=== PATIENT | male | born 1945 | race Caucasian/White ===

== ENCOUNTER 2016-05-30 05:38 | Day surgery (SDC) | payer MEDICARE ==
[2016-05-30] VITALS (10 sets, daily range): BP systolic 127–207; BP diastolic 79–108; PULSE 48–78; RESP 16–18; TEMP 97.9–98.3; O2SAT 93–98
[~2016-05-30] VITALS: Ht 177.8 cm; Wt 95.5 kg
[~2016-05-30 05:38] MED LIST: ASPI1TAB69 PO; ATOR20TA15 PO; CO-E100C; COPA20KI SQ; FLUT1SPR5 EACH NARE; GABA300C5 PO; METO50TA PO; MULT-65 PO; NIAC1TAB5 PO; NITR0.4S SL; SILE6TAB3 PO; TAMS5CAP PO; VESI10TA PO
[2016-05-30] MEDS ORDERED: NS 1000P @30 MLS/HR (KVO) IV SCH (06:30)
[2016-05-30] MEDS ORDERED: ASPIRIN 325 MG TAB PO SCH (06:45)
[2016-05-30] MEDS: NS 1000P @30 MLS/HR (KVO) IV SCH (06:45)
[2016-05-30] MEDS ORDERED: VITA100021 SL (06:57)
[2016-05-30] MEDS ORDERED: CENTTAB8 PO (06:57)
[2016-05-30] MEDS ORDERED: SLO-500T PO (06:57)
[2016-05-30] MEDS ORDERED: FISH1000 PO (06:57)
[2016-05-30] MEDS ORDERED: FLAX10006 PO (06:57)
[2016-05-30 07:34] LABS: AUTOMATED NEUTROPHIL # 3.2 TH/MM3 (1.8-7.7); BASOPHIL % 0.4 % (0.0-2.0); EOSINOPHIL # 0.2 TH/MM3 (0-0.4); EOSINOPHIL % 3.8 % (0.0-4.0); HEMATOCRIT 45.1 % (39.0-51.0); HEMO FLAGS DIFF FINAL; LYMPH % 32.6 % (9.0-44.0); LYMPHOCYTE # 1.9 TH/MM3 (1.0-4.8); MEAN CELL VOLUME 90.2 FL (80.0-100.0); MEAN CORPUSCULAR HEMOGLOBIN 31.2 PG (27.0-34.0); MEAN CORPUSCULAR HGB CONC 34.6 % (32.0-36.0); MONO % 6.5 % (0.0-8.0); NEUT % 56.7 % (16.0-70.0); PLATELET COUNT 106 TH/MM3 (150-450); RED CELL DISTRIBUTION WIDTH 13.7 % (11.6-17.2); WHITE BLOOD COUNT 5.7 TH/MM3 (4.0-11.0)
[2016-05-30 07:44] LABS: APTT (PATIENT) 28.7 SEC (24.3-30.1)
[2016-05-30 07:50] LABS: BICARBONATE 27.2 MEQ/L (21.0-32.0); POTASSIUM 3.8 MEQ/L (3.5-5.1)
[2016-05-30] MEDS ORDERED: diphenhydrAMINE HCL 50 MG/ML VIAL ONE (08:15)
[2016-05-30] MEDS ORDERED: NITROGLYCERIN 2% OINT 1 GM PACKET ONE (09:08)
[2016-05-30] MEDS ORDERED: HEPARIN SODIUM - IV 10,000 UNITS/10 ML VIAL ONE (09:11)
[2016-05-30] MEDS ORDERED: HEPARIN-NS/PF INJ 500 ML ONE (09:24)
[2016-05-30] MEDS ORDERED: CLOPIDOGREL 300 MG TAB ONE (09:26)
[2016-05-30] MEDS ORDERED: BIVALIRUDIN 250 MG VIAL ONE (09:29)
[2016-05-30] MEDS ORDERED: STERILE WATER FOR INJECTION 10 ML VIAL ONE (09:30)
[2016-05-30] MEDS ORDERED: NIFEdipine 10 MG CAP ONE (10:06)
--- NOTE | 2016-05-30 11:16 | MA ---
cc: WAQAS JAVED M.D. RD LAST DATE: 05/30/2016 PROCEDURE 1. Left heart cath. 2. Coronary arteriogram. 3. Percutaneous transluminal coronary artery stenting of the big mid OM branch of the LCX 80% stenosis, reducing it to 0% residual using a 2.75 x 8 mm drug-eluting Resolute stent. 4. Right femoral arteriogram. 5. Right femoral arteriotomy site closure using a StarClose device. KELP GATHERER Waqas Javed MD. EQUIPMENT USED A 6-Chinese short sheath. This was exchanged to a 7-Chinese 23 cm arrow sheath to overcome significant iliofemoral tortuosity which was affecting cannulating the left main with the guide catheter. A 6-Chinese JL-4, JR-4 diagnostic catheters and a 6-Chinese XB 3.5 and a 4.0 guides. The 3.5 finally cannulated the left main after exchanging the right femoral artery sheath as mentioned before. 0.035 J wire. 0.014 ATW long marker wire. A 2.75 x 8 mm drug-eluting Resolute stent. A StarClose device. INDICATION The indication is dyspnea on exertion and a stress nuclear study showing high risk criteria with transient ischemic dilatation and drop in the LVEF by exercise with multiple areas of anterior apical and lateral ischemia. PROCEDURE After obtaining informed consent the right groin was prepped in the usual sterile fashion. 15 ccs of 1% lidocaine was used for local anesthesia. Using the modified Seldinger technique the right femoral artery was cannulated and a 6-Chinese short sheath was inserted in the right femoral artery and this was exchanged with the longer sheath as mentioned above. Using the above-mentioned diagnostic catheters selective coronary angiograms were performed. This was followed by primary stenting with 80% proximal disease of the mid LCX OM of which a separate description will follow. At the end of the procedure the right femoral system was injected revealing no significant disease and a StarClose device was applied achieving adequate hemostasis. The patient tolerated the procedure well without acute complication at the time of dictation. CARDIAC CATHETERIZATION FINDINGS HEMODYNAMICS Aortic pressure initially was 210/100 mmHg and it came down finally to 152/89 mmHg after 10 mg of Procardia and nitro paste and intermittent nitroglycerin injection intracoronary. CORONARIES Left main artery vicente from left sinus of Valsalva, a distal mild somewhat calcified disease of about 10%. Left circumflex artery at the proximal 30%. A high OM branch had a 40% ostial disease. Mid OM branch has a 80% proximal disease which was stented in this procedure. The circumflex extended distally as a PLV branch with mild diffuse irregularities of less than 30%. It gave a mid atrial branch with mild luminal irregularities of less than 10%. Ramus intermediate artery branch from the left main artery had a proximal 30% and diffuse 30-40% mid disease. Left anterior descending artery branch from the left main artery had diffuse proximal to mid disease ranging between 50-70% with in-stent restenosis. The rest of the LAD had mild diffuse irregularities with less than 30%. It gave diagonal septal branches with second septal trunk had a 40-50% ostial proximal disease. Right coronary artery vicente from right sinus of Valsalva, had a proximal 40% followed by diffuse mid 30% disease. The PDA had a proximal 30% stenosis, diffuse disease in the proximal area ranging between 20-30%, then it bifurcated to an upper and lower branch. The lower branch had an ostial 50-60% stenosis. The PLV branch had a mid 50-60% stenosis and mild luminal irregularities of less than 30%. Left ventriculogram was not performed to compromise on the contrast amounts, because of baseline creatinine of 1.3. CONCLUSION OF CARDIAC CATHETERIZATION 1. Mild to moderate diffuse RCA disease with moderate disease of the PDA and the PLV branches. 2. Significant mid OM disease which was stented in this procedure. 3. Significant proximal to mid LAD, will be dealt with at a later date. 4. It was felt to proceed with revascularization of the LCX OM. I did not want to proceed with revascularization of the LAD as well because of baseline impaired renal function and the need to compromise on the contrast. A total of 135 ccs of contrast was used. REVASCULARIZATION OF THE MID LCX OM An XB 3.5 LAD initially was given by mistake and this was exchanged to an XB 4.0 guide but because of tortuosity in the navajo femoral system, it did not cannulate the left main easy and the 6-Chinese sheath in the right femoral artery was exchanged to a long arrow 23 cm sheath at overcome the tortuosity and then a new XB 6-Chinese guide 3.5 was used to cannulate the left main. Then a 0.014 ATW long marker wire was advanced in the distal portion of the LCX OM. Then primary stenting using a 2.75 x 8-mm Resolute stent was done and inflated to 10 atmospheres. Then the balloon was advanced distal to the stent because of a distal aneurysmal dilatation and inflated again to 16 atmospheres to flare the distal edge of the stent. ([employer] IVUS was not available). The [employer] IVUS catheter tip was felt to be bulkier and with possible harm in negotiating it down the tortuosity and angulation of the LCX OM branch. It was decided to accept these results. The wire was withdrawn and multiple angiographic pictures revealed excellent angiographic results with 0% stenosis and AVTAR grade III distal flow. The patient tolerated the procedure well without acute complication at the time of dictation. MD JOY Faria/CARIDAD /10:17 AM /10:37 AM
[2016-05-30] MEDS ORDERED: NITROGLYCERIN 0.4 MG SL 25 TABS/BTL SL PRN (12:30)
[2016-05-30] MEDS ORDERED: IOHEXOL 350 MG/ML 100 ML BTL (for Cath Lab) OTHER ONE (13:44)
--- NOTE | 2016-05-30 14:40 | EKG ---
Date Performed: 05/30/2016 Time Performed: 06:31:14 PTAGE: 70 years EKG: Sinus bradycardia Possible left anterior fascicular block Borderline ECG Compared to prior tracing no significant change PREVIOUS TRACING : 11/23/2015 19.53 DOCTOR: Santiago Cummings Interpretating Date/Time 05/30/2016 14:37:44
[2016-05-30] MEDS: SODIUM CHLOR 0.9% 1000 ML INJ 1,000 ML IV SCH (17:30)
[2016-05-30] MEDS: NIACIN 500 MG EXTENDED RELEASE TAB PO SCH (20:11)
[2016-05-30] MEDS: ASPIRIN EC 81 MG TABEC PO SCH (20:12)
[2016-05-30] MEDS: METOPROLOL TARTRATE 25 MG TAB PO SCH (20:12)
[2016-05-30] MEDS: TAMSULOSIN HCL 0.4 MG CAP PO SCH (20:15)
[2016-05-31] VITALS (15 sets, daily range): BP systolic 95–169; BP diastolic 64–102; PULSE 47–80; RESP 16; TEMP 97.8–98.1; O2SAT 94–99
[2016-05-31] MEDS ORDERED: cloNIDine HCL 0.1 MG TAB PO ONE ×2 (03:50→04:20)
[2016-05-31] MEDS ORDERED: clonazePAM 1 MG TAB PO ONE (03:50)
[2016-05-31] MEDS ORDERED: ENALAPRIL MALEATE 10 MG TAB PO ONE (06:15)
[2016-05-31] MEDS ORDERED: hydrALAZINE HCL 20 MG/ML VIAL IVS ONE (06:15)
[2016-05-31] MEDS: NS 1000P @30 MLS/HR (KVO) IV SCH (06:45)
[2016-05-31 06:47] LABS: AUTOMATED NEUTROPHIL # 4.7 TH/MM3 (1.8-7.7); BASOPHIL % 0.4 % (0.0-2.0); EOSINOPHIL # 0.2 TH/MM3 (0-0.4); EOSINOPHIL % 3.3 % (0.0-4.0); HEMATOCRIT 42.8 % (39.0-51.0); LYMPH % 25.7 % (9.0-44.0); LYMPHOCYTE # 1.9 TH/MM3 (1.0-4.8); MEAN CORPUSCULAR HEMOGLOBIN 30.7 PG (27.0-34.0); MEAN CORPUSCULAR HGB CONC 34.1 % (32.0-36.0); MONO % 6.8 % (0.0-8.0); NEUT % 63.8 % (16.0-70.0); PLATELET COUNT 98 TH/MM3 (150-450); RED BLOOD COUNT 4.75 MIL/MM3 (4.50-5.90); RED CELL DISTRIBUTION WIDTH 13.8 % (11.6-17.2); WHITE BLOOD COUNT 7.4 TH/MM3 (4.0-11.0)
[2016-05-31 06:56] LABS: HEMO FLAGS AUTO DIFF
[2016-05-31 07:12] LABS: BICARBONATE 27.5 MEQ/L (21.0-32.0); POTASSIUM 4.2 MEQ/L (3.5-5.1)
[2016-05-31 08:21] LABS: OVALOCYTES 1+ (NORMAL); PLATELET ESTIMATE SMEAR LOW (NORMAL); PLATELET MORPHOLOGY NORMAL (NORMAL); SCAN/DIFF AUTO DIFF CONFIRMED
[2016-05-31] MEDS: ASPIRIN EC 81 MG TABEC PO SCH (08:31)
[2016-05-31] MEDS: METOPROLOL TARTRATE 25 MG TAB PO SCH (08:31)
[2016-05-31] MEDS: TAMSULOSIN HCL 0.4 MG CAP PO SCH (08:32)
[2016-05-31] MEDS: NIACIN 500 MG EXTENDED RELEASE TAB PO SCH (08:33)
[2016-05-31] MEDS ORDERED: MULTIVITAMINS/MINERALS THERAPEUTIC TAB PO SCH (09:00)
[2016-05-31] MEDS ORDERED: CYANOCOBALAMIN 1,000 MCG TAB PO SCH (09:00)
[2016-05-31] MEDS ORDERED: TOLTERODINE TARTRATE 4 MG CAP LA PO SCH (09:00)
[2016-05-31] MEDS ORDERED: CLOPIDOGREL 75 MG TAB PO SCH (09:00)
[2016-05-31] MEDS ORDERED: AMLO5TAB2 PO (10:45)
[2016-05-31] MEDS ORDERED: PLAV75TA29 PO (10:45)
[2016-05-31] MEDS: SODIUM CHLOR 0.9% 1000 ML INJ 1,000 ML IV SCH (10:55)
[2016-05-31] MEDS ORDERED: ENALAPRIL MALEATE 10 MG TAB PO SCH (21:00)
[2016-07-16] MEDS ORDERED: VESI10TA PO (10:24)
[2016-09-03] MEDS ORDERED: TAMS5CAP PO ×2 (13:03→13:26)
[2016-09-03] MEDS ORDERED: ASPI-110 PO (13:03)
[2016-09-03] MEDS ORDERED: CENTCHW3 (13:03)
[2016-09-03] MEDS ORDERED: FLAX1000 (13:03)
== END 2016-05-31 14:30 | disposition home or self-care (01) ==
LOC: HDOC 05:38 → HDIC 05:39 → HCIS 16:59 → HDOC 05-31 14:30
PROVIDERS: ATTEND Internal Medicine Interventional Cardiology
DX: R94.30 Abnormal result of cardiovascular function study, unspecified (principal); R06.09 Other forms of dyspnea; I25.10 Atherosclerotic heart disease of native coronary artery without angina pectoris
CPT/HCPCS: 80048; 82550; 85025; 85610; 85730; 92928; 93005; 93454; C1760; C1769; C1874; C1887; C1893; G0269; J0583; J1200; J1644; J3010; J7030; Q9967

== ENCOUNTER 2016-06-02 11:16 | Observation (INO) | payer MEDICARE ==
[2016-06-02] VITALS (7 sets, daily range): BP systolic 108–188; BP diastolic 57–91; PULSE 67–82; RESP 16–20; TEMP 97.6–100.2; O2SAT 94–100
[~2016-06-02] VITALS: Ht 180.3 cm; Wt 95.5 kg
[~2016-06-02 11:16] MED LIST changes: +AMLO5TAB2 PO; -ATOR20TA15 PO; +CENTTAB8 PO; -CO-E100C; -COPA20KI SQ; +FISH1000 PO; +FLAX10006 PO; -FLUT1SPR5 EACH NARE; -GABA300C5 PO; -MULT-65 PO; -NIAC1TAB5 PO; +PLAV75TA29 PO; -SILE6TAB3 PO; +SLO-500T PO; +VITA100021 SL
[2016-06-02] MEDS ORDERED: SODIUM CHLOR 0.9% 1000 ML INJ 1,000 ML IV SCH (11:22)
[2016-06-02 11:46] LABS: AUTOMATED NEUTROPHIL # 11.9 TH/MM3 (1.8-7.7); BASOPHIL % 0.2 % (0.0-2.0); EOSINOPHIL % 0.3 % (0.0-4.0); HEMATOCRIT 44.3 % (39.0-51.0); LYMPHOCYTE # 1.9 TH/MM3 (1.0-4.8); MEAN CORPUSCULAR HEMOGLOBIN 30.8 PG (27.0-34.0); MEAN CORPUSCULAR HGB CONC 33.8 % (32.0-36.0); MONO % 6.7 % (0.0-8.0); NEUT % 79.8 % (16.0-70.0); PLATELET COUNT 97 TH/MM3 (150-450); RED BLOOD COUNT 4.87 MIL/MM3 (4.50-5.90); WHITE BLOOD COUNT 14.9 TH/MM3 (4.0-11.0)
[2016-06-02 11:50] LABS: HEMO FLAGS AUTO DIFF
[2016-06-02 11:56] LABS: APTT (PATIENT) 28.5 SEC (24.3-30.1); INTERNATIONAL NORMALIZED RATIO 1.1 RATIO; PROTHROMBIN TIME - PATIENT 11.7 SEC (9.8-11.6)
[2016-06-02 12:04] LABS: ALT (GPT) 22 U/L (12-78); ANION GAP 11 MEQ/L (5-15); AST (GOT) 35 U/L (15-37); BICARBONATE 24.8 MEQ/L (21.0-32.0); BLOOD UREA NITROGEN 28 MG/DL (7-18); CHLORIDE 104 MEQ/L (98-107); GLOMERULAR FILTRATION RATE 34 ML/MIN (>89); MAGNESIUM 2.1 MG/DL (1.5-2.5); POTASSIUM 3.8 MEQ/L (3.5-5.1); SODIUM (NA) 140 MEQ/L (136-145)
--- NOTE | 2016-06-02 12:09 | RADRPT ---
EXAM DATE/TIME: 06/02/2016 11:43 [facility] COMPARISON: CT BRAIN W/O CONTRAST, November 23, 2015, 20:24. INDICATIONS : Bilateral lower extremity weakness with multiple falls. RADIATION DOSE: 56.40 CTDIvol (mGy) MEDICAL HISTORY : Hypertension. Multiple sclerosis. SURGICAL HISTORY : None. ENCOUNTER: Initial ACUITY: 1 day PAIN SCALE: 0/10 LOCATION: Bilateral head TECHNIQUE: Multiple contiguous axial images were obtained of the head. Using automated exposure control and adj ustment of the mA and/or kV according to patient size, radiation dose was kept as low as reasonably a chievable to obtain optimal diagnostic quality images. FINDINGS: CEREBRUM: The ventricles are normal for age. No evidence of midline shift, mass lesion, hemorrhage or acute in farction. No extra-axial fluid collections are seen. POSTERIOR FOSSA: The cerebellum and brainstem are intact. The 4th ventricle is midline. The cerebellopontine angle i s unremarkable. EXTRACRANIAL: The visualized portion of the orbits is intact. SKULL: The calvaria is intact. No evidence of skull fracture. CONCLUSION: No acute disease. Kim Fowler MD on June 02, 2016 at 12:08 Board Certified Radiologist. This report was verified electronically.
[2016-06-02 12:18] LABS: ALKALINE PHOSPHATASE 95 U/L (45-117); CREATINE KINASE 1067 U/L (39-308); TOTAL BILIRUBIN ADULT 1.3 MG/DL (0.2-1.0)
[2016-06-02 12:24] LABS: PLATELET ESTIMATE SMEAR LOW (NORMAL); PLATELET MORPHOLOGY NORMAL (NORMAL); SCAN/DIFF AUTO DIFF CONFIRMED
[2016-06-02 12:30] LABS: CKMB 7.3 NG/ML (0.5-3.6)
--- NOTE | 2016-06-02 12:35 | RADRPT ---
EXAM DATE/TIME: 06/02/2016 12:56 [facility] COMPARISON: CHEST SINGLE AP, November 23, 2015, 20:12. INDICATIONS : Chest pain post fall MEDICAL HISTORY : Multiple sclerosis. SURGICAL HISTORY : None. ENCOUNTER: Initial ACUITY: 1 day PAIN SCORE: 9/10 LOCATION: Bilateral chest FINDINGS: The lungs appear mildly hypoinflated. There is no evidence of pneumothorax or new focal airspace opac ity. There is persistent area of ill-defined increased density identified in the left lung base and w ithin the medial aspect of the right upper lung. The heart size appears normal. The pulmonary vascula ture demonstrates diffuse cephalization. Osseous structures are unremarkable. CONCLUSION: Findings suggestive of volume overload. No focal air space opacity seen to suggest co ntusion. No evidence of pneumothorax. Kim Fowler MD on June 02, 2016 at 12:32 Board Certified Radiologist. This report was verified electronically.
--- NOTE | 2016-06-02 12:44 | RADRPT ---
EXAM DATE/TIME: 06/02/2016 13:01 [facility] COMPARISON: No previous studies available for comparison. INDICATIONS : Pelvic pain post fall MEDICAL HISTORY : Multiple sclerosis. SURGICAL HISTORY : None. ENCOUNTER: Initial ACUITY: 1 day PAIN SCORE: 9/10 LOCATION: Bilateral pelvis FINDINGS: A single frontal view of the pelvis demonstrates no evidence of fracture. The bony pelvic ring is in tact. Bony mineralization is normal. The soft tissues are intact. CONCLUSION: No acute disease. Kim Fowler MD on June 02, 2016 at 12:42 Board Certified Radiologist. This report was verified electronically.
--- NOTE | 2016-06-02 12:45 | RADRPT ---
EXAM DATE/TIME: 06/02/2016 13:04 [facility] COMPARISON: No previous studies available for comparison. INDICATIONS : Left knee pain post fall MEDICAL HISTORY : Multiple sclerosis. SURGICAL HISTORY : None. ENCOUNTER: Initial ACUITY: 1 day PAIN SCORE: 8/10 LOCATION: Left knee FINDINGS: Four view examination of the left knee demonstrates no evidence of fracture or dislocation. Bony min eralization is normal. The articular surfaces are intact. The suprapatellar soft tissues have a nor mal configuration.CONCLUSION: No acute disease. Kim Fowler MD on June 02, 2016 at 12:42 Board Certified Radiologist. This report was verified electronically.
--- NOTE | 2016-06-02 12:45 | RADRPT ---
EXAM DATE/TIME: 06/02/2016 13:07 [facility] COMPARISON: No previous studies available for comparison. INDICATIONS : Right knee pain, post fall MEDICAL HISTORY : Multiple sclerosis. SURGICAL HISTORY : None. ENCOUNTER: Initial ACUITY: 1 day PAIN SCORE: 10/10 LOCATION: Right knee FINDINGS: Two view examination of the right knee demonstrates no evidence of fracture or dislocation. Bony min eralization is normal. The suprapatellar soft tissues have a normal configuration. CONCLUSION: Unremarkable limited examination of the right knee. Kim Fowler MD on June 02, 2016 at 12:43 Board Certified Radiologist. This report was verified electronically.
[2016-06-02] MEDS ORDERED: ACETAMINOPHEN 325 MG TAB PO ONE (13:00)
--- NOTE | 2016-06-02 13:13 | PD ---
HPI Chief Complaint: Fall Time Seen by Provider: 13:05 Travel History International Travel<30 days: No Contact w/Intl Traveler<30days: No Traveled to known affect area: No History of Present Illness HPI 70-year-old male that presents to the ED for evaluation of fall. Patient has chronic history of MS, recent stenting of the heart about 3 days ago as well as CHF. Patient comes here for evaluation of a fall. Per patient today he woke up with weakness to his legs. Per patient he landed on his knees and try to stop his follow with his legs. Patient couldn't get up because he felt very weak and his legs so he called the ambulance. Ambulance came and brought him here. Patient reports no other complaints. Patient denies given any pain. Per patient he just feels weak in his lower legs. He lives alone. He states that he is currently being treated for his MS. He states that he has had no issues since having the stent placed. He denies any chest pain. No shortness of breath. No headache. No blurry vision. No numbness, tilling, weakness. Per patient he is able to move his legs but whenever he puts weight on and he feels very shaky. He did have an episode something similar like this from her medical records less than a year ago and he was found to have a UTI. He was found to have a fever here in the ED. He denies any cold or cough. No sinus like symptoms. No bowel movement or urinary issues. Allergy to Stephie. PFSH Past Medical History Anxiety: Yes Cancer: No Cardiac Catheterization: Yes (2 days ago 05/31/2016) Cardiovascular Problems: Yes (CAD/STENT) High Cholesterol: Yes Diabetes: No Diminished Hearing: No Endocrine: No Genitourinary: Yes (ENLARGED PROSTATE) Hepatitis: No Hiatal Hernia: No Hypertension: Yes Immune Disorder: No Medical other: Yes (MS) Musculoskeletal: No Neurologic: Yes (MULTIPLE SCLEROSIS) Thyroid Disease: No Tetanus Vaccination: Unknown Influenza Vaccination: Yes Past Surgical History Cardiac Surgery: Yes (RIGHT VASCULAR STENT 2002, CARDIAC CATHERIZATION) Coronary Stent: Yes (2002) Genitourinary Surgery: Yes (SURGERY FOR OPENING OF URETHRA) Oral Surgery: Yes (TOOTH EXTRACTIONS 2008) Pacemaker: No Other Surgery: Yes Social History Alcohol Use: No Tobacco Use: Yes (4 CIGARETTES DAILY) Substance Use: No Allergies-Medications (Allergen,Severity, Reaction): Coded Allergies: Stephie (Verified Allergy, Severe, CAUSES PROSTATE ISSUES, 06/02/16) Reported Meds & Prescriptions Reported Meds & Active Scripts Active Reported Amlodipine (Amlodipine Besylate) 5 Mg Tab 5 Mg PO HS Plavix (Clopidogrel Bisulfate) 75 Mg Tab 75 Mg PO DAILY Slo-Niacin (Niacin) 500 Mg Tab 500 Mg PO BID Vitamin B-12 (Cyanocobalamin) 1,000 Mcg Subl 1,000 Mcg SL DAILY Flaxseed Oil (Flaxseed (Linseed)) 1,000 Mg Cap 1,000 Mg PO DAILY Fish Oil ([place]-3 Fatty Acids) 1,000 Mg Cap 1 Cap PO DAILY Centrum Adults (Multiple Vitamins W/ Minerals) 1 Tab 1 Tab PO DAILY Nitrostat SL (Nitroglycerin) 0.4 Mg Subl 0.4 Mg SL DIRECTED PRN ONE TABLET UNDER THE TONGUE NEEDED FOR CHEST PAIN, MAY REPEAT EVERY FIVE MINUTES FOR A TOTAL OF 3 DOSES OR CALL 911 IF NO RELIEF Aspirin 81 Mg Tabdr 81 Mg PO BID Metoprolol Tartrate 50 Mg Tab 25 Mg PO BID Vesicare (Solifenacin) 10 Mg Tab 10 Mg PO DAILY Flomax (Tamsulosin HCl) 0.4 Mg Cap 0.4 Mg PO BID Review of Systems General / Constitutional: Positive: Fever, No: Chills, Weight Gain, Weight Loss, Other Eyes: No: Diploplia, Blurred Vision, Photophobia, Drainage, Redness, Foreign Body Sensation, Pain, Tearing, Blind Spots, Visual changes, Blindness, Other HENT: No: Headaches, Vertigo, Lightheadedness, Sore Throat, Rhinitis, Rhinorrhea, Congestion, Nosebleed, Neck Stiffness, Neck Pain, Masses, Gingival Bleeding, Dental Difficulties, Ear Discharge, Earache, Other Cardiovascular: No: Chest Pain or Discomfort, Palpitations, Irregular Rhythm, Tachycardia, Diaphoresis, Syncope, Dyspnea on exertion, Varicosities, Edema, Cyanosis, Varicosities, Phlebitis, Claudication, Other Respiratory: No: Cough, Shortness of Breath, Wheezing, Sneezing, Orthopnea, Hemoptysis, Stridor, Night Sweats, Pleuritic Pain, Other Gastrointestinal: No: Nausea, Vomiting, Diarrhea, Abdominal Pain, Hematemesis, Hematochezia, Constipation, Changes in Bowel Habits, Indigestion, Dysphagia, Loss of Appetite, Other Genitourinary: No: Urgency, Frequency, Dysuria, Nocturia, Hematuria, Decreased Urinary Output, Oliguria, Hesitancy, Dribbling, Incontinence, Pelvic Pain, Flank Pain, Dyspareunia, Discharge, Dysmenorrhea, Menorrhagia, Metorrhagia, Vaginal Bleeding, Other Musculoskeletal: Positive: Weakness, No: Myalgias, Arthralgias, Limited ROM, Cramping, Edema, Pain, Atrophy, Other Skin: Positive Lesions (abrasions), No Rash, No Itching, No Dryness, No Lumps, No Hives, No Change in Pigmentation, No Change in nails, No Alopecia, No Breast Lumps, No Breast Tenderness, No Breast Swelling, No Other Neurologic: Positive: Weakness, No: Dizziness, Syncope, Focal Abnormalities, Coordination Problem, Tremor, Ataxia, Headache, Change in Mentation, Slurred Speech, Paresthesia, Incontinence, Seizures, Sensory Disturbance, Other Psychiatric: No: Anxiety, Depression, Suicidal Ideations, Disorder of Thought, Mood Disorder, Substance Abuse, Homicidal Ideation, Other Endocrine: No: Heat Intolerance, Cold Intolerance, Polyuria, Polydipsia, Other Hematologic/Lymphatic: No: Easy Bruising, Lymph Node Enlargement, Other Physical Exam Narrative GENERAL: SKIN: Warm and dry. HEAD: Atraumatic. Normocephalic. EYES: Pupils equal and round 4 mm reactive to light and accommodation. No scleral icterus. No injection or drainage. ENT: No nasal bleeding or discharge. Mucous membranes pink and moist. Tongue is midline. No uvula deviation. NECK: Trachea midline. No JVD. CARDIOVASCULAR: Regular rate and rhythm. No murmurs, S3, S4. RESPIRATORY: No accessory muscle use. Clear to auscultation. Breath sounds equal bilaterally. GASTROINTESTINAL: Abdomen soft, non-tender, nondistended. Hepatic and splenic margins not palpable. MUSCULOSKELETAL: Extremities without clubbing, cyanosis, or edema. No obvious deformities. Full range of motion of the upper and lower extremities bilaterally. 2+ pulses bilaterally. No obvious deformity noted on the lower legs. Patient does have abrasions to the legs on the kneecaps but no obvious deformity. Full range of motion of the hips. No pain on the hips. No lumbar, thoracic, cervical spine tenderness to palpation. No signs of injury to the head. Patient does have 1+ pitting edema on the lower legs which per patient is chronic. No other obvious deformity. Patient does appear to have 5 out of 5 strength in the lower legs but cannot put any weight on them with of being very shaky. NEUROLOGICAL: Awake and alert. No obvious cranial nerve deficits. Motor grossly within normal limits. Five out of 5 muscle strength in the arms and legs. Normal speech. PSYCHIATRIC: Appropriate mood and affect; insight and judgment normal. Data Data Last Documented VS Vital Signs Date Time Temp Pulse Resp B/P Pulse Ox O2 Delivery O2 Flow Rate FiO2 06/02/16 11:27 18 94 Nasal Cannula 2 06/02/16 11:18 100.2 82 142/74 Orders Electrocardiogram (06/02/16 11:22) Complete Blood Count With Diff (06/02/16 11:22) Comprehensive Metabolic Panel (06/02/16 11:22) Ckmb (Isoenzyme) Profile (06/02/16 11:22) Troponin I (06/02/16 11:22) Prothrombin Time / Inr (Pt) (06/02/16 11:22) Act Partial Throm Time (Ptt) (06/02/16 11:22) Urinalysis - C+S If Indicated (06/02/16 11:22) Magnesium (Mg) (06/02/16 11:22) Thyroid Stimulating Hormone (06/02/16 11:22) Chest, Single Ap (06/02/16 11:22) Ct Brain W/O Iv Contrast(Rout) (06/02/16 11:22) Iv Access Insert/Monitor (06/02/16 11:22) Ecg Monitoring (06/02/16 11:22) Oximetry (06/02/16 11:22) Knee, Ltd (1 Or 2vws) (06/02/16 ) Knee, Complete (4vws) (06/02/16 ) Pelvis, Ap Only (Routine) (06/02/16 ) Sodium Chlor 0.9% 1000 Ml Inj (Ns 1000 M (06/02/16 11:22) Lactic Acid (06/02/16 11:27) Blood Culture (06/02/16 11:27) CKMB (06/02/16 11:25) CKMB% (06/02/16 11:25) Cath For Specimen (06/02/16 12:27) Acetaminophen (Tylenol) (06/02/16 13:00) Admit Order (Ed Use Only) (06/02/16 13:03) Labs Laboratory Tests Test 06/02/16 11:25 White Blood Count 14.9 TH/MM3 Red Blood Count 4.87 MIL/MM3 Hemoglobin 15.0 GM/DL Hematocrit 44.3 % Mean Corpuscular Volume 91.0 FL Mean Corpuscular Hemoglobin 30.8 PG Mean Corpuscular Hemoglobin 33.8 % Concent Red Cell Distribution Width 14.0 % Platelet Count 97 TH/MM3 Mean Platelet Volume 8.4 FL Neutrophils (%) (Auto) 79.8 % Lymphocytes (%) (Auto) 13.0 % Monocytes (%) (Auto) 6.7 % Eosinophils (%) (Auto) 0.3 % Basophils (%) (Auto) 0.2 % Neutrophils # (Auto) 11.9 TH/MM3 Lymphocytes # (Auto) 1.9 TH/MM3 Monocytes # (Auto) 1.0 TH/MM3 Eosinophils # (Auto) 0.0 TH/MM3 Basophils # (Auto) 0.0 TH/MM3 CBC Comment AUTO DIFF Differential Comment AUTO DIFF CONFIRMED Platelet Estimate LOW Platelet Morphology Comment NORMAL Prothrombin Time 11.7 SEC Prothromb Time International 1.1 RATIO Ratio Activated Partial 28.5 SEC Thromboplast Time Sodium Level 140 MEQ/L Potassium Level 3.8 MEQ/L Chloride Level 104 MEQ/L Carbon Dioxide Level 24.8 MEQ/L Anion Gap 11 MEQ/L Blood Urea Nitrogen 28 MG/DL Creatinine 1.94 MG/DL Estimat Glomerular Filtration 34 ML/MIN Rate Random Glucose 106 MG/DL Lactic Acid Level 1.7 mmol/L Calcium Level 8.9 MG/DL Magnesium Level 2.1 MG/DL Total Bilirubin 1.3 MG/DL Aspartate Amino Transf 35 U/L (AST/SGOT) Alanine Aminotransferase 22 U/L (ALT/SGPT) Alkaline Phosphatase 95 U/L Total Creatine Kinase 1067 U/L Creatine Kinase MB 7.3 NG/ML Creatine Kinase MB % 0.7 % Troponin I 0.05 NG/ML Total Protein 7.1 GM/DL Albumin 3.5 GM/DL Thyroid Stimulating Hormone 0.535 uIU/ML 3rd Gen [facility] Medical Decision Making Medical Screen Exam Complete: Yes Emergency Medical Condition: Yes Medical Record Reviewed: Yes Interpretation(s) CBC & BMP Diagram 06/02/16 11:25 EKG shows sinus rhythm with no sign of acute ischemia or arrhythmia. Read by me and attending. Troponin negative. CK in the 1000. LFTs and lipase within normal limits. Last Impressions Head CT 06/02/16 1122 Signed Impressions: Service Date/Time: Thursday, June 02, 2016 11:43 - CONCLUSION: No acute disease. Kim Fowler MD Chest X-Ray 06/02/16 1122 Signed Impressions: Service Date/Time: Thursday, June 02, 2016 12:56 - CONCLUSION: Findings suggestive of volume overload. No focal air space opacity seen to suggest contusion. No evidence of pneumothorax. iKm Fowler MD Pelvis X-Ray 06/02/16 0000 Signed Impressions: Service Date/Time: Thursday, June 02, 2016 13:01 - CONCLUSION: No acute disease. Kim Fowler MD Knee X-Ray 06/02/16 0000 Signed Impressions: Service Date/Time: Thursday, June 02, 2016 13:04 - CONCLUSION: No acute disease. Kim Fowler MD Knee X-Ray 06/02/16 0000 Signed Impressions: Service Date/Time: Thursday, June 02, 2016 13:07 - CONCLUSION: Unremarkable limited examination of the right knee. Kim Fowler MD Differential Diagnosis Sepsis versus generalized weakness versus MS flare versus UTI versus coronary artery disease versus electrolyte abnormality versus fracture versus head injury Narrative Course 70-year-old male that presents to the ED for evaluation of fall. Patient was properly examined and was found to have signs and symptoms consistent appears to be generalized weakness to the lower legs. Unclear etiology this time. Patient does have significant history of MS and multiple other disorders. Patient does have a heart stent. She denies any chest pain or shortness of breath. Patient has a resting tach. No head injury although he does take blood thinners. At this time a recommendation is for labs and imaging. Patient is agreeable with this plan. Patient was given IV fluids. Patient on examination was found to have a fever of 100.3. Patient was given Tylenol for this. I did review his medical records and he did have a similar episode recently where he was found to have a UTI he had same presentation. Labs and imaging here show an elevated white blood cell count as well as CK as well as abnormal renal function which appears to be chronic for him and some fluid in the lungs. At this time a recommendation is for admission as patient lives by himself and cannot ambulate on his own. Urine still pending at this time. Order has been placed for to be performed to get urine sample which I believe will likely be positive. Case discussed in my attending who agrees with plan. Case was discussed with Dr. Bonner for the resident team and agrees to admission. Procedures EKG Prior to Arrival: No Diagnosis Primary Impression: Lower extremity weakness Qualified Code: R29.898 - Weakness of both lower extremities Additional Impressions: Fluid overload Qualified Code: E87.70 - Hypervolemia, unspecified hypervolemia type Fever Qualified Code: R50.9 - Fever, unspecified fever cause Leukocytosis Qualified Code: D72.829 - Leukocytosis, unspecified type Admitting Information Admitting Physician Requests: Admit Mark Burgos Jun 02, 2016 13:13
--- NOTE | 2016-06-02 13:21 | HHI.HP ---
HPI Service Family Medicine Primary Care Physician Marli Pltaa MD Admission Diagnosis generalized weakness, UTI, CHF Diagnoses: International Travel<30 Days: No Contact w/Intl Traveler<30days: No Known Affected Area: No History of Present Illness Mr. Cullen is a 70 y/o CM with a PMHx of BPH, MS, and CAD s/p stent placement presents with BL LE weakness with a fall. He states that this morning while using his walker to get from his bed to the bathroom his legs felt weaker than his baseline. After urinating, he attempted to grab his walker when he accidently pushed it away from him as the brakes were not locked. This caused him to fall forward on to his knees. He did not lose consciousness during the fall and denies any seizure like activity such as incontinence, tongue biting, or post-ictal state. He immediately tried to get up, but had difficulty lifting himself up. He finally made it up to his walker and called 911. He was brought by EMS to the ED for further evaluation. He feels that this episode of weakness is similar to when he was diagnosed with MS in 2001. During that time he had weakness in the BL LE, but states this episode is worse in severity. He does not endorse any pain in his legs, but just states they "feel like jello." He does have sensation throughout both legs as well, but is unable to bare any weight due to imbalance. He states that he has been doing well after his recent cardiac stent placement on 05/30/16. He has no other complaints and denies any fevers, chills, diaphoresis, SOB, chest pain , NVD, dysuria, or BL calf tenderness. He is a patient of Dr. Plata at the [facility]. Review of Systems Constitutional: DENIES: Fever, Chills, Dizziness Eyes: DENIES: Blurred vision, Photosensitivity Ears, nose, mouth, throat: DENIES: Throat pain, Running Nose Respiratory: DENIES: Cough, Shortness of breath Cardiovascular: DENIES: Chest pain, Palpitations Gastrointestinal: DENIES: Abdominal pain, Diarrhea, Nausea, Vomiting Genitourinary: DENIES: Dysuria Musculoskeletal: DENIES: Joint pain Integumentary: DENIES: Rash Hematologic/lymphatic: DENIES: Lymphadenopathy Neurologic: COMPLAINS OF: Poor Balance, DENIES: Headache, Paresthesias, Seizures Psychiatric: DENIES: Mood changes Past Family Social History Past Medical History CAD, stents (2002, 2016) - Dr. 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 DC at 65yo. Paternal grandmother- CAD Sister - DM Social History Retired from [employer]. Lives by himself in [facility]. Smoking - Extensive prior history, Quit 1 month ago Alcohol - Last drink in 2005 Illicit - None Other Physicians: Urology: Dr Feliciano Cardiology: Dr Hanna Neurology: Dr Scott GI (screening Colonoscopy): Dr Whalen Physical Exam Vital Signs Vital Signs Date Time Temp Pulse Resp B/P Pulse Ox O2 Delivery O2 Flow Rate FiO2 06/02/16 11:27 18 94 Nasal Cannula 2 06/02/16 11:27 96 Nasal Cannula 2 06/02/16 11:18 100.2 82 18 142/74 94 Physical Exam GENERAL: WN, WD CM lying in bed in NAD. SKIN: No rashes, ecchymoses, lesions or signs of trauma. Cool and dry. HEENT: AT, NC with EOMI. PERRLA. Oropharnx with white/yellow film on tongue, BL buccal mucosa, and posterior pharynx that is easily removable without hemorrhage. No tonsillar swelling, erythema, or exudate. MMM with midline uvula. No LAD or rhinorrhea. CARDIOVASCULAR: Regular rate and rhythm without murmurs, gallops, or rubs. RESPIRATORY: CTAB with no CRW. No increased WOB currently on 2L NC. GASTROINTESTINAL: Abdomen soft, non-tender, nondistended with +BS. No masses appreciated. MUSCULOSKELETAL: Extremities without cyanosis or edema. No joint tenderness, effusion, or edema noted. No calf tenderness. BL LE: No signs of trauma, ecchymosis, or hemorrhage on inspection. No edema appreciated BL. Proximal muscle weakness on straight leg raise BL to 2+/5. Knee flexion/extension and ankle flexion/extension 5/5 in strength. Reflexes 2+ with normal Babinski. DP and PT pulses 2+ with sensation intact. Patient unable to walk due to imbalance. NEUROLOGICAL: AAOx3. Cranial nerves II through XII intact. Motor and sensory grossly within normal limits. Normal speech. Laboratory Laboratory Tests Test 06/02/16 11:25 White Blood Count 14.9 Red Blood Count 4.87 Hemoglobin 15.0 Hematocrit 44.3 Mean Corpuscular Volume 91.0 Mean Corpuscular Hemoglobin 30.8 Mean Corpuscular Hemoglobin 33.8 Concent Red Cell Distribution Width 14.0 Platelet Count 97 Mean Platelet Volume 8.4 Neutrophils (%) (Auto) 79.8 Lymphocytes (%) (Auto) 13.0 Monocytes (%) (Auto) 6.7 Eosinophils (%) (Auto) 0.3 Basophils (%) (Auto) 0.2 Neutrophils # (Auto) 11.9 Lymphocytes # (Auto) 1.9 Monocytes # (Auto) 1.0 Eosinophils # (Auto) 0.0 Basophils # (Auto) 0.0 CBC Comment AUTO DIFF Differential Comment AUTO DIFF CONFIRMED Platelet Estimate LOW Platelet Morphology Comment NORMAL Prothrombin Time 11.7 Prothromb Time International 1.1 Ratio Activated Partial 28.5 Thromboplast Time Sodium Level 140 Potassium Level 3.8 Chloride Level 104 Carbon Dioxide Level 24.8 Anion Gap 11 Blood Urea Nitrogen 28 Creatinine 1.94 Estimat Glomerular Filtration 34 Rate Random Glucose 106 Lactic Acid Level 1.7 Calcium Level 8.9 Magnesium Level 2.1 Total Bilirubin 1.3 Aspartate Amino Transf 35 (AST/SGOT) Alanine Aminotransferase 22 (ALT/SGPT) Alkaline Phosphatase 95 Total Creatine Kinase 1067 Creatine Kinase MB 7.3 Creatine Kinase MB % 0.7 Troponin I 0.05 Total Protein 7.1 Albumin 3.5 Thyroid Stimulating Hormone 0.535 3rd Gen Date/Time Procedure Status Source Growth 06/02/16 11:25 Aerobic Blood Culture Received Blood Peripheral Pending 06/02/16 11:25 Anaerobic Blood Culture Received Blood Peripheral Pending Result Diagram: 06/02/16 1125 06/02/16 1125 Imaging Last [address] 06/02/16 1122 Signed Impressions: Service Date/Time: Thursday, June 02, 2016 11:43 - CONCLUSION: No acute disease. Kim Fowler MD Chest X-Ray 06/02/16 1122 Signed Impressions: Service Date/Time: Thursday, June 02, 2016 12:56 - CONCLUSION: Findings suggestive of volume overload. No focal air space opacity seen to suggest contusion. No evidence of pneumothorax. Kim Fowler MD Pelvis X-Ray 06/02/16 0000 Signed Impressions: Service Date/Time: Thursday, June 02, 2016 13:01 - CONCLUSION: No acute disease. Kim Fowler MD Knee X-Ray 06/02/16 0000 Signed Impressions: Service Date/Time: Thursday, June 02, 2016 13:04 - CONCLUSION: No acute disease. Kim Fowler MD Knee X-Ray 06/02/16 0000 Signed Impressions: Service Date/Time: Thursday, June 02, 2016 13:07 - CONCLUSION: Unremarkable limited examination of the right knee. Kim Fowler MD Assessment and Plan Assessment and Plan Mr. Cullen is a 70 y/o CM with a PMHx of MS presents with BL LE weakness with a fall. Code Status DNR Discussed Condition With Dr. Guzman, ER Physician Mr. Burgos, ER PA Dr. Tia Bonner Problem List: (1) Urinary tract infection Status: Acute Plan: Per chart review, patient with previous history of UTIs presenting with low-grade fever to 100.2 and leukocytosis to 14.9. Patient currently denies any dysuria, hematuria, or foul-smelling urine. Patient unable to void on command. Team to order straight catheter for UA/UC. Patient followed by Dr. Feliciano, urology, for BPH s/p TURP. CBC: WBC 14.9 CMP: BUN 28, creatinine 1.94 Lactic acid: 1.7 UA: Moderate occult blood, positive nitrite, large leukocyte esterase, 103 white blood cells, moderate bacteria, occasional budding yeast UC 06/02: Pending BC 2 06/02: Pending Rocephin 1 g daily Without improvement, consider fluconazole for possible candiduria Normal saline at 80 mL per hour; Patient does not appear to be volume over loaded on exam, continue to monitor for possible fluid overload Team to monitor urinary output with bladder scans as needed. Consider urinary catheter placement if patient continues to not be able to void. Medications: Rocephin 1 g daily Tamsulosin 0.4 mg twice a day Vesicare 10 mg daily (2) Leukocytosis Status: Acute Plan: Please see plan as above (3) Fever Status: Acute Plan: Please see plan as above (4) Elevated serum creatinine Status: Acute Plan: Patient presenting with creatinine with baseline renal insufficiency. Patient recently had IV contrast during his cardiac catheterization possibly contributing to his creatinine elevation with decreased fluid intake. CK 1367, however patient denies any muscle pain currently. Lowest recent creatinine was 1.23 on 11/24/15. BUN: 28 Creatinine: 1.94 CK: 1067 Normal saline at 80 mL per hour (5) Oral candidiasis Status: Acute Plan: Patient presenting with oral candidiasis on exam. Nystatin (swish and swallow) 4 times a day HIV antibody screen: Pending (6) S/P cardiac cath Status: Acute Plan: Patient with recent cardiac catheterization with stent placement on . Patient reports he is doing well postop and denies any chest pain, diaphoresis, palpitations, or shortness of breath. EKG: Per medical team's read, normal sinus rhythm with appropriate intervals. 2 pending Troponins: 0.05, 2 pending CK: 1067 CK-MB: 7.3, 2 pending BNP: 69 Medications: Metoprolol 25 mg twice a day Plavix 75 mg daily Aspirin 81 mg twice a day Amlodipine 5 mg daily at bedtime (7) Multiple sclerosis Status: Acute Plan: Patient with history of multiple sclerosis presenting with weakness in the bilateral lower extremities. Neurologic exam benign except for 2+/5 strength at the hips on physical exam. Continue to monitor for improvement with treatment of UTI Consider IV methylprednisolone to treat exacerbation without patient improvement (8) Fall at home Status: Acute Plan: Patient currently living at home unassisted with recent fall. Denies any seizure-like activity or loss of consciousness during fall. Head CT: No acute disease Chest x-ray: Findings suggestive of volume overload. No focal airspace opacity seen to suggest contusion. No evidence of pneumothorax. Pelvis x-ray: No acute disease Right knee x-ray: Unremarkable Limited examination of the right knee Left knee x-ray: Unremarkable Limited examination of the left knee (9) Nutrition, metabolism, and development symptoms Status: Acute Plan: Fluids: Normal saline at 80 mL per hour Diet: Regular as tolerated DVT: Heparin 5000 units twice a day Prophylaxis: Tylenol when necessary for fever, Zofran when necessary for nausea or vomiting, Dulcolax suppository when necessary for constipation Physician Certification 2 Midnight Certification Type: Admission for Inpatient Services Order for Inpatient Services The services are ordered in accordance with Medicare regulations or non- Medicare payer requirements, as applicable. In the case of services not specified as inpatient-only, they are appropriately provided as inpatient services in accordance with the 2-midnight benchmark. Estimated LOS (days): 3 3 days is the estimated time the patient will need to remain in the hospital, assuming treatment plan goals are met and no additional complications. Post-Hospital Plan: Home Problem Qualifiers (1) Urinary tract infection: Qualified Code: N30.00 - Acute cystitis without hematuria (2) Leukocytosis: Qualified Code: D72.829 - Leukocytosis, unspecified type (3) Fever: Qualified Code: R50.9 - Fever, unspecified fever cause Cirilo Silveira MD R1 Jun 02, 2016 13:21
--- NOTE | 2016-06-02 13:39 | PD ---
Physical Exam Date Seen by Provider: Jun 02, 2016 Time Seen by Provider: 13:00 Narrative 70-year-old woman with a history of multiple sclerosis who status post cardiac catheter and stent placement 2 days ago, presents today with complaint of generalized weakness with falls. The patient states since coming home, he is so weak that he is unable to care for self. The patient denies any fevers, chills. Patient denies any chest pain, chest pressure. Data Data Last Documented VS Vital Signs Date Time Temp Pulse Resp B/P Pulse Ox O2 Delivery O2 Flow Rate FiO2 06/02/16 11:27 18 94 Nasal Cannula 2 06/02/16 11:18 100.2 82 142/74 Orders Electrocardiogram (06/02/16 11:22) Complete Blood Count With Diff (06/02/16 11:22) Comprehensive Metabolic Panel (06/02/16 11:22) Ckmb (Isoenzyme) Profile (06/02/16 11:22) Troponin I (06/02/16 11:22) Prothrombin Time / Inr (Pt) (06/02/16 11:22) Act Partial Throm Time (Ptt) (06/02/16 11:22) Urinalysis - C+S If Indicated (06/02/16 11:22) Magnesium (Mg) (06/02/16 11:22) Thyroid Stimulating Hormone (06/02/16 11:22) Chest, Single Ap (06/02/16 11:22) Ct Brain W/O Iv Contrast(Rout) (06/02/16 11:22) Iv Access Insert/Monitor (06/02/16 11:22) Ecg Monitoring (06/02/16 11:22) Oximetry (06/02/16 11:22) Knee, Ltd (1 Or 2vws) (06/02/16 ) Knee, Complete (4vws) (06/02/16 ) Pelvis, Ap Only (Routine) (06/02/16 ) Sodium Chlor 0.9% 1000 Ml Inj (Ns 1000 M (06/02/16 11:22) Lactic Acid (06/02/16 11:27) Blood Culture (06/02/16 11:27) CKMB (06/02/16 11:25) CKMB% (06/02/16 11:25) Cath For Specimen (06/02/16 12:27) Acetaminophen (Tylenol) (06/02/16 13:00) Admit Order (Ed Use Only) (06/02/16 13:03) Labs Laboratory Tests Test 06/02/16 11:25 White Blood Count 14.9 TH/MM3 Red Blood Count 4.87 MIL/MM3 Hemoglobin 15.0 GM/DL Hematocrit 44.3 % Mean Corpuscular Volume 91.0 FL Mean Corpuscular Hemoglobin 30.8 PG Mean Corpuscular Hemoglobin 33.8 % Concent Red Cell Distribution Width 14.0 % Platelet Count 97 TH/MM3 Mean Platelet Volume 8.4 FL Neutrophils (%) (Auto) 79.8 % Lymphocytes (%) (Auto) 13.0 % Monocytes (%) (Auto) 6.7 % Eosinophils (%) (Auto) 0.3 % Basophils (%) (Auto) 0.2 % Neutrophils # (Auto) 11.9 TH/MM3 Lymphocytes # (Auto) 1.9 TH/MM3 Monocytes # (Auto) 1.0 TH/MM3 Eosinophils # (Auto) 0.0 TH/MM3 Basophils # (Auto) 0.0 TH/MM3 CBC Comment AUTO DIFF Differential Comment AUTO DIFF CONFIRMED Platelet Estimate LOW Platelet Morphology Comment NORMAL Prothrombin Time 11.7 SEC Prothromb Time International 1.1 RATIO Ratio Activated Partial 28.5 SEC Thromboplast Time Sodium Level 140 MEQ/L Potassium Level 3.8 MEQ/L Chloride Level 104 MEQ/L Carbon Dioxide Level 24.8 MEQ/L Anion Gap 11 MEQ/L Blood Urea Nitrogen 28 MG/DL Creatinine 1.94 MG/DL Estimat Glomerular Filtration 34 ML/MIN Rate Random Glucose 106 MG/DL Lactic Acid Level 1.7 mmol/L Calcium Level 8.9 MG/DL Magnesium Level 2.1 MG/DL Total Bilirubin 1.3 MG/DL Aspartate Amino Transf 35 U/L (AST/SGOT) Alanine Aminotransferase 22 U/L (ALT/SGPT) Alkaline Phosphatase 95 U/L Total Creatine Kinase 1067 U/L Creatine Kinase MB 7.3 NG/ML Creatine Kinase MB % 0.7 % Troponin I 0.05 NG/ML Total Protein 7.1 GM/DL Albumin 3.5 GM/DL Thyroid Stimulating Hormone 0.535 uIU/ML 3rd Gen [facility] Medical Record Reviewed: Yes Supervised Visit with JOSE L: Yes Narrative Course The patient was seen with the PA, Hernandez Burgos. Patient status post coronary artery stenting with CHF. He presents here with generalized weakness lower extremity weakness, fever, difficulty ambulating and caring for self. Patient is fluid overloaded on a exam. He also is noted to have a white blood cell count. There is no obvious source for his fever. He will be admitted to the resident service. They have come down to see the patient. I, Dr. Guzman, have reviewed the advance practice practitioner's documentation and am in agreement, met with the patient face to face, made the diagnosis, and the medical decision making was done by me. *My assessment and Findings: Lower extremity weakness, fever, fluid retention, leukocytosis. Diagnosis Primary Impression: Lower extremity weakness Qualified Code: R29.898 - Weakness of both lower extremities Additional Impressions: Fever Qualified Code: R50.9 - Fever, unspecified fever cause Leukocytosis Qualified Code: D72.829 - Leukocytosis, unspecified type Fluid overload Qualified Code: E87.70 - Hypervolemia, unspecified hypervolemia type José Miguel Guzman MD Jun 02, 2016 13:39
[2016-06-02] MEDS ORDERED: NALOXONE HCL 0.4 MG/ML AMP IV PRN (14:30)
[2016-06-02] MEDS ORDERED: SODIUM CHLORIDE 0.9% FLUSH 10 ML FLUSH IV FLUSH PRN (14:30)
[2016-06-02] MEDS ORDERED: ONDANSETRON HCL 4 MG/2 ML VIAL IVP PRN (14:30)
[2016-06-02] MEDS ORDERED: BISACODYL 10 MG SUPP PR PRN (14:30)
[2016-06-02] MEDS ORDERED: ACETAMINOPHEN 325 MG TAB PO PRN (14:30)
[2016-06-02] MEDS: SODIUM CHLOR 0.9% 1000 ML INJ 1,000 ML IV SCH (15:24)
[2016-06-02] MEDS: HEPARIN SODIUM - SQ 10,000 UNITS/ML VIAL SQ SCH (15:24)
[2016-06-02 15:49] LABS: BACTERIA, URINE MOD /hpf; BLOOD, URINE MOD (NEG); COMMENT (UR) CATH-CULTURE IND; CULTURE IF INDICATED CATH CULTURE IND; GLUCOSE,URINE NEG (NEG); KETONE, URINE NEG (NEG); MUCUS URINE FEW /lpf (OCC); NITRITE,URINE POS (NEG); PH, URINE 5.5 (5.0-8.5); URINE COLOR YELLOW (YELLW/STRAW)
[2016-06-02] MEDS ORDERED: cefTRIAXone INJ 1,000 MG in SODIUM CHLORIDE 0.9% INJ 100 ML IV SCH (17:00)
[2016-06-02] MEDS: NYSTATIN SUSP 500,000 U/5 ML CUP SWISH-SWAL SCH ×2 (18:36→23:44)
[2016-06-02] MEDS ORDERED: amLODIPine BESYLATE 5 MG TAB PO SCH (21:00)
[2016-06-02] MEDS: SODIUM CHLORIDE 0.9% FLUSH 10 ML FLUSH IV FLUSH SCH (21:00)
[2016-06-02] MEDS: TAMSULOSIN HCL 0.4 MG CAP PO SCH (23:42)
[2016-06-02] MEDS: ASPIRIN EC 81 MG TABEC PO SCH (23:42)
[2016-06-02] MEDS: METOPROLOL TARTRATE 25 MG TAB PO SCH (23:42)
[2016-06-03] MEDS: HEPARIN SODIUM - SQ 10,000 UNITS/ML VIAL SQ SCH (04:19)
[2016-06-03] MEDS: SODIUM CHLOR 0.9% 1000 ML INJ 1,000 ML IV SCH (04:20)
[2016-06-03 05:11] LABS: AUTOMATED NEUTROPHIL # 7.8 TH/MM3 (1.8-7.7); BASOPHIL % 0.4 % (0.0-2.0); EOSINOPHIL # 0.2 TH/MM3 (0-0.4); EOSINOPHIL % 2.1 % (0.0-4.0); HEMATOCRIT 41.1 % (39.0-51.0); LYMPHOCYTE # 1.5 TH/MM3 (1.0-4.8); MEAN CELL VOLUME 91.7 FL (80.0-100.0); MEAN CORPUSCULAR HEMOGLOBIN 31.1 PG (27.0-34.0); MEAN CORPUSCULAR HGB CONC 33.9 % (32.0-36.0); MONO % 5.9 % (0.0-8.0); NEUT % 76.6 % (16.0-70.0); PLATELET COUNT 79 TH/MM3 (150-450); RED BLOOD COUNT 4.48 MIL/MM3 (4.50-5.90); RED CELL DISTRIBUTION WIDTH 13.9 % (11.6-17.2); WHITE BLOOD COUNT 10.1 TH/MM3 (4.0-11.0)
[2016-06-03 05:20] LABS: HEMO FLAGS AUTO DIFF
[2016-06-03 05:56] VITALS: BP 165/80; PULSE 70; RESP 18; TEMP 97.7; O2SAT 96
[2016-06-03 06:06] LABS: ALKALINE PHOSPHATASE 86 U/L (45-117); ALT (GPT) 22 U/L (12-78); ANION GAP 9 MEQ/L (5-15); AST (GOT) 51 U/L (15-37); BICARBONATE 25.1 MEQ/L (21.0-32.0); BLOOD UREA NITROGEN 26 MG/DL (7-18); CHLORIDE 105 MEQ/L (98-107); GLOMERULAR FILTRATION RATE 50 ML/MIN (>89); POTASSIUM 4.3 MEQ/L (3.5-5.1); SODIUM (NA) 139 MEQ/L (136-145); TOTAL BILIRUBIN ADULT 0.8 MG/DL (0.2-1.0)
[2016-06-03 07:14] LABS: PLATELET ESTIMATE SMEAR LOW (NORMAL)
[2016-06-03 07:15] LABS: PLATELET MORPHOLOGY NORMAL (NORMAL); SCAN/DIFF AUTO DIFF CONFIRMED
[2016-06-03 08:25] VITALS: BP 180/82; PULSE 69; RESP 16; TEMP 97.8; O2SAT 98
[2016-06-03] MEDS: SODIUM CHLORIDE 0.9% FLUSH 10 ML FLUSH IV FLUSH SCH (09:00)
[2016-06-03] MEDS ORDERED: CLOPIDOGREL 75 MG TAB PO SCH (09:00)
[2016-06-03] MEDS ORDERED: TOLTERODINE TARTRATE 4 MG CAP LA PO SCH (09:00)
[2016-06-03] MEDS: ASPIRIN EC 81 MG TABEC PO SCH (09:14)
[2016-06-03] MEDS: TAMSULOSIN HCL 0.4 MG CAP PO SCH (09:15)
[2016-06-03] MEDS: NYSTATIN SUSP 500,000 U/5 ML CUP SWISH-SWAL SCH ×2 (09:15→13:00)
[2016-06-03] MEDS: METOPROLOL TARTRATE 25 MG TAB PO SCH (09:15)
[2016-06-03 09:30] VITALS: BP 150/82
[2016-06-03 11:33] VITALS: BP 162/77; PULSE 69; RESP 16; TEMP 100.2; O2SAT 95
[2016-06-03] MEDS ORDERED: CIPR500T2 PO (12:37)
--- NOTE | 2016-06-03 12:38 | HHI.DCPOC ---
Discharge Care Plan Diagnosis: (1) UTI (urinary tract infection) Goals to Promote Your Health * To prevent worsening of your condition and complications * To maintain your health at the optimal level Directions to Meet Your Goals Take your medications as prescribed Follow your dietary instruction Follow activity as directed Keep your appointments as scheduled Take your immunizations and boosters as scheduled If your symptoms worsen call your PCP, if no PCP go to Urgent Care Center or Emergency Room Smoking is Dangerous to Your Health. Avoid second hand smoke Call the 24-hour hour crisis hotline for domestic abuse at Kodak Avila MD R3 Jun 03, 2016 12:38
--- NOTE | 2016-06-03 12:39 | HHI.FF ---
Face to Face Verification Diagnosis: (1) UTI (urinary tract infection) (2) Fall at home (3) Multiple sclerosis Physical Therapy Order: Evaluate and Treat, Improve ambulation, Strength and gait training Home Health Nursing Order: Medical education Signs/symptoms of disease process Nursing assessment with vital signs I have seen patient Amador Cullen on 06/03/16. My clinical findings support the need for the requested home health care services because: Ltd mobility - disease progression Deconditioned w/ increased weakness High risk of falls I certify that my clinical findings support that this patient is homebound because: Unsteady gait/balance Kodak Avila MD R3 Jun 03, 2016 12:39
--- NOTE | 2016-06-03 13:07 | HHI.HP ---
[facility] Service Family Medicine Primary Care Physician Marli Plata MD Admission Diagnosis generalized weakness, UTI, CHF Diagnoses: (1) Urinary tract infection Diagnosis: Principal (2) Leukocytosis Diagnosis: Secondary (3) Fever Diagnosis: Secondary (4) Elevated serum creatinine Diagnosis: Principal (5) Oral candidiasis Diagnosis: Principal (6) S/P cardiac cath Diagnosis: Principal (7) Multiple sclerosis Diagnosis: Principal (8) Fall at home Diagnosis: Principal (9) Nutrition, metabolism, and development symptoms Diagnosis: Principal International Travel<30 Days: No Contact w/Intl Traveler<30days: No Known Affected Area: No History of Present Illness Mr. Cullen is a 70 y/o CM with a PMHx of BPH, MS, and CAD s/p stent placement who presented with BL LE weakness with a fall at home. He states that this morning while using his walker to get from his bed to the bathroom his legs felt weaker than his baseline. After urinating, he attempted to grab his walker when he accidently pushed it away from him as the brakes were not locked. This caused him to fall forward on to his knees. He did not lose consciousness during the fall and denies any seizure like activity such as incontinence, tongue biting, or post-ictal state. He immediately tried to get up , but had difficulty lifting himself up. He finally made it up to his walker and called 911. He was brought by EMS to the ED for further evaluation. He feels that this episode of weakness is similar to when he was diagnosed with MS in 2001. During that time he had weakness in the BL LE, but states this episode is worse in severity. He does not endorse any pain in his legs, but just states they "feel like jello." He does have sensation throughout both legs as well, but is unable to bear any weight due to imbalance. He states that he has been doing well after his recent cardiac stent placement on 05/30/16. He has no other complaints and denies any fevers, chills, diaphoresis, SOB, chest pain , NVD, dysuria, or BL calf tenderness. He is a patient of Dr. Plata at the [facility]. He was diagnosed with a UTI and was treated with abx and is doing very well this am. He feels stronger and back to normal. He did well with PT who feels he is ready to go home with [facility]. Mr Subhash was up walking in his room with a chair being used as a walker. He has 2 sisters that live nearby and he says they will help him at home. He has not had urinary retention but incontinence which is not unusual with MS. Review of Systems Other Constitutional: DENIES: Fever, Chills, Dizziness Eyes: DENIES: Blurred vision, Photosensitivity Ears, nose, mouth, throat: DENIES: Throat pain, Running Nose Respiratory: DENIES: Cough, Shortness of breath Cardiovascular: DENIES: Chest pain, Palpitations Gastrointestinal: DENIES: Abdominal pain, Diarrhea, Nausea, Vomiting Genitourinary: DENIES: Dysuria Musculoskeletal: DENIES: Joint pain Integumentary: DENIES: Rash Hematologic/lymphatic: DENIES: Lymphadenopathy Neurologic: COMPLAINS OF: Poor Balance, DENIES: Headache, Paresthesias, Seizures Psychiatric: DENIES: Mood changes Past Family Social History Past Medical History CAD, stents (2002, 2016) - Dr. Bourgeois Lifetime dual antiplatelet therapy Multiple Sclerosis, follows Dr Scott BPH, follows Dr Feliciano Depression Hyperlipidemia HTN Tobaccoism(quit 03/2013) Glaucoma Past Surgical History Coronary stenting x 2002 Coronary stenting x 2016 Cystoscopy and TURP ( Dr Acevedo) Allergies: Coded Allergies: Stephie (Verified Allergy, Severe, CAUSES PROSTATE ISSUES, 06/02/16) Family History Mother- passed 02/2011, COPD; also glaucoma and cataracts Father- passed in 1992, CAD. [place] at 65yo. Paternal grandmother- CAD Sister - DM Social History Retired from [employer]. Lives by himself in [facility]. has 2 sisters that live nearby and help him if needed Smoking - Extensive prior history, Quit 1 month ago Alcohol - Last drink in 2005 Illicit - None Other Physicians: Urology: Dr Feliciano Cardiology: Dr Hanna Neurology: Dr Scott GI (screening Colonoscopy): Dr Whalen Physical Exam Vital Signs Vital Signs Date Time Temp Pulse Resp B/P Pulse Ox O2 Delivery O2 Flow Rate FiO2 06/03/16 11:33 100.2 69 16 162/77 95 06/03/16 09:30 150/82 06/03/16 08:25 97.8 69 16 180/82 98 06/03/16 05:56 97.7 70 18 165/80 96 06/02/16 23:50 98.3 74 20 188/91 100 06/02/16 21:30 97.6 67 18 136/73 98 06/02/16 18:35 72 20 108/57 97 Nasal Cannula 2 06/02/16 16:29 96 Nasal Cannula 1.00 06/02/16 15:15 74 16 153/86 97 Nasal Cannula 2 Physical Exam GENERAL: WN, WD CM jumping up out of bed in NAD using a chair as a walker in the room SKIN: No rashes, ecchymoses, lesions or signs of trauma. Cool and dry. HEENT: AT, NC with EOMI. PERRLA. Oropharynx with white/yellow film on tongue, BL buccal mucosa, and posterior pharynx that is easily removable without hemorrhage. No tonsillar swelling, erythema, or exudate. MMM with midline uvula. No LAD or rhinorrhea. CARDIOVASCULAR: Regular rate and rhythm without murmurs, gallops, or rubs. RESPIRATORY: CTAB with no CRW. No increased WOB currently on 2L NC. GASTROINTESTINAL: Abdomen soft, non-tender, nondistended with +BS. No masses appreciated. MUSCULOSKELETAL: Extremities without cyanosis or edema. No joint tenderness, effusion, or edema noted. No calf tenderness. BL LE: No signs of trauma, ecchymosis, or hemorrhage on inspection. No edema appreciated BL. Proximal muscle weakness on straight leg raise BL to 2+/5. Knee flexion/extension and ankle flexion/extension 5/5 in strength. Reflexes 2+ with normal Babinski. DP and PT pulses 2+ with sensation intact. Patient unable to walk due to imbalance. NEUROLOGICAL: AAOx3. Cranial nerves II through XII intact. Motor and sensory grossly within normal limits. Normal speech. Laboratory Laboratory Tests Test 06/02/16 06/02/16 06/02/16 06/03/16 15:15 17:45 23:15 04:41 Urine Color YELLOW Urine Turbidity HAZY Urine pH 5.5 Urine Specific [place] 1.018 Urine Protein 30 Urine Glucose (UA) NEG Urine Ketones NEG Urine Occult Blood MOD Urine Nitrite POS Urine Bilirubin NEG Urine Urobilinogen LESS THAN 2.0 Urine Leukocyte Esterase LARGE Urine RBC 5 Urine WBC 103 Urine Bacteria MOD Urine Mucus FEW Urine Yeast (Budding) OCC Microscopic Urinalysis Comment CATH-CULTURE IND Troponin I 0.04 0.03 White Blood Count 10.1 Red Blood Count 4.48 Hemoglobin 13.9 Hematocrit 41.1 Mean Corpuscular Volume 91.7 Mean Corpuscular Hemoglobin 31.1 Mean Corpuscular Hemoglobin 33.9 Concent Red Cell Distribution Width 13.9 Platelet Count 79 Mean Platelet Volume 8.2 Neutrophils (%) (Auto) 76.6 Lymphocytes (%) (Auto) 15.0 Monocytes (%) (Auto) 5.9 Eosinophils (%) (Auto) 2.1 Basophils (%) (Auto) 0.4 Neutrophils # (Auto) 7.8 Lymphocytes # (Auto) 1.5 Monocytes # (Auto) 0.6 Eosinophils # (Auto) 0.2 Basophils # (Auto) 0.0 CBC Comment AUTO DIFF Differential Comment AUTO DIFF CONFIRMED Platelet Estimate LOW Platelet Morphology Comment NORMAL Sodium Level 139 Potassium Level 4.3 Chloride Level 105 Carbon Dioxide Level 25.1 Anion Gap 9 Blood Urea Nitrogen 26 Creatinine 1.41 Estimat Glomerular Filtration 50 Rate Random Glucose 98 Calcium Level 8.5 Total Bilirubin 0.8 Aspartate Amino Transf 51 (AST/SGOT) Alanine Aminotransferase 22 (ALT/SGPT) Alkaline Phosphatase 86 Total Protein 6.6 Albumin 2.9 Date/Time Procedure Status Source Growth 06/02/16 15:15 Urine Culture Received Urine Catheterized Urine Pending 06/02/16 11:25 Aerobic Blood Culture - Preliminary Resulted Blood Peripheral NO GROWTH IN 1 DAY 06/02/16 11:25 Anaerobic Blood Culture - Preliminary Resulted Blood Peripheral NO GROWTH IN 1 DAY Result Diagram: 06/03/16 0441 06/03/16 0441 Imaging Last [address] 06/02/16 1122 Signed Impressions: Service Date/Time: Thursday, June 02, 2016 11:43 - CONCLUSION: No acute disease. Kim Fowler MD Chest X-Ray 06/02/16 1122 Signed Impressions: Service Date/Time: Thursday, June 02, 2016 12:56 - CONCLUSION: Findings suggestive of volume overload. No focal air space opacity seen to suggest contusion. No evidence of pneumothorax. Kim Fowler MD Pelvis X-Ray 06/02/16 0000 Signed Impressions: Service Date/Time: Thursday, June 02, 2016 13:01 - CONCLUSION: No acute disease. Kim Fowler MD Knee X-Ray 06/02/16 0000 Signed Impressions: Service Date/Time: Thursday, June 02, 2016 13:04 - CONCLUSION: No acute disease. Kim Fowler MD Knee X-Ray 06/02/16 0000 Signed Impressions: Service Date/Time: Thursday, June 02, 2016 13:07 - CONCLUSION: Unremarkable limited examination of the right knee. Kim Fowler MD Septic Shock Reassessment Heart: Regular rate and rhythm Lungs: Clear Skin: Warm Capillary Refill: Brisk Assessment and Plan Assessment and Plan Mr. Cullen is a 70 y/o CM with a PMHx of MS presents with BL LE weakness with a fall found to have a UTI and early sepsis. Problem List: (1) Urinary tract infection Status: Acute Plan: Per chart review, patient with previous history of UTIs presenting with low-grade fever to 100.2 and leukocytosis to 14.9. Patient currently denies any dysuria, hematuria, or foul-smelling urine. Patient unable to void on command. Team to order straight catheter for UA/UC. Patient followed by Dr. Feliciano, urology, for BPH s/p TURP. CBC: WBC 14.9 CMP: BUN 28, creatinine 1.94 Lactic acid: 1.7 UA: Moderate occult blood, positive nitrite, large leukocyte esterase, 103 white blood cells, moderate bacteria, occasional budding yeast UC 06/02: Pending BC 2 06/02: Pending Rocephin 1 g daily Without improvement, consider fluconazole for possible candiduria Normal saline at 80 mL per hour; Patient does not appear to be volume over loaded on exam, continue to monitor for possible fluid overload Team to monitor urinary output with bladder scans as needed. Consider urinary catheter placement if patient continues to not be able to void. Medications: Rocephin 1 g daily Tamsulosin 0.4 mg twice a day Vesicare 10 mg daily (2) Leukocytosis Status: Acute Plan: Please see plan as above (3) Fever Status: Acute Plan: Please see plan as above (4) Elevated serum creatinine Status: Acute Plan: Patient presenting with creatinine with baseline renal insufficiency. Patient recently had IV contrast during his cardiac catheterization possibly contributing to his creatinine elevation with decreased fluid intake. CK 1367, however patient denies any muscle pain currently. Lowest recent creatinine was 1.23 on 11/24/15. BUN: 28 Creatinine: 1.94 on admission, now better CK: 1067, improving Normal saline at 80 mL per hour (5) Oral candidiasis Status: Acute Plan: Patient presenting with oral candidiasis on exam. Nystatin (swish and swallow) 4 times a day HIV antibody screen: Pending (6) S/P cardiac cath Status: Acute Plan: Patient with recent cardiac catheterization with stent placement on . Patient reports he is doing well postop and denies any chest pain, diaphoresis, palpitations, or shortness of breath. EKG: Per medical team's read, normal sinus rhythm with appropriate intervals. 2 pending Troponins: 0.05, 2 pending CK: 1067 CK-MB: 7.3, 2 pending BNP: 69 Medications: Metoprolol 25 mg twice a day Plavix 75 mg daily Aspirin 81 mg twice a day Amlodipine 5 mg daily at bedtime (7) Multiple sclerosis Status: Acute Plan: Patient with history of multiple sclerosis presenting with weakness in the bilateral lower extremities. Neurologic exam benign except for 2+/5 strength at the hips on physical exam. improvement with treatment of UTI, HHC with PT Consider IV methylprednisolone to treat exacerbation without patient improvement, however he is better today (8) Fall at home Status: Acute Plan: Patient currently living at home unassisted with recent fall. Denies any seizure-like activity or loss of consciousness during fall. weakness from UTI Head CT: No acute disease Chest x-ray: Findings suggestive of volume overload. No focal airspace opacity seen to suggest contusion. No evidence of pneumothorax. Pelvis x-ray: No acute disease Right knee x-ray: Unremarkable Limited examination of the right knee Left knee x-ray: Unremarkable Limited examination of the left knee (9) Nutrition, metabolism, and development symptoms Status: Acute Plan: Fluids: Normal saline at 80 mL per hour Diet: Regular as tolerated DVT: Heparin 5000 units twice a day Prophylaxis: Tylenol when necessary for fever, Zofran when necessary for nausea or vomiting, Dulcolax suppository when necessary for constipation Problem Qualifiers (1) Urinary tract infection: Qualified Code: N30.00 - Acute cystitis without hematuria (2) Leukocytosis: Qualified Code: D72.829 - Leukocytosis, unspecified type (3) Fever: Qualified Code: R50.9 - Fever, unspecified fever cause Staci Hutchinson MD Jun 03, 2016 13:07
--- NOTE | 2016-06-03 17:40 | EKG ---
Date Performed: 06/02/2016 Time Performed: 12:33:41 PTAGE: 70 years EKG: Sinus rhythm MARKED LEFT AXIS DEVIATION NONSPECIFIC T-WAVE ABNORMALITY Rate has increased since prior tracing. Th ere is ST-T wave changes. Clinical corrolation is suggested. ABNORMAL ECG PREVIOUS TRACING : 05/30/2016 06.31 DOCTOR: Randy Camarillo Interpretating Date/Time 06/03/2016 17:39:21
[2016-07-16] MEDS ORDERED: VESI10TA PO (10:24)
[2016-09-03] MEDS ORDERED: FLAX1000 (13:03)
[2016-09-03] MEDS ORDERED: CENTCHW3 (13:03)
[2016-09-03] MEDS ORDERED: TAMS5CAP PO ×2 (13:03→13:26)
[2016-09-03] MEDS ORDERED: ASPI-110 PO (13:03)
== END 2016-06-03 16:05 | disposition home or self-care (01) ==
LOC: NEPE 11:16 → INTOOBSV 13:06 → NEDA 13:06 → NEPFCDU 20:04 → UNDODISIN 06-03 16:05
PROVIDERS: ADMIT Family Medicine; ATTEND Family Medicine
DX: N39.0 Urinary tract infection, site not specified (principal); D72.829 Elevated white blood cell count, unspecified; B37.0 Candidal stomatitis; R79.89 Other specified abnormal findings of blood chemistry; N40.0 Benign prostatic hyperplasia without lower urinary tract symptoms; G35 Multiple sclerosis; I25.10 Atherosclerotic heart disease of native coronary artery without angina pectoris; F32.9 Major depressive disorder, single episode, unspecified; E78.5 Hyperlipidemia, unspecified; I11.0 Hypertensive heart disease with heart failure; I50.9 Heart failure, unspecified; H40.9 Unspecified glaucoma; Z66 Do not resuscitate; F41.9 Anxiety disorder, unspecified; E78.00 Pure hypercholesterolemia, unspecified; F17.210 Nicotine dependence, cigarettes, uncomplicated; Z88.8 Allergy status to other drugs, medicaments and biological substances; Z95.5 Presence of coronary angioplasty implant and graft; Z79.02 Long term (current) use of antithrombotics/antiplatelets; Z79.82 Long term (current) use of aspirin
CPT/HCPCS: 70450; 71010; 72170; 73560; 73564; 80053; 81001; 82550; 82552; 83605; 83735; 83880; 84443; 84484; 85025; 85610; 85730; 86703; 87040; 87077; 87086; 87186; 93005; 97162; 99285; G0378; J0696; J1644; J7030; P9612

== ENCOUNTER 2016-06-05 07:05 | Inpatient (IN) | payer MEDICARE ==
[2016-06-05] VITALS (12 sets, daily range): BP systolic 139–181; BP diastolic 60–93; PULSE 58–70; RESP 14–20; TEMP 98.3; O2SAT 66–100
[~2016-06-05] VITALS: Ht 177.8 cm; Wt 93.4 kg
[~2016-06-05 07:05] MED LIST changes: +CIPR500T2 PO
--- NOTE | 2016-06-05 07:28 | PD ---
HPI Chief Complaint: weakness Time Seen by Provider: 07:08 Travel History International Travel<30 days: No Contact w/Intl Traveler<30days: No Traveled to known affect area: No History of Present Illness HPI 70-year-old male complains of generalized weakness. Patient has history of MS. Patient was admitted and discharged 2 days ago with diagnosis of UTI, leukocytosis, fever, elevated serum creatinine, oral candidiasis, MS and frequent fall. Patient states that he lives alone by himself. Patient states that he has bilateral lower extremity weakness and unable to ambulate very much at home. Patient states that he has been crawling around on his elbows and knees. Patient denies any headache. Patient denies any visual change. Patient denies any neck pain. Patient denies any chest pain or shortness of breath. Patient denies abdominal pain. Patient denies any focal weakness or numbness of extremity. Patient denies any fever chills. Patient denies any back pain. Patient called EMS this morning because of weakness. Patient states that he fell this morning however did not injure himself. PFSH Past Medical History Asthma: Yes Blood Disorders: No Anxiety: Yes Heart Rhythm Problems: No Cancer: No Cardiac Catheterization: Yes (2 days ago 05/31/2016) Cardiovascular Problems: Yes (CAD/STENT) High Cholesterol: Yes Chest Pain: No Congestive Heart Failure: No COPD: No Diabetes: No Diminished Hearing: No Endocrine: No Genitourinary: Yes (ENLARGED PROSTATE) Hepatitis: No Hiatal Hernia: No Hypertension: Yes Immune Disorder: No Musculoskeletal: No Neurologic: Yes (MULTIPLE SCLEROSIS) Psychiatric: No Sleep Apnea: No Thyroid Disease: No Past Surgical History Cardiac Surgery: Yes (RIGHT VASCULAR STENT 2002, CARDIAC CATHERIZATION) Coronary Stent: Yes (2002) Genitourinary Surgery: Yes (SURGERY FOR OPENING OF URETHRA) Oral Surgery: Yes (TOOTH EXTRACTIONS 2008) Pacemaker: No Other Surgery: Yes Social History Alcohol Use: No Tobacco Use: Yes (4 CIGARETTES DAILY) Substance Use: No Allergies-Medications (Allergen,Severity, Reaction): Coded Allergies: Stephie (Verified Allergy, Severe, CAUSES PROSTATE ISSUES, 06/05/16) Reported Meds & Prescriptions Reported Meds & Active Scripts Active Ciprofloxacin (Ciprofloxacin HCl) 500 Mg Tab 500 Mg PO BID Reported Copaxone Inj (Glatiramer Inj) 20 Mg/Ml Syr 20 Mg SQ DAILY Amlodipine (Amlodipine Besylate) 5 Mg Tab 5 Mg PO HS Plavix (Clopidogrel Bisulfate) 75 Mg Tab 75 Mg PO DAILY Slo-Niacin (Niacin) 500 Mg Tab 500 Mg PO BID Vitamin B-12 (Cyanocobalamin) 1,000 Mcg Subl 1,000 Mcg SL DAILY Flaxseed Oil (Flaxseed (Linseed)) 1,000 Mg Cap 1,000 Mg PO DAILY Fish Oil ([place]-3 Fatty Acids) 1,000 Mg Cap 1 Cap PO DAILY Centrum Adults (Multiple Vitamins W/ Minerals) 1 Tab 1 Tab PO DAILY Nitrostat SL (Nitroglycerin) 0.4 Mg Subl 0.4 Mg SL DIRECTED PRN ONE TABLET UNDER THE TONGUE NEEDED FOR CHEST PAIN, MAY REPEAT EVERY FIVE MINUTES FOR A TOTAL OF 3 DOSES OR CALL 911 IF NO RELIEF Aspirin 81 Mg Tabdr 81 Mg PO BID Metoprolol Tartrate 50 Mg Tab 25 Mg PO BID Vesicare (Solifenacin) 10 Mg Tab 10 Mg PO DAILY Flomax (Tamsulosin HCl) 0.4 Mg Cap 0.4 Mg PO BID Review of Systems General / Constitutional: No: Fever Eyes: No: Visual changes HENT: No: Headaches Cardiovascular: No: Chest Pain or Discomfort Respiratory: No: Shortness of Breath Gastrointestinal: No: Abdominal Pain Genitourinary: No: Dysuria Musculoskeletal: No: Pain Skin: No Rash Neurologic: No: Weakness Psychiatric: No: Depression Endocrine: No: Polydipsia Hematologic/Lymphatic: No: Easy Bruising Physical Exam Narrative GENERAL: Well-nourished, well-developed patient. SKIN: Focused skin assessment warm/dry. HEAD: Normocephalic. EYES: No scleral icterus. No injection or drainage. NECK: Supple, trachea midline. No JVD or lymphadenopathy. CARDIOVASCULAR: Regular rate and rhythm without murmurs, gallops, or rubs. RESPIRATORY: Breath sounds equal bilaterally. No accessory muscle use. GASTROINTESTINAL: Abdomen soft, non-tender, nondistended. MUSCULOSKELETAL: No cyanosis, or edema. BACK: Nontender without obvious deformity. No CVA tenderness. Neurologic exam: Patient is awake and alert oriented 3. Patient moves all extremity well. No obvious focal neurological deficit. Data Data Last Documented VS Vital Signs Date Time Temp Pulse Resp B/P Pulse Ox O2 Delivery O2 Flow Rate FiO2 06/05/16 13:21 58 20 181/89 100 Room Air 06/05/16 07:39 98.3 Orders Electrocardiogram (06/05/16 07:20) Complete Blood Count With Diff (06/05/16 07:20) Comprehensive Metabolic Panel (06/05/16 07:20) Creatine Kinase (Cpk) (06/05/16 07:20) Troponin I (06/05/16 07:20) Prothrombin Time / Inr (Pt) (06/05/16 07:20) Act Partial Throm Time (Ptt) (06/05/16 07:20) Urinalysis - C+S If Indicated (06/05/16 07:20) Chest, Single Ap (06/05/16 07:20) Iv Access Insert/Monitor (06/05/16 07:20) Ecg Monitoring (06/05/16 07:20) Oximetry (06/05/16 07:20) Sodium Chlor 0.9% 1000 Ml Inj (Ns 1000 M (06/05/16 07:30) CKMB (06/05/16 08:50) CKMB% (06/05/16 08:50) Urine Culture (06/05/16 12:57) Hydralazine Inj (Apresoline Inj) (06/05/16 13:45) Cefepime Inj (Maxipime Inj) (06/05/16 13:45) Admit Order (Ed Use Only) (06/05/16 13:51) Labs Laboratory Tests Test 06/05/16 06/05/16 06/05/16 08:50 10:00 12:57 White Blood Count 4.8 TH/MM3 Red Blood Count 4.21 MIL/MM3 Hemoglobin 13.2 GM/DL Hematocrit 38.2 % Mean Corpuscular Volume 90.8 FL Mean Corpuscular Hemoglobin 31.3 PG Mean Corpuscular Hemoglobin 34.5 % Concent Red Cell Distribution Width 13.7 % Platelet Count 95 TH/MM3 Mean Platelet Volume 8.9 FL Neutrophils (%) (Auto) 67.2 % Lymphocytes (%) (Auto) 21.0 % Monocytes (%) (Auto) 10.2 % Eosinophils (%) (Auto) 1.4 % Basophils (%) (Auto) 0.2 % Neutrophils # (Auto) 3.2 TH/MM3 Lymphocytes # (Auto) 1.0 TH/MM3 Monocytes # (Auto) 0.5 TH/MM3 Eosinophils # (Auto) 0.1 TH/MM3 Basophils # (Auto) 0.0 TH/MM3 CBC Comment AUTO DIFF Differential Total Cells 100 Counted Neutrophils % (Manual) 64 % Band Neutrophils % 6 % Lymphocytes % 21 % Monocytes % 7 % Eosinophils % 2 % Neutrophils # (Manual) 3.4 TH/MM3 Differential Comment FINAL DIFF MANUAL Dohle Bodies PRESENT Platelet Estimate LOW Platelet Morphology Comment NORMAL Ovalocytes 1+ Sodium Level 140 MEQ/L Potassium Level 3.9 MEQ/L Chloride Level 110 MEQ/L Carbon Dioxide Level 21.3 MEQ/L Anion Gap 9 MEQ/L Blood Urea Nitrogen 27 MG/DL Creatinine 1.43 MG/DL Estimat Glomerular Filtration 49 ML/MIN Rate Random Glucose 95 MG/DL Calcium Level 8.3 MG/DL Total Bilirubin 0.4 MG/DL Aspartate Amino Transf 43 U/L (AST/SGOT) Alanine Aminotransferase 33 U/L (ALT/SGPT) Alkaline Phosphatase 69 U/L Total Creatine Kinase 721 U/L Creatine Kinase MB 6.2 NG/ML Creatine Kinase MB % 0.9 % Troponin I LESS THAN 0.02 NG/ML Total Protein 6.1 GM/DL Albumin 2.9 GM/DL Prothrombin Time 11.1 SEC Prothromb Time International 1.0 RATIO Ratio Activated Partial 27.4 SEC Thromboplast Time Urine Color YELLOW Urine Turbidity CLEAR Urine pH 5.0 Urine Specific [place] 1.012 Urine Protein NEG mg/dL Urine Glucose (UA) NEG mg/dL Urine Ketones NEG mg/dL Urine Occult Blood TRACE Urine Nitrite NEG Urine Bilirubin NEG Urine Urobilinogen LESS THAN 2.0 MG/DL Urine Leukocyte Esterase MOD Urine RBC 2 /hpf Urine WBC 26 /hpf Urine WBC Clumps RARE Urine Squamous Epithelial <1 /hpf Cells Urine Hyaline Casts 7 /lpf Urine Mucus FEW /lpf Microscopic Urinalysis Comment CULTURE INDICATED MDM Medical Decision Making Medical Screen Exam Complete: Yes Emergency Medical Condition: Yes Interpretation(s) Last Impressions Chest X-Ray 06/05/16 07 Signed Impressions: Service Date/Time: Sunday, June 05, 2016 07:38 - CONCLUSION: 1. No infiltrates or effusions. 2. Minimal linear atelectasis within the left base. Ángel Shafer Jr., MD 12:16 PM. CBC WBC 4.8. Hemoglobin 13.2 hematocrit 30.2. Platelet 95. BUN 27. Creatinine 1.43. GFR 49. Calcium 8.3. Total CK 721. Normal MB fraction. Cardiac enzymes are normal. 1:26 PM. UA positive for WBC and bacteria. Differential Diagnosis Differential diagnosis including acute exacerbation of MS, electrolyte imbalance , dehydration, sepsis. Narrative Course 70-year-old male with generalized weakness. History of MS. Patient was discharged from the hospital 2 days ago with diagnosis UTI. Normal saline solution 100 cc an hour. Cefepime 1 g IV given. Hydralazine 10 mg IV given. Diagnosis Primary Impression: UTI (urinary tract infection) Qualified Code: N30.00 - Acute cystitis without hematuria Additional Impressions: Unable to ambulate Renal insufficiency Admitting Information Admitting Physician Requests: Observation Henrik Vega MD Jun 05, 2016 07:28
[2016-06-05] MEDS ORDERED: SODIUM CHLOR 0.9% 1000 ML INJ 1,000 ML IV SCH (07:30)
[2016-06-05] MEDS ORDERED: COPA20KI SQ (08:12)
--- NOTE | 2016-06-05 08:15 | RADRPT ---
EXAM DATE/TIME: 06/05/2016 07:38 [place] COMPARISON: CHEST SINGLE AP, June 02, 2016, 12:56. INDICATIONS : Patient said his multiple sclerosis has gotten to the point he is unable to walk and is very weak. MEDICAL HISTORY : Hypertension. Multiple sclerosis. SURGICAL HISTORY : None. ENCOUNTER: Initial ACUITY: 1 day PAIN SCORE: 0/10 LOCATION: Bilateral chest FINDINGS: A single view of the chest demonstrates the lungs to be symmetrically aerated without evidence of mas s, infiltrate or effusion. No infiltrate seen on the current study. Minimal linear atelectasis within the left lung base medially. The cardiomediastinal contours are unremarkable. Osseous structures a re intact. CONCLUSION: 1. No infiltrates or effusions. 2. Minimal linear atelectasis within the left base. Ángel Shafer Jr., MD on June 05, 2016 at 8:13 Board Certified Radiologist. This report was verified electronically.
[2016-06-05 10:01] LABS: AUTOMATED NEUTROPHIL # 3.2 TH/MM3 (1.8-7.7); BASOPHIL % 0.2 % (0.0-2.0); EOSINOPHIL # 0.1 TH/MM3 (0-0.4); EOSINOPHIL % 1.4 % (0.0-4.0); HEMATOCRIT 38.2 % (39.0-51.0); MEAN CELL VOLUME 90.8 FL (80.0-100.0); MEAN CORPUSCULAR HEMOGLOBIN 31.3 PG (27.0-34.0); MEAN CORPUSCULAR HGB CONC 34.5 % (32.0-36.0); MONO % 10.2 % (0.0-8.0); NEUT % 67.2 % (16.0-70.0); PLATELET COUNT 95 TH/MM3 (150-450); RED BLOOD COUNT 4.21 MIL/MM3 (4.50-5.90); RED CELL DISTRIBUTION WIDTH 13.7 % (11.6-17.2); WHITE BLOOD COUNT 4.8 TH/MM3 (4.0-11.0)
[2016-06-05 10:03] LABS: HEMO FLAGS AUTO DIFF
[2016-06-05 10:17] LABS: ALT (GPT) 33 U/L (12-78); ANION GAP 9 MEQ/L (5-15); AST (GOT) 43 U/L (15-37); BICARBONATE 21.3 MEQ/L (21.0-32.0); BLOOD UREA NITROGEN 27 MG/DL (7-18); CHLORIDE 110 MEQ/L (98-107); GLOMERULAR FILTRATION RATE 49 ML/MIN (>89); POTASSIUM 3.9 MEQ/L (3.5-5.1); SODIUM (NA) 140 MEQ/L (136-145)
[2016-06-05 10:21] LABS: ALKALINE PHOSPHATASE 69 U/L (45-117); CREATINE KINASE 721 U/L (39-308); TOTAL BILIRUBIN ADULT 0.4 MG/DL (0.2-1.0)
[2016-06-05 10:33] LABS: CKMB 6.2 NG/ML (0.5-3.6)
[2016-06-05 10:43] LABS: BANDS 6 % (0-6); EOSINOPHILS 2 % (0-4); NEUTROPHIL # MANUAL DIFF 3.4 TH/MM3 (1.8-7.7); POLYS (SEG NEUTROPHILS) 64 % (16-70); WBC DIFF SAMPLE 100
[2016-06-05 10:44] LABS: DOHLE BODIES PRESENT (NONE SEEN); PLATELET ESTIMATE SMEAR LOW (NORMAL)
[2016-06-05 10:48] LABS: PLATELET MORPHOLOGY NORMAL (NORMAL); SCAN/DIFF FINAL DIFF MANUAL
[2016-06-05 10:49] LABS: OVALOCYTES 1+ (NORMAL)
[2016-06-05 10:56] LABS: APTT (PATIENT) 27.4 SEC (24.3-30.1); PROTHROMBIN TIME - PATIENT 11.1 SEC (9.8-11.6)
[2016-06-05 13:18] LABS: BLOOD, URINE TRACE (NEG); GLUCOSE,URINE NEG (NEG); HYALINE CAST, URINE 7 /lpf (RARE); KETONE, URINE NEG (NEG); MUCUS URINE FEW /lpf (OCC); NITRITE,URINE NEG (NEG); SQUAMOUS EPITHELIAL CELL URINE <1 /hpf (0-5); URINE COLOR YELLOW (YELLW/STRAW)
[2016-06-05 13:19] LABS: COMMENT (UR) CULTURE INDICATED; CULTURE IF INDICATED CULTURE INDICATED
[2016-06-05] MEDS ORDERED: hydrALAZINE HCL 20 MG/ML VIAL IV PUSH ONE (13:45)
[2016-06-05] MEDS ORDERED: CEFEPIME INJ 1,000 MG in SODIUM CHLORIDE 0.9% INJ 100 ML IV ONE (13:45)
--- NOTE | 2016-06-05 14:41 | HHI.HP ---
[facility] Service Family Medicine Primary Care Physician Marli Plata MD Admission Diagnosis UTI. Unable to ambulate. Renal insufficiency. Diagnoses: International Travel<30 Days: No Contact w/Intl Traveler<30days: No Known Affected Area: No History of Present Illness 70 year-old male with history of MS admitted to the [facility] 06/02-06/03 for UTI and weakness, now presenting with complaint of worsening weakness and mechanical fall. Amador reports he went to go to the bathroom last night and felt weak after getting up. He got up to grab his walker and felt his legs give out. He hit his head and RUE against the door. No other injury. No LOC. Denies any palpitations or CP. [place] very weak afterwards. Stayed on the floor the rest of the night. Called EMS this morning and had to crawl to unlock the bathroom door, causing knee surface abrasions. Patient denies any vision changes or numbness/tingling in the extremities. Neurologist who follows him is Dr. Su On admission to the ED, pulse ox noted to be low at 66. Now sating well on room. Air. Does have mild SOB. Repeat UA on admission suspicious for UTI with mod LE and 26 WBC. Patient started on cefepime. Total CK up to 700s on admission with creatinine 1.43. (Kodak Avila MD R3) Review of Systems Constitutional: DENIES: Fever, Chills Endocrine: DENIES: Polydipsia, Polyuria Eyes: DENIES: Blurred vision, Diplopia Respiratory: COMPLAINS OF: Shortness of breath, DENIES: Apneas, Cough, Sputum production Cardiovascular: DENIES: Chest pain, Palpitations Gastrointestinal: DENIES: Abdominal pain, Black stools, Bloody stools, Diarrhea , Nausea, Vomiting Genitourinary: DENIES: Sexual dysfunction, Urinary frequency, Urgency, Dysuria Musculoskeletal: DENIES: Joint pain, Muscle aches, Back pain Integumentary: DENIES: Rash Hematologic/lymphatic: COMPLAINS OF: Bruising Neurologic: DENIES: Headache, Localized weakness, Paresthesias Psychiatric: DENIES: Confusion, Mood changes (Kodak Avila MD R3) Past Family Social History Past Medical History CAD, stents (2002, 2016) - Dr. 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) Glaucoma Past Surgical History Coronary stenting x 2002 Coronary stenting x 2016 Cystoscopy and TURP ( Dr Acevedo) Reported Medications Reported Meds & Active Scripts Active Ciprofloxacin (Ciprofloxacin HCl) 500 Mg Tab 500 Mg PO BID Reported Copaxone Inj (Glatiramer Inj) 20 Mg/Ml Syr 20 Mg SQ DAILY Amlodipine (Amlodipine Besylate) 5 Mg Tab 5 Mg PO HS Plavix (Clopidogrel Bisulfate) 75 Mg Tab 75 Mg PO DAILY Slo-Niacin (Niacin) 500 Mg Tab 500 Mg PO BID Vitamin B-12 (Cyanocobalamin) 1,000 Mcg Subl 1,000 Mcg SL DAILY Flaxseed Oil (Flaxseed (Linseed)) 1,000 Mg Cap 1,000 Mg PO DAILY Fish Oil ([place]-3 Fatty Acids) 1,000 Mg Cap 1 Cap PO DAILY Centrum Adults (Multiple Vitamins W/ Minerals) 1 Tab 1 Tab PO DAILY Nitrostat SL (Nitroglycerin) 0.4 Mg Subl 0.4 Mg SL DIRECTED PRN ONE TABLET UNDER THE TONGUE NEEDED FOR CHEST PAIN, MAY REPEAT EVERY FIVE MINUTES FOR A TOTAL OF 3 DOSES OR CALL 911 IF NO RELIEF Aspirin 81 Mg Tabdr 81 Mg PO BID Metoprolol Tartrate 50 Mg Tab 25 Mg PO BID Vesicare (Solifenacin) 10 Mg Tab 10 Mg PO DAILY Flomax (Tamsulosin HCl) 0.4 Mg Cap 0.4 Mg PO BID (Kodak Avila MD R3) Allergies: Coded Allergies: Stephie (Verified Allergy, Severe, CAUSES PROSTATE ISSUES, 06/05/16) Family History Mother- passed 02/2011, COPD; also glaucoma and cataracts Father- passed in 1992, CAD. [place] at 65yo. Paternal grandmother- CAD Sister - DM Social History Retired from [employer]. Lives by himself in [facility]. Smoking - Extensive prior history, Quit 1 month ago Alcohol - Last drink in 2005 Illicit - None (Kodak Avila MD R3) Physical Exam Vital Signs Vital Signs Date Time Temp Pulse Resp B/P Pulse Ox O2 Delivery O2 Flow Rate FiO2 06/05/16 13:21 58 20 181/89 100 Room Air 06/05/16 11:22 61 16 140/72 99 Room Air 06/05/16 08:05 60 16 97 Room Air 06/05/16 08:04 97 Room Air 06/05/16 07:39 98.3 65 18 139/70 66 Physical Exam GENERAL: Frail-appearing, elderly male laying down in bed. In NAD. SKIN: Cool and dry. Multiple surface abrasions over anterior knees, right inguinal region, and lateral aspect of right UE. No surrounding erythema, edema , or drainage. HEAD: Atraumatic. Normocephalic. No temporal or scalp tenderness. EYES: Pupils equal round and reactive. Extraocular motions intact. No scleral icterus. No injection or drainage. Fundi grossly normal. ENT: Nose without bleeding, purulent drainage or septal hematoma. Throat without erythema, tonsillar hypertrophy or exudate. Uvula midline. Airway patent. NECK: Trachea midline. No JVD or lymphadenopathy. Supple, nontender, no meningeal signs. CARDIOVASCULAR: Regular rate and rhythm without murmurs, gallops, or rubs. RESPIRATORY: Clear to auscultation. Breath sounds equal bilaterally. No wheezes , rales, or rhonchi. GASTROINTESTINAL: Abdomen soft, non-tender, nondistended. No hepato-splenomegaly , or palpable masses. No guarding. MUSCULOSKELETAL: Extremities without clubbing, cyanosis, or edema. No joint tenderness, effusion, or edema noted. No calf tenderness. Negative Homans sign bilaterally. NEUROLOGICAL: Awake and alert. Cranial nerves II through XII intact. Motor and sensory grossly within normal limits. 4-/5 strength in bilateral upper and lower extremities. Normal speech. Laboratory Laboratory Tests Test 06/05/16 06/05/16 06/05/16 08:50 10:00 12:57 White Blood Count 4.8 Red Blood Count 4.21 Hemoglobin 13.2 Hematocrit 38.2 Mean Corpuscular Volume 90.8 Mean Corpuscular Hemoglobin 31.3 Mean Corpuscular Hemoglobin 34.5 Concent Red Cell Distribution Width 13.7 Platelet Count 95 Mean Platelet Volume 8.9 Neutrophils (%) (Auto) 67.2 Lymphocytes (%) (Auto) 21.0 Monocytes (%) (Auto) 10.2 Eosinophils (%) (Auto) 1.4 Basophils (%) (Auto) 0.2 Neutrophils # (Auto) 3.2 Lymphocytes # (Auto) 1.0 Monocytes # (Auto) 0.5 Eosinophils # (Auto) 0.1 Basophils # (Auto) 0.0 CBC Comment AUTO DIFF Differential Total Cells 100 Counted Neutrophils % (Manual) 64 Band Neutrophils % 6 Lymphocytes % 21 Monocytes % 7 Eosinophils % 2 Neutrophils # (Manual) 3.4 Differential Comment FINAL DIFF MANUAL Dohle Bodies PRESENT Platelet Estimate LOW Platelet Morphology Comment NORMAL Ovalocytes 1+ Sodium Level 140 Potassium Level 3.9 Chloride Level 110 Carbon Dioxide Level 21.3 Anion Gap 9 Blood Urea Nitrogen 27 Creatinine 1.43 Estimat Glomerular Filtration 49 Rate Random Glucose 95 Calcium Level 8.3 Total Bilirubin 0.4 Aspartate Amino Transf 43 (AST/SGOT) Alanine Aminotransferase 33 (ALT/SGPT) Alkaline Phosphatase 69 Total Creatine Kinase 721 Creatine Kinase MB 6.2 Creatine Kinase MB % 0.9 Troponin I LESS THAN 0.02 Total Protein 6.1 Albumin 2.9 Prothrombin Time 11.1 Prothromb Time International 1.0 Ratio Activated Partial 27.4 Thromboplast Time Urine Color YELLOW Urine Turbidity CLEAR Urine pH 5.0 Urine Specific [place] 1.012 Urine Protein NEG Urine Glucose (UA) NEG Urine Ketones NEG Urine Occult Blood TRACE Urine Nitrite NEG Urine Bilirubin NEG Urine Urobilinogen LESS THAN 2.0 Urine Leukocyte Esterase MOD Urine RBC 2 Urine WBC 26 Urine WBC Clumps RARE Urine Squamous Epithelial <1 Cells Urine Hyaline Casts 7 Urine Mucus FEW Microscopic Urinalysis Comment CULTURE INDICATED Date/Time Procedure Status Source Growth 06/05/16 12:57 Urine Culture Received Urine Clean Catch Pending (Kodak Avila MD R3) Result Diagram: 06/05/16 0850 06/05/16 0850 Septic Shock Reassessment Heart: Regular rate and rhythm Lungs: Clear Skin: Warm Capillary Refill: Brisk (Kodak Avila MD R3) Assessment and Plan Assessment and Plan 70 year-old male with complicated medical history, including MS admitted with history of weakness and mechanical fall at home. Code Status DNR Discussed Condition With Dr. Vega. Will discuss with Dr. Plata. (Kodak Avila MD R3) Attending Attestation Patient seen and examined in ER, discussed with Dr Avila. I agree with assessment and management as documented and discussed with me. The patient has been seen and examined. The chart and all resident notes have been reviewed. I agree that inpatient care is appropriate and that a two midnight stay is expected for the reasons documented in the resident history and physical. I have discussed this with the resident and certify the resident s order for inpatient admission. Amador Cullen is a 70yo gentleman with h/o MS and CAD admitted for continued leg weakness and a fall at home. He was recently treated in hospital under observation for UTI. For further details, please see resident H&P. On exam, lower extremity weakness noted 4/5 strength. Questionable left pronator drift. Continue antibiotics for UTI, based on UCx from prior admission. Consult neurology - concern for MS exacerbation. Consider also weakness from UTI vs stroke vs other. MRI brain. (Marli Plata MD) Problem List: (1) Weakness Status: Acute Plan: Acute exacerbation of chronic issue. Likely related to his MS. -inpatient admission. Suspect patient will require rehab. -check orthostatic vitals -fall precautions -CK elevated. Will replete fluids, as below. -add Mg and Phos to labsmg -UA concerning for recurrent v persistent UTI. Will treat with antibiotics, as below. -check MRI brain -PT/OT -consult neurology. ?need for solumedrol. Patient states unsure if sxs consistent with MS flares. (2) Fall at home Status: Acute Plan: Likely mechanical. No LOC. See above for management of weakness. (3) UTI (urinary tract infection) Status: Acute Plan: Failed outpatient treatment with cipro. UA on admission suspicious for UTI. Urine culture from last ED admission growing E coli. -cont treatment with cefepime -check renal u/s -f/u urine culture (4) Multiple sclerosis Status: Chronic Plan: ? acute flare with increased weakness. -cont home glatiramer -neuro consulted, as above (5) Hypoxia Status: Acute Plan: ? relation to weakness. CXR on admission shows linear atelectasis at the left lung base. -monitor vitals with pulse ox -supplemental O2, as needed -check VBG -acapella + incentive spirometry (6) Elevated CK Status: Acute Plan: Likely related to fall. -treat with IVF, as below (7) Abrasion Status: Acute Plan: From fall at home. -mupirocin ointment to prevent infection -wound care, per nursing (8) CKD (chronic kidney disease) stage 3, GFR 30-59 ml/min Status: Chronic Plan: Baseline eGFR in the 50s. Creatinine ~ baseline at 1.4 today. -IVF hydration -check daily chemistry for now (9) CAD (coronary artery disease) Status: Chronic Plan: Chronic issue. Multiple stents placed in the past. Asymptomatic at this time. On lifelong, dual antiplatelet therapy. -monitor on tele for now -troponin and EKG on admission negative -cont aspirin and plavix -PRN nitroglycerine (10) BPH (benign prostatic hyperplasia) Status: Chronic Plan: Continue home flomax and monitor UOP. (11) Hypertension Status: Chronic Plan: Continue home norvasc and metoprolol. Add PRN clonidine. (12) Dietary counseling and surveillance Status: Acute Plan: Fluid: 1L bolus followed by MIVF with NS. Diet: speech eval. Start on Heart Healthy diet. DVT ppx: heparin GI ppx: start if steroid therapy ordered (Kodak Avila MD R3) Physician Certification 2 Midnight Certification Type: Admission for Inpatient Services Order for Inpatient Services The services are ordered in accordance with Medicare regulations or non- Medicare payer requirements, as applicable. In the case of services not specified as inpatient-only, they are appropriately provided as inpatient services in accordance with the 2-midnight benchmark. Estimated LOS (days): 3 days is the estimated time the patient will need to remain in the hospital, assuming treatment plan goals are met and no additional complications. Post-Hospital Plan: SNF (Kodak Avila MD R3) Problem Qualifiers (1) Fall at home: Qualified Code: W19.XXXA - Fall at home, initial encounter (2) UTI (urinary tract infection): Qualified Code: N30.00 - Acute cystitis without hematuria (3) CAD (coronary artery disease): Qualified Code: I25.10 - Coronary artery disease involving [place] coronary artery of [place] heart without angina pectoris (4) BPH (benign prostatic hyperplasia): (5) Hypertension: Qualified Code: I10 - Essential hypertension Kodak Avila MD R3 Jun 05, 2016 14:41 Marli Plata MD Jun 06, 2016 08:18
[2016-06-05] MEDS ORDERED: MORPHINE SULFATE 4 MG/ML INJ IV PRN (14:45)
[2016-06-05] MEDS ORDERED: MAGNESIUM HYDROXIDE SUSP 30 ML CUP PO PRN (15:00)
[2016-06-05] MEDS ORDERED: NITROGLYCERIN 0.3 MG SL 100 TABS/BTL SL PRN (15:00)
[2016-06-05] MEDS ORDERED: ACETAMINOPHEN/HYDROcodone 325 MG/5 MG TAB PO PRN (15:00)
[2016-06-05] MEDS ORDERED: ONDANSETRON HCL 4 MG/2 ML VIAL IVP PRN (15:00)
[2016-06-05] MEDS ORDERED: ACETAMINOPHEN 325 MG TAB PO PRN (15:00)
[2016-06-05] MEDS: SODIUM CHLOR 0.9% 1000 ML INJ 1,000 ML IV SCH (15:11)
[2016-06-05] MEDS ORDERED: SODIUM CHLOR 0.9% 1000 ML INJ 1,000 ML IV ONE (15:15)
[2016-06-05] MEDS ORDERED: RESP: ALBUTEROL 2.5 MG/IPRATROPIUM 0.5 MG NEB (PRN) NEB (15:15)
[2016-06-05] MEDS ORDERED: cloNIDine HCL 0.1 MG TAB PO PRN (15:15)
[2016-06-05 15:37] LABS: MAGNESIUM 2.1 MG/DL (1.5-2.5)
[2016-06-05 15:37] LABS: BLOOD GAS BASE EXCESS -2.8 mmol/L (-2-2); BLOOD GAS CARBOXYHEMOGLOBIN 1.1 % (0-4); BLOOD GAS HCO3 20 mmol/L (22-26); BLOOD GAS METHEMOGLOBIN 0.6 % (0-2); BLOOD GAS O2 HGB SATURATION 95 % (90-100); BLOOD GAS OXYGEN CONTENT 18.3 Vol % (12.0-20.0); BLOOD GAS PCO2 28 mmHg (38-42); BLOOD GAS PO2 75 mmHG (61-120); BLOOD GAS TOTAL HGB 13.8 G/DL (12.0-16.0); TEMP CORR TO 98.6
[2016-06-05 15:38] LABS: CRITICAL VALUE NO; DRAW SITE LT RADIAL; FIO2 21 %; NUMBER OF ARTERIAL PUNCTURES 2; STAT YES; ULNAR PULSE PRESENT
--- NOTE | 2016-06-05 16:19 | RADRPT ---
EXAM DATE/TIME: 06/05/2016 15:39 [facility] COMPARISON: No previous studies available for comparison. INDICATIONS : Increased BUN/Creatinine. MEDICAL HISTORY : Hypercholesterolemia. Hypertension. Multiple sclerosis. Coronary artery disease. SURGICAL HISTORY : Coronary stent. Cardiac catherization. ENCOUNTER: Initial ACUITY: 1 day PAIN SCORE: 0/10 LOCATION: Bilateral flank MEASUREMENTS: RIGHT KIDNEY: 11.7 x 5.1 x 5.9 cm LEFT KIDNEY: 10.8 x 5.8 x 4.8 cm FINDINGS: RIGHT KIDNEY: Renal cortex is normal in thickness and echotexture. No hydronephrosis, stone, or mass. 4.3 cm righ t renal cyst is noted. LEFT KIDNEY: Renal cortex is normal in thickness and echotexture. No hydronephrosis, stone, or mass. BLADDER: 2.8 cm bladder diverticulum is noted. CONCLUSION: Negative for hydronephrosis. Normal size kidneys.. Bharath Browning MD FACR on June 05, 2016 at 16:16 Board Certified Radiologist. This report was verified electronically.
[2016-06-05] MEDS: HEPARIN SODIUM - SQ 10,000 UNITS/ML VIAL SQ SCH (17:48)
--- NOTE | 2016-06-05 17:56 | PD.CONS ---
History of Present Illness Service Neurology Consult Requested By medical Reason for Consult weakness Primary Care Physician Marli Plata MD History of Present Illness 70 year-old male with history of MS admitted for worsening weakness over the past few days. feels like his rt leg is weaker. dx'd with ms 20 years ago, initial symptom of optic neuritis. takes copaxone daily. see's local neuro for it. has had iv solumedrol in the past and tolerated it well. lives alone. uses a walker. no children. [place]. pt poor hx; hx obtained from medical chart. 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) Glaucoma Past Surgical History Coronary stenting x 2002 Coronary stenting x 2016 Cystoscopy and TURP ( Dr Acevedo) Reported Medications Reported Meds & Active Scripts Active Ciprofloxacin (Ciprofloxacin HCl) 500 Mg Tab 500 Mg PO BID Reported Copaxone Inj (Glatiramer Inj) 20 Mg/Ml Syr 20 Mg SQ DAILY Amlodipine (Amlodipine Besylate) 5 Mg Tab 5 Mg PO HS Plavix (Clopidogrel Bisulfate) 75 Mg Tab 75 Mg PO DAILY Slo-Niacin (Niacin) 500 Mg Tab 500 Mg PO BID Vitamin B-12 (Cyanocobalamin) 1,000 Mcg Subl 1,000 Mcg SL DAILY Flaxseed Oil (Flaxseed (Linseed)) 1,000 Mg Cap 1,000 Mg PO DAILY Fish Oil ([place]-3 Fatty Acids) 1,000 Mg Cap 1 Cap PO DAILY Centrum Adults (Multiple Vitamins W/ Minerals) 1 Tab 1 Tab PO DAILY Nitrostat SL (Nitroglycerin) 0.4 Mg Subl 0.4 Mg SL DIRECTED PRN ONE TABLET UNDER THE TONGUE NEEDED FOR CHEST PAIN, MAY REPEAT EVERY FIVE MINUTES FOR A TOTAL OF 3 DOSES OR CALL 911 IF NO RELIEF Aspirin 81 Mg Tabdr 81 Mg PO BID Metoprolol Tartrate 50 Mg Tab 25 Mg PO BID Vesicare (Solifenacin) 10 Mg Tab 10 Mg PO DAILY Flomax (Tamsulosin HCl) 0.4 Mg Cap 0.4 Mg PO BID Allergies: Coded Allergies: Stephie (Verified Allergy, Severe, CAUSES PROSTATE ISSUES, 06/05/16) Family History Mother- passed 02/2011, COPD; also glaucoma and cataracts Father- passed in 1992, CAD. MS at 65yo. Paternal grandmother- CAD Sister - DM Social History Retired from [email or web address]. Lives by himself in [facility]. Smoking - Extensive prior history, Quit 1 month ago Alcohol - Last drink in 2005 Illicit - None Review of Systems All other ROS: ROS reviewed as documented in chart Past Family Social History Allergies: Coded Allergies: Stephie (Verified Allergy, Severe, CAUSES PROSTATE ISSUES, 06/05/16) Active Ordered Medications Current Medications Medications (Trade) Dose Ordered Sig/Dmitriy Route Start Time Stop Time Status Last Admin (NS 1000 ml Inj) 1,000 ml @ 125 mls/hr Q8H IV 06/05/16 14:45 06/05/16 15:11 (Zofran Inj) 4 mg Q6H PRN IVP 06/05/16 15:00 (Milk Of Magnesia Liq) 30 ml Q12H PRN PO 06/05/16 15:00 (Heparin Inj) 5,000 units Q12H SQ 06/05/16 15:00 (Tylenol) 650 mg Q6H PRN PO 06/05/16 15:00 ([place] 5-325 Mg) 1 tab Q4H PRN PO 06/05/16 15:00 (Morphine Inj) 4 mg Q3H PRN IV 06/05/16 14:45 (Norvasc) 5 mg HS PO 06/05/16 21:00 (Ecotrin Ec) 81 mg BID PO 06/05/16 21:00 (Plavix) 75 mg DAILY PO 06/06/16 09:00 (Vitamin B12) 1,000 mcg DAILY PO 06/06/16 09:00 (Lopressor) 25 mg BID PO 06/05/16 21:00 (Theragran M Tab) 1 tab DAILY PO 06/06/16 09:00 (Slo-Niacin) 500 mg BID PO 06/05/16 21:00 (Flomax) 0.4 mg BID PO 06/05/16 21:00 Non-Formulary Medication 20 mg DAILY SQ 06/06/16 09:00 UNV (Detrol La) 4 mg DAILY PO 06/06/16 09:00 (Nitrostat Sl) 0.3 mg Q5M PRN SL 06/05/16 15:00 (Bactroban 2% Oint) 1 applic Q12HR TOPICAL 06/05/16 21:00 Clonidine 0.1 mg 0.1 mg Q6H PRN PO 06/05/16 15:15 (Maxipime Inj/NS Inj) 100 ml @ 200 mls/hr Q12H IV 06/06/16 02:00 Exam I&O / VS Vital Signs Date Time Temp Pulse Resp B/P Pulse Ox O2 Delivery O2 Flow Rate FiO2 06/05/16 15:11 65 18 178/88 99 Room Air 06/05/16 13:21 58 20 181/89 100 Room Air 06/05/16 11:22 61 16 140/72 99 Room Air 06/05/16 08:05 60 16 97 Room Air 06/05/16 08:04 97 Room Air 06/05/16 07:39 98.3 65 18 139/70 66 General: Alert and Oriented, No acute distress Eye: EOMI Neurologic: Alert Psychiatric: Cooperative Exam Comments ox 3. inattentive at times, eomi, vff, reduced left nlf, eomi,mild rt side hemiparesis arm 4/5, leg 3-/5, no clonus, planterflexor response, gait not assessed 2/2 fall risk Review/Management Diagnosis/Plan: (1) MS (multiple sclerosis) Plan: possible secondary progressive with relapse 2/2 uti chronic gait d/o 2/2 ms recs mri brain/cspine iv solumedrol 1gm x 3 days; s/b d/w pt p.t. may require inpt rehab may need to look at halfway/alternate arrangement in the near future (2) Depression (3) Hyperlipidemia (4) Essential hypertension Problem Qualifiers (1) Depression: Qualified Code: F32.9 - Depression, unspecified depression type (2) Hyperlipidemia: Qualified Code: E78.5 - Hyperlipidemia, unspecified hyperlipidemia type Napoleon Rios MD Jun 05, 2016 17:56
[2016-06-05] MEDS ORDERED: methylPREDNISolone SOD SUCC 125 MG/2 ML VIAL IV SCH (18:00)
--- NOTE | 2016-06-05 19:59 | EKG ---
Date Performed: 06/05/2016 Time Performed: 07:59:42 PTAGE: 70 years EKG: Sinus rhythm MARKED LEFT AXIS DEVIATION MODERATE INTRAVENTRICULAR CONDUCTION DELAY ABNORMAL ECG PREVIOUS TRACING : 06/02/2016 12.33 Compared to prior tracing no significant change DOCTOR: Luis Carlos Simmons Interpretating Date/Time 06/05/2016 19:58:32
[2016-06-05] MEDS: methylPREDNISolone SO SUCC INJ 1,000 MG in DEXTROSE 5% IN WATER INJ 250 ML IV SCH ×2 (20:38)
[2016-06-05] MEDS ORDERED: NIACIN 500 MG EXTENDED RELEASE TAB PO SCH (21:00)
[2016-06-05] MEDS ORDERED: amLODIPine BESYLATE 5 MG TAB PO SCH (21:00)
[2016-06-05] MEDS: METOPROLOL TARTRATE 25 MG TAB PO SCH (22:19)
[2016-06-05] MEDS: ASPIRIN EC 81 MG TABEC PO SCH (22:19)
[2016-06-05] MEDS: TAMSULOSIN HCL 0.4 MG CAP PO SCH (22:19)
[2016-06-05] MEDS: MUPIROCIN 2% OINT 22 GM TUBE TOPICAL SCH (22:20)
[2016-06-05] MEDS: NIACIN 250 MG CONTROLLED RELEASE TAB PO SCH (22:20)
[2016-06-06] VITALS (10 sets, daily range): BP systolic 146–185; BP diastolic 74–99; PULSE 54–69; RESP 18–20; TEMP 96–97.9; O2SAT 92–98
--- NOTE | 2016-06-06 00:13 | RADRPT ---
EXAM DATE/TIME: 06/05/2016 23:43 [facility] COMPARISON: CT BRAIN W/O CONTRAST, June 02, 2016, 11:43. INDICATIONS : Syncope. RADIATION DOSE: 69.15 CTDIvol (mGy) MEDICAL HISTORY : Multple sclerosis. Hypertension. SURGICAL HISTORY : cardiac catheterization ENCOUNTER: Initial ACUITY: 1 day PAIN SCALE: 0/10 LOCATION: Bilateral head TECHNIQUE: Multiple contiguous axial images were obtained of the head. Using automated exposure control and adj ustment of the mA and/or kV according to patient size, radiation dose was kept as low as reasonably a chievable to obtain optimal diagnostic quality images. FINDINGS: CEREBRUM: The ventricles are normal for age. No evidence of midline shift, mass lesion, hemorrhage or acute in farction. No extra-axial fluid collections are seen. POSTERIOR FOSSA: The cerebellum and brainstem are intact. The 4th ventricle is midline. The cerebellopontine angle i s unremarkable. EXTRACRANIAL: The visualized portion of the orbits is intact. SKULL: The calvaria is intact. No evidence of skull fracture. CONCLUSION: 1. No acute findings. No significant change from June 02. Rohit Kc MD on June 06, 2016 at 0:10 Board Certified Radiologist. This report was verified electronically.
[2016-06-06] MEDS: HEPARIN SODIUM - SQ 10,000 UNITS/ML VIAL SQ SCH ×2 (03:19→13:58)
[2016-06-06] MEDS: CEFEPIME INJ 1,000 MG in SODIUM CHLORIDE 0.9% INJ 100 ML IV SCH ×2 (03:19→13:57)
[2016-06-06] MEDS: SODIUM CHLOR 0.9% 1000 ML INJ 1,000 ML IV SCH ×4 (03:42→22:45)
[2016-06-06 07:11] LABS: AUTOMATED NEUTROPHIL # 2.5 TH/MM3 (1.8-7.7); BASOPHIL % 0.1 % (0.0-2.0); EOSINOPHIL % 0.1 % (0.0-4.0); HEMATOCRIT 43.2 % (39.0-51.0); HEMO FLAGS DIFF FINAL; LYMPH % 16.9 % (9.0-44.0); LYMPHOCYTE # 0.5 TH/MM3 (1.0-4.8); MEAN CORPUSCULAR HEMOGLOBIN 30.4 PG (27.0-34.0); MEAN CORPUSCULAR HGB CONC 33.7 % (32.0-36.0); MONO % 1.5 % (0.0-8.0); NEUT % 81.4 % (16.0-70.0); PLATELET COUNT 104 TH/MM3 (150-450); RED CELL DISTRIBUTION WIDTH 13.5 % (11.6-17.2)
[2016-06-06 07:27] LABS: ALKALINE PHOSPHATASE 82 U/L (45-117); ALT (GPT) 39 U/L (12-78); ANION GAP 10 MEQ/L (5-15); AST (GOT) 47 U/L (15-37); BICARBONATE 22.3 MEQ/L (21.0-32.0); BLOOD UREA NITROGEN 23 MG/DL (7-18); CHLORIDE 107 MEQ/L (98-107); GLOMERULAR FILTRATION RATE 69 ML/MIN (>89); POTASSIUM 3.7 MEQ/L (3.5-5.1); SODIUM (NA) 139 MEQ/L (136-145); TOTAL BILIRUBIN ADULT 0.5 MG/DL (0.2-1.0)
[2016-06-06] MEDS: TAMSULOSIN HCL 0.4 MG CAP PO SCH ×2 (07:50→20:29)
[2016-06-06] MEDS: METOPROLOL TARTRATE 25 MG TAB PO SCH ×2 (07:50→20:30)
[2016-06-06] MEDS: MULTIVITAMINS/MINERALS THERAPEUTIC TAB PO SCH (07:50)
[2016-06-06] MEDS: ASPIRIN EC 81 MG TABEC PO SCH ×2 (07:50→20:29)
[2016-06-06] MEDS: CLOPIDOGREL 75 MG TAB PO SCH (07:50)
[2016-06-06] MEDS: CYANOCOBALAMIN 1,000 MCG TAB PO SCH (07:58)
[2016-06-06] MEDS: MUPIROCIN 2% OINT 22 GM TUBE TOPICAL SCH ×2 (08:12→21:00)
[2016-06-06] MEDS ORDERED: NON-FORMULARY DRUG (Flaxseed (Linseed) (Flaxseed Oil) 1,000 MG) PO SCH (09:00)
[2016-06-06] MEDS ORDERED: GLATIRAMER 20 MG SQ SCH (09:00)
[2016-06-06] MEDS ORDERED: NON-FORMULARY DRUG (Omega-3 Fatty Acids (Fish Oil) 1 CAP) PO SCH (09:00)
[2016-06-06] MEDS: TOLTERODINE TARTRATE 4 MG CAP LA PO SCH (09:24)
[2016-06-06] MEDS: NIACIN 250 MG CONTROLLED RELEASE TAB PO SCH ×2 (09:24→20:30)
--- NOTE | 2016-06-06 11:18 | HHI.FPPN ---
Subjective Remarks Patient seen this morning. No acute events overnight. Vitals this morning are essentially WNL. He does have bradycardia down to the 40s overnight, otherwise no events on tele. Amador says he hard time sleeping last night. Requesting home sleep aid. States weakness essentially unchanged from yesterday. No vision changes. No issues with swallowing. No dizziness, palpitations, or CP. No F/C. (Kodak Avila MD R3) Objective Vitals Vital Signs Date Time Temp Pulse Resp B/P Pulse Ox O2 Delivery O2 Flow Rate FiO2 06/06/16 10:45 97 21 06/06/16 08:00 96.6 54 18 146/74 94 06/06/16 04:00 97.9 56 18 167/87 94 06/06/16 00:05 61 06/06/16 00:00 96.7 68 20 185/99 97 06/05/16 23:42 66 16 150/78 96 Room Air 06/05/16 22:35 70 18 158/84 98 Room Air 06/05/16 21:44 68 18 166/76 68 16 162/62 70 14 158/60 06/05/16 21:43 68 18 166/76 98 Room Air 06/05/16 20:54 100 06/05/16 19:25 61 20 169/78 99 Room Air 06/05/16 17:46 67 18 179/93 96 Room Air 06/05/16 15:11 65 18 178/88 99 Room Air 06/05/16 13:21 58 20 181/89 100 Room Air 06/05/16 11:22 61 16 140/72 99 Room Air I/O 06/05/16 06/05/16 06/05/16 06/06/16 06/06/16 06/06/16 07:00 15:00 23:00 07:00 15:00 23:00 Intake Total 875 ml Output Total 425 ml 200 ml Balance 450 ml -200 ml Intake IV Total 875 ml Output Urine Total 425 ml 200 ml (Kodak Avila MD R3) Result Diagram: 06/06/1662206/06/1623 Objective Remarks GENERAL: Frail-appearing, elderly male sitting up in bed. In NAD. SKIN: Cool and dry. Multiple surface abrasions over anterior knees, right inguinal region, and lateral aspect of right UE. No surrounding erythema, edema , or drainage. CARDIOVASCULAR: Regular rate and rhythm without murmurs, gallops, or rubs. RESPIRATORY: Clear to auscultation. Breath sounds equal bilaterally. No wheezes , rales, or rhonchi. GASTROINTESTINAL: Abdomen soft, non-tender, nondistended. No hepato-splenomegaly , or palpable masses. No guarding. MUSCULOSKELETAL: Extremities without clubbing, cyanosis, or edema. No joint tenderness, effusion, or edema noted. No calf tenderness. Negative Homans sign bilaterally. NEUROLOGICAL: Awake and alert. Cranial nerves II through XII intact. ALYSIA intact. ? dysmetria bilaterally (R>L). Subjective, decreased sensation to touch in distal upper and lower extremities on the right. 4/5 strength on the left throughout; 4-/5 strength on the left throughout. ? mild pronator drift on the left. Normal speech. (Kodak Avila MD R3) A/P Assessment and Plan 70 year-old male with complicated medical history, including MS admitted with history of weakness and mechanical fall at home. Discharge Planning Plan for likely DC to rehab facility. Will discuss with CM today. Will discuss with Dr. Plata. (Kodak Avila MD R3) Attending Attestation Patient seen and examined, discussed with Dr Avila. I agree with assessment and management as documented and discussed with me. Pt reports feeling the same as yesterday. He has been seen by neurology, who has initiated solumedrol for three days, for exacerbation of Multiple Sclerosis. He is unable to get MRI brain / C spine due to suspected metal in eye (He is unaware of any incident). He reports that he recently had MRIs done with Dr Scott without incident - records have been requested. Continue high dose solumedrol. Continue antibiotics for UTI. (Marli Plata MD) Problem List: (1) Weakness Status: Acute Plan: Acute exacerbation of chronic issue. Likely related to his MS. -inpatient admission. Suspect patient will require rehab. -orthostatic vitals WNL yesterday -fall precautions -CK elevated. Will replete fluids, as below. -Mg and Phos essentially WNL -UA concerning for recurrent v persistent UTI. Will treat with antibiotics, as below. -CT brain 06/05 negative for acute process -check MRI brain/C-spine -PT/OT -consult neurology. Appreciate their care. They have started solumedrol and are checking MRI brain/C-spine, as above. (2) Fall at home Status: Acute Plan: Likely mechanical. No LOC. See above for management of weakness. (3) UTI (urinary tract infection) Status: Acute Plan: Failed outpatient treatment with cipro. UA on admission suspicious for UTI. Urine culture from last ED admission growing E coli. -cont treatment with cefepime -renal u/s negative -f/u urine culture (4) Multiple sclerosis Status: Chronic Plan: ? acute flare with increased weakness. -cont home glatiramer -neuro consulted, as above (5) Hypoxia Status: Acute Plan: Essentially resolved. Sats 94-100% on room air now. ? relation to weakness. CXR on admission shows linear atelectasis at the left lung base. -monitor vitals with pulse ox -supplemental O2, as needed -ABG shows mild respiratory alkalosis (pCO2 28) with pH 7.48 -acapella + incentive spirometry (6) Elevated CK Status: Acute Plan: Likely related to fall. Checking repeat level this AM. -treat with IVF, as below (7) Abrasion Status: Acute Plan: From fall at home. -mupirocin ointment to prevent infection -wound care, per nursing (8) CKD (chronic kidney disease) stage 3, GFR 30-59 ml/min Status: Chronic Plan: Improving with IVF hydration. Creatinine WNL and eGFR now in the 60s. -cont IVF hydration (9) CAD (coronary artery disease) Status: Chronic Plan: Chronic issue. Multiple stents placed in the past. Asymptomatic at this time. On lifelong, dual antiplatelet therapy. -monitor on tele for now -troponin and EKG on admission negative -cont aspirin and plavix -PRN nitroglycerine (10) BPH (benign prostatic hyperplasia) Status: Chronic Plan: Chronic issue. ?neurogenic bladder contributing to sxs. Only 425 cc UOP recorded over the past 24 hours (0.2cc/kg/hr). Goal of at least 0.5 cc/kg/hr output. Continue home flomax and monitor UOP. (11) Hypertension Status: Chronic Plan: SBP up to the 180s overnight. Goal would be to keep SBP <150s. -will increase home norvasc to 10mg HS -cont home metoprolol -clonidine PRN (12) Bradycardia Status: Chronic Plan: Heart rate in the 40s overnight. No pauses. Appears to be a chronic issue. ?autonomic dysfunction. Appears asymptomatic. -cont tele (13) Insomnia Status: Chronic Plan: Restart home doxepin. (14) Dietary counseling and surveillance Status: Acute Plan: Fluid: MIVF with NS. Diet: Heart Healthy diet. Awaiting speech eval. Albumin low. Add boost. DVT ppx: heparin GI ppx: will start protonix for GI ppx while on IV steroids (Kodak Avila MD R3) Problem Qualifiers (1) Fall at home: Qualified Code: W19.XXXA - Fall at home, initial encounter (2) UTI (urinary tract infection): Qualified Code: N30.00 - Acute cystitis without hematuria (3) CAD (coronary artery disease): Qualified Code: I25.10 - Coronary artery disease involving [place] coronary artery of [place] heart without angina pectoris (4) BPH (benign prostatic hyperplasia): (5) Hypertension: Qualified Code: I10 - Essential hypertension Kodak Avila MD R3 Jun 06, 2016 11:18 Marli Plata MD Jun 06, 2016 15:48
[2016-06-06] MEDS ORDERED: PANTOPRAZOLE SOD 40 MG DELAYED RELEASE TAB PO ONE (11:30)
[2016-06-06 11:49] LABS: CKMB 7.8 NG/ML (0.5-3.6)
[2016-06-06] MEDS ORDERED: SODIUM CHLORID 0.9% 500 ML INJ 500 ML IV ONE (12:30)
[2016-06-06] MEDS: methylPREDNISolone SO SUCC INJ 1,000 MG in DEXTROSE 5% IN WATER INJ 250 ML IV SCH ×2 (20:29)
[2016-06-06] MEDS: DOXEPIN HCL 10 MG CAP PO SCH (20:30)
[2016-06-06] MEDS ORDERED: ZOLPIDEM TARTRATE 5 MG TAB PO PRN (21:00)
[2016-06-07] VITALS (8 sets, daily range): BP systolic 134–172; BP diastolic 62–88; PULSE 63–77; RESP 18; TEMP 96.7–98.2; O2SAT 96–100
[2016-06-07] MEDS: HEPARIN SODIUM - SQ 10,000 UNITS/ML VIAL SQ SCH (01:17)
[2016-06-07] MEDS: CEFEPIME INJ 1,000 MG in SODIUM CHLORIDE 0.9% INJ 100 ML IV SCH (01:18)
[2016-06-07] MEDS: SODIUM CHLOR 0.9% 1000 ML INJ 1,000 ML IV SCH (06:45)
[2016-06-07 07:29] LABS: AUTOMATED NEUTROPHIL # 12.5 TH/MM3 (1.8-7.7); BASOPHIL % 0.3 % (0.0-2.0); HEMATOCRIT 40.7 % (39.0-51.0); HEMO FLAGS AUTO DIFF; LYMPH % 8.3 % (9.0-44.0); LYMPHOCYTE # 1.2 TH/MM3 (1.0-4.8); MEAN CELL VOLUME 89.6 FL (80.0-100.0); MEAN CORPUSCULAR HEMOGLOBIN 31.1 PG (27.0-34.0); MEAN CORPUSCULAR HGB CONC 34.7 % (32.0-36.0); MONO % 1.4 % (0.0-8.0); PLATELET COUNT 122 TH/MM3 (150-450); RED BLOOD COUNT 4.54 MIL/MM3 (4.50-5.90); RED CELL DISTRIBUTION WIDTH 13.8 % (11.6-17.2); WHITE BLOOD COUNT 13.9 TH/MM3 (4.0-11.0)
[2016-06-07 07:32] LABS: ALT (GPT) 43 U/L (12-78); ANION GAP 9 MEQ/L (5-15); AST (GOT) 43 U/L (15-37); BICARBONATE 23.4 MEQ/L (21.0-32.0); CHLORIDE 110 MEQ/L (98-107); GLOMERULAR FILTRATION RATE 66 ML/MIN (>89); POTASSIUM 4.1 MEQ/L (3.5-5.1); SODIUM (NA) 142 MEQ/L (136-145)
[2016-06-07 07:34] LABS: ALKALINE PHOSPHATASE 76 U/L (45-117); CREATINE KINASE 442 U/L (39-308); TOTAL BILIRUBIN ADULT 0.5 MG/DL (0.2-1.0)
[2016-06-07 07:41] LABS: BLOOD UREA NITROGEN 24 MG/DL (7-18)
[2016-06-07 07:52] LABS: PLATELET ESTIMATE SMEAR LOW (NORMAL); PLATELET MORPHOLOGY NORMAL (NORMAL); SCAN/DIFF AUTO DIFF CONFIRMED
[2016-06-07] MEDS: MULTIVITAMINS/MINERALS THERAPEUTIC TAB PO SCH (08:03)
[2016-06-07] MEDS: METOPROLOL TARTRATE 25 MG TAB PO SCH ×2 (08:03→20:16)
[2016-06-07] MEDS: CLOPIDOGREL 75 MG TAB PO SCH (08:04)
[2016-06-07] MEDS: TAMSULOSIN HCL 0.4 MG CAP PO SCH ×2 (08:04→20:17)
[2016-06-07] MEDS: PANTOPRAZOLE SOD 40 MG DELAYED RELEASE TAB PO SCH (08:04)
[2016-06-07] MEDS: ASPIRIN EC 81 MG TABEC PO SCH ×2 (08:04→20:17)
[2016-06-07] MEDS: NIACIN 250 MG CONTROLLED RELEASE TAB PO SCH ×2 (08:04→20:17)
[2016-06-07] MEDS: TOLTERODINE TARTRATE 4 MG CAP LA PO SCH (08:05)
[2016-06-07] MEDS: MUPIROCIN 2% OINT 22 GM TUBE TOPICAL SCH ×2 (08:05→20:20)
[2016-06-07] MEDS: CYANOCOBALAMIN 1,000 MCG TAB PO SCH (08:10)
[2016-06-07 08:25] LABS: CKMB 11.3 NG/ML (0.5-3.6)
--- NOTE | 2016-06-07 11:21 | HHI.FPPN ---
Subjective Remarks Patient seen this morning. No acute events overnight. Vitals WNL. Amador has no complaints this morning. Has been walking around without assistance. Feels strength is significantly improved. No vision problems or dizziness. He does feel he would benefit from a few days of rehab. Asking when he will be discharged. He denies any F/C, CP, or SOB. (Kodak Avila MD R3) Objective Vitals Vital Signs Date Time Temp Pulse Resp B/P Pulse Ox O2 Delivery O2 Flow Rate FiO2 06/07/16 08:51 97 21 06/07/16 08:00 98.2 77 18 134/62 100 06/07/16 04:00 97.3 70 18 172/80 96 06/07/16 00:00 96.7 67 18 167/87 97 06/06/16 21:56 92 06/06/16 20:14 67 06/06/16 20:00 97.3 69 18 170/96 97 06/06/16 15:50 96.3 65 20 164/94 96 06/06/16 12:11 96.0 58 18 157/87 98 I/O 06/06/16 06/06/16 06/06/16 06/07/16 06/07/16 06/07/16 07:00 15:00 23:00 07:00 15:00 23:00 Intake Total 875 ml 1200 ml 1682 ml 240 ml Output Total 425 ml 200 ml 1210 ml 1000 ml Balance 450 ml 1000 ml 472 ml -760 ml Intake Oral 1200 ml 240 ml 240 ml IV Total 875 ml 1442 ml Output Urine Total 425 ml 200 ml 1210 ml 1000 ml # Voids 3 1 # Bowel Movements 0 0 0 (Kodak Avila MD R3) Result Diagram: 06/07/16 0633 06/07/16 0633 Objective Remarks GENERAL: noticeably more alert and active this morning. Walking around the [place]. SKIN: Cool and dry. Multiple surface abrasions over anterior knees, right inguinal region, and lateral aspect of right UE that are significantly improved. No surrounding erythema, edema, or drainage. CARDIOVASCULAR: Regular rate and rhythm without murmurs, gallops, or rubs. RESPIRATORY: Clear to auscultation. Breath sounds equal bilaterally. No wheezes , rales, or rhonchi. GASTROINTESTINAL: Abdomen soft, non-tender, nondistended. No hepato-splenomegaly , or palpable masses. No guarding. MUSCULOSKELETAL: Extremities without clubbing, cyanosis, or edema. No joint tenderness, effusion, or edema noted. NEUROLOGICAL: Awake and alert. Cranial nerves grossly intact. ALYSIA intact. Moves extremities well. Strength and sensation not fully assessed this AM. Gait slowed , takes small steps. Not wide-based or unstable. (Kodak Avila MD R3) A/P Assessment and Plan 70 year-old male with complicated medical history, including MS admitted with history of weakness and mechanical fall at home. Now with improving strength on high-dose solumedrol. Discharge Planning Plan for likely DC to rehab facility as soon as today. Will discuss with CM today. Will discuss with Dr. Plata. (Kodak Avila MD R3) Attending Attestation Patient seen, examined, and discussed with Dr Avila. I agree with assessment and management as documented and discussed with me. Pt feels much stronger after having received 2 of 3 doses of solumedrol so far. Continue work with PT. Anticipate discharge tomorrow to rehab to continue strengthening, after pt completes course of high dose steroids. (Marli Plata MD) Problem List: (1) Weakness Status: Acute Plan: Acute exacerbation of chronic issue. Likely related to his MS. -orthostatic vitals WNL on admission -fall precautions -CK trending down. Renal function improved. Saline lock. -Mg and Phos essentially WNL -UA concerning for recurrent v persistent UTI. Will treat with antibiotics, as below. -CT brain 06/05 negative for acute process -order in for MRI brain/C-spine/T-spine. Per my read, does have metal fragment around left orbit. Discussed with radiology, recommended this be tested for magnetism as an outpatient. -PT/OT -consult neurology. Appreciate their care. They have started 3 day course of solumedrol (06/05-). (2) Fall at home Status: Acute Plan: Likely mechanical. No LOC. See above for management of weakness. (3) UTI (urinary tract infection) Status: Acute Plan: Failed outpatient treatment with cipro. UA on admission suspicious for UTI. Urine culture from last ED admission growing E coli. -DC cefepime at this time (06/05-06/07), given negative culture -renal u/s negative -urine culture negative (4) Multiple sclerosis Status: Chronic Plan: ? acute flare with increased weakness. -cont home glatiramer -neuro consulted, as above (5) Elevated CK Status: Acute Plan: CK trending down. Likely related to fall. (6) Abrasion Status: Acute Plan: From fall at home. -mupirocin ointment to prevent infection -wound care, per nursing (7) CKD (chronic kidney disease) stage 3, GFR 30-59 ml/min Status: Chronic Plan: Improving with IVF hydration. Creatinine WNL and eGFR now in the 60s. -SLIV (8) CAD (coronary artery disease) Status: Chronic Plan: Chronic issue. Multiple stents placed in the past. Asymptomatic at this time. On lifelong, dual antiplatelet therapy. -monitor on tele for now -troponin and EKG on admission negative -cont aspirin and plavix -PRN nitroglycerine (9) BPH (benign prostatic hyperplasia) Status: Chronic Plan: Chronic issue. ?neurogenic bladder contributing to sxs. Only 425 cc UOP recorded over the past 24 hours (0.2cc/kg/hr). Goal of at least 0.5 cc/kg/hr output. Continue home flomax and monitor UOP. (10) Hypertension Status: Chronic Plan: SBP up to the 180s overnight. Goal would be to keep SBP <150s. -will increase home norvasc to 10mg HS -cont home metoprolol -clonidine PRN (11) Bradycardia Status: Chronic Plan: Heart rate in the 40s on 06/06. No events on tele overnight. Appears to be a chronic issue. ?autonomic dysfunction. Appears asymptomatic. -cont tele (12) Insomnia Status: Chronic Plan: Doxepin from home. Ambien added overnight. (13) Dietary counseling and surveillance Status: Acute Plan: Fluid: SLIV Diet: Heart Healthy diet. Mechanical soft with thin liquids, per speech. Albumin low. Add boost. DVT ppx: DC heparin, given fall risk, as patient now ambulatory. GI ppx: protonix for GI ppx while on IV steroids (Kodak Avila MD R3) Problem Qualifiers (1) Fall at home: Qualified Code: W19.XXXA - Fall at home, initial encounter (2) UTI (urinary tract infection): Qualified Code: N30.00 - Acute cystitis without hematuria (3) CAD (coronary artery disease): Qualified Code: I25.10 - Coronary artery disease involving [place] coronary artery of [place] heart without angina pectoris (4) BPH (benign prostatic hyperplasia): (5) Hypertension: Qualified Code: I10 - Essential hypertension Kodak Avila MD R3 Jun 07, 2016 11:21 Marli Plata MD Jun 07, 2016 12:59
--- NOTE | 2016-06-07 12:18 | HHI.PR ---
Review/Management Diagnosis/Plan: (1) MS (multiple sclerosis) Plan: possible secondary progressive with relapse 2/2 uti chronic gait d/o 2/2 ms recs mri brain/cspine-unable to perform 2/2 metal fragment in orbit iv solumedrol 1gm x 3/3 today. no need for po taper p.t. d/c planning in today/am per medical outpatient f/u with his neurologist (2) Depression (3) Hyperlipidemia (4) Essential hypertension Subjective Subjective Comments No acute events reported; rt side stronger No headache No chest pain No dyspnea Active Medications Current Medications Medications (Trade) Dose Ordered Sig/Dmitriy Route Start Time Stop Time Status Last Admin (NS 1000 ml Inj) 1,000 ml @ 125 mls/hr Q8H IV 06/05/16 14:45 06/07/16 06:45 (Zofran Inj) 4 mg Q6H PRN IVP 06/05/16 15:00 (Milk Of Magnesia Liq) 30 ml Q12H PRN PO 06/05/16 15:00 (Tylenol) 650 mg Q6H PRN PO 06/05/16 15:00 ([place] 5-325 Mg) 1 tab Q4H PRN PO 06/05/16 15:00 (Morphine Inj) 4 mg Q3H PRN IV 06/05/16 14:45 (Ecotrin Ec) 81 mg BID PO 06/05/16 21:00 06/07/16 08:04 (Plavix) 75 mg DAILY PO 06/06/16 09:00 06/07/16 08:04 (Vitamin B12) 1,000 mcg DAILY PO 06/06/16 09:00 06/07/16 08:10 (Lopressor) 25 mg BID PO 06/05/16 21:00 06/07/16 08:03 (Theragran M Tab) 1 tab DAILY PO 06/06/16 09:00 06/07/16 08:03 (Flomax) 0.4 mg BID PO 06/05/16 21:00 06/07/16 08:04 Patient Own Medication PT OWN MED: Glatira... DAILY SQ 06/06/16 09:00 Hold (Detrol La) 4 mg DAILY PO 06/06/16 09:00 06/07/16 08:05 (Nitrostat Sl) 0.3 mg Q5M PRN SL 06/05/16 15:00 (Bactroban 2% Oint) 1 applic Q12HR TOPICAL 06/05/16 21:00 06/06/16 08:12 Clonidine 0.1 mg 0.1 mg Q6H PRN PO 06/05/16 15:15 06/06/16 00:31 (SoluMEDROL INJ/ D5W Inj) 266 ml @ 66.5 mls/hr Q24H IV 06/05/16 20:00 06/07/16 23:59 06/06/16 20:29 (Slo-Niacin) 500 mg BID PO 06/05/16 22:00 06/07/16 08:04 (Norvasc) 10 mg HS PO 06/06/16 21:00 06/06/16 20:30 (Protonix) 40 mg DAILY PO 06/07/16 09:00 06/07/16 08:04 (SINEquan) 10 mg HS PO 06/06/16 21:00 06/06/16 20:30 (Ambien) 5 mg HS PRN PO 06/06/16 21:00 Allergies Allergies Coded Allergies Stephie (Verified Allergy, Severe, CAUSES PROSTATE ISSUES, 06/05/16) MRI PRECAUTION (Verified Adverse Reaction, Unknown, Metal near left orbit. Dr. Sexton 06/06/16. LRS, 06/06/16) Review of Systems All other ROS: ROS reviewed as documented in chart Exam I&O / VS 06/06/16 06/06/16 06/07/16 15:00 23:00 07:00 Intake Total 1200 ml 1682 ml 240 ml Output Total 200 ml 1210 ml 1000 ml Balance 1000 ml 472 ml -760 ml Intake Oral 1200 ml 240 ml 240 ml IV Total 1442 ml Output Urine Total 200 ml 1210 ml 1000 ml # Voids 3 1 # Bowel Movements 0 0 0 Vital Signs Date Time Temp Pulse Resp B/P Pulse Ox O2 Delivery O2 Flow Rate FiO2 06/07/16 08:51 97 21 06/07/16 08:00 98.2 77 18 134/62 100 06/07/16 04:00 97.3 70 18 172/80 96 06/07/16 00:00 96.7 67 18 167/87 97 06/06/16 21:56 92 06/06/16 20:14 67 06/06/16 20:00 97.3 69 18 170/96 97 06/06/16 15:50 96.3 65 20 164/94 96 General: Alert and Oriented, No acute distress Eye: EOMI Neurologic: Alert Psychiatric: Cooperative Exam Comments ox 3. , eomi, vff, reduced left nlf, eomi,mild rt side hemiparesis arm 4+/5, leg 4+/5, no clonus, planterflexor response, gait not assessed 2/2 fall risk Objective Micro and Labs Laboratory Tests Test 06/07/16 06:33 White Blood Count 13.9 Red Blood Count 4.54 Hemoglobin 14.1 Hematocrit 40.7 Mean Corpuscular Volume 89.6 Mean Corpuscular Hemoglobin 31.1 Mean Corpuscular Hemoglobin 34.7 Concent Red Cell Distribution Width 13.8 Platelet Count 122 Mean Platelet Volume 9.7 Neutrophils (%) (Auto) 90.0 Lymphocytes (%) (Auto) 8.3 Monocytes (%) (Auto) 1.4 Eosinophils (%) (Auto) 0.0 Basophils (%) (Auto) 0.3 Neutrophils # (Auto) 12.5 Lymphocytes # (Auto) 1.2 Monocytes # (Auto) 0.2 Eosinophils # (Auto) 0.0 Basophils # (Auto) 0.0 CBC Comment AUTO DIFF Differential Comment AUTO DIFF CONFIRMED Platelet Estimate LOW Platelet Morphology Comment NORMAL Red Cell Morphology Comment NORMAL Hematology Comments Sodium Level 142 Potassium Level 4.1 Chloride Level 110 Carbon Dioxide Level 23.4 Anion Gap 9 Blood Urea Nitrogen 24 Creatinine 1.10 Estimat Glomerular Filtration 66 Rate Random Glucose 138 Calcium Level 8.6 Total Bilirubin 0.5 Aspartate Amino Transf 43 (AST/SGOT) Alanine Aminotransferase 43 (ALT/SGPT) Alkaline Phosphatase 76 Total Creatine Kinase 442 Creatine Kinase MB 11.3 Creatine Kinase MB % 2.6 Total Protein 6.4 Albumin 3.2 Date/Time Procedure Status Source Growth 06/05/16 12:57 Urine Culture - Final Complete Urine Clean Catch NO GROWTH IN 48 HOURS. Problem Qualifiers (1) Depression: Qualified Code: F32.9 - Depression, unspecified depression type (2) Hyperlipidemia: Qualified Code: E78.5 - Hyperlipidemia, unspecified hyperlipidemia type Napoleon Rios MD Jun 07, 2016 12:18 Qualified Code: E78.5 - Hyperlipidemia, unspecified hyperlipidemia type Napoleon Rios MD Jun 07, 2016 12:18
[2016-06-07] MEDS ORDERED: CEFEPIME INJ 1,000 MG in SODIUM CHLORIDE 0.9% INJ 100 ML IV ONE (14:00)
[2016-06-07] MEDS: methylPREDNISolone SO SUCC INJ 1,000 MG in DEXTROSE 5% IN WATER INJ 250 ML IV SCH ×2 (20:16)
[2016-06-07] MEDS: DOXEPIN HCL 10 MG CAP PO SCH (20:17)
[2016-06-08] VITALS: BP 123/73; PULSE 65; RESP 17; TEMP 96.7; O2SAT 96
[2016-06-08 05:54] VITALS: BP 152/71; PULSE 76; RESP 17; TEMP 97.8; O2SAT 96
[2016-06-08] MEDS ORDERED: CEFEPIME INJ 1,000 MG in SODIUM CHLORIDE 0.9% INJ 100 ML IV SCH (06:00)
[2016-06-08 07:39] LABS: HEMATOCRIT 44.3 % (39.0-51.0); MEAN CELL VOLUME 91.3 FL (80.0-100.0); MEAN CORPUSCULAR HEMOGLOBIN 30.5 PG (27.0-34.0); MEAN CORPUSCULAR HGB CONC 33.4 % (32.0-36.0); PLATELET COUNT 148 TH/MM3 (150-450); RED BLOOD COUNT 4.85 MIL/MM3 (4.50-5.90); REVIEW FLAG FINAL; WHITE BLOOD COUNT 10.7 TH/MM3 (4.0-11.0)
[2016-06-08 08:00] VITALS: BP 142/91; PULSE 65; RESP 16; TEMP 96.5; O2SAT 100
[2016-06-08 08:19] LABS: BICARBONATE 22.5 MEQ/L (21.0-32.0); POTASSIUM 3.6 MEQ/L (3.5-5.1)
[2016-06-08] MEDS: ASPIRIN EC 81 MG TABEC PO SCH (10:25)
[2016-06-08] MEDS: METOPROLOL TARTRATE 25 MG TAB PO SCH (10:25)
[2016-06-08] MEDS: CYANOCOBALAMIN 1,000 MCG TAB PO SCH (10:25)
[2016-06-08] MEDS: MULTIVITAMINS/MINERALS THERAPEUTIC TAB PO SCH (10:26)
[2016-06-08] MEDS: PANTOPRAZOLE SOD 40 MG DELAYED RELEASE TAB PO SCH (10:26)
[2016-06-08] MEDS: NIACIN 250 MG CONTROLLED RELEASE TAB PO SCH (10:26)
[2016-06-08] MEDS: TOLTERODINE TARTRATE 4 MG CAP LA PO SCH (10:27)
[2016-06-08] MEDS: CLOPIDOGREL 75 MG TAB PO SCH (10:28)
[2016-06-08] MEDS: MUPIROCIN 2% OINT 22 GM TUBE TOPICAL SCH (10:29)
[2016-06-08] MEDS: TAMSULOSIN HCL 0.4 MG CAP PO SCH (10:32)
[2016-06-08] MEDS ORDERED: CIPR500T2 PO (11:58)
[2016-06-08] MEDS ORDERED: DOXE10CA PO (11:58)
[2016-06-08] MEDS ORDERED: AMBI5TAB PO (11:58)
[2016-06-08] MEDS ORDERED: AMLO10 PO (11:58)
--- NOTE | 2016-06-08 11:59 | HHI.DCPOC ---
Discharge Care Plan Diagnosis: (1) MS (multiple sclerosis) (2) UTI (urinary tract infection) Goals to Promote Your Health * To prevent worsening of your condition and complications * To maintain your health at the optimal level Directions to Meet Your Goals Take your medications as prescribed Follow your dietary instruction Follow activity as directed Keep your appointments as scheduled Take your immunizations and boosters as scheduled If your symptoms worsen call your PCP, if no PCP go to Urgent Care Center or Emergency Room Smoking is Dangerous to Your Health. Avoid second hand smoke Call the 24-hour hour crisis hotline for domestic abuse at Kodak Avila MD R3 Jun 08, 2016 11:59
[2016-06-08 12:00] VITALS: BP 139/91; PULSE 74; RESP 18; TEMP 96.9; O2SAT 94
--- NOTE | 2016-06-08 12:24 | HHI.FPPN ---
Subjective Remarks Patient seen this morning. There were no acute events overnight. Vitals essentially WNL this AM. Amador feels ready for DC today. He feels strength continuing to improve. No vision changes or dizziness at this time. Walking around halls without assistance. Tolerating PO diet. No N/V. Denies any F/C. On further interview, patient states he was only able to take 2 doses of PO ciprofloxacin when he went home. Did not have any side-effects with medication. He states he simply forgot to take medicine after this point. Objective Vitals Vital Signs Date Time Temp Pulse Resp B/P Pulse Ox O2 Delivery O2 Flow Rate FiO2 06/08/16 08:00 96.5 65 16 142/91 100 06/08/16 05:54 97.8 76 17 152/71 96 06/08/16 00:00 96.7 65 17 123/73 96 06/07/16 20:33 96.9 74 18 143/88 96 06/07/16 20:10 73 06/07/16 16:00 97.3 63 18 158/87 99 I/O 06/07/16 06/07/16 06/07/16 06/08/16 06/08/16 06/08/16 07:00 15:00 23:00 07:00 15:00 23:00 Intake Total 240 ml 600 ml Output Total 1000 ml 720 ml 20 ml Balance -760 ml -120 ml -20 ml Intake Oral 240 ml 600 ml Output Urine Total 1000 ml 720 ml 20 ml # Voids 1 2 # Bowel Movements 0 Result Diagram: 06/08/16 0715 06/08/16 0715 Objective Remarks GENERAL: continues to appear more awake and alert. SKIN: Cool and dry. LE abrasions not examined this morning. CARDIOVASCULAR: Regular rate and rhythm without murmurs, gallops, or rubs. RESPIRATORY: Clear to auscultation. Breath sounds equal bilaterally. No wheezes , rales, or rhonchi. GASTROINTESTINAL: Abdomen soft, non-tender, nondistended. No hepato-splenomegaly , or palpable masses. No guarding. MUSCULOSKELETAL: Extremities without clubbing, cyanosis, or edema. No joint tenderness, effusion, or edema noted. NEUROLOGICAL: Awake and alert. Cranial nerves grossly intact. ALYSIA intact. Moves extremities well. Strength and sensation not fully assessed this AM. Gait slowed , takes small steps. Not wide-based or unstable. A/P Assessment and Plan 70 year-old male with complicated medical history, including MS admitted with history of weakness and mechanical fall at home. Now with improving strength, approaching baseline after 3 day course of IV solumedrol. Discharge Planning DC to rehab facility today. Will discuss with Dr. Plata. Problem List: (1) Weakness Status: Acute Plan: Acute exacerbation of chronic issue. Likely related to his MS. -orthostatic vitals WNL on admission -fall precautions -CK trending down. -Mg and Phos essentially WNL -UA concerning for recurrent v persistent UTI. Will treat with antibiotics, as below. -CT brain 06/05 negative for acute process -order in for MRI brain/C-spine/T-spine. Per my read, does have metal fragment around left orbit. Discussed with radiology, recommended this be tested for magnetism as an outpatient. -PT/OT -consult neurology. Appreciate their care. Patient had completed 3 day course of IV solumedrol (06/05-06/07) (2) Fall at home Status: Acute Plan: Likely mechanical. No LOC. See above for management of weakness. (3) UTI (urinary tract infection) Status: Acute Plan: Failed outpatient treatment with cipro. UA on admission suspicious for UTI. Urine culture from last ED admission growing E coli sensitive to cipro. -per patient, apparently stopped taking cipro after 2 doses at home. Previous hospitalization he received 1 dose of rocephin and this hospitalization has received 5 doses cefepime. In total, he has been treated with equivalent of 4 days antibiotic therapy. Will discharge to rehab with 3 day course of cipro to complete 7 days total treatment for complicated UTI. -renal u/s negative -urine culture negative (4) Multiple sclerosis Status: Chronic Plan: ? acute flare with increased weakness. -cont home glatiramer -neuro consulted, as above (5) Elevated CK Status: Acute Plan: CK trending down. Likely related to fall. (6) Abrasion Status: Acute Plan: From fall at home. -okay to DC mupirocin at this time, use vaseline -wound care, per nursing (7) CKD (chronic kidney disease) stage 3, GFR 30-59 ml/min Status: Chronic Plan: Improving with IVF hydration. Creatinine WNL and eGFR now in the 60s. -SLIV (8) CAD (coronary artery disease) Status: Chronic Plan: Chronic issue. Multiple stents placed in the past. Asymptomatic at this time. On lifelong, dual antiplatelet therapy. -monitor on tele for now -troponin and EKG on admission negative -cont aspirin and plavix -PRN nitroglycerine (9) BPH (benign prostatic hyperplasia) Status: Chronic Plan: Chronic issue. ?neurogenic bladder contributing to sxs. Only 425 cc UOP recorded over the past 24 hours (0.2cc/kg/hr). Goal of at least 0.5 cc/kg/hr output. Continue home flomax and monitor UOP. (10) Hypertension Status: Chronic Plan: Improving. SBP in the 140s this morning. Goal would be to keep SBP < 150s. -continue norvasc 10mg HS -cont home metoprolol -clonidine PRN (11) Bradycardia Status: Chronic Plan: Heart rate in the 40s on 06/06. No events on tele overnight. Appears to be a chronic issue. ?autonomic dysfunction. Appears asymptomatic. -okay to DC tele at this point (12) Insomnia Status: Chronic Plan: Doxepin from home. Ambien added. (13) Dietary counseling and surveillance Status: Acute Plan: Fluid: SLIV Diet: Heart Healthy diet. Mechanical soft with thin liquids, per speech. Albumin low. Add boost. DVT ppx: SCDs. Relative contraindication to heparin with fall risk. GI ppx: okay to stop protonix as he is off high-dose steroids. Problem Qualifiers (1) Fall at home: Qualified Code: W19.XXXA - Fall at home, initial encounter (2) UTI (urinary tract infection): Qualified Code: N30.00 - Acute cystitis without hematuria (3) CAD (coronary artery disease): Qualified Code: I25.10 - Coronary artery disease involving [place] coronary artery of [place] heart without angina pectoris (4) BPH (benign prostatic hyperplasia): (5) Hypertension: Qualified Code: I10 - Essential hypertension Kodak Avila MD R3 Jun 08, 2016 12:24
--- NOTE | 2016-06-08 12:32 | HHI.DS ---
Discharge Summary Admission Date Jun 05, 2016 at 13:53 Discharge Date: Jun 08, 2016 Admitting Diagnosis UTI. Unable to ambulate. Renal insufficiency. (1) Weakness Diagnosis: Principal Plan: Acute exacerbation of chronic issue. Likely related to his MS. -orthostatic vitals WNL on admission -fall precautions -CK trending down. -Mg and Phos essentially WNL -UA concerning for recurrent v persistent UTI. Will treat with antibiotics, as below. -CT brain 06/05 negative for acute process -order in for MRI brain/C-spine/T-spine. Per my read, does have metal fragment around left orbit. Discussed with radiology, recommended this be tested for magnetism as an outpatient. -PT/OT -consult neurology. Appreciate their care. Patient had completed 3 day course of IV solumedrol (06/05-06/07) (2) Fall at home Diagnosis: Secondary Plan: Likely mechanical. No LOC. See above for management of weakness. (3) UTI (urinary tract infection) Diagnosis: Secondary Plan: Failed outpatient treatment with cipro. UA on admission suspicious for UTI. Urine culture from last ED admission growing E coli sensitive to cipro. -per patient, apparently stopped taking cipro after 2 doses at home. Previous hospitalization he received 1 dose of rocephin and this hospitalization has received 5 doses cefepime. In total, he has been treated with equivalent of 4 days antibiotic therapy. Will discharge to rehab with 3 day course of cipro to complete 7 days total treatment for complicated UTI. -renal u/s negative -urine culture negative (4) Multiple sclerosis Diagnosis: Secondary Plan: ? acute flare with increased weakness. -cont home glatiramer -neuro consulted, as above (5) Elevated CK Diagnosis: Secondary Plan: CK trending down. Likely related to fall. (6) Abrasion Diagnosis: Secondary Plan: From fall at home. -okay to DC mupirocin at this time, use vaseline -wound care, per nursing (7) CKD (chronic kidney disease) stage 3, GFR 30-59 ml/min Diagnosis: Secondary Plan: Improving with IVF hydration. Creatinine WNL and eGFR now in the 60s. -SLIV (8) CAD (coronary artery disease) Diagnosis: Secondary Plan: Chronic issue. Multiple stents placed in the past. Asymptomatic at this time. On lifelong, dual antiplatelet therapy. -monitor on tele for now -troponin and EKG on admission negative -cont aspirin and plavix -PRN nitroglycerine (9) BPH (benign prostatic hyperplasia) Diagnosis: Secondary Plan: Chronic issue. ?neurogenic bladder contributing to sxs. Only 425 cc UOP recorded over the past 24 hours (0.2cc/kg/hr). Goal of at least 0.5 cc/kg/hr output. Continue home flomax and monitor UOP. (10) Hypertension Diagnosis: Secondary Plan: Improving. SBP in the 140s this morning. Goal would be to keep SBP < 150s. -continue norvasc 10mg HS -cont home metoprolol -clonidine PRN (11) Bradycardia Diagnosis: Secondary Plan: Heart rate in the 40s on 06/06. No events on tele overnight. Appears to be a chronic issue. ?autonomic dysfunction. Appears asymptomatic. -okay to DC tele at this point (12) Insomnia Diagnosis: Secondary Plan: Doxepin from home. Ambien added. (13) Dietary counseling and surveillance Diagnosis: Secondary Plan: Fluid: SLIV Diet: Heart Healthy diet. Mechanical soft with thin liquids, per speech. Albumin low. Add boost. DVT ppx: SCDs. Relative contraindication to heparin with fall risk. GI ppx: okay to stop protonix as he is off high-dose steroids. Consultants Neuro (Dr. Rios) Brief History 70 year-old male with history of MS admitted to the [facility] 06/02-06/03 for UTI and weakness, now presenting with complaint of worsening weakness and mechanical fall. Amador reports he went to go to the bathroom last night and felt weak after getting up. He got up to grab his walker and felt his legs give out. He hit his head and RUE against the door. No other injury. No LOC. Denies any palpitations or CP. [place] very weak afterwards. Stayed on the floor the rest of the night. Called EMS this morning and had to crawl to unlock the bathroom door, causing knee surface abrasions. Patient denies any vision changes or numbness/tingling in the extremities. Neurologist who follows him is Dr. Su On admission to the ED, pulse ox noted to be low at 66. Now sating well on room. Air. Does have mild SOB. Repeat UA on admission suspicious for UTI with mod LE and 26 WBC. Patient started on cefepime. Total CK up to 700s on admission with creatinine 1.43. CBC/BMP: 06/08/16 0715 06/08/16 0715 Significant Findings Laboratory Tests Test 06/05/16 06/05/16 06/06/16 06/07/16 12:57 15:32 06:23 06:33 Urine Occult Blood TRACE (NEG) Urine Leukocyte Esterase MOD (NEG) Urine WBC 26 /hpf (0-5) Urine WBC Clumps RARE (NONE) Urine Mucus FEW /lpf (OCC) Blood Gas HCO3 20 mmol/L (22-26) Blood Gas Base Excess -2.8 mmol/L (-2-2) Arterial Blood pH 7.48 (7.380-7.420) Arterial Blood Partial 28 mmHg (38-42) Pressure CO2 White Blood Count 3.0 TH/MM3 13.9 TH/MM3 (4.0-11.0) (4.0-11.0) Platelet Count 104 TH/MM3 122 TH/MM3 (150-450) (150-450) Neutrophils (%) (Auto) 81.4 % 90.0 % (16.0-70.0) (16.0-70.0) Lymphocytes # (Auto) 0.5 TH/MM3 (1.0-4.8) Blood Urea Nitrogen 23 MG/DL (7-18) 24 MG/DL (7-18) Estimat Glomerular Filtration 69 ML/MIN (>89) 66 ML/MIN (>89) Rate Random Glucose 169 MG/DL 138 MG/DL (74-106) (74-106) Aspartate Amino Transf 47 U/L (15-37) 43 U/L (15-37) (AST/SGOT) Total Creatine Kinase 702 U/L 442 U/L (39-308) (39-308) Creatine Kinase MB 7.8 NG/ML 11.3 NG/ML (0.5-3.6) (0.5-3.6) Albumin 3.0 GM/DL 3.2 GM/DL (3.4-5.0) (3.4-5.0) Lymphocytes (%) (Auto) 8.3 % (9.0-44.0) Neutrophils # (Auto) 12.5 TH/MM3 (1.8-7.7) Platelet Estimate LOW (NORMAL) Chloride Level 110 MEQ/L (98-107) Test 06/08/16 07:15 Platelet Count 148 TH/MM3 (150-450) Blood Urea Nitrogen 37 MG/DL (7-18) Creatinine 1.39 MG/DL (0.60-1.30) Estimat Glomerular Filtration 50 ML/MIN (>89) Rate Random Glucose 149 MG/DL (74-106) PE at Discharge GENERAL: continues to appear more awake and alert. SKIN: Cool and dry. LE abrasions not examined this morning. CARDIOVASCULAR: Regular rate and rhythm without murmurs, gallops, or rubs. RESPIRATORY: Clear to auscultation. Breath sounds equal bilaterally. No wheezes , rales, or rhonchi. GASTROINTESTINAL: Abdomen soft, non-tender, nondistended. No hepato-splenomegaly , or palpable masses. No guarding. MUSCULOSKELETAL: Extremities without clubbing, cyanosis, or edema. No joint tenderness, effusion, or edema noted. NEUROLOGICAL: Awake and alert. Cranial nerves grossly intact. ALYSIA intact. Moves extremities well. Strength and sensation not fully assessed this AM. Gait slowed , takes small steps. Not wide-based or unstable. Hospital Course 70 year old male with history of MS admitted on 06/05/2016 with complaint of fall at home. Previous to this, was admitted overnight 06/02 with weakness and UTI. He was discharged home 06/03 with ciprofloxacin. He reported falling at home early in the morning after going to the bathroom. He hit his head and RUE against the door. UA on admission suspicious for UTI. Patient was started on cefepime. Creatinine was also slightly elevated above baseline at 1.4. He was given a 1L bolus and started on MIVF. Head CT was negative for bleed or other acute process. Neurology was consulted and patient was started on 3 day course of high-dose solumedrol for suspected MS flare. Strength continued to improve with IV steroids and patient was able to walk without assistance by 06/07. Urine culture was negative. Renal function improved with IVF. He will be discharged to inpatient rehab facility. He will be discharged with 3 day course of cipro to complete 7 days total antibiotic therapy for complicated UTI. Pt Condition on Discharge: Good Discharge Disposition: Rehab Inpatient Discharge Instructions DIET: Follow Instructions for: Heart Healthy Diet Activities you can perform: Weight Bearing as Kodak Maldonado MD R3 Jun 08, 2016 12:32
[2016-06-08 16:00] VITALS: BP 123/83; PULSE 67; RESP 18; TEMP 96.9; O2SAT 99
[2016-07-16] MEDS ORDERED: VESI10TA PO (10:24)
[2016-09-03] MEDS ORDERED: FLAX1000 (13:03)
[2016-09-03] MEDS ORDERED: TAMS5CAP PO ×2 (13:03→13:26)
[2016-09-03] MEDS ORDERED: ASPI-110 PO (13:03)
[2016-09-03] MEDS ORDERED: CENTCHW3 (13:03)
== END 2016-06-08 17:42 | DRG 59 ==
LOC: NEPE 07:05 → NEDA 13:53 → HOCB 06-06 00:05
PROVIDERS: ADMIT Family Medicine; ATTEND Family Medicine
DX: G35 Multiple sclerosis (principal); N39.0 Urinary tract infection, site not specified; B37.0 Candidal stomatitis; R00.1 Bradycardia, unspecified; B96.20 Unspecified Escherichia coli [E. coli] as the cause of diseases classified elsewhere; I12.9 Hypertensive chronic kidney disease with stage 1 through stage 4 chronic kidney disease, or unspecified chronic kidney disease; N18.3 Chronic kidney disease, stage 3 (moderate); R53.1 Weakness; I25.10 Atherosclerotic heart disease of native coronary artery without angina pectoris; Z79.02 Long term (current) use of antithrombotics/antiplatelets; Z95.5 Presence of coronary angioplasty implant and graft; N40.0 Benign prostatic hyperplasia without lower urinary tract symptoms; F32.9 Major depressive disorder, single episode, unspecified; E78.5 Hyperlipidemia, unspecified; H40.9 Unspecified glaucoma; Z87.891 Personal history of nicotine dependence; S80.212A Abrasion, left knee, initial encounter; S80.211A Abrasion, right knee, initial encounter; S40.811A Abrasion of right upper arm, initial encounter; S30.811A Abrasion of abdominal wall, initial encounter; W19.XXXA Unspecified fall, initial encounter; R74.8 Abnormal levels of other serum enzymes; R09.02 Hypoxemia; Z66 Do not resuscitate; G47.00 Insomnia, unspecified; Z71.3 Dietary counseling and surveillance; F41.9 Anxiety disorder, unspecified; E78.00 Pure hypercholesterolemia, unspecified; Z88.8 Allergy status to other drugs, medicaments and biological substances; Z79.82 Long term (current) use of aspirin
CPT/HCPCS: 36600; 70450; 71010; 72170; 73560; 73564; 76775; 80048; 80053; 81001; 82550; 82552; 82805; 83605; 83735; 83880; 84100; 84443; 84484; 85007; 85025; 85027; 85610; 85730; 86703; 87040; 87077; 87086; 87186; 93005; 94150; 94667; 94668; 96374; 96375; G0378; J0360; J0692; J0696; J1644; J2930; J7030; J7040; J7060; P9612

== ENCOUNTER 2016-11-10 10:48 | Inpatient (IN) | payer MEDICARE ==
[~2016-11-10] VITALS: Ht 177.8 cm; Wt 100.0 kg
[~2016-11-10 10:48] MED LIST changes: +AMLO10 PO; -AMLO5TAB2 PO; +ASPI-110 PO; -ASPI1TAB69 PO; +CENTCHW3; -CENTTAB8 PO; -CIPR500T2 PO; +COPA20KI SQ; +FLAX1000; -FLAX10006 PO; +SILE6TAB3 PO
[2016-11-10] MEDS ORDERED: IOHEXOL 350 MG/ML 10 ML VIAL (for RAD DIAG) IVCONTRAST ONE (10:49)
[2016-11-10 10:53] VITALS: BP 172/83; PULSE 57; RESP 18; TEMP 98; O2SAT 99
[2016-11-10] MEDS ORDERED: ONDANSETRON HCL 4 MG/2 ML VIAL IV PUSH ONE (11:00)
[2016-11-10] MEDS ORDERED: MORPHINE SULFATE 4 MG/ML INJ IV PUSH ONE (11:00)
[2016-11-10] MEDS ORDERED: SODIUM CHLOR 0.9% 1000 ML INJ 1,000 ML IV ONE (11:15)
--- NOTE | 2016-11-10 11:19 | PD ---
HPI . Left foot pain Chief Complaint: Pain: Acute or Chronic Time Seen by Provider: 11:00 Travel History International Travel<30 days: No Contact w/Intl Traveler<30days: No Traveled to known affect area: No History of Present Illness HPI This patient presents by EVAC with the chief complaint of pain, swelling and discoloration of his left lower leg and foot. He states that he noticed the onset of some discomfort in his left lower leg and foot 3 days ago. Pain was exacerbated by ambulation and relieved by resting. The pain has progressively improved. Current pain is rated 7/10. The patient states that he presents to us today because he noticed that his foot was purple. He states that he has not noticed the color of his foot the last couple of days but noticed it today when he was "cleaning up." He denies chest pain or shortness of breath. PFSH Past Medical History Hx Anticoagulant Therapy: Yes Asthma: Yes Blood Disorders: No Anxiety: Yes Heart Rhythm Problems: No Cancer: No Cardiac Catheterization: Yes (2 days ago 05/31/2016) Cardiovascular Problems: Yes High Cholesterol: Yes Chest Pain: No Congestive Heart Failure: No COPD: No Diabetes: No Diminished Hearing: No Endocrine: No Genitourinary: Yes (ENLARGED PROSTATE) Hepatitis: No Hiatal Hernia: No Hypertension: Yes Immune Disorder: No Medical other: Yes (MS) Musculoskeletal: No Neurologic: Yes (MULTIPLE SCLEROSIS) Psychiatric: No Reproductive: No Respiratory: Yes (ADMITTED 07/15/2010 WITH PNEUMONIA) Sleep Apnea: No Thyroid Disease: No Past Surgical History Cardiac Surgery: Yes (RIGHT VASCULAR STENT 2002, CARDIAC CATHERIZATION) Coronary Stent: Yes (2002) Genitourinary Surgery: Yes (SURGERY FOR OPENING OF URETHRA) Oral Surgery: Yes (TOOTH EXTRACTIONS 2008) Pacemaker: No Other Surgery: Yes Social History Alcohol Use: No Tobacco Use: Yes Substance Use: No Allergies-Medications (Allergen,Severity, Reaction): Coded Allergies: fexofenadine (Unverified Allergy, Severe, CAUSES PROSTATE ISSUES, 10/22/16) MRI PRECAUTION (Verified Adverse Reaction, Unknown, Metal near left orbit. Dr. Sexton 06/06/16. LRS, 09/18/16) Reported Meds & Prescriptions Reported Meds & Active Scripts Active Silenor (Doxepin (Sleep)) 6 Mg Tab 6 Mg PO HS Metoprolol Tartrate 50 Mg Tab 50 Mg PO DAILY Flomax (Tamsulosin HCl) 0.4 Mg Cap 0.4 Mg PO BID Vesicare (Solifenacin) 10 Mg Tab 10 Mg PO DAILY Norvasc (Amlodipine Besylate) 10 Mg Tab 10 Mg PO HS Reported Centrum Silver (Multiple Vitamins W/ Minerals) 1 Chw Chw Aspirin 81 (Aspirin) 81 Mg Tabdr 81 Mg PO DAILY Copaxone Inj (Glatiramer Inj) 20 Mg/Ml Syr 20 Mg SQ DAILY Plavix (Clopidogrel Bisulfate) 75 Mg Tab 75 Mg PO DAILY Slo-Niacin (Niacin) 500 Mg Tab 500 Mg PO BID Vitamin B-12 (Cyanocobalamin) 1,000 Mcg Subl 1,000 Mcg SL DAILY Fish Oil ([place]-3 Fatty Acids) 1,000 Mg Cap 1 Cap PO DAILY Nitrostat SL (Nitroglycerin) 0.4 Mg Subl 0.4 Mg SL DIRECTED PRN ONE TABLET UNDER THE TONGUE NEEDED FOR CHEST PAIN, MAY REPEAT EVERY FIVE MINUTES FOR A TOTAL OF 3 DOSES OR CALL 911 IF NO RELIEF Review of Systems Except as stated in HPI: all other systems reviewed are Neg General / Constitutional: No: Fever, Chills Cardiovascular: No: Chest Pain or Discomfort Respiratory: No: Shortness of Breath Musculoskeletal: Positive: Edema, Pain Skin: Positive Change in Pigmentation Physical Exam Narrative GENERAL: Awake and alert and in no acute distress. SKIN: warm/dry. Amador collar the left lower extremity. HEAD: Normocephalic. EYES: Pupils equal and round. No scleral icterus. No injection or drainage. ENT: No nasal bleeding or discharge. Mucous membranes pink and moist. NECK: Trachea midline. Full range of motion without pain.. CARDIOVASCULAR: Regular rate and rhythm. Unable to palpate pedal pulses. Unable to obtain pedal pulses by Doppler. RESPIRATORY: No accessory muscle use. Clear to auscultation. Breath sounds equal bilaterally. MUSCULOSKELETAL: Swelling of the left lower extremity. NEUROLOGICAL: Awake and alert. No obvious cranial nerve deficits. Motor grossly within normal limits. Normal speech. PSYCHIATRIC: Appropriate mood and affect; insight and judgment normal. Data Data Last Documented VS Vital Signs Date Time Temp Pulse Resp B/P (MAP) Pulse Ox O2 Delivery O2 Flow Rate FiO2 11/10/16 10:53 98.0 57 18 172/83 (112) 99 Orders Orders Us Leg Venous Doppler (11/10/16 11:00) Cta Runoff W Iv Contrast W 3d (11/10/16 ) Complete Blood Count With Diff (11/10/16 11:00) Basic Metabolic Panel (Bmp) (11/10/16 11:00) Prothrombin Time / Inr (Pt) (11/10/16 11:00) Act Partial Throm Time (Ptt) (11/10/16 11:00) Morphine Inj (Morphine Inj) (11/10/16 11:00) Ondansetron Inj (Zofran Inj) (11/10/16 11:00) Sodium Chlor 0.9% 1000 Ml Inj (Ns 1000 M (11/10/16 11:15) Iohexol 350 Inj (Omnipaque 350 Inj) (11/10/16 10:49) Heparin Infusion LUIZ.Q1H (11/10/16 13:23) Heparin Inj (Heparin Inj) (11/10/16 13:30) Heparin Inj (Heparin Inj) (11/10/16 19:30) Heparin Inj (Heparin Inj) (11/10/16 19:30) Heparin-D5w 25,000 U/250 Ml (Heparin-D5w (11/10/16 13:30) Act Partial Throm Time (Ptt) (11/10/16 13:23) Cbc No Diff, Includes Plts (11/10/16 13:23) Cbc No Diff, Includes Plts (11/13/16 06:00) Act Partial Throm Time (Ptt) (11/10/16 20:23) Occult Blood (Hemoccult) Stool (11/10/16 13:23) Admit Order (Ed Use Only) (11/10/16 14:11) Labs Laboratory Tests Test 11/10/16 11:10 11/10/16 13:30 White Blood Count 5.4 TH/MM3 5.5 TH/MM3 Red Blood Count 5.22 MIL/MM3 5.05 MIL/MM3 Hemoglobin 16.0 GM/DL 15.4 GM/DL Hematocrit 48.0 % 46.6 % Mean Corpuscular Volume 91.9 FL 92.2 FL Mean Corpuscular Hemoglobin 30.7 PG 30.6 PG Mean Corpuscular Hemoglobin Concent 33.4 % 33.1 % Red Cell Distribution Width 14.5 % 14.6 % Platelet Count 126 TH/MM3 111 TH/MM3 Mean Platelet Volume 7.8 FL 7.6 FL Neutrophils (%) (Auto) 56.1 % Lymphocytes (%) (Auto) 32.1 % Monocytes (%) (Auto) 7.1 % Eosinophils (%) (Auto) 4.3 % Basophils (%) (Auto) 0.4 % Neutrophils # (Auto) 3.0 TH/MM3 Lymphocytes # (Auto) 1.7 TH/MM3 Monocytes # (Auto) 0.4 TH/MM3 Eosinophils # (Auto) 0.2 TH/MM3 Basophils # (Auto) 0.0 TH/MM3 CBC Comment DIFF FINAL Differential Comment Prothrombin Time 10.4 SEC Prothromb Time International Ratio 0.9 RATIO Activated Partial Thromboplast Time 28.4 SEC 28.7 SEC Blood Urea Nitrogen 18 MG/DL Creatinine 1.31 MG/DL Random Glucose 90 MG/DL Calcium Level 8.6 MG/DL Sodium Level 142 MEQ/L Potassium Level 4.0 MEQ/L Chloride Level 107 MEQ/L Carbon Dioxide Level 27.7 MEQ/L Anion Gap 7 MEQ/L Estimat Glomerular Filtration Rate 54 ML/MIN MDM Medical Decision Making Medical Screen Exam Complete: Yes Emergency Medical Condition: Yes Medical Record Reviewed: Yes (medical history significant for multiple sclerosis, hypertension, hyperlipidemia, coronary artery disease and BPH) Differential Diagnosis Differential diagnosis of leg pain includes but is not limited to lumbar radiculopathy, arthritis, myalgias, DVT. Narrative Course This patient presents with a discolored, painful left lower extremity. Pulses are not obtainable. He does have good capillary refill. His leg really has the appearance of a DVT but arterial occlusion must be excluded. I have ordered both a CT arteriogram with runoff and an ultrasound of his leg. CBC & BMP Diagram 11/10/16 11:10 Calcium Level 8.6 Verbal report is that he has no blood flow on the left from above the knee down. Vascular surgery has been consult and is here seeing the patient. He will be admitted to the resident service. Physician Communication Physician Communication Dr. Gonzalez, vascular surgery, will see the patient in the ED Diagnosis Primary Impression: Ischemia of left lower extremity Admitting Information Admitting Physician Requests: Admit Condition: Stable Nicolasa Jackson MD Nov 10, 2016 11:19
[2016-11-10 11:29] LABS: BASOPHIL % 0.4 % (0.0-2.0); EOSINOPHIL # 0.2 TH/MM3 (0-0.4); EOSINOPHIL % 4.3 % (0.0-4.0); HEMO FLAGS DIFF FINAL; LYMPH % 32.1 % (9.0-44.0); LYMPHOCYTE # 1.7 TH/MM3 (1.0-4.8); MEAN CELL VOLUME 91.9 FL (80.0-100.0); MEAN CORPUSCULAR HEMOGLOBIN 30.7 PG (27.0-34.0); MEAN CORPUSCULAR HGB CONC 33.4 % (32.0-36.0); MONO % 7.1 % (0.0-8.0); NEUT % 56.1 % (16.0-70.0); PLATELET COUNT 126 TH/MM3 (150-450); RED BLOOD COUNT 5.22 MIL/MM3 (4.50-5.90); RED CELL DISTRIBUTION WIDTH 14.5 % (11.6-17.2); WHITE BLOOD COUNT 5.4 TH/MM3 (4.0-11.0)
[2016-11-10 11:40] LABS: APTT (PATIENT) 28.4 SEC (24.3-30.1); INTERNATIONAL NORMALIZED RATIO 0.9 RATIO; PROTHROMBIN TIME - PATIENT 10.4 SEC (9.8-11.6)
[2016-11-10 11:45] LABS: BICARBONATE 27.7 MEQ/L (21.0-32.0)
--- NOTE | 2016-11-10 12:28 | RADRPT ---
EXAM DATE/TIME: 11/10/2016 11:56 [facility] COMPARISON: No previous studies available for comparison. INDICATIONS : Left leg swelling. MEDICAL HISTORY : Hypercholesterolemia. Hypertension. Glaucoma. Glasses. Dentures. Multiple sclerosis. Neuropathy. COPD. Anticoagulant therapy. Enlarged prostate. Bladder outlet obstruction. Anxiety. SURGICAL HISTORY : Coronary artery stent. Tooth extraction. Cardiac catheterization. ENCOUNTER: Initial ACUITY: 2 day PAIN SCORE: 2/10 LOCATION: Left leg. TECHNIQUE: Venous ultrasound of the leg was performed from the inguinal ligament to the proximal calf. Real-ammon e, color Doppler and spectral tracing, compression and augmentation techniques were used. FINDINGS: There is normal compressibility of the deep venous system from the inguinal region to the proximal ca lf. No echogenic clot is seen in the lumen of the common femoral, femoral, popliteal, and posterior tibial veins. There is a normal response of the venous system to proximal and distal augmentation an d respiration. Note is made of prominent plaque/thrombus in the popliteal artery suggesting a high g rade stenosis. CONCLUSION: No evidence for DVT. Popliteal artery thrombus/prominent plaque and likely high grade stenosis suspec orlin. A CTA is pending. Kevin Rainey MD on November 10, 2016 at 12:24 Board Certified Radiologist. This report was verified electronically.
[2016-11-10] MEDS ORDERED: HEPARIN-D5W 25,000 U/250 ML 250 ML IV PRN (13:30)
[2016-11-10] MEDS ORDERED: HEPARIN SODIUM - IV 10,000 UNITS/10 ML VIAL IV ONE (13:30)
[2016-11-10 13:55] LABS: HEMATOCRIT 46.6 % (39.0-51.0); MEAN CELL VOLUME 92.2 FL (80.0-100.0); MEAN CORPUSCULAR HEMOGLOBIN 30.6 PG (27.0-34.0); MEAN CORPUSCULAR HGB CONC 33.1 % (32.0-36.0); PLATELET COUNT 111 TH/MM3 (150-450); RED BLOOD COUNT 5.05 MIL/MM3 (4.50-5.90); RED CELL DISTRIBUTION WIDTH 14.6 % (11.6-17.2); REVIEW FLAG FINAL; WHITE BLOOD COUNT 5.5 TH/MM3 (4.0-11.0)
[2016-11-10 14:03] LABS: APTT (PATIENT) 28.7 SEC (24.3-30.1)
--- NOTE | 2016-11-10 14:36 | HHI.HP ---
[facility] Service Family Medicine Primary Care Physician Marli Plata MD Admission Diagnosis ischemic LLE Diagnoses: International Travel<30 Days: No Contact w/Intl Traveler<30days: No Known Affected Area: No Past Family Social History Allergies: Coded Allergies: fexofenadine (Unverified Allergy, Severe, CAUSES PROSTATE ISSUES, 10/22/16) MRI PRECAUTION (Verified Adverse Reaction, Unknown, Metal near left orbit. Dr. Sexton 06/06/16. LRS, 09/18/16) Physical Exam Vital Signs Vital Signs Date Time Temp Pulse Resp B/P (MAP) Pulse Ox O2 Delivery O2 Flow Rate FiO2 11/10/16 10:53 98.0 57 18 172/83 (112) 99 Physical Exam GENERAL: This is a well-nourished, well-developed patient, in no apparent distress. SKIN: No rashes, ecchymoses or lesions. Cool and dry. HEAD: Atraumatic. Normocephalic. No temporal or scalp tenderness. EYES: Pupils equal round and reactive. Extraocular motions intact. No scleral icterus. No injection or drainage. ENT: Nose without bleeding, purulent drainage or septal hematoma. Throat without erythema, tonsillar hypertrophy or exudate. Uvula midline. Airway patent. NECK: Trachea midline. No JVD or lymphadenopathy. Supple, nontender, no meningeal signs. CARDIOVASCULAR: Regular rate and rhythm without murmurs, gallops, or rubs. RESPIRATORY: Clear to auscultation. Breath sounds equal bilaterally. No wheezes , rales, or rhonchi. GASTROINTESTINAL: Abdomen soft, non-tender, nondistended. No hepato-splenomegaly , or palpable masses. No guarding. MUSCULOSKELETAL: Extremities without clubbing, cyanosis, or edema. No joint tenderness, effusion, or edema noted. No calf tenderness. Negative Homans sign bilaterally. NEUROLOGICAL: Awake and alert. Cranial nerves II through XII intact. Motor and sensory grossly within normal limits. Five out of 5 muscle strength in all muscle groups. Normal speech. Laboratory Laboratory Tests Test 11/10/16 11:10 11/10/16 13:30 White Blood Count 5.4 5.5 Red Blood Count 5.22 5.05 Hemoglobin 16.0 15.4 Hematocrit 48.0 46.6 Mean Corpuscular Volume 91.9 92.2 Mean Corpuscular Hemoglobin 30.7 30.6 Mean Corpuscular Hemoglobin Concent 33.4 33.1 Red Cell Distribution Width 14.5 14.6 Platelet Count 126 111 Mean Platelet Volume 7.8 7.6 Neutrophils (%) (Auto) 56.1 Lymphocytes (%) (Auto) 32.1 Monocytes (%) (Auto) 7.1 Eosinophils (%) (Auto) 4.3 Basophils (%) (Auto) 0.4 Neutrophils # (Auto) 3.0 Lymphocytes # (Auto) 1.7 Monocytes # (Auto) 0.4 Eosinophils # (Auto) 0.2 Basophils # (Auto) 0.0 CBC Comment DIFF FINAL Differential Comment Prothrombin Time 10.4 Prothromb Time International Ratio 0.9 Activated Partial Thromboplast Time 28.4 28.7 Blood Urea Nitrogen 18 Creatinine 1.31 Random Glucose 90 Calcium Level 8.6 Sodium Level 142 Potassium Level 4.0 Chloride Level 107 Carbon Dioxide Level 27.7 Anion Gap 7 Estimat Glomerular Filtration Rate 54 Result Diagram: 11/10/16 1330 11/10/16 1110 Caprini VTE Risk Assessment Caprini Risk Assessment Model Point Value = 1 Point Value = 2 Point Value = 3 Point Value = 5 Age 41-60 Minor surgery BMI > 25 kg/m2 Swollen legs Varicose veins or History of unexplained or recurrent spontaneous Oral contraceptives or hormone replacement Sepsis (< 1 month) Serious lung disease, including pneumonia (< 1 month) Abnormal pulmonary function Acute myocardial infarction Congestive heart failure (< 1 month) History of inflammatory bowel disease Medical patient at bed rest Age 61-74 Arthroscopic surgery Major open surgery (> 45 min) Laparoscopic surgery (> 45 min) Malignancy Confined to bed (> 72 hours) Immobilizing plaster cast Central venous access Age >= 75 History of VTE Family history of VTE Factor V Leiden Prothrombin [id number] Lupus anticoagulant Anticardiolipin antibodies Elevated serum homocysteine Heparin-induced thrombocytopenia Other congenital or acquired thrombophilia Stroke (< 1 month) Elective arthroplasty Hip, pelvis, or leg fracture Acute spinal cord injury (< 1 month) Prophylaxis Regimen Total Risk Factor Score Risk Level Prophylaxis Regimen 0-1 Low Early ambulation 2 Moderate Order ONE of the following: *Sequential Compression Device (SCD) *Heparin 5000 units SQ BID 3-4 Higher Order ONE of the following medications: *Heparin 5000 units SQ TID *Enoxaparin/Lovenox 40 mg SQ daily (WT < 150 kg, CrCl > 30 mL/min) *Enoxaparin/Lovenox 30 mg SQ daily (WT < 150 kg, CrCl > 10-29 mL/min) *Enoxaparin/Lovenox 30 mg SQ BID (WT < 150 kg, CrCl > 30 mL/min) AND/OR *Sequential Compression Device (SCD) 5 or more Highest Order ONE of the following medications: *Heparin 5000 units SQ TID (Preferred with Epidurals) *Enoxaparin/Lovenox 40 mg SQ daily (WT < 150 kg, CrCl > 30 mL/min) *Enoxaparin/Lovenox 30 mg SQ daily (WT < 150 kg, CrCl > 10-29 mL/min) *Enoxaparin/Lovenox 30 mg SQ BID (WT < 150 kg, CrCl > 30 mL/min) AND *Sequential Compression Device (SCD) Olive Wallace MD R2 Nov 10, 2016 14:36
--- NOTE | 2016-11-10 14:46 | PD.VS.CON ---
History of Present Illness Chief Complaint: L LE pain Consult Requested by: ED History of Present Illness 71 yo male with L LE pain. He had 9/10 pain on Fri morning with an inability to stand but that got better and presently only has numbness that has persisted. No motor deficit. Came to ED today because foot appeared cyanotic. Never happened before. Other than age, no real atherosclerotic risk factors other than CAD. Past/Family/Social History Past Medical History CAD with 2 stents according to patient [place] Past Surgical History coronary stents Social History nonsmoker Family History his mother had what sounds like ascending aortic aneurysm Home Medications Active Scripts Doxepin (Sleep) (Silenor) 6 Mg Tab, 6 MG PO HS for Insomnia, #30 TAB 3 Refills Prov:Marli Plata MD 10/21/16 Metoprolol Tartrate (Metoprolol Tartrate) 50 Mg Tab, 50 MG PO DAILY, #90 TAB 3 Refills Prov:Maril Plata MD 09/09/16 Tamsulosin (Flomax) 0.4 Mg Cap, 0.4 MG PO BID for Manage Prostate Problems, # 180 CAP 3 Refills Prov:Marli Plata MD 09/03/16 Solifenacin (Vesicare) 10 Mg Tab, 10 MG PO DAILY for Urinary Symptom Managemen, #90 TAB 2 Refills Prov:Junito Feliciano MD 07/16/16 Amlodipine (Norvasc) 10 Mg Tab, 10 MG PO HS, #30 TAB Prov:Kodak Avila MD R3 06/08/16 Reported Medications Flaxseed (Linseed) (Flaxseed Oil) 1,000 Mg Cap 09/03/16 Multiple Vitamins W/ Minerals (Centrum Silver) 1 Chw Chw 09/03/[address] (Aspirin 81) 81 Mg Tabdr, 81 MG PO DAILY, TAB 0 Refills 09/03/16 Glatiramer Inj (Copaxone Inj) 20 Mg/Ml Syr, 20 MG SQ DAILY for Multiple Sclerosis, SYRINGE 0 Refills 06/05/16 Clopidogrel (Plavix) 75 Mg Tab, 75 MG PO DAILY for Blood Clot Prevention, #30 TAB 0 Refills 05/31/16 Niacin ER (Slo-Niacin) 500 Mg Tab, 500 MG PO BID for Cholesterol Management, TAB 0 Refills 05/30/16 Cyanocobalamin (Vitamin B-12) 1,000 Mcg Subl, 1000 MCG SL DAILY for Nutritional Supplement, TAB.SL 0 Refills 05/30/16 [place]-3 Fatty Acids (Fish Oil) 1,000 Mg Cap, 1 CAP PO DAILY 05/30/16 Nitroglycerin SL (Nitrostat SL) 0.4 Mg Subl, 0.4 MG SL DIRECTED Y for CHEST PAIN, TAB.SL 0 Refills ONE TABLET UNDER THE TONGUE NEEDED FOR CHEST PAIN, MAY REPEAT EVERY FIVE MINUTES FOR A TOTAL OF 3 DOSES OR CALL 911 IF NO RELIEF 01/10/16 Coded Allergies: fexofenadine (Unverified Allergy, Severe, CAUSES PROSTATE ISSUES, 10/22/16) MRI PRECAUTION (Verified Adverse Reaction, Unknown, Metal near left orbit. Dr. Sexton 06/06/16. LRS, 09/18/16) Review of Systems Constitutional: DENIES: Fever, Chills Respiratory: DENIES: Shortness of breath Cardiovascular: DENIES: Chest pain Physical Exam Vitals/I&O Date Time Temp Pulse Resp B/P (MAP) Pulse Ox O2 Delivery O2 Flow Rate FiO2 11/10/16 10:53 98.0 57 18 172/83 (112) 99 11/10/16 11/10/16 11/10/16 06:59 14:59 22:59 Intake Total 1000 ml Output Total 600 ml Balance 400 ml Neuro: alert, oriented, no distress HEENT: NC/AT; wears glasses; EOMI Neck: no JVD Heart: reg rate, no M Lungs: clear B Abdomen: nontender Vascular: palpable R PT palpable L femoral pulse but nothing distal Extremities: L foot and lower leg cool but motor intact Laboratory Tests Test 11/10/16 11:10 11/10/16 13:30 White Blood Count 5.4 5.5 Red Blood Count 5.22 5.05 Hemoglobin 16.0 15.4 Hematocrit 48.0 46.6 Mean Corpuscular Volume 91.9 92.2 Mean Corpuscular Hemoglobin 30.7 30.6 Mean Corpuscular Hemoglobin Concent 33.4 33.1 Red Cell Distribution Width 14.5 14.6 Platelet Count 126 111 Mean Platelet Volume 7.8 7.6 Neutrophils (%) (Auto) 56.1 Lymphocytes (%) (Auto) 32.1 Monocytes (%) (Auto) 7.1 Eosinophils (%) (Auto) 4.3 Basophils (%) (Auto) 0.4 Neutrophils # (Auto) 3.0 Lymphocytes # (Auto) 1.7 Monocytes # (Auto) 0.4 Eosinophils # (Auto) 0.2 Basophils # (Auto) 0.0 CBC Comment DIFF FINAL Differential Comment Prothrombin Time 10.4 Prothromb Time International Ratio 0.9 Activated Partial Thromboplast Time 28.4 28.7 Blood Urea Nitrogen 18 Creatinine 1.31 Random Glucose 90 Calcium Level 8.6 Sodium Level 142 Potassium Level 4.0 Chloride Level 107 Carbon Dioxide Level 27.7 Anion Gap 7 Estimat Glomerular Filtration Rate 54 I reviewed his CTA - L popliteal aneurysm that has thrombosed. No visible outflow vessels opacify. No RIGHT popliteal aneurysm or AAA Last 48 hours Impressions Lower Extremity Ultrasound 11/10/16 1100 Signed Impressions: Service Date/Time: Friday, November 10, 2016 11:56 - CONCLUSION: No evidence for DVT. Popliteal artery thrombus/prominent plaque and likely high grade stenosis suspected. A CTA is pending. Kevin Rainey MD Assessment and Plan Plan Acute L popliteal aneurysm thrombosis. No contralateral aneurysm nor AAA. 1. Hep gtt 2. OR tomorrow at 0800 for embolectomy and possible bypass, possible angiogram 3. NPO after MN 4. Discussed risks and benefits with patient and his sisters who agree with pl 5. frequent neurovascular checks until then. Darin Cobb MD FACS RPVI opening machine cleaner [facility] - Heart and Vascular Surgery at [facility] [phone] Darin Gonzalez MD Nov 10, 2016 14:46
--- NOTE | 2016-11-10 14:51 | HHI.HP ---
[facility] Service Family Medicine Primary Care Physician Marli Plata MD Admission Diagnosis ischemic LLE Diagnoses: International Travel<30 Days: No Contact w/Intl Traveler<30days: No Known Affected Area: No History of Present Illness Patient is a 71 year old male with a past medical history of CAD status post stent in 2002 on lifetime dual antiplatelet therapy and multiple sclerosis that presents to the [place] ED with a chief complaints of painful left foot of 3 days' duration. The pain began on Friday11/08/16 and initially he could not stand on his left foot without pain and could only walk short distances. Today, he noticed that the foot was turning blue which prompted him to present to the ED. Review of Systems Constitutional: DENIES: Fatigue, Fever, Chills Eyes: DENIES: Blurred vision, Vision loss Ears, nose, mouth, throat: DENIES: Nasal discharge, Sinus Pain Respiratory: DENIES: Cough, Wheezing Cardiovascular: COMPLAINS OF: Lower Extremity Edema, Claudication, DENIES: Chest pain, Palpitations, Syncope Gastrointestinal: DENIES: Abdominal pain, Diarrhea, Nausea, Vomiting Genitourinary: COMPLAINS OF: Urinary frequency, DENIES: Dysuria Musculoskeletal: COMPLAINS OF: Muscle aches, DENIES: Joint pain, Back pain Integumentary: DENIES: Pruritus, Rash Neurologic: DENIES: Headache Psychiatric: DENIES: Anxiety, Depression Past Family Social History Past Medical History CAD, stent 2002, lifetime dual antiplatelet therapy. Public Stenographer is Dr. Bourgeois Lifetime dual antiplatelet therapy Multiple Sclerosis, managed by Dr Scott BPH, follows Dr Feliciano Hyperlipidemia HTN Past Surgical History Coronary stenting x 2002 Cystoscopy and TURP ( Dr Acevedo) Reported Medications Reported Meds & Active Scripts Active Silenor (Doxepin (Sleep)) 6 Mg Tab 6 Mg PO HS Metoprolol Tartrate 25 Mg Tab 50 Mg PO BID Flomax (Tamsulosin HCl) 0.4 Mg Cap 0.4 Mg PO BID Vesicare (Solifenacin) 10 Mg Tab 10 Mg PO DAILY Norvasc (Amlodipine Besylate) 10 Mg Tab 10 Mg PO HS Reported Flaxseed Oil (Flaxseed (Linseed)) 1,000 Mg Cap Centrum Silver (Multiple Vitamins W/ Minerals) 1 Chw Chw Aspirin 81 (Aspirin) 81 Mg Tabdr 81 Mg PO DAILY Copaxone Inj (Glatiramer Inj) 20 Mg/Ml Syr 20 Mg SQ DAILY Plavix (Clopidogrel Bisulfate) 75 Mg Tab 75 Mg PO DAILY Slo-Niacin (Niacin) 500 Mg Tab 500 Mg PO BID Vitamin B-12 (Cyanocobalamin) 1,000 Mcg Subl 1,000 Mcg SL DAILY Fish Oil ([place]-3 Fatty Acids) 1,000 Mg Cap 1 Cap PO DAILY Nitrostat SL (Nitroglycerin) 0.4 Mg Subl 0.4 Mg SL DIRECTED PRN ONE TABLET UNDER THE TONGUE NEEDED FOR CHEST PAIN, MAY REPEAT EVERY FIVE MINUTES FOR A TOTAL OF 3 DOSES OR CALL 911 IF NO RELIEF Allergies: Coded Allergies: fexofenadine (Unverified Allergy, Severe, CAUSES PROSTATE ISSUES, 10/22/16) MRI PRECAUTION (Verified Adverse Reaction, Unknown, Metal near left orbit. Dr. Sexton 06/06/16. LRS, 09/18/16) Family History Mother- passed 02/2011, COPD; also glaucoma and cataracts Father- passed in 1992, CAD. OR at 65yo. Paternal grandmother- CAD No DM, CVA, cancers Social History Quit smoking in 2013 Physical Exam Vital Signs Vital Signs Date Time Temp Pulse Resp B/P (MAP) Pulse Ox O2 Delivery O2 Flow Rate FiO2 11/10/16 10:53 98.0 57 18 172/83 (112) 99 Physical Exam GENERAL: This is a well-nourished, well-developed patient, in no apparent distress. SKIN: No rashes, ecchymoses or lesions. Cool and dry. HEAD: Atraumatic. Normocephalic. No temporal or scalp tenderness. EYES: Pupils equal round and reactive. Extraocular motions intact. No scleral icterus. No injection or drainage. ENT: Nose without bleeding, purulent drainage or septal hematoma. Throat without erythema, tonsillar hypertrophy or exudate. Uvula midline. Airway patent. NECK: Trachea midline. No JVD or lymphadenopathy. Supple, nontender, no meningeal signs. CARDIOVASCULAR: Bradycardic rate and rhythm without murmurs, gallops, or rubs. RESPIRATORY: Clear to auscultation. Breath sounds equal bilaterally. No wheezes , rales, or rhonchi. GASTROINTESTINAL: Abdomen soft, non-tender, nondistended. No hepato-splenomegaly , or palpable masses. No guarding. MUSCULOSKELETAL: Edema of left lower extremity with cyanotic changes of the left foot, cold to touch. Nonpalpable left pedal pulses, motor intact NEUROLOGICAL: Awake and alert. Cranial nerves II through XII intact. Motor and sensory grossly within normal limits. Five out of 5 muscle strength in all muscle groups. Normal speech. Laboratory Laboratory Tests Test 11/10/16 11:10 11/10/16 13:30 White Blood Count 5.4 5.5 Red Blood Count 5.22 5.05 Hemoglobin 16.0 15.4 Hematocrit 48.0 46.6 Mean Corpuscular Volume 91.9 92.2 Mean Corpuscular Hemoglobin 30.7 30.6 Mean Corpuscular Hemoglobin Concent 33.4 33.1 Red Cell Distribution Width 14.5 14.6 Platelet Count 126 111 Mean Platelet Volume 7.8 7.6 Neutrophils (%) (Auto) 56.1 Lymphocytes (%) (Auto) 32.1 Monocytes (%) (Auto) 7.1 Eosinophils (%) (Auto) 4.3 Basophils (%) (Auto) 0.4 Neutrophils # (Auto) 3.0 Lymphocytes # (Auto) 1.7 Monocytes # (Auto) 0.4 Eosinophils # (Auto) 0.2 Basophils # (Auto) 0.0 CBC Comment DIFF FINAL Differential Comment Prothrombin Time 10.4 Prothromb Time International Ratio 0.9 Activated Partial Thromboplast Time 28.4 28.7 Blood Urea Nitrogen 18 Creatinine 1.31 Random Glucose 90 Calcium Level 8.6 Sodium Level 142 Potassium Level 4.0 Chloride Level 107 Carbon Dioxide Level 27.7 Anion Gap 7 Estimat Glomerular Filtration Rate 54 Result Diagram: 11/10/16 1330 11/10/16 1110 Imaging Last Impressions Lower Extremity Ultrasound 11/10/16 1100 Signed Impressions: Service Date/Time: Thursday, November 10, 2016 11:56 - CONCLUSION: No evidence for DVT. Popliteal artery thrombus/prominent plaque and likely high grade stenosis suspected. A CTA is pending. Kevin Rainey MD Aorta w/Runoff CTA 11/10/16 0000 Signed Impressions: Service Date/Time: Thursday, November 10, 2016 12:58 - CONCLUSION: Occluded runoff beginning at the adductor hiatus extending through the long segment proximal aneurysm on the left with poor flow into the foot. Popliteal aneurysm on the right beginning in the adductor hiatus extending to the trifurcation with one vessel runoff to the foot. Bharath Browning MD FACR Course Patient received 1 L NS bolus in the ED. Morphine IV was administered for pain control Caprini VTE Risk Assessment Caprini VTE Risk Assessment: Mod/High Risk (score >= 2) Caprini Risk Assessment Model Point Value = 1 Point Value = 2 Point Value = 3 Point Value = 5 Age 41-60 Minor surgery BMI > 25 kg/m2 Swollen legs Varicose veins or History of unexplained or recurrent spontaneous Oral contraceptives or hormone replacement Sepsis (< 1 month) Serious lung disease, including pneumonia (< 1 month) Abnormal pulmonary function Acute myocardial infarction Congestive heart failure (< 1 month) History of inflammatory bowel disease Medical patient at bed rest Age 61-74 Arthroscopic surgery Major open surgery (> 45 min) Laparoscopic surgery (> 45 min) Malignancy Confined to bed (> 72 hours) Immobilizing plaster cast Central venous access Age >= 75 History of VTE Family history of VTE Factor V Leiden Prothrombin [id number] Lupus anticoagulant Anticardiolipin antibodies Elevated serum homocysteine Heparin-induced thrombocytopenia Other congenital or acquired thrombophilia Stroke (< 1 month) Elective arthroplasty Hip, pelvis, or leg fracture Acute spinal cord injury (< 1 month) Prophylaxis Regimen Total Risk Factor Score Risk Level Prophylaxis Regimen 0-1 Low Early ambulation 2 Moderate Order ONE of the following: *Sequential Compression Device (SCD) *Heparin 5000 units SQ BID 3-4 Higher Order ONE of the following medications: *Heparin 5000 units SQ TID *Enoxaparin/Lovenox 40 mg SQ daily (WT < 150 kg, CrCl > 30 mL/min) *Enoxaparin/Lovenox 30 mg SQ daily (WT < 150 kg, CrCl > 10-29 mL/min) *Enoxaparin/Lovenox 30 mg SQ BID (WT < 150 kg, CrCl > 30 mL/min) AND/OR *Sequential Compression Device (SCD) 5 or more Highest Order ONE of the following medications: *Heparin 5000 units SQ TID (Preferred with Epidurals) *Enoxaparin/Lovenox 40 mg SQ daily (WT < 150 kg, CrCl > 30 mL/min) *Enoxaparin/Lovenox 30 mg SQ daily (WT < 150 kg, CrCl > 10-29 mL/min) *Enoxaparin/Lovenox 30 mg SQ BID (WT < 150 kg, CrCl > 30 mL/min) AND *Sequential Compression Device (SCD) Assessment and Plan Assessment and Plan 71 year old male with past medical history of CAD status post stents presents with occlusion of the left popliteal artery with aneurysm. Vascular surgery was consulted and plans for embolectomy and possible bypass and possible angiogram in the a.m. Code Status Full code Discussed Condition With Seen and examined with Dr. Ambriz, PGY 1. Discussed with Dr. Hutchinson Problem List: (1) Popliteal artery thrombosis, left ICD Codes: I74.3 - Embolism and thrombosis of arteries of the lower extremities Status: Acute Plan: -CTA shows occlusion of the left popliteal artery with poor flow into the left foot and bilateral popliteal aneurysms, worse on the left, no AAA -Vascular surgeon Dr. Gonzalez on board -Continue therapeutic heparin -OR in the morning at 0800 for embolectomy and possible bypass, possible angiogram -NPO after MN -Neurovascular checks every 4 -2-D echo pending -[place] 5-325 when necessary pain > 5 -Morphine 2 mg IV push every 3 hours when necessary breakthrough pain (2) Bilateral popliteal artery aneurysm ICD Codes: I72.4 - Aneurysm of artery of lower extremity Plan: See plan above (3) Chronic Medical Problems Plan: CAD: Holding Aspirin 81mg and Plavix Hypertension: Continue metoprolol 25 mg by mouth twice a day, continue amlodipine 10 mg by mouth at bedtime, Hydralazine 10 mg PO every 6 hours when necessary Hyperlipidemia: Holding Niacin BPH: Continue Tamsulosin 0.4 mg by mouth twice a day Multiple sclerosis: Continue Copaxone inj, converted to tolterodine 4 mg by mouth daily (4) FEN/DVT PPX/GI PPX/Nursing Orders Plan: Fluids: Oral fluids Electrolytes: Will monitor and replace as needed Nutrition: NPO at midnight for surgery in the a.m. 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 In the case of services not specified as inpatient-only, they are appropriately provided as inpatient services in accordance with the 2-midnight benchmark. Estimated LOS (days): 3 days is the estimated time the patient will need to remain in the hospital, assuming treatment plan goals are met and no additional complications. Post-Hospital Plan: Home Olive Wallace MD R2 Nov 10, 2016 14:51
[2016-11-10 15:28] VITALS: BP 184/95; PULSE 58; RESP 18; O2SAT 98
[2016-11-10] MEDS ORDERED: MORPHINE SULFATE 4 MG/ML INJ IV PUSH PRN (15:30)
[2016-11-10] MEDS ORDERED: ACETAMINOPHEN/HYDROcodone 325 MG/5 MG TAB PO PRN (15:30)
[2016-11-10] MEDS ORDERED: SODIUM CHLORIDE 0.9% FLUSH 10 ML FLUSH IV FLUSH PRN (15:30)
[2016-11-10] MEDS ORDERED: ONDANSETRON HCL 4 MG/2 ML VIAL IV PUSH PRN (15:45)
--- NOTE | 2016-11-10 15:55 | RADRPT ---
EXAM DATE/TIME: 11/10/2016 12:58 [place] COMPARISON: No previous studies available for comparison. INDICATIONS : Left leg pain since last night, discoloration, no pulses. IV CONTRAST: 100 cc Omnipaque 350 (iohexol) IV RADIATION DOSE: 16.27 CTDIvol (mGy) MEDICAL HISTORY : Cardiovascular disease. Hypertension. SURGICAL HISTORY : None. ENCOUNTER: Initial ACUITY: 1 day PAIN SCALE: 5/10 LOCATION: Left leg TECHNIQUE: Volumetric scanning was performed using a multi-row detector CT scanner. The data was post processed with a variety of visualization algorithms including full volume maximum intensity projection, multi -planar sliding thin slab reformation, curved planar reformation, and surface rendering techniques. Using automated exposure control and adjustment of the mA and/or kV according to patient size, radiat ion dose was kept as low as reasonably achievable to obtain optimal diagnostic quality images. DICO M format image data is available electronically for review and comparison. FINDINGS: ABDOMINAL AORTA: Minimal calcifications are seen in the nondilated abdominal aorta. SMA and celiac are widely patent Right and left renal arteries are widely patent. . RIGHT LEG: Minimal dilatation of the right common iliac is present. The external iliac and common femoral paten t. Scattered calcific plaque is present in the superficial femoral artery with minimal dolichoectasi a. There is T2 0.3 cm long segment popliteal aneurysm present with flow. 3 vessel trifurcation is identified with the posterior tibial providing straight-line runoff to the foot. LEFT LEG: Common iliac and external iliac are patent. Common femoral is patent. The SFA is patent to the addu ctor hiatus. This becomes dolichoectatic and mildly aneurysmal with no flow. 2.6 cm popliteal aneur ysm is noted. There are segments of the trifurcation reconstituted below the TP trunk. The posterio r tibial artery appears to provide straight-line runoff to just above the ankle. The peroneal artery and anterior tibial artery are small segmental colaterally filled vessels. ANCILLARY FINDINGS: The lung base is are clear. `1 There is cardiomegaly without pericardial effusion. Bilateral renal cysts are noted. Diverticula are present in the sigmoid colon without diverticulitis Prostate is prominent. CONCLUSION: Occluded runoff beginning at the adductor hiatus extending through the long segment p roximal aneurysm on the left with poor flow into the foot. Popliteal aneurysm on the right beginning in the adductor hiatus extending to the trifurcation with o ne vessel runoff to the foot. Bharath Browning MD FACR on November 10, 2016 at 15:42 Board Certified Radiologist. This report was verified electronically.
[2016-11-10 17:46] VITALS: BP 176/84
[2016-11-10 18:06] VITALS: BP 190/80; PULSE 52; RESP 17; TEMP 96.5; O2SAT 97
[2016-11-10] MEDS ORDERED: hydrALAZINE HCL 10 MG TAB PO PRN (19:15)
[2016-11-10] MEDS ORDERED: HEPARIN SODIUM - IV 10,000 UNITS/10 ML VIAL IV PRN ×2 (19:30)
[2016-11-10] MEDS: SODIUM CHLORIDE 0.9% FLUSH 10 ML FLUSH IV FLUSH SCH (19:41)
[2016-11-10] MEDS: TAMSULOSIN HCL 0.4 MG CAP PO SCH (19:44)
[2016-11-10 20:00] VITALS: BP 165/81; PULSE 50; RESP 18; TEMP 97.9; O2SAT 97
[2016-11-10 20:14] VITALS: PULSE 49
[2016-11-10 21:45] LABS: APTT (PATIENT) 54.2 SEC (24.3-30.1)
[2016-11-11] VITALS (8 sets, daily range): BP systolic 115–185; BP diastolic 66–90; PULSE 53–84; RESP 17–19; TEMP 96–97.5; O2SAT 93–98
[2016-11-11] MEDS ORDERED: DOCUSATE SODIUM 50 MG/SENNA 8.6 MG TAB PO PRN (03:00)
[2016-11-11] MEDS ORDERED: LACTATED RINGER'S 1000 ML IV PRN (03:30)
[2016-11-11] MEDS ORDERED: CHLORHEXIDINE GLUCONATE 2 % 1 PACK (2 CLOTHS) TOPICAL PRN (03:30)
[2016-11-11 05:04] LABS: HEMATOCRIT 45.5 % (39.0-51.0); MEAN CELL VOLUME 92.1 FL (80.0-100.0); MEAN CORPUSCULAR HGB CONC 33.6 % (32.0-36.0); PLATELET COUNT 103 TH/MM3 (150-450); RED BLOOD COUNT 4.94 MIL/MM3 (4.50-5.90); RED CELL DISTRIBUTION WIDTH 14.2 % (11.6-17.2); REVIEW FLAG FINAL; WHITE BLOOD COUNT 6.4 TH/MM3 (4.0-11.0)
[2016-11-11 05:15] LABS: APTT (PATIENT) 50.6 SEC (24.3-30.1)
[2016-11-11 05:29] LABS: BICARBONATE 24.3 MEQ/L (21.0-32.0); POTASSIUM 3.6 MEQ/L (3.5-5.1)
[2016-11-11] MEDS: METOPROLOL TARTRATE 25 MG TAB PO SCH ×3 (05:43→20:53)
[2016-11-11] MEDS: SODIUM CHLORIDE 0.9% FLUSH 10 ML FLUSH IV FLUSH SCH ×2 (07:54→20:53)
[2016-11-11] MEDS ORDERED: VANCOMYCIN HCL 1000 MG VIAL ONE (07:55)
[2016-11-11] MEDS ORDERED: THROMBIN (TOPICAL) 20,000 UNIT SPRAY KIT ONE (07:55)
[2016-11-11] MEDS: TOLTERODINE TARTRATE 4 MG CAP LA PO SCH (07:55)
[2016-11-11] MEDS ORDERED: HEPARIN SODIUM - IV 10,000 UNITS/10 ML VIAL ONE (07:55)
[2016-11-11] MEDS: TAMSULOSIN HCL 0.4 MG CAP PO SCH ×2 (07:55→20:54)
[2016-11-11] MEDS ORDERED: ceFAZolin INJ 1,000 MG VIAL IV ONE ×2 (08:01→08:25)
[2016-11-11] MEDS ORDERED: PROPOFOL 200 MG/20 ML AMP IV ONE (08:01)
[2016-11-11] MEDS ORDERED: NORMOSOL R INJ 1,000 ML IV ONE (08:02)
[2016-11-11] MEDS ORDERED: ePHEDrine/NS 25 MG/5 ML SYR IV ONE (08:02)
[2016-11-11] MEDS ORDERED: ONDANSETRON HCL 4 MG/2 ML VIAL IV PUSH ONE (08:02)
[2016-11-11] MEDS ORDERED: NEOSTIGMINE 3 MG/3 ML SYR IV ONE (08:02)
[2016-11-11] MEDS ORDERED: IOHEXOL 300 MG/ML 50 ML BTL (for RAD DIAG) OTHER ONE (08:07)
[2016-11-11] MEDS ORDERED: PROTAMINE SULFATE 50 MG/5 ML VIAL IV ONE (08:14)
[2016-11-11] MEDS ORDERED: ASPIRIN EC 81 MG TABEC PO SCH (09:00)
[2016-11-11] MEDS ORDERED: COPAXONE 20 MG SQ SCH (09:00)
--- NOTE | 2016-11-11 10:31 | HHI.HP ---
[facility] Service Family Medicine Primary Care Physician Marli Plata MD Admission Diagnosis ischemic LLE Diagnoses: (1) Popliteal artery thrombosis, left Diagnosis: Principal (2) Bilateral popliteal artery aneurysm Diagnosis: Principal (3) Chronic Medical Problems Diagnosis: Principal (4) FEN/DVT PPX/GI PPX/Nursing Orders Diagnosis: Principal International Travel<30 Days: No Contact w/Intl Traveler<30days: No Known Affected Area: No History of Present Illness Amador Cullen is a 71 year old male with a past medical history of CAD status post stent in 2002 on lifetime dual antiplatelet therapy and multiple sclerosis who presented to the [place] ED with a chief complaints of painful left foot of 3 days' duration. The pain began on Friday11/08/16 and initially he could not stand on his left foot without pain and could only walk short distances. He noticed that the foot was turning blue which prompted him to present to the ED. He was seen today right after his procedure. he was a little confused after his anesthesia but was not having any foot pain. His sisters were present in the room and are very involved in his care. Review of Systems Other Constitutional: DENIES: Fatigue, Fever, Chills Eyes: DENIES: Blurred vision, Vision loss Ears, nose, mouth, throat: DENIES: Nasal discharge, Sinus Pain Respiratory: DENIES: Cough, Wheezing Cardiovascular: COMPLAINS OF: Lower Extremity Edema, Claudication, DENIES: Chest pain, Palpitations, Syncope Gastrointestinal: DENIES: Abdominal pain, Diarrhea, Nausea, Vomiting Genitourinary: COMPLAINS OF: Urinary frequency, DENIES: Dysuria Musculoskeletal: COMPLAINS OF: Muscle aches, DENIES: Joint pain, Back pain Integumentary: DENIES: Pruritus, Rash Neurologic: DENIES: Headache Psychiatric: DENIES: Anxiety, Depression Past Family Social History Past Medical History CAD, stent 2002, lifetime dual antiplatelet therapy. Computer Technology Instructor is Dr. Bourgeois Lifetime dual antiplatelet therapy Multiple Sclerosis, managed by Dr Scott BPH, follows Dr Feliciano Hyperlipidemia HTN Past Surgical History Coronary stenting x 2002 Cystoscopy and TURP ( Dr Acevedo) Allergies: Coded Allergies: fexofenadine (Unverified Allergy, Severe, CAUSES PROSTATE ISSUES, 10/22/16) MRI PRECAUTION (Verified Adverse Reaction, Unknown, Metal near left orbit. Dr. Sexton 06/06/16. LRS, 09/18/16) Family History Mother- passed 02/2011, COPD; also glaucoma and cataracts Father- passed in 1992, CAD. MO at 65yo. Paternal grandmother- CAD No DM, CVA, cancers Social History Quit smoking in 2013 Physical Exam Vital Signs Vital Signs Date Time Temp Pulse Resp B/P (MAP) Pulse Ox O2 Delivery O2 Flow Rate FiO2 11/11/16 08:00 97.3 53 17 163/82 (109) 97 11/11/16 07:35 98.5 52 14 170/85 (113) 97 11/11/16 04:00 97.5 59 18 166/87 (113) 97 11/11/16 00:00 96.8 60 18 185/90 (121) 97 11/10/16 20:14 49 11/10/16 20:00 97.9 50 18 165/81 (109) 97 11/10/16 18:06 96.5 52 17 190/80 (116) 97 11/10/16 17:46 72 18 176/84 (114) 98 11/10/16 15:28 58 18 184/95 (124) 98 Room Air 11/10/16 10:53 98.0 57 18 172/83 (112) 99 Physical Exam GENERAL: This is a well-nourished, well-developed patient, in no apparent distress slightly "off kilter" with his recent anaesthesia. SKIN: No rashes, ecchymoses or lesions. Cool and dry. HEAD: Atraumatic. Normocephalic. EYES: Pupils equal round and reactive. Extraocular motions intact. No scleral icterus. No injection or drainage. ENT: Nose without bleeding, purulent drainage or septal hematoma. Airway patent. NECK: Trachea midline. No JVD or lymphadenopathy. Supple, nontender, no meningeal signs. CARDIOVASCULAR: Bradycardic rate and rhythm without murmurs, gallops, or rubs. RESPIRATORY: Clear to auscultation. Breath sounds equal bilaterally. No wheezes , rales, or rhonchi. GASTROINTESTINAL: Abdomen soft, non-tender, nondistended. No hepato-splenomegaly , or palpable masses. No guarding. MUSCULOSKELETAL: Edema of left lower extremity with cyanotic changes of the left foot, cold to touch prior to procedure. Nonpalpable left pedal pulses prior to procedure, motor intact. post procedure his foot is warm and feels the same as his right foot. his suture line on his medial leg is clean and dry and bandaged with a clear dressing NEUROLOGICAL: Awake and alert. Cranial nerves II through XII intact. Motor and sensory grossly within normal limits. Five out of 5 muscle strength in all muscle groups. Normal speech. Laboratory Laboratory Tests Test 11/10/16 11:10 11/10/16 13:30 11/10/16 21:12 11/11/16 04:40 White Blood Count 5.4 5.5 6.4 Red Blood Count 5.22 5.05 4.94 Hemoglobin 16.0 15.4 15.3 Hematocrit 48.0 46.6 45.5 Mean Corpuscular Volume 91.9 92.2 92.1 Mean Corpuscular Hemoglobin 30.7 30.6 31.0 Mean Corpuscular Hemoglobin Concent 33.4 33.1 33.6 Red Cell Distribution Width 14.5 14.6 14.2 Platelet Count 126 111 103 Mean Platelet Volume 7.8 7.6 7.8 Neutrophils (%) (Auto) 56.1 Lymphocytes (%) (Auto) 32.1 Monocytes (%) (Auto) 7.1 Eosinophils (%) (Auto) 4.3 Basophils (%) (Auto) 0.4 Neutrophils # (Auto) 3.0 Lymphocytes # (Auto) 1.7 Monocytes # (Auto) 0.4 Eosinophils # (Auto) 0.2 Basophils # (Auto) 0.0 CBC Comment DIFF FINAL Differential Comment Prothrombin Time 10.4 Prothromb Time International Ratio 0.9 Activated Partial Thromboplast Time 28.4 28.7 54.2 50.6 Blood Urea Nitrogen 18 15 Creatinine 1.31 1.05 Random Glucose 90 86 Calcium Level 8.6 8.8 Sodium Level 142 140 Potassium Level 4.0 3.6 Chloride Level 107 108 Carbon Dioxide Level 27.7 24.3 Anion Gap 7 8 Estimat Glomerular Filtration Rate 54 69 Result Diagram: 11/11/160 11/11/16 0440 Imaging Last Impressions Lower Extremity Ultrasound 11/10/16 1100 Signed Impressions: Service Date/Time: Thursday, November 10, 2016 11:56 - CONCLUSION: No evidence for DVT. Popliteal artery thrombus/prominent plaque and likely high grade stenosis suspected. A CTA is pending. Kevin Rainey MD Aorta w/Runoff CTA 11/10/16 0000 Signed Impressions: Service Date/Time: Thursday, November 10, 2016 12:58 - CONCLUSION: Occluded runoff beginning at the adductor hiatus extending through the long segment proximal aneurysm on the left with poor flow into the foot. Popliteal aneurysm on the right beginning in the adductor hiatus extending to the trifurcation with one vessel runoff to the foot. Bharath Browning MD FACR Caprini VTE Risk Assessment Caprini VTE Risk Assessment: Mod/High Risk (score >= 2) Caprini Risk Assessment Model Point Value = 1 Point Value = 2 Point Value = 3 Point Value = 5 Age 41-60 Minor surgery BMI > 25 kg/m2 Swollen legs Varicose veins or History of unexplained or recurrent spontaneous Oral contraceptives or hormone replacement Sepsis (< 1 month) Serious lung disease, including pneumonia (< 1 month) Abnormal pulmonary function Acute myocardial infarction Congestive heart failure (< 1 month) History of inflammatory bowel disease Medical patient at bed rest Age 61-74 Arthroscopic surgery Major open surgery (> 45 min) Laparoscopic surgery (> 45 min) Malignancy Confined to bed (> 72 hours) Immobilizing plaster cast Central venous access Age >= 75 History of VTE Family history of VTE Factor V Leiden Prothrombin [id number] Lupus anticoagulant Anticardiolipin antibodies Elevated serum homocysteine Heparin-induced thrombocytopenia Other congenital or acquired thrombophilia Stroke (< 1 month) Elective arthroplasty Hip, pelvis, or leg fracture Acute spinal cord injury (< 1 month) Prophylaxis Regimen Total Risk Factor Score Risk Level Prophylaxis Regimen 0-1 Low Early ambulation 2 Moderate Order ONE of the following: *Sequential Compression Device (SCD) *Heparin 5000 units SQ BID 3-4 Higher Order ONE of the following medications: *Heparin 5000 units SQ TID *Enoxaparin/Lovenox 40 mg SQ daily (WT < 150 kg, CrCl > 30 mL/min) *Enoxaparin/Lovenox 30 mg SQ daily (WT < 150 kg, CrCl > 10-29 mL/min) *Enoxaparin/Lovenox 30 mg SQ BID (WT < 150 kg, CrCl > 30 mL/min) AND/OR *Sequential Compression Device (SCD) 5 or more Highest Order ONE of the following medications: *Heparin 5000 units SQ TID (Preferred with Epidurals) *Enoxaparin/Lovenox 40 mg SQ daily (WT < 150 kg, CrCl > 30 mL/min) *Enoxaparin/Lovenox 30 mg SQ daily (WT < 150 kg, CrCl > 10-29 mL/min) *Enoxaparin/Lovenox 30 mg SQ BID (WT < 150 kg, CrCl > 30 mL/min) AND *Sequential Compression Device (SCD) Assessment and Plan Assessment and Plan 71 year old male with past medical history of CAD status post stents presented with occlusion of the left popliteal artery with aneurysm. Vascular surgery was consulted and performed his curative procedure today Problem List: (1) Popliteal artery thrombosis, left ICD Codes: I74.3 - Embolism and thrombosis of arteries of the lower extremities Status: Acute Plan: -CTA shows occlusion of the left popliteal artery with poor flow into the left foot and bilateral popliteal aneurysms, worse on the left, no AAA -Vascular surgeon Dr. Gonzalez on board -Continue therapeutic heparin -OR this morning at 0800 -Neurovascular checks as needed, doing well per exam today -2-D echo pending -Oakley 5-325 when necessary pain > 5 -Morphine 2 mg IV push every 3 hours when necessary breakthrough pain (2) Bilateral popliteal artery aneurysm ICD Codes: I72.4 - Aneurysm of artery of lower extremity Plan: See plan above (3) Chronic Medical Problems Plan: CAD: Holding Aspirin 81mg and Plavix Hypertension: Continue metoprolol 25 mg by mouth twice a day, continue amlodipine 10 mg by mouth at bedtime, Hydralazine 10 mg PO every 6 hours when necessary Hyperlipidemia: Holding Niacin BPH: Continue Tamsulosin 0.4 mg by mouth twice a day Multiple sclerosis: Continue Copaxone inj, converted to tolterodine 4 mg by mouth daily (4) FEN/DVT PPX/GI PPX/Nursing Orders Plan: Fluids: Oral fluids Electrolytes: Will monitor and replace as needed Nutrition: as tolerated DVT Prophylaxis: Heparin drip per surgery GI Prophylaxis: None currently Constipation prophylaxis: Pericolace 1 tab PO BID PRN PRN Medications Tylenol 650 mg by mouth every 4 hours when necessary pain 1-10 or temperature greater than 100.4F Zofran 4 mg IV push every 6 hours when necessary nausea vomiting -Vitals Q4h -Monitor I's and O's -Neurovascular checks every 4 hours -court recording monitor with telemetry with continuous vital signs -Activity OOB ad vero -PT to assist with ambulation after surgery -Case management consulted to assist with discharge needs. unsure if he will need rehab Disposition: Pending vascular surgery recommendations Physician Certification 2 Midnight Certification Type: Admission for Inpatient Services Order for Inpatient Services The services are ordered in accordance with Medicare regulations or non- Medicare payer requirements, as applicable. In the case of services not specified as inpatient-only, they are appropriately provided as inpatient services in accordance with the 2-midnight benchmark. Estimated LOS (days): 4 4 days is the estimated time the patient will need to remain in the hospital, assuming treatment plan goals are met and no additional complications. Post-Hospital Plan: Not yet determined Staci Hutchinson MD Nov 11, 2016 10:31
[2016-11-11] MEDS ORDERED: D5-1/2 NS + KCL 20 MEQ INJ 1,000 ML IV SCH (10:34)
--- NOTE | 2016-11-11 10:34 | HHI.PR ---
Immediate Post Op Note Procedure Date: Nov 11, 2016 Pre Op Diagnosis: Thrombosed L popliteal aneurysm, critical limb ischemia Post Op Diagnosis: Thrombosed L popliteal aneurysm, critical limb ischemia Surgeon: Darin Gonzalez Yarn Texture Machine Operator(s): Dillan Delacruz Procedure: 1. L popliteal aneurysm repair (interposition w 8mm PTFE) 2. Embolectomy of tibial arteries Findings: thrombosed aneurysm with thrombosis of tibial vessels Additional Information: Strong PT signal at end of case Complications: none apparent Specimen(s) removed: none for pathology Estimated blood loss: 200mL Anesthesia: General Drains: None Fluids: 1300mL x'oid; 350 mL UOP Patient to: PACU Patient Condition: Good Implant/Devices: SEE IMPLANT LOG (if applicable) Date/Time of Procedure: SEE SURGICAL CARE RECORD Darin Gonzalez MD Nov 11, 2016 10:34
[2016-11-11] MEDS ORDERED: MORPHINE SULFATE 4 MG/ML INJ IV PRN (10:45)
[2016-11-11] MEDS ORDERED: DO NOT ADM ANY ANTICOAGULANT DRUGS PRN (10:48)
[2016-11-11] MEDS ORDERED: HYDROmorphone HCL PF 2 MG/ML VIAL ONE (10:58)
[2016-11-11] MEDS ORDERED: MIDAZOLAM HCL 2 MG/2 ML VIAL ONE (11:01)
[2016-11-11 11:40] LABS: HEMATOCRIT 42.3 % (39.0-51.0); MEAN CORPUSCULAR HEMOGLOBIN 31.1 PG (27.0-34.0); MEAN CORPUSCULAR HGB CONC 33.8 % (32.0-36.0); PLATELET COUNT 103 TH/MM3 (150-450); RED CELL DISTRIBUTION WIDTH 14.2 % (11.6-17.2); REVIEW FLAG FINAL; WHITE BLOOD COUNT 8.3 TH/MM3 (4.0-11.0)
[2016-11-11 11:59] LABS: APTT (PATIENT) 27.3 SEC (24.3-30.1); PROTHROMBIN TIME - PATIENT 10.9 SEC (9.8-11.6)
[2016-11-11] MEDS: HEPARIN-D5W 25,000 U/250 ML 250 ML IV PRN (14:53)
[2016-11-11 19:41] LABS: APTT (PATIENT) 52.8 SEC (24.3-30.1)
[2016-11-11] MEDS ORDERED: DOCUSATE SODIUM 100 MG CAP PO SCH (21:00)
[2016-11-11 21:40] LABS: APTT (PATIENT) 93.5 SEC (24.3-30.1)
[2016-11-12] VITALS (10 sets, daily range): BP systolic 102–146; BP diastolic 63–77; PULSE 70–84; RESP 16–20; TEMP 96–99.5; O2SAT 92–97
[2016-11-12 00:14] LABS: APTT (PATIENT) 56.9 SEC (24.3-30.1)
[2016-11-12] MEDS: HYDROmorphone HCL 2 MG TAB PO PRN ×3 (01:00→21:51)
[2016-11-12] MEDS: HEPARIN-D5W 25,000 U/250 ML 250 ML IV PRN (04:11)
[2016-11-12 07:34] LABS: HEMATOCRIT 40.9 % (39.0-51.0); MEAN CELL VOLUME 91.9 FL (80.0-100.0); MEAN CORPUSCULAR HEMOGLOBIN 31.2 PG (27.0-34.0); MEAN CORPUSCULAR HGB CONC 33.9 % (32.0-36.0); PLATELET COUNT 113 TH/MM3 (150-450); RED BLOOD COUNT 4.45 MIL/MM3 (4.50-5.90); RED CELL DISTRIBUTION WIDTH 14.4 % (11.6-17.2); REVIEW FLAG FINAL; WHITE BLOOD COUNT 11.6 TH/MM3 (4.0-11.0)
--- NOTE | 2016-11-12 07:46 | PD.VS.PN ---
Subjective POD #: 1 Procedure(s): L popliteal aneurysm repair (bypass with 8mm PTFE) Subjective/Hospital Course doing well overnight; foot ok; c/o pain in leg. Motor intact HD stable Objective Vitals/I&O Date Time Temp Pulse Resp B/P (MAP) Pulse Ox O2 Delivery O2 Flow Rate FiO2 11/12/16 03:35 98.7 84 19 136/70 (92) 92 11/12/16 00:00 98.0 84 20 119/65 (83) 97 11/11/16 20:02 73 11/11/16 20:00 96.0 84 19 139/71 (93) 96 11/11/16 16:00 96.1 68 17 145/67 (93) 96 11/11/16 12:48 96.0 65 17 115/66 (82) 93 11/11/16 12:00 97.5 70 21 128/76 (93) 94 Nasal Cannula 3 11/11/16 11:45 68 21 113/60 (77) 95 Nasal Cannula 3 95/52 (66) 11/11/16 11:30 96.8 69 18 102/65 (77) 95 Nasal Cannula 3 95/52 (66) 11/11/16 11:15 66 19 98/59 (72) 95 Nasal Cannula 3 100/51 (67) 11/11/16 11:00 71 19 118/75 (89) 95 Nasal Cannula 4 112/59 (76) 11/11/16 10:52 98 11/11/16 10:51 96.1 74 24 107/66 (80) 95 Nasal Cannula 4 11/11/16 08:00 97.3 53 17 163/82 (109) 97 11/12/16 11/12/16 11/12/16 07:00 15:00 23:00 Intake Total 240 ml Output Total 300 ml Balance -60 ml Exam: L leg slightly full, not tense palpable PT Incisions: c/d/i Laboratory Laboratory Tests Test 11/11/16 11:22 11/11/16 17:54 11/11/16 20:49 11/11/16 23:45 White Blood Count 8.3 Red Blood Count 4.60 Hemoglobin 14.3 Hematocrit 42.3 Mean Corpuscular Volume 92.0 Mean Corpuscular Hemoglobin 31.1 Mean Corpuscular Hemoglobin Concent 33.8 Red Cell Distribution Width 14.2 Platelet Count 103 Mean Platelet Volume 8.0 Prothrombin Time 10.9 Prothromb Time International Ratio 1.0 Activated Partial Thromboplast Time 27.3 52.8 93.5 56.9 Test 11/12/16 06:57 11/12/16 07:01 White Blood Count 11.6 Red Blood Count 4.45 Hemoglobin 13.9 Hematocrit 40.9 Mean Corpuscular Volume 91.9 Mean Corpuscular Hemoglobin 31.2 Mean Corpuscular Hemoglobin Concent 33.9 Red Cell Distribution Width 14.4 Platelet Count 113 Mean Platelet Volume 8.3 Assessment and Plan Plan POD#1 s/p L popliteal aneurysm repair; bypass patent by exam, slight hematoma in thigh 1. hold hep gtt for now 2. PT/OOB 3. Reg diet, normalize 4. D/C Darin Garcia MD Nov 12, 2016 07:46
[2016-11-12 07:50] LABS: BICARBONATE 23.9 MEQ/L (21.0-32.0)
[2016-11-12 07:50] LABS: APTT (PATIENT) 96.8 SEC (24.3-30.1)
[2016-11-12 07:54] LABS: POTASSIUM 4.2 MEQ/L (3.5-5.1)
[2016-11-12] MEDS ORDERED: MORPHINE SULFATE 4 MG/ML INJ IV PRN (08:11)
--- NOTE | 2016-11-12 08:17 | HHI.FPPN ---
Subjective Remarks Pt doing better this morning. Pain is well controlled but he had throbbing pain overnight and called for pain medications multiple times. He wants the urinary catheter out but is concerned about incontinence. Last BM was on 5 days ago. Denies fever or chills. (Olive Wallace MD R2) Objective Vitals Vital Signs Date Time Temp Pulse Resp B/P (MAP) Pulse Ox O2 Delivery O2 Flow Rate FiO2 11/12/16 08:00 99.5 84 18 139/77 (97) 94 11/12/16 03:35 98.7 84 19 136/70 (92) 92 11/12/16 00:00 98.0 84 20 119/65 (83) 97 11/11/16 20:02 73 11/11/16 20:00 96.0 84 19 139/71 (93) 96 11/11/16 16:00 96.1 68 17 145/67 (93) 96 11/11/16 12:48 96.0 65 17 115/66 (82) 93 11/11/16 12:00 97.5 70 21 128/76 (93) 94 Nasal Cannula 3 11/11/16 11:45 68 21 113/60 (77) 95 Nasal Cannula 3 95/52 (66) 11/11/16 11:30 96.8 69 18 102/65 (77) 95 Nasal Cannula 3 95/52 (66) 11/11/16 11:15 66 19 98/59 (72) 95 Nasal Cannula 3 100/51 (67) 11/11/16 11:00 71 19 118/75 (89) 95 Nasal Cannula 4 112/59 (76) 11/11/16 10:52 98 11/11/16 10:51 96.1 74 24 107/66 (80) 95 Nasal Cannula 4 I/O 11/11/16 11/11/16 11/11/16 11/12/16 11/12/16 11/12/16 07:00 15:00 23:00 07:00 15:00 23:00 Intake Total 1330 ml 360 ml 240 ml Output Total 875 ml 425 ml 300 ml Balance 455 ml -65 ml -60 ml Intake Oral 0 ml 360 ml 240 ml IV Total 30 ml Other 1300 ml Output Urine Total 675 ml 425 ml 300 ml Estimated Blood Loss 200 ml # Bowel Movements 0 0 (Olive Wallace MD R2) Result Diagram: 11/12/16 0701 11/12/16 0701 A/P Assessment and Plan 71 year old male with past medical history of CAD status post stents presented with occlusion of the left popliteal artery with aneurysm. POD#1 s/p L popliteal aneurysm repair; bypass patent by exam, slight hematoma in thigh per vascular surgery. (EkoOlive MD R2) Attending Attestation Patient seen and examined. Case reviewed and discussed with the resident team. Agree with plan of care as discussed with me and documented in the resident note. spoke to him about discharge plans and he was not walking well with PT. He is considering different rehab places. (Staci Hutchinson MD) Problem List: (1) Popliteal artery thrombosis, left ICD Codes: I74.3 - Embolism and thrombosis of arteries of the lower extremities Status: Acute Plan: -POD#1 s/p L popliteal aneurysm repair; bypass patent by exam, slight hematoma in thigh -Holding therapeutic heparin for 24 hrs -2-D echo shows trace-mild MV regurgitation and mild TV regurgitation, EF 55%, no hemodynamic compromise -[place]io 5-325 when necessary pain > 5 -Morphine 2 mg IV push every 3 hours when necessary breakthrough pain (2) Bilateral popliteal artery aneurysm ICD Codes: I72.4 - Aneurysm of artery of lower extremity Plan: See plan above (3) Chronic Medical Problems Plan: CAD: Holding Aspirin 81mg and Plavix Hypertension: Continue metoprolol 25 mg by mouth twice a day, continue amlodipine 10 mg by mouth at bedtime, Hydralazine 10 mg PO every 6 hours when necessary Hyperlipidemia: Holding Niacin BPH: Continue Tamsulosin 0.4 mg by mouth twice a day Multiple sclerosis: Continue Copaxone inj (4) FEN/DVT PPX/GI PPX/Nursing Orders Plan: Fluids: Oral fluids Electrolytes: Will monitor and replace as needed Nutrition: as tolerated DVT Prophylaxis: Holding heparin gtt GI Prophylaxis: None currently Constipation prophylaxis: Pericolace 2 tab PO BID scheduled PRN Medications Tylenol 650 mg by mouth every 4 hours when necessary pain 1-10 or temperature greater than 100.4F Zofran 4 mg IV push every 6 hours when necessary nausea vomiting -Vitals Q4h -Monitor I's and O's -Neurovascular checks every 4 hours -reconstructive dentist with telemetry with continuous vital signs -Activity OOB ad vero -PT to assist with ambulation after surgery -Respiratory incentive spirometry -DC frederick, start condom cath, bladder training as needed -Case management consulted to assist with discharge needs. Unsure if he will need rehab Disposition: Pending vascular surgery recommendations (Olive Wallace MD R2) Olive Wallace MD R2 Nov 12, 2016 08:17 Staci Hutchinson MD Nov 13, 2016 16:11
[2016-11-12] MEDS: ASPIRIN 81 MG CHEW TAB PO SCH (09:00)
[2016-11-12] MEDS: DOCUSATE SODIUM 50 MG/SENNA 8.6 MG TAB PO SCH ×2 (09:00→21:47)
[2016-11-12] MEDS: TAMSULOSIN HCL 0.4 MG CAP PO SCH ×2 (09:20→21:47)
[2016-11-12] MEDS: TOLTERODINE TARTRATE 4 MG CAP LA PO SCH (09:21)
[2016-11-12] MEDS: METOPROLOL TARTRATE 25 MG TAB PO SCH ×2 (09:21→21:47)
[2016-11-12] MEDS: SODIUM CHLORIDE 0.9% FLUSH 10 ML FLUSH IV FLUSH SCH ×2 (09:23→21:48)
--- NOTE | 2016-11-12 09:33 | MP ---
cc: MOISÉS GONZALEZ MD DATE OF SURGERY: 11/11/2016 PREOPERATIVE DIAGNOSIS 1. Acutely thrombosed left popliteal artery aneurysm. 2. Critical limb ischemia. POSTOPERATIVE DIAGNOSIS 1. Acutely thrombosed left popliteal artery aneurysm. 2. Critical limb ischemia. PROCEDURE 1. Left popliteal aneurysm repair (interposition with 8 mm PTFE). 2. Tibial embolectomy. ATTENDING SURGEON Moisés Gonzalez. ANESTHESIA General. INDICATION Mr. Cullen is a 71-year-old gentleman with an undiagnosed popliteal artery aneurysm. He presented to the emergency department with acute limb ischemia of several days duration. He was motor intact and was placed on a heparin drip. He had persistent neuropathy that was acute and new, and a CT scan suggested a popliteal artery occlusion. He is taken to the operating room for definitive treatment. DESCRIPTION OF PROCEDURE Informed consent was obtained from the patient. He was taken to the operating room and placed supine on the operating table. An appropriate timeout was taken to ensure the patient's identity, operative site and planned procedure. The administration of 2 grams of Ancef was initiated prior to skin incision and will be discontinued after a single preoperative dose. Everyone in the room agreed with the timeout and we proceeded. He was prepped from his nipples to his toes. An incision was made along the distal medial thigh, carried down through subcutaneous tissue with electrocautery. Muscles were retracted posteriorly and the popliteal artery was identified. He was noted to be aneurysmal. We dissected up cephalad to the distal SFA at which point the artery was normal in character. It was encircled with a vessel loop. An incision was made in the medial upper calf, carried down through subcutaneous tissue with electrocautery. The below knee popliteal artery was identified and encircled with a vessel loop. A tunnel was then created between these two and an 8 mm ringed PTFE was placed through this. The patient was systemically heparinized and throughout the remainder of the case the ACT was confirmed to be greater than 250. Proximal and distal control of the distal SFA was obtained with profunda clamps and the artery was divided. The proximal aspect of the distal piece was oversewn with 4-0 Prolene. The 8 mm PTFE was spatulated and sewn end-to-end to the SFA using running 5-0 Prolene suture. At the completion it was flushed and noted to be hemostatic. A Francisco Softjaw was then placed on the graft and the graft was passed through the tunnel taking caution not to twist it. The below knee popped artery was clamped with profunda clamps and transected. The proximal aspect was oversewn with 4-0 Prolene suture. The distal aspect was unclamped and noted to have acute thrombus. A #3 Francisco embolectomy catheter was placed down to the tibial arteries and the fresh thrombus was removed and brisk back bleeding was encountered. A profunda clamp was then placed and the graft was cut to an appropriate length, spatulated and sewn end-to-end to the popliteal artery with running 5-0 Prolene suture. At the completion it was flushed and noted to be hemostatic. All the clamps were released and there was a nice Doppler signal in the foot. The heparin was reversed with protamine. The wounds were made hemostatic and closed with 2-0 Polysorb, 3-0 Polysorb and 4-0 Monocryl. The sponge and needle counts were correct at the end of the case. I was present and scrubbed and performed the entire procedure. MD RADHA Ray/SUBHA /11:21 AM /9:14 AM
--- NOTE | 2016-11-12 16:51 | ECHRPT ---
Indication: cad CONCLUSIONS The left ventricular systolic function is low normal with an estimated ejection fraction in the rang e of 50- 55%. [id number] mitral valve regurgitation. There is mild tricuspid valve regurgitation. Probable fat pad noted, can not rule out pericardial effusion. No hemodynamic compromise noted. BP: / HR: Rhythm: MEASUREMENTS (Male / Female) Normal Values Technical Quality: 2D ECHO LV Diastolic Diameter PLAX 4.7 cm 4.2 - 5.9 / 3.9 - 5.3 cm LV Systolic Diameter PLAX 3.7 cm IVS Diastolic Thickness 1.6 cm 0.6 - 1.0 / 0.6 - 0.9 cm LVPW Diastolic Thickness 1.1 cm 0.6 - 1.0 / 0.6 - 0.9 cm LV Relative Wall Thickness 0.6 RV Internal Dim ED PLAX 3.0 cm M-MODE Aortic Root Diameter MM 3.2 cm LA Systolic Diameter MM 4.0 cm LA Ao Ratio MM 1.3 AV Cusp Separation MM 2.0 cm DOPPLER LV E' Lateral Velocity 10.0 cm/s LV E' Septal Velocity 7.5 cm/s FINDINGS LEFT VENTRICLE The left ventricular systolic function is low normal with an estimated ejection fraction in the rang e of 50- 55%. Normal left ventricular size. Nonobstructive prominent basal hypertrophy is present consistent with sigmoid septum. RIGHT VENTRICLE Normal right ventricular size and systolic function. LEFT ATRIUM The left atrial size is normal. RIGHT ATRIUM The right atrial size is normal. ATRIAL SEPTUM The interatrial septum not well visualized. AORTA The aortic root and proximal ascending aorta are normal in size on limited imaging. MITRAL VALVE Structurally normal mitral valve. Brmer-kn-agas mitral valve regurgitation. No mitral valve stenosis. AORTIC VALVE No aortic valve stenosis or regurgitation. TRICUSPID VALVE Structurally normal tricuspid valve. There is mild tricuspid valve regurgitation. No tricuspid valve stenosis. PULMONARY VALVE The pulmonary valve is not well visualized. VESSELS The inferior vena cava is normal in size. PERICARDIUM Probable fat pad noted, can not rule out pericardial effusion. No hemodynamic compromise noted. Yadiel Lindsey DO (Electronically Signed) Final Date:12 November 2016 16:51
[2016-11-12] MEDS: COPAXONE 20 MG SQ SCH (21:00)
[2016-11-13] VITALS (8 sets, daily range): BP systolic 101–136; BP diastolic 57–76; PULSE 70–80; RESP 16–20; TEMP 96–99.2; O2SAT 92–97
[2016-11-13] MEDS: HYDROmorphone HCL 2 MG TAB PO PRN (05:19)
[2016-11-13 05:32] LABS: HEMATOCRIT 36.6 % (39.0-51.0); MEAN CELL VOLUME 92.7 FL (80.0-100.0); MEAN CORPUSCULAR HEMOGLOBIN 30.3 PG (27.0-34.0); MEAN CORPUSCULAR HGB CONC 32.7 % (32.0-36.0); PLATELET COUNT 110 TH/MM3 (150-450); RED BLOOD COUNT 3.95 MIL/MM3 (4.50-5.90); RED CELL DISTRIBUTION WIDTH 14.5 % (11.6-17.2); REVIEW FLAG FINAL; WHITE BLOOD COUNT 11.9 TH/MM3 (4.0-11.0)
[2016-11-13 06:00] LABS: BICARBONATE 23.7 MEQ/L (21.0-32.0); POTASSIUM 3.9 MEQ/L (3.5-5.1)
--- NOTE | 2016-11-13 08:23 | HHI.FPPN ---
Subjective Remarks Nursing staff reported fall last night - patient reportedly slipped out of chair and found on the floor. No reported LOC, neurologic changes, new pain. Patient was reluctant to talk about it this morning, indicating that he did not fall. He verbalizes distrust in the nursing staff, stating that "they lie to him , treat him like a piece of meat." Nursing staff reports that patient is more confrontational today. Otherwise he denies dizziness, light headedness, WELCH, SOB , CP, N/V. Has not had BM in 5 days. Reports L leg pain is worse at lower leg incision compared to thigh incision, but overall improving pain rasmussen. (Mike Ambriz MD R1) Objective Vitals Vital Signs Date Time Temp Pulse Resp B/P (MAP) Pulse Ox O2 Delivery O2 Flow Rate FiO2 11/13/16 04:00 97.7 80 16 103/57 (72) 96 11/13/16 00:30 96 21 11/13/16 00:00 97.3 75 16 136/76 (96) 92 11/12/16 23:00 79 11/12/16 20:00 96.0 70 16 114/67 (83) 94 11/12/16 17:42 94 11/12/16 16:00 99.0 82 18 146/67 (93) 94 11/12/16 15:00 77 11/12/16 12:00 97.9 77 18 102/63 (76) 95 11/12/16 10:00 77 I/O 11/12/16 11/12/16 11/12/16 11/13/16 11/13/16 11/13/16 07:00 15:00 23:00 07:00 15:00 23:00 Intake Total 240 ml 240 ml Output Total 300 ml 250 ml 100 ml Balance -60 ml -10 ml -100 ml Intake Oral 240 ml 240 ml Output Urine Total 300 ml 250 ml 100 ml # Bowel Movements 0 (Mike Ambriz MD R1) Result Diagram: 11/13/1644711/13/16447 Objective Remarks GENERAL: Well nourished, well developed male seen ambulating from bed to chair. In NAD but cautiously/slowly transition to chair, favoring L leg. Refusing help from nursing staff in attempt. SKIN: Warm and dry. HEAD: Normocephalic. Atraumatic EYES: No scleral icterus. No injection or drainage. NECK: Supple, trachea midline. No JVD or lymphadenopathy. CARDIOVASCULAR: Regular rate and rhythm without murmurs, gallops, or rubs. RESPIRATORY: Breath sounds equal bilaterally. No accessory muscle use. GASTROINTESTINAL: Abdomen soft, non-tender, nondistended. MUSCULOSKELETAL: No cyanosis, or edema. 4-5 inch incision sites on medial aspect of left thigh, lower leg. Incisions are clean and dry, minimal local erythema. No appreciable tenderness in near the incision sites or in the popliteal region. Attempted to palpate for a hematoma but could not appreciate one on exam. Left foot is warm to the touch with intact distal pulses. BACK: Nontender without obvious deformity. (Mike Ambriz MD R1) A/P Assessment and Plan 71 year old male with past medical history of CAD status post stents presented with occlusion of the left popliteal artery with aneurysm. POD#2 s/p L popliteal aneurysm repair; bypass patent by exam, slight hematoma in thigh per vascular surgery. Discharge Planning Waiting on PT to clear, will likely need SNF. Vascular surgery f/u in 2-3 weeks (Mike Ambriz MD R1) Attending Attestation Patient seen and examined. Case reviewed and discussed with the resident team. Agree with plan of care as discussed with me and documented in the resident note. saw pt with Dr Gonzalez. Per pt was ready to leave hospital once he was off all iv meds, which he is. He needs to be eating and was started back on his Plavix and aspirin per Dr Gonzalez. Mr Cullen was picking out a SNF to go to on D /C. (Staci Hutchinson MD) Problem List: (1) Popliteal artery thrombosis, left ICD Codes: I74.3 - Embolism and thrombosis of arteries of the lower extremities Status: Acute Plan: -POD#2 s/p L popliteal aneurysm repair; bypass patent by exam, slight hematoma in thigh -Held therapeutic heparin for 24 hr, will continue to hold per vascular surgery -Vascular surgery says we can now restart home Plavix, Aspirin. -2-D echo shows trace-mild MV regurgitation and mild TV regurgitation, EF 55%, no hemodynamic compromise -PT assisting in ambulation -[place] 5-325, 7.5-325 when necessary pain -Dilaudid 2mg IV for breakthrough pain (2) Bilateral popliteal artery aneurysm ICD Codes: I72.4 - Aneurysm of artery of lower extremity Plan: See plan above (3) Chronic Medical Problems Plan: CAD: Holding Aspirin 81mg and Plavix Hypertension: Continue metoprolol 25 mg by mouth twice a day, continue amlodipine 10 mg by mouth at bedtime, Hydralazine 10 mg PO every 6 hours when necessary Hyperlipidemia: Holding Niacin BPH: Continue Tamsulosin 0.4 mg by mouth twice a day Multiple sclerosis: Continue Copaxone inj (4) FEN/DVT PPX/GI PPX/Nursing Orders Plan: Fluids: Oral fluids Electrolytes: Will monitor and replace as needed Nutrition: as tolerated DVT Prophylaxis: Holding heparin gtt GI Prophylaxis: None currently Constipation prophylaxis: Pericolace 2 tab PO BID scheduled PRN Medications Zofran 4 mg IV push every 6 hours when necessary for nausea vomiting Dulcolax, Milk of Magnesia -Vitals Q4h -Monitor I's and O's -Neurovascular checks every 4 hours -surveillance system monitor with telemetry with continuous vital signs -Activity OOB ad vero -PT to assist with ambulation after surgery -Respiratory incentive spirometry -Condom cath, bladder training as needed -Case management consulted to assist with discharge needs. Will likely need SNF Disposition: Pending vascular surgery recommendations (Mike Ambriz MD R1) Mike Ambriz MD R1 Nov 13, 2016 08:23 Staci Hutchinsno MD Nov 14, 2016 13:57
[2016-11-13] MEDS ORDERED: MAGNESIUM HYDROXIDE SUSP 30 ML CUP PO PRN (08:30)
[2016-11-13] MEDS ORDERED: LACTULOSE SYRUP 20 GM/30 ML CUP PO PRN (08:30)
[2016-11-13] MEDS ORDERED: BISACODYL 10 MG SUPP RECTAL PRN (08:30)
[2016-11-13] MEDS ORDERED: SENNOSIDES 8.6 MG TAB PO PRN (08:30)
[2016-11-13] MEDS: TOLTERODINE TARTRATE 4 MG CAP LA PO SCH (09:39)
[2016-11-13] MEDS: DOCUSATE SODIUM 50 MG/SENNA 8.6 MG TAB PO SCH ×2 (09:39→20:39)
[2016-11-13] MEDS: TAMSULOSIN HCL 0.4 MG CAP PO SCH ×2 (09:39→20:39)
[2016-11-13] MEDS: ASPIRIN 81 MG CHEW TAB PO SCH (09:39)
[2016-11-13] MEDS: SODIUM CHLORIDE 0.9% FLUSH 10 ML FLUSH IV FLUSH SCH ×2 (09:40→20:48)
[2016-11-13] MEDS: METOPROLOL TARTRATE 25 MG TAB PO SCH ×2 (09:40→20:38)
--- NOTE | 2016-11-13 12:12 | PD.VS.PN ---
Subjective POD #: 2 Procedure(s): L popliteal aneurysm repair (bypass with 8mm PTFE) Subjective/Hospital Course Pt sitting in a chair in NAD Pt c/o L LE incisional discomfort with ambulation LE warm w/ motor intact Slight swelling present to L LE (Yumiko Moser) Objective Vitals/I&O Date Time Temp Pulse Resp B/P (MAP) Pulse Ox O2 Delivery O2 Flow Rate FiO2 11/13/16 10:49 97 Nasal Cannula 11/13/16 08:00 99.2 77 17 123/73 (90) 93 11/13/16 04:00 97.7 80 16 103/57 (72) 96 11/13/16 00:30 96 21 11/13/16 00:00 97.3 75 16 136/76 (96) 92 11/12/16 23:00 79 11/12/16 20:00 96.0 70 16 114/67 (83) 94 11/12/16 17:42 94 11/12/16 16:00 99.0 82 18 146/67 (93) 94 11/12/16 15:00 77 11/12/16 12:00 97.9 77 18 102/63 (76) 95 11/13/16 11/13/16 11/13/16 06:59 14:59 22:59 Output Total 100 ml Balance -100 ml Exam: GENERAL: A&OX3,NAD,GCS15 SKIN: Warm and dry/ Incisions to upper thigh and L calf region intact with surgical glue w/o D/O/R LE warm w/ motor intact L DP/PT with strong biphasic signals heard via Doppler + Swelling present to L LE (S/NT) Laboratory Laboratory Tests Test 11/13/16 04:48 White Blood Count 11.9 Red Blood Count 3.95 Hemoglobin 12.0 Hematocrit 36.6 Mean Corpuscular Volume 92.7 Mean Corpuscular Hemoglobin 30.3 Mean Corpuscular Hemoglobin Concent 32.7 Red Cell Distribution Width 14.5 Platelet Count 110 Mean Platelet Volume 8.1 Blood Urea Nitrogen 38 Creatinine 1.90 Random Glucose 97 Calcium Level 8.6 Sodium Level 135 Potassium Level 3.9 Chloride Level 101 Carbon Dioxide Level 23.7 Anion Gap 10 Estimat Glomerular Filtration Rate 35 (Yumiko Moser) Assessment and Plan Plan POD#2 s/p L popliteal aneurysm repair Pt doing well post operatively Mild swelling present to L GRABIEL Discussed post operative incisional pain with mild swelling /potential hyper- reperfusion/will continue to monitor Plan Continue to hold hep gtt Continue w/ PT/OOB Yumiko MARLEY [facility] [phone] (Yumiko Moser) Plan Palpable PT; leg edematous but soft. I think it's ok to just use ASA/plavix. Ok to d/c once cleared from PT. Will arrange f/u in vascular clinic in 2-3 weeks with ABIs. Will need surveillance of RIGHT popliteal aneurysm. (Darin Gonzalez MD) Yumiko Moser Nov 13, 2016 12:12 Darin Gonzalez MD Nov 13, 2016 16:28
[2016-11-13] MEDS ORDERED: ACETAMINOPHEN/HYDROcodone 325 MG/5 MG TAB PO PRN ×2 (14:30→14:45)
[2016-11-13] MEDS: CLOPIDOGREL 75 MG TAB PO SCH (15:53)
[2016-11-13] MEDS: ACETAMINOPHEN/HYDROcodone 325 MG/7.5 MG TAB PO PRN (17:57)
[2016-11-13] MEDS: COPAXONE 20 MG SQ SCH (20:45)
[2016-11-14] VITALS: BP 109/56; PULSE 77; RESP 20; TEMP 98.1; O2SAT 95
[2016-11-14 04:00] VITALS: BP 122/73; PULSE 71; RESP 18; TEMP 98; O2SAT 95
[2016-11-14 05:33] LABS: HEMATOCRIT 33.9 % (39.0-51.0); MEAN CELL VOLUME 93.4 FL (80.0-100.0); MEAN CORPUSCULAR HEMOGLOBIN 31.9 PG (27.0-34.0); MEAN CORPUSCULAR HGB CONC 34.1 % (32.0-36.0); PLATELET COUNT 107 TH/MM3 (150-450); RED BLOOD COUNT 3.63 MIL/MM3 (4.50-5.90); RED CELL DISTRIBUTION WIDTH 14.4 % (11.6-17.2); REVIEW FLAG FINAL; WHITE BLOOD COUNT 8.8 TH/MM3 (4.0-11.0)
[2016-11-14 05:41] LABS: APTT (PATIENT) 24.3 SEC (24.3-30.1)
[2016-11-14 05:49] LABS: BICARBONATE 22.3 MEQ/L (21.0-32.0); POTASSIUM 3.8 MEQ/L (3.5-5.1)
[2016-11-14 08:00] VITALS: BP 131/70; PULSE 77; RESP 18; TEMP 99.3; O2SAT 95
--- NOTE | 2016-11-14 09:23 | HHI.FPPN ---
Subjective Remarks Pt is doing well this morning. Sitting up in a chair eating breakfast. No acute concerns this morning except for some mild pain in the incision on his leg. He still has not had a bowel movement. (Olive Wallace MD R2) Objective Vitals Vital Signs Date Time Temp Pulse Resp B/P (MAP) Pulse Ox O2 Delivery O2 Flow Rate FiO2 11/14/16 08:00 99.3 77 18 131/70 (90) 95 11/14/16 04:00 98.0 71 18 122/73 (89) 95 11/14/16 00:00 98.1 77 20 109/56 (73) 95 11/13/16 20:00 96.0 80 20 127/66 (86) 95 11/13/16 16:00 97.8 76 17 118/58 (78) 92 11/13/16 12:00 96.7 70 18 101/59 (73) 94 11/13/16 10:49 97 Nasal Cannula I/O 11/13/16 11/13/16 11/13/16 11/14/16 11/14/16 11/14/16 07:00 15:00 23:00 07:00 15:00 23:00 Intake Total 420 ml Output Total 100 ml 700 ml Balance -100 ml 420 ml -700 ml Intake Oral 420 ml Output Urine Total 100 ml 700 ml # Voids 6 # Bowel Movements 0 (Olive Wallace MD R2) Result Diagram: 11/14/1645811/14/16458 Objective Remarks GENERAL: Well nourished, well developed male in no acute distress SKIN: Warm and dry. HEAD: Normocephalic. Atraumatic EYES: No scleral icterus. No injection or drainage. NECK: Supple, trachea midline. No JVD or lymphadenopathy. CARDIOVASCULAR: Regular rate and rhythm without murmurs, gallops, or rubs. RESPIRATORY: Breath sounds equal bilaterally. No accessory muscle use. GASTROINTESTINAL: Abdomen soft, non-tender, nondistended. MUSCULOSKELETAL: No cyanosis, or edema. Two 4-5 inch incision sites, one on the medial aspect of left thigh, the other on the lower leg. Incisions are clean and dry, minimal local erythema. No appreciable tenderness near the incision sites or in the popliteal region. Could not palpate a hematoma. Left foot with intact distal pulses and good capillary refill. BACK: Nontender without obvious deformity. (EkoOlive MD R2) A/P Assessment and Plan 71 year old male with past medical history of CAD status post stents presented with occlusion of the left popliteal artery with aneurysm. POD#3 s/p L popliteal aneurysm repair; bypass patent by exam, slight hematoma in thigh per vascular surgery. Discharge Planning Plan to discharge to SNF. Vascular surgery f/u in 2-3 weeks (Olive Wallace MD R2) Attending Attestation Patient seen, examined, and discussed with resident team. I agree with assessment and management as documented and discussed with me. Pt without major complaints. He reports pain with weight bearing of left leg. He expresses understanding regarding his hospitalization and hospital course. He has been accepted to [facility] and will be discharged today. (Marli Plata MD) Problem List: (1) Popliteal artery thrombosis, left ICD Codes: I74.3 - Embolism and thrombosis of arteries of the lower extremities Status: Acute Plan: -POD#3 s/p L popliteal aneurysm repair; bypass patent by exam, slight hematoma in thigh -Continue holding therapeutic heparin per vascular surgery, APTT 24.3 today -Continue home Plavix, Aspirin. -PT assisting in ambulation -[place] 5-325, 7.5-325 when necessary pain -Dilaudid 2mg Q4h PO for breakthrough pain (2) Bilateral popliteal artery aneurysm ICD Codes: I72.4 - Aneurysm of artery of lower extremity Plan: See plan above (3) Chronic Medical Problems Plan: CAD: Continue Aspirin 81mg and Plavix Hypertension: Continue metoprolol 25 mg by mouth twice a day, continue amlodipine 10 mg by mouth at bedtime, Hydralazine 10 mg PO every 6 hours when necessary Hyperlipidemia: Holding Niacin BPH: Continue Tamsulosin 0.4 mg by mouth twice a day Multiple sclerosis: Continue Copaxone inj (4) FEN/DVT PPX/GI PPX/Nursing Orders Plan: Fluids: Oral fluids Electrolytes: Will monitor and replace as needed Nutrition: as tolerated DVT Prophylaxis: Holding heparin gtt GI Prophylaxis: None currently Constipation prophylaxis: Pericolace 2 tab PO BID scheduled, scheduled MOM and lactulose PRN Medications Zofran 4 mg IV push every 6 hours when necessary for nausea vomiting -Vitals Q4h -Monitor I's and O's -Neurovascular checks every 4 hours -bus matron with telemetry with continuous vital signs -Activity OOB ad vero -PT assisting with ambulation -Respiratory incentive spirometry -Condom cath, bladder training as needed -Case management [facility] Disposition: Plan to discharge to SNF today. Cleared by vascular surgery (Olive Wallace MD R2) Problem List: (1) Popliteal artery thrombosis, left ICD Codes: I74.3 - Embolism and thrombosis of arteries of the lower extremities Status: Acute Plan: -POD#3 s/p L popliteal aneurysm repair; bypass patent by exam, slight hematoma in thigh -Continue holding therapeutic heparin per vascular surgery, APTT 24.3 today -Continue home Plavix, Aspirin. -PT assisting in ambulation -[place] 5-325, 7.5-325 when necessary pain -Dilaudid 2mg Q4h PO for breakthrough pain (2) Bilateral popliteal artery aneurysm ICD Codes: I72.4 - Aneurysm of artery of lower extremity Plan: See plan above (3) Chronic Medical Problems Plan: CAD: Continue Aspirin 81mg and Plavix Hypertension: Continue metoprolol 25 mg by mouth twice a day, continue amlodipine 10 mg by mouth at bedtime, Hydralazine 10 mg PO every 6 hours when necessary Hyperlipidemia: Holding Niacin BPH: Continue Tamsulosin 0.4 mg by mouth twice a day Multiple sclerosis: Continue Copaxone inj (4) FEN/DVT PPX/GI PPX/Nursing Orders Plan: Fluids: Oral fluids Electrolytes: Will monitor and replace as needed Nutrition: as tolerated DVT Prophylaxis: Holding heparin gtt GI Prophylaxis: None currently Constipation prophylaxis: Pericolace 2 tab PO BID scheduled, scheduled MOM and lactulose PRN Medications Zofran 4 mg IV push every 6 hours when necessary for nausea vomiting -Vitals Q4h -Monitor I's and O's -Neurovascular checks every 4 hours -bus matron with telemetry with continuous vital signs -Activity OOB ad vero -PT assisting with ambulation -Respiratory incentive spirometry -Condom cath, bladder training as needed -Case management working on discharge to [facility] or other SNF Disposition: Plan to discharge to SNF today. Cleared by vascular surgery (Marli Plata MD) Olive Wallace MD R2 Nov 14, 2016 09:23 Marli Plata MD Nov 14, 2016 20:48
[2016-11-14] MEDS ORDERED: LACTULOSE SYRUP 20 GM/30 ML CUP PO SCH (10:00)
[2016-11-14] MEDS ORDERED: MAGNESIUM HYDROXIDE SUSP 30 ML CUP PO SCH (10:00)
[2016-11-14] MEDS: SODIUM CHLORIDE 0.9% FLUSH 10 ML FLUSH IV FLUSH SCH (10:19)
[2016-11-14] MEDS: TAMSULOSIN HCL 0.4 MG CAP PO SCH (10:20)
[2016-11-14] MEDS: CLOPIDOGREL 75 MG TAB PO SCH (10:20)
[2016-11-14] MEDS: TOLTERODINE TARTRATE 4 MG CAP LA PO SCH (10:20)
[2016-11-14] MEDS: METOPROLOL TARTRATE 25 MG TAB PO SCH (10:20)
[2016-11-14] MEDS: ASPIRIN 81 MG CHEW TAB PO SCH (10:21)
[2016-11-14] MEDS: DOCUSATE SODIUM 50 MG/SENNA 8.6 MG TAB PO SCH (10:21)
--- NOTE | 2016-11-14 11:21 | PD.VS.PN ---
Subjective POD #: 3 Procedure(s): L popliteal aneurysm repair (bypass with 8mm PTFE) Subjective/Hospital Course Pt sitting in a chair in NAD LE warm w/ motor intact Improved L LE swelling Objective Vitals/I&O Date Time Temp Pulse Resp B/P (MAP) Pulse Ox O2 Delivery O2 Flow Rate FiO2 11/14/16 08:00 99.3 77 18 131/70 (90) 95 11/14/16 04:00 98.0 71 18 122/73 (89) 95 11/14/16 00:00 98.1 77 20 109/56 (73) 95 11/13/16 20:00 96.0 80 20 127/66 (86) 95 11/13/16 16:00 97.8 76 17 118/58 (78) 92 11/13/16 12:00 96.7 70 18 101/59 (73) 94 11/14/16 11/14/16 11/14/16 07:00 15:00 23:00 Output Total 700 ml Balance -700 ml Exam: GENERAL: A&OX3,NAD,GCS15 SKIN: Warm and dry/ Incisions to upper thigh and L calf region intact with surgical glue w/o D/O/R LE warm w/ motor intact L DP/PT with strong biphasic signals heard via Doppler L PT palpable Pt with improved Swelling to L LE (S/NT) Laboratory Laboratory Tests Test 11/14/16 04:59 White Blood Count 8.8 Red Blood Count 3.63 Hemoglobin 11.6 Hematocrit 33.9 Mean Corpuscular Volume 93.4 Mean Corpuscular Hemoglobin 31.9 Mean Corpuscular Hemoglobin Concent 34.1 Red Cell Distribution Width 14.4 Platelet Count 107 Mean Platelet Volume 8.4 Activated Partial Thromboplast Time 24.3 Blood Urea Nitrogen 42 Creatinine 1.42 Random Glucose 97 Calcium Level 8.6 Sodium Level 137 Potassium Level 3.8 Chloride Level 106 Carbon Dioxide Level 22.3 Anion Gap 9 Estimat Glomerular Filtration Rate 49 Assessment and Plan Plan Palpable PT; leg edematous but soft. I think it's ok to just use ASA/plavix. Ok to d/c once cleared from PT. Will arrange f/u in vascular clinic in 2-3 weeks with ABIs. W ill need surveillance of RIGHT popliteal aneurysm. Plan Arranged out patient F/U in 2W Pt cleared for D/C (Rehab) from a vascular standpoint Continue ASA/Plavix medical management Yumiko MARLEY [facility]/[place] [phone] Discharge Planning Clear for D/C to rehab Arranged for post op 2w f/u Yumiko Moser Nov 14, 2016 11:21
[2016-11-14] MEDS: ACETAMINOPHEN/HYDROcodone 325 MG/7.5 MG TAB PO PRN (11:51)
[2016-11-14 12:00] VITALS: BP 119/64; PULSE 74; RESP 18; TEMP 98.5; O2SAT 94
--- NOTE | 2016-11-14 12:30 | HHI.DCPOC ---
Discharge Care Plan Diagnosis: (1) Bilateral popliteal artery aneurysm (2) Popliteal artery thrombosis, left (3) CAD (coronary artery disease) Goals to Promote Your Health * To prevent worsening of your condition and complications * To maintain your health at the optimal level Directions to Meet Your Goals Take your medications as prescribed Follow your dietary instruction Follow activity as directed Keep your appointments as scheduled Take your immunizations and boosters as scheduled If your symptoms worsen call your PCP, if no PCP go to Urgent Care Center or Emergency Room Smoking is Dangerous to Your Health. Avoid second hand smoke Call the 24-hour hour crisis hotline for domestic abuse at Olive Wallace MD R2 Nov 14, 2016 12:30
[2016-11-14] MEDS ORDERED: METO25TA3 PO (12:34)
--- NOTE | 2016-11-14 12:35 | HHI.DS ---
Discharge Summary Admission Date Nov 10, 2016 at 14:13 Discharge Date: Nov 14, 2016 Admitting Diagnosis ischemic LLE (1) Popliteal artery thrombosis, left Diagnosis: Principal Plan: ICD Codes: I74.3 - Embolism and thrombosis of arteries of the lower extremities Status: Acute (2) Bilateral popliteal artery aneurysm Diagnosis: Principal ICD Codes: I72.4 - Aneurysm of artery of lower extremity [facility] Vascular surgery - Dr. Gonzalez Brief History Amador Cullen is a 71 year old male with a past medical history of CAD status post stent in 2002 on lifetime dual antiplatelet therapy and multiple sclerosis who presented to the [facility] ED with a chief complaints of painful left foot of 3 days' duration. The pain began on Friday11/08/16 and initially he could not stand on his left foot without pain and could only walk short distances. He noticed that the foot was turning blue which prompted him to present to the ED. He was seen today right after his procedure. he was a little confused after his anesthesia but was not having any foot pain. His sisters were present in the room and are very involved in his care. CBC/BMP: 11/14/16 0459 11/14/16 0459 Significant Findings Laboratory Tests Test 11/11/16 17:54 11/11/16 20:49 11/11/16 23:45 11/12/16 06:57 Activated Partial Thromboplast Time 52.8 SEC (24.3-30.1) 93.5 SEC (24.3-30.1) 56.9 SEC (24.3-30.1) 96.8 SEC (24.3-30.1) Test 11/12/16 07:01 11/13/16 04:48 11/14/16 04:59 White Blood Count 11.6 TH/MM3 (4.0-11.0) 11.9 TH/MM3 (4.0-11.0) Red Blood Count 4.45 MIL/MM3 (4.50-5.90) 3.95 MIL/MM3 (4.50-5.90) 3.63 MIL/MM3 (4.50-5.90) Platelet Count 113 TH/MM3 (150-450) 110 TH/MM3 (150-450) 107 TH/MM3 (150-450) Blood Urea Nitrogen 24 MG/DL (7-18) 38 MG/DL (7-18) 42 MG/DL (7-18) Creatinine 1.63 MG/DL (0.60-1.30) 1.90 MG/DL (0.60-1.30) 1.42 MG/DL (0.60-1.30) Random Glucose 119 MG/DL (74-106) Estimat Glomerular Filtration Rate 42 ML/MIN (>89) 35 ML/MIN (>89) 49 ML/MIN (>89) Hemoglobin 12.0 GM/DL (13.0-17.0) 11.6 GM/DL (13.0-17.0) Hematocrit 36.6 % (39.0-51.0) 33.9 % (39.0-51.0) Sodium Level 135 MEQ/L (136-145) PE at Discharge GENERAL: Well nourished, well developed male seen ambulating from bed to chair. In NAD but cautiously/slowly transition to chair, favoring L leg. Refusing help from nursing staff in attempt. SKIN: Warm and dry. HEAD: Normocephalic. Atraumatic EYES: No scleral icterus. No injection or drainage. NECK: Supple, trachea midline. No JVD or lymphadenopathy. CARDIOVASCULAR: Regular rate and rhythm without murmurs, gallops, or rubs. RESPIRATORY: Breath sounds equal bilaterally. No accessory muscle use. GASTROINTESTINAL: Abdomen soft, non-tender, nondistended. MUSCULOSKELETAL: No cyanosis, or edema. 4-5 inch incision sites on medial aspect of left thigh, lower leg. Incisions are clean and dry, minimal local erythema. No appreciable tenderness in near the incision sites or in the popliteal region. Attempted to palpate for a hematoma but could not appreciate one on exam. Left foot is warm to the touch with intact distal pulses. BACK: Nontender without obvious deformity. Hospital Course 71 year old male with past medical history of CAD status post stents presented with occlusion of the left popliteal artery with aneurysm. L popliteal aneurysm repair (bypass with 8mm PTFE) was performed on 11/11/16, revascularization was successful with return of good circulation and good pulses. However, the pt developed a small hematoma in his posterior left thigh. Consequently, the therapeutic heparin was discontinued. Patient continued to do well and after 48 hours, his APTT stabilized. Aspirin and Plavix were restarted and patient was discharged to [facility] in good condition. Pt Condition on Discharge: Good Discharge Disposition: Rehab Inpatient Discharge Instructions DIET: Follow Instructions for: Heart Healthy Diet Follow up Referrals: PCP Follow-up - 2 Weeks with Marli Plata MD Vascular Surgery @ Vascular Surgery with Darin Gonzalez MD New Orders: BASIC METABOLIC PROF - 1 Week New Medications: Hydrocodone-Acetaminophen (Hydrocodone-Acetaminophen) 7.5-325 mg Tab 1 TAB PO Q4H PRN for PAIN>6, #30 TAB Metoprolol Tartrate (Metoprolol Tartrate) 25 Mg Tab 25 MG PO Q12HR for 30 Days, TAB Continued Medications: Amlodipine (Norvasc) 10 Mg Tab 10 MG PO HS, #[address] (Aspirin 81) 81 Mg Tabdr 81 MG PO DAILY, TAB 0 Refills Clopidogrel (Plavix) 75 Mg Tab 75 MG PO DAILY for Blood Clot Prevention, #30 TAB 0 Refills Cyanocobalamin (Vitamin B-12) 1,000 Mcg Subl 1000 MCG SL DAILY for Nutritional Supplement, TAB.SL 0 Refills Doxepin (Sleep) (Silenor) 6 Mg Tab 6 MG PO HS for Insomnia, #30 TAB 3 Refills Flaxseed (Linseed) (Flaxseed Oil) 1,000 Mg Cap Glatiramer Inj (Copaxone Inj) 20 Mg/Ml Syr 20 MG SQ DAILY for Multiple Sclerosis, SYRINGE 0 Refills Multiple Vitamins W/ Minerals (Centrum Silver) 1 Chw Chw Niacin ER (Slo-Niacin) 500 Mg Tab 500 MG PO BID for Cholesterol Management, TAB 0 Refills Nitroglycerin SL (Nitrostat SL) 0.4 Mg Subl 0.4 MG SL DIRECTED PRN for CHEST PAIN, TAB.SL 0 Refills ONE TABLET UNDER THE TONGUE NEEDED FOR CHEST PAIN, MAY REPEAT EVERY FIVE MINUTES FOR A TOTAL OF 3 DOSES OR CALL 911 IF NO RELIEF [place]-3 Fatty Acids (Fish Oil) 1,000 Mg Cap 1 CAP PO DAILY Solifenacin (Vesicare) 10 Mg Tab 10 MG PO DAILY for Urinary Symptom Managemen, #90 TAB 2 Refills Tamsulosin (Flomax) 0.4 Mg Cap 0.4 MG PO BID for Manage Prostate Problems, #180 CAP 3 Refills Discontinued Medications: Metoprolol Tartrate (Metoprolol Tartrate) 50 Mg Tab 50 MG PO DAILY, #90 TAB 3 Refills Eko,Olive U MD R2 Nov 14, 2016 12:35
[2016-11-14] MEDS ORDERED: HYDR-3580 PO (12:57)
[2016-11-26] MEDS ORDERED: WHEEMIS3 (09:45)
[2016-11-28] MEDS ORDERED: VESI10TA PO (14:37)
[2016-11-28] MEDS ORDERED: SLO-500T PO (14:37)
[2016-11-28] MEDS ORDERED: PLAV75TA29 PO (14:37)
[2016-11-28] MEDS ORDERED: COUM6TAB PO (14:37)
[2016-11-28] MEDS ORDERED: ASPI-110 PO (14:37)
[2016-11-28] MEDS ORDERED: GNP5TAB6 PO (14:37)
[2016-11-28] MEDS ORDERED: VITA10002 PO (14:37)
[2016-11-28] MEDS ORDERED: METO25TA3 PO (14:37)
[2016-11-28] MEDS ORDERED: CIPR-9 PO (14:37)
[2016-11-28] MEDS ORDERED: TAMS5CAP PO (14:37)
[2016-12-04] MEDS ORDERED: WARF-23 PO (15:54)
[2016-12-18] MEDS ORDERED: COUM1TAB PO (09:30)
[2016-12-27] MEDS ORDERED: PANT40TA3 PO (10:43)
[2016-12-30] MEDS ORDERED: WARF-23 PO (13:09)
== END 2016-11-14 16:21 | DRG 253 ==
LOC: NEPC 10:48 → NEDA 14:13 → N07A 17:51
PROVIDERS: ADMIT Family Medicine; ATTEND Family Medicine
PROC: 04CY0ZZ Extirpation of Matter from Lower Artery, Open Approach (ICD-10-PCS; principal; 2016-11-11 08:05)
PROC: 041N0JQ Bypass Left Popliteal Artery to Lower Extremity Artery with Synthetic Substitute, Open Approach (ICD-10-PCS; 2016-11-11 08:05)
DX: I72.4 Aneurysm of artery of lower extremity (principal); I74.3 Embolism and thrombosis of arteries of the lower extremities; G35 Multiple sclerosis; G62.9 Polyneuropathy, unspecified; I10 Essential (primary) hypertension; I25.10 Atherosclerotic heart disease of native coronary artery without angina pectoris; N40.0 Benign prostatic hyperplasia without lower urinary tract symptoms; I99.8 Other disorder of circulatory system; J45.909 Unspecified asthma, uncomplicated; F41.9 Anxiety disorder, unspecified; E78.00 Pure hypercholesterolemia, unspecified; Z95.5 Presence of coronary angioplasty implant and graft; Z79.02 Long term (current) use of antithrombotics/antiplatelets; Z87.891 Personal history of nicotine dependence; Z82.49 Family history of ischemic heart disease and other diseases of the circulatory system; I08.1 Rheumatic disorders of both mitral and tricuspid valves; W07.XXXA Fall from chair, initial encounter; Y92.230 Patient room in hospital as the place of occurrence of the external cause
CPT/HCPCS: 75635; 75710; 80048; 85025; 85027; 85610; 85730; 86850; 86900; 86901; 93306; 93971; 94150; 96361; 96374; 96375; C1757; C1768; J0690; J1170; J1644; J2250; J2270; J2405; J2710; J2720; J3010; J3370; J3480; J7030; Q9967

== ENCOUNTER 2017-04-15 17:56 | Emergency (ER) | payer MEDICARE ==
[~2017-04-15] VITALS: Ht 177.8 cm; Wt 93.2 kg
[~2017-04-15 17:56] MED LIST changes: -AMLO10 PO; -ASPI-110 PO; +ASPI-516 CHEW; +CLIN300C5 PO; +CULT10CA4 PO; +DOXE10CA PO; -FISH1000 PO; +LACTTAB8 PO; +METO25TA3 PO; -METO50TA PO; -SILE6TAB3 PO; -VESI10TA PO; +VESI10TA2 PO; +VITA10002 PO; -VITA100021 SL
[2017-04-15 17:57] VITALS: BP 164/94; PULSE 73; RESP 16; TEMP 97.7; O2SAT 98
--- NOTE | 2017-04-15 18:56 | RADRPT ---
EXAM DATE/TIME: 04/15/2017 18:39 [facility] COMPARISON: No previous studies available for comparison. INDICATIONS : Pain in right posterior hip. MEDICAL HISTORY : None. SURGICAL HISTORY : None. ENCOUNTER: Initial ACUITY: 1 day PAIN SCORE: 7/10 LOCATION: Right hip FINDINGS: Examination of the right hip was performed with AP Pelvis. The primary and secondary trabecular colleen luisa of the femoral neck is intact. The hip joint is of normal width without significant sclerosis or bony hypertrophy. There are some mild degenerative changes at the right hip joint. Similar findings are noted at the left hip joint. The acetabulum is grossly intact. There are mild degenerative valentino es of the lower lumbar spine. There is good alignment of the SI joints and pubic symphysis. CONCLUSION: Mild primary degenerative changes at the right hip joint. No acute fracture or joint dislocation. Ethan Hurtado MD on April 15, 2017 at 18:53 Board Certified Radiologist. This report was verified electronically.
[2017-04-15] MEDS ORDERED: PRED20 PO (20:41)
[2017-04-15] MEDS ORDERED: DICL75TA PO (20:41)
--- NOTE | 2017-04-15 20:46 | PD ---
HPI Chief Complaint: Hip Injury Time Seen by Provider: 20:30 Travel History International Travel<30 days: No Contact w/Intl Traveler<30days: No Traveled to known affect area: No History of Present Illness HPI 71-year-old male that presents to the ED for evaluation of right hip pain. Per patient the pain only comes when he stands from a sitting position. Patient denies any injury or fall. Per patient his been out of for about a month but is worsened today. Patient states that he has a history of MS and his been having some wobbling when walking. Per patient he is not sure is related to the hip or related to his MS. Per patient he follows up with Dr Scott for his MS. He denies any previous injuries or surgeries to the head. Denies any numbness, tingling, weakness. Pain is 6 out of 10 on only with walking. Per patient he takes them some time to walk because of the discomfort. He used a cane to get about. He states compliance with his MS medications. He denies any other symptoms at this time. Has no orthopedic doctor. Has not seen his doctor for this. PFSH Past Medical History Hx Anticoagulant Therapy: Yes Arthritis: No Asthma: Yes Autoimmune Disease: No Blood Disorders: No Anxiety: No Depression: No Heart Rhythm Problems: No Cancer: No Cardiac Catheterization: Yes (2 days ago 05/31/2016) Cardiovascular Problems: Yes High Cholesterol: Yes Chemotherapy: No Chest Pain: No Congestive Heart Failure: No COPD: Yes Cerebrovascular Accident: No Diabetes: No Diminished Hearing: No Endocrine: No GERD: No Genitourinary: Yes (ENLARGED PROSTATE) Hepatitis: No Hiatal Hernia: No Hypertension: Yes Immune Disorder: No Kidney Stones: No Musculoskeletal: No Neurologic: No Psychiatric: No Reproductive: No Respiratory: Yes (ADMITTED 07/15/2010 WITH PNEUMONIA) Migraines: No Radiation Therapy: No Renal Failure: No Seizures: No Sickle Cell Disease: No Sleep Apnea: No Thyroid Disease: No Ulcer: No Past Surgical History Abdominal Surgery: No AICD: No Arteriovenous Shunt: No Cardiac Surgery: Yes (stents in heart 2015) Coronary Stent: Yes (2002) Ear Surgery: No Endocrine Surgery: No Eye Surgery: No Genitourinary Surgery: Yes (SURGERY FOR OPENING OF URETHRA) Gynecologic Surgery: No Insulin Pump: No Joint Replacement: No Oral Surgery: Yes (TOOTH EXTRACTIONS 2008) Pacemaker: No Thoracic Surgery: No Other Surgery: Yes Social History Alcohol Use: No Tobacco Use: Yes Substance Use: No Allergies-Medications (Allergen,Severity, Reaction): Coded Allergies: fexofenadine (Unverified Allergy, Severe, CAUSES PROSTATE ISSUES, 02/19/17 ) MRI PRECAUTION (Verified Adverse Reaction, Unknown, Metal near left orbit. Dr. Sexton 06/06/16. LRS, 02/19/17) Reported Meds & Prescriptions Reported Meds & Active Scripts Active Prednisone 20 Mg Tab 20 Mg PO BID [address] (Diclofenac Sodium) 75 Mg Tabdr 75 Mg PO BID PRN Lactobacillus Acidophilus 1 Billion Cell Tab 1 Tab PO TIDAC Culturelle (Lactobacillus Rhamnosus (GG)) 10 Billion Cell Cap 1 Cap PO BID Clindamycin (Clindamycin HCl) 300 Mg Cap 300 Mg PO Q6H Doxepin (Doxepin HCl) 10 Mg Cap 10 Mg PO HS Vitamin B-12 (Cyanocobalamin) 1,000 Mcg Tab 1,000 Mcg PO DAILY Metoprolol Tartrate 25 Mg Tab 12.5 Mg PO Q12HR Flomax (Tamsulosin HCl) 0.4 Mg Cap 0.4 Mg PO BID Vesicare (Solifenacin) 10 Mg Tab 10 Mg PO DAILY Plavix (Clopidogrel Bisulfate) 75 Mg Tab 75 Mg PO DAILY Slo-Niacin (Niacin) 500 Mg Tab 500 Mg PO BID Reported Aspirin 81 Mg Chew 81 Mg CHEW DAILY Flaxseed Oil (Flaxseed (Linseed)) 1,000 Mg Cap Centrum Silver (Multiple Vitamins W/ Minerals) 1 Chw Chw Copaxone Inj (Glatiramer Inj) 20 Mg/Ml Syr 20 Mg SQ DAILY Nitrostat SL (Nitroglycerin) 0.4 Mg Subl 0.4 Mg SL DIRECTED PRN ONE TABLET UNDER THE TONGUE NEEDED FOR CHEST PAIN, MAY REPEAT EVERY FIVE MINUTES FOR A TOTAL OF 3 DOSES OR CALL 911 IF NO RELIEF Review of Systems Except as stated in HPI: all other systems reviewed are Neg Physical Exam Narrative GENERAL: SKIN: Warm and dry. HEAD: Atraumatic. Normocephalic. EYES: Pupils equal and round. No scleral icterus. No injection or drainage. ENT: No nasal bleeding or discharge. Mucous membranes pink and moist. Tongue is midline. No uvula deviation. NECK: Trachea midline. No JVD. CARDIOVASCULAR: Regular rate and rhythm. No murmurs, S3, S4. RESPIRATORY: No accessory muscle use. Clear to auscultation. Breath sounds equal bilaterally. GASTROINTESTINAL: Abdomen soft, non-tender, nondistended. Hepatic and splenic margins not palpable. MUSCULOSKELETAL: Extremities without clubbing, cyanosis, or edema. No obvious deformities. Full range of motion of the upper and lower extremities bilaterally. Patient does have full range of motion of the right hip with no sign of pain or deformity. Pain is only producible when patient stands and starts walking. 2+s pulses bilaterally. Neurovascular intact. Sensation intact bilaterally. No obvious deformity. NEUROLOGICAL: Awake and alert. No obvious cranial nerve deficits. Motor grossly within normal limits. Five out of 5 muscle strength in the arms and legs. Normal speech. PSYCHIATRIC: Appropriate mood and affect; insight and judgment normal. Data Data Last Documented VS Vital Signs Date Time Temp Pulse Resp B/P (MAP) Pulse Ox O2 Delivery O2 Flow Rate FiO2 04/15/17 17:57 97.7 73 16 164/94 (117) 98 Room Air Orders Orders Hip, Uni(Ap&Lat) W Ap Pelvis (04/15/17 ) Ed Discharge Order (04/15/17 20:40) MDM Medical Decision Making Medical Screen Exam Complete: Yes Emergency Medical Condition: Yes Medical Record Reviewed: Yes Interpretation(s) Last Impressions Hip and Pelvis X-Ray 04/15/17 0000 Signed Impressions: Service Date/Time: Saturday, April 15, 2017 18:39 - CONCLUSION: Mild primary degenerative changes at the right hip joint. No acute fracture or joint dislocation. Ethan Hurtado MD Differential Diagnosis Fracture versus arthritis versus acute on chronic pain versus muscle strain Narrative Course 71-year-old male that presents to the ED for evaluation of pain to his right hip. Patient was properly examined and was found to have signs and symptoms which appear to be consistent with muscle scale pain. X-ray was done and was negative in triage. I assessed the patient and do not see any sign of acute medical distress. This appears to be likely arthritis. I did discuss the need for follow-up with orthopedic doctor for further evaluation of this. Patient does have MS and could be related to it but I find this more likely. I do recommend trial of anti-inflammatories and steroids. Patient agrees with this. Patient was given prescription for diclofenac sodium and prednisone. Told to use them as needed. Follow up closely with orthopedic doctor. See ED for worsening symptoms. Diagnosis Primary Impression: Hip pain, right Referrals: Hector Burgos MD Patient Instructions: General Instructions Additional Instructions: Take medications as prescribed. Follow with PCP. See ED worsening symptoms. Med/Other Pt SpecificInfo: Prescription(s) given Scripts Prednisone (Prednisone) 20 Mg Tab 20 MG PO BID for 5 Days, #10 TAB 0 Refills Prov: Majo Caro DO 04/15/[address] (Diclofenac Sodium DR) 75 Mg Tabdr 75 MG PO BID Y for PAIN SCALE 1 TO 10, #20 TAB 0 Refills Prov: Majo Caro DO 04/15/17 Disposition: 01 DISCHARGE HOME Condition: Stable Mark Burgos Apr 15, 2017 20:45
== END 2017-04-15 21:23 | disposition home or self-care (01) ==
LOC: NEPK 17:56
DX: M25.551 Pain in right hip (principal); I10 Essential (primary) hypertension; N40.0 Benign prostatic hyperplasia without lower urinary tract symptoms; Z72.0 Tobacco use
CPT/HCPCS: 73502; 99283

== ENCOUNTER 2017-11-19 22:00 | Observation (INO) ==
--- NOTE | 2017-11-19 22:57 | XR ---
EXAM DATE: 11/19/2017 10:52 PM EDT AGE/SEX: 72 years / Male INDICATIONS: Chest pain. CLINICAL DATA: This is the patient's initial encounter. Patient reports that signs and symptoms have been present for 1 day and indicates a pain score of 5/10. MEDICAL/SURGICAL HISTORY: . Deep venous thrombosis . [place] [facility] [place]. . FINDINGS: A single AP view of the chest demonstrates the lungs to be symmetrically aerated without evidence of mass, infiltrate or effusion. The cardiomediastinal contours are unremarkable. Osseous structures a re intact. CONCLUSION: No acute cardiopulmonary disease. Electronically signed by: Amador Warren MD 11/19/2017 10:56 PM EDT
--- NOTE | 2017-11-19 23:04 | ED ---
HPI General Chief complaint: Chest Pain Stated complaint: Evac/chest pain Time Seen by Provider: 11/19/17 22:03 Source: patient, EMS, RN notes reviewed and old records reviewed Mode of arrival: EMS History of Present Illness HPI narrative: 72yM presenting with chest pain. The patient reports that about 2 hours prior to arrival he began to have substernal/ left-sided chest "discomfort" which he describes as "dull", constant, non-radiating, not made better or worse by anything, associated with lightheadedness and dyspnea. Denies diaphoresis, palpitations, cough, or nausea. He has a history of CAD s/p stents (most recently 1 year ago and was told that he would likely need another stent in the future). Took 324 mg aspirin prior to arrival, also takes Plavix. The patient also complains of several months of right-sided facial pain which is exacerbated by brushing his teeth or shaving. Related Data Home Medications Medication Instructions Recorded Confirmed clopidogrel [Plavix] 1 tab PO HS 10/03/17 11/19/17 acetaminophen [Tylenol Extra 1,000 mg PO Q2-3H PRN 10/22/17 11/19/17 Strength] aspirin 81 mg PO DAILY 10/22/17 11/19/17 coenzyme Q10 [Co Q-10] 100 mg PO DAILY 10/22/17 11/19/17 cyanocobalamin (vitamin B-12) 1,000 mcg PO DAILY 10/22/17 11/19/17 doxepin 10 mg PO HS 10/22/17 11/19/17 flaxseed oil 1,000 mg PO DAILY 10/22/17 11/19/17 fluticasone 2 spray INTRANASAL HS 10/22/17 11/19/17 glatiramer [Copaxone] 20 mg SUB-Q HS 10/22/17 11/19/17 metoprolol tartrate 12.5 mg PO BID 10/22/17 11/19/17 [id number] acid-lutein [Centrum 1 tab PO DAILY 10/22/17 11/19/17 Silver] niacin 500 mg PO BID 10/22/17 11/19/17 nitroglycerin [Nitrostat] 0.4 mg SUBLINGUAL Q5-15M PRN 10/22/17 11/19/17 phenylephrine-acetaminophen [Sinus 2 tab PO HS PRN 10/22/17 11/19/17 Congestion and Pain] tamsulosin 0.4 mg PO BID 10/22/17 11/19/17 Allergies Allergy/AdvReac Type Severity Reaction Status Date / Time fexofenadine Allergy Severe CAUSES Verified 11/19/17 22:28 PROSTATE ISSUES Review of Systems ROS: all other systems reviewed are negative Constitutional Denies fever(s) Eyes Denies blurry vision ENT Denies nasal congestion Cardiovascular Reports chest pain Respiratory Denies cough and Reports dyspnea Gastrointestinal Denies nausea Genitourinary Denies dysuria Musculoskeletal Denies back pain Neurologic Denies confusion Psychiatric Denies confusion PMFSH History History Provided By: Patient Medical History Medical History 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 (Acute) Benign prostate hyperplasia (Acute) Blood clot in vein (Acute) Coronary artery disease (Acute) Current use of anticoagulant therapy (Acute) Glaucoma (Acute) History of dental problems (Acute) Hx of thrombosis (Acute) Multiple sclerosis (Acute) Neuropathy (Acute) Pain in right hip (Acute) Popliteal artery aneurysm (Acute) Sleep apnea with use of continuous positive airway pressure (CPAP) (Acute) Wears eyeglasses (Acute) Surgical History Surgical History Hx of cardiac catheterization (Acute) Social History Social History Substance History: No History of Abuse Second Hand Smoke Exposure: No Smoking Status: Former smoker Tobacco Type: Cigarettes How Often Do You Have a Drink Containing Alcohol: Never Recent Travel in [facility] within the Last 8 Weeks: No Recent Out of Country Travel within the Last 8 Weeks: No Immunization History Tetanus Immunization: <5 Years Hx Influenza Vaccine This Season: Yes Exam Const General: healthy appearing and no acute distress HENLA Head: normocephalic and atraumatic Other: No facial droop or abnormality (+) sensitivity to palpation of right middle and lower face along distribution of facial nerve, no sensitivity along forehead Tongue and uvula midline Eyes General: appearance normal, both eyes and all related structures Pupils: PERRL Chest Chest: normal inspection of the chest Resp Effort & Inspection: normal respiratory effort Auscultation: no rhonchi and no wheezes Cardio Rate: regular rate Rhythm: regular rhythm GI Inspection: non-distended Palpation: soft and nontender Skin General: no rashes or lesions noted Other: Non-diaphoretic Neuro General: alert, awake, oriented x3 and no focal motor deficits Psych Affect: normal affect Course Initial Documented Vital Signs Pulse Rate 57 L 11/19/17 22:06 Respiratory Rate 20 11/19/17 22:06 Blood Pressure 131/71 11/19/17 22:06 Pulse Oximetry 99 11/19/17 22:06 Last Documented Vital Signs Pulse Rate 52 L 11/19/17 23:45 Respiratory Rate 15 11/19/17 23:45 Blood Pressure 155/81 H 11/19/17 23:45 Pulse Oximetry 99 11/19/17 23:45 Clinical Decision Support HEART Score Questions History: Moderately suspicious EKG: Normal Age: 65 years+ Risk Factors: 3 or more Risk Factors or Hx of Atherosclerotic Disease Initial Troponin: Normal Limit Heart Score HEART Score: 5 Medical Decision Making MDM Narrative Medical decision making narrative: Assessment: 72yM presenting with chest pain Plan: EKG and monitor CXR Labs Addendum: Initial troponin negative, EKG unchanged from previous. This patient has a HEART score of 5, known history of CAD and risk factors, and will need serial trop measurements, cardiac monitoring, and further workup; he will be [facility] for [facility]. His right facial pain is consistent with trigeminal neuralgia; would like to avoid tegretol if possible as it can cause QT prolongation and heart block. Will give oxycodone for pain control now and recommend that patient be started on gabapentin on discharge with primary care follow up. Patient understands and agrees with plan. Medical Screen Exam Complete: Yes Emergency Medical Condition: Yes Differential Diagnosis Differential Diagnosis: Differential diagnosis includes, but is not limited to: ACS, pneumonia, pleuritis, pleural effusion, GERD Lab Data Result diagrams: 11/19/17 22:30 11/19/17 22:30 Lab Results 11/19/17 11/19/17 11/19/17 Range/Units 22:30 22:30 22:30 WBC 6.6 (4.0-11.0) th/mm3 RBC 5.07 (4.50-5.90) mil/mm3 Hgb 15.8 (13.0-17.0) gm/dL Hct 47.2 (39.0-51.0) % MCV 93.0 (80.0-100.0) fL MCH 31.1 (27.0-34.0) pg MCHC 33.5 (32.0-36.0) % RDW 14.4 (11.6-17.2) % Plt Count 110 L (150-450) th/mm3 MPV 8.3 (7.0-11.0) fL Neut % (Auto) 73.0 H (16.0-70.0) % Lymph % (Auto) 22.2 (9.0-44.0) % [place] % (Auto) 3.2 (0.0-8.0) % Eos % (Auto) 1.2 (0.0-4.0) % Baso % (Auto) 0.4 (0.0-2.0) % Neut # (Auto) 4.8 (1.8-7.7) th/mm3 Lymph # (Auto) 1.5 (1.0-4.8) th/mm3 [place] # (Auto) 0.2 (0.0-0.9) th/mm3 Eos # (Auto) 0.1 (0.0-0.4) th/mm3 Baso # (Auto) 0.0 (0.0-0.2) th/mm3 WBC Differential . Differential Comment Auto diff final PT (9.8-11.6) sec INR Ratio Sodium 142 (136-145) meq/L Potassium 3.8 (3.5-5.1) meq/L Chloride 107 (98-107) meq/L Carbon Dioxide 22.3 (21.0-32.0) meq/L Anion Gap 13 (5-15) meq/L BUN 27 H (7-18) mg/dL Creatinine 1.34 H (0.60-1.30) mg/dL Estimated GFR 52 L (>89) mL/min Random Glucose 115 H (74-106) mg/dL Calcium 8.4 L (8.5-10.1) mg/dL Magnesium 2.5 (1.5-2.5) mg/dL Total Bilirubin 0.6 (0.2-1.0) mg/dL AST 21 (15-37) U/L ALT 20 (12-78) U/L Alkaline Phosphatase 94 (45-117) U/L Troponin I Less than 0.02 L (0.02-0.05) ng/mL B-Natriuretic Peptide 47 (0-100) pg/mL Total Protein 7.0 (6.4-8.2) g/dL Albumin 3.6 (3.4-5.0) g/dL 11/19/17 Range/Units 22:30 WBC (4.0-11.0) th/mm3 RBC (4.50-5.90) mil/mm3 Hgb (13.0-17.0) gm/dL Hct (39.0-51.0) % MCV (80.0-100.0) fL MCH (27.0-34.0) pg MCHC (32.0-36.0) % RDW (11.6-17.2) % Plt Count (150-450) th/mm3 MPV (7.0-11.0) fL Neut % (Auto) (16.0-70.0) % Lymph % (Auto) (9.0-44.0) % [place] % (Auto) (0.0-8.0) % Eos % (Auto) (0.0-4.0) % Baso % (Auto) (0.0-2.0) % Neut # (Auto) (1.8-7.7) th/mm3 Lymph # (Auto) (1.0-4.8) th/mm3 [place] # (Auto) (0.0-0.9) th/mm3 Eos # (Auto) (0.0-0.4) th/mm3 Baso # (Auto) (0.0-0.2) th/mm3 WBC Differential Differential Comment PT 11.0 (9.8-11.6) sec INR 1.1 Ratio Sodium (136-145) meq/L Potassium (3.5-5.1) meq/L Chloride (98-107) meq/L Carbon Dioxide (21.0-32.0) meq/L Anion Gap (5-15) meq/L BUN (7-18) mg/dL Creatinine (0.60-1.30) mg/dL Estimated GFR (>89) mL/min Random Glucose (74-106) mg/dL Calcium (8.5-10.1) mg/dL Magnesium (1.5-2.5) mg/dL Total Bilirubin (0.2-1.0) mg/dL AST (15-37) U/L ALT (12-78) U/L Alkaline Phosphatase (45-117) U/L Troponin I (0.02-0.05) ng/mL B-Natriuretic Peptide (0-100) pg/mL Total Protein (6.4-8.2) g/dL Albumin (3.4-5.0) g/dL Imaging Data Radiologist's impression: Chest X-Ray 11/19/17 22:27 CONCLUSION: No acute cardiopulmonary disease. ECG Data Attestation: I personally reviewed and interpreted this ECG as follows: Interpretation: Rate: 56 BPM Rhythm: Sinus [place]: Normal Intervals: Normal intervals, no blocks, QTc 445 ms Q waves: aVL T waves: Upright, no inversions ST segments: No elevations or depressions Impression: Non-specific EKG, no changes as compared to EKG from 10/23/2017. Discharge Plan Discharge Disposition Patient Disposition: 30 Still Patient Discharge Condition Condition: Stable Discharge Details Diagnosis: Chest pain, Right trigeminal neuralgia Physicians Team ED Provider: Melissa Chirinos Primary Care Provider: Marli Plata Attending Provider: Ilan Doyle Rxs /Orders / Referrals /Forms Prescriptions: No Action clopidogrel [Plavix] 75 mg Tablet 1 tab PO HS RF: 0 phenylephrine-acetaminophen [Sinus Congestion and Pain] 5-325 mg Tablet 2 tab PO HS PRN (Reason: Congestion) RF: 0 cyanocobalamin (vitamin B-12) 1,000 mcg Tablet 1,000 mcg PO DAILY RF: 0 doxepin 10 mg Capsule 10 mg PO HS RF: 0 aspirin 81 mg Tablet,Delayed Release (Dr/Ec) 81 mg PO DAILY RF: 0 acetaminophen [Tylenol Extra Strength] 500 mg Tablet 1,000 mg PO Q2-3H PRN (Reason: Pain) RF: 0 flaxseed oil 1,000 mg Capsule 1,000 mg PO DAILY RF: 0 tamsulosin 0.4 mg Capsule,Extended Release 24hr 0.4 mg PO BID RF: 0 niacin 500 mg Tablet 500 mg PO BID RF: 0 nitroglycerin [Nitrostat] 0.4 mg Tablet, Sublingual 0.4 mg SUBLINGUAL Q5-15M PRN (Reason: Chest Pain) RF: 0 fluticasone 50 mcg/actuation [place],Suspension 2 spray INTRANASAL HS RF: 0 coenzyme Q10 [Co Q-10] 100 mg Capsule 100 mg PO DAILY RF: 0 metoprolol tartrate 25 mg Tablet 12.5 mg PO BID RF: 0 [id number] acid-lutein [Centrum Silver] 400-250 mcg Tablet,Chewable 1 tab PO DAILY RF: 0 glatiramer [Copaxone] 20 mg/mL Syringe 20 mg SUB-Q HS RF: 0 Discharge Instructions Patient Printed Instructions: Chest Pain (ED) Discharge Interventions Interventions: Vital Signs Last Done: 11/19/17 23:45 Status ED Status: Admitted Observation Patient
[2017-11-19 23:35] LABS: Baso % (Auto) 0.4 % (0.0-2.0); Eos # (Auto) 0.1 th/mm3 (0.0-0.4); Eos % (Auto) 1.2 % (0.0-4.0); Hematocrit 47.2 % (39.0-51.0); Hemoglobin 15.8 gm/dL (13.0-17.0); Lymph # (Auto) 1.5 th/mm3 (1.0-4.8); Lymph % (Auto) 22.2 % (9.0-44.0); Mean Corpuscular HGB Conc 33.5 % (32.0-36.0); Mean Corpuscular Hemoglobin 31.1 pg (27.0-34.0); Mean Platelet Volume 8.3 fL (7.0-11.0); Mono # (Auto) 0.2 th/mm3 (0.0-0.9); Mono % (Auto) 3.2 % (0.0-8.0); Neut # (Auto) 4.8 th/mm3 (1.8-7.7); Platelet Count 110 th/mm3 (150-450); Red Blood Count 5.07 mil/mm3 (4.50-5.90); Red Cell Distribution Width 14.4 % (11.6-17.2); White Blood Count 6.6 th/mm3 (4.0-11.0)
[2017-11-19 23:44] LABS: INR 1.1 Ratio
[2017-11-19 23:50] LABS: Alanine Aminotransferase 20 U/L (12-78); Albumin 3.6 g/dL (3.4-5.0); Anion Gap 13 meq/L (5-15); Aspartate Aminotransferase 21 U/L (15-37); Blood Urea Nitrogen 27 mg/dL (7-18); Calcium 8.4 mg/dL (8.5-10.1); Carbon Dioxide 22.3 meq/L (21.0-32.0); Chloride 107 meq/L (98-107); Glomerular Filtration Rate 52 mL/min (>89); Glucose,Random 115 mg/dL (74-106); Magnesium 2.5 mg/dL (1.5-2.5); Potassium 3.8 meq/L (3.5-5.1); Sodium 142 meq/L (136-145)
[2017-11-19 23:54] LABS: Alkaline Phosphatase 94 U/L (45-117)
[2017-11-20] MEDS ORDERED: Gabapentin 100 MG Capsule PO ONE (00:41)
[2017-11-20 01:00] LABS: Amphetamine Screen,Urine Neg (Neg); Barbiturate Screen,Urine Neg (Neg); Cannabinoid Screen,Urine Neg (Neg); Cocaine Screen,Urine Neg (Neg)
[2017-11-20 01:06] LABS: Opiate Screen,Urine Neg (Neg)
[2017-11-20 07:14] VITALS: O2SAT 96
[2017-11-20 08:17] VITALS: PULSE 66; RESP 20; TEMP 98.2
[2017-11-20 08:40] VITALS: BP 160/80
[2017-11-20] MEDS ORDERED: Metoprolol Tartrate 25 MG Tablet PO SCH (09:00)
--- NOTE | 2017-11-20 09:14 | P.HPCA ---
History of Present Illness Primary Care Physician: Marli Plata MD Chief Complaint: Chest pain History of Present Illness: This is a 72-year-old male with history of CAD with stents, peripheral vascular disease with left popliteal bypass as well as angioplasty, hypertension, hyperlipidemia the presents to ED with complaint of chest discomfort. Patient states that last evening he was sitting at home and developed a left-sided stabbing discomfort that for 2 hours waxed and waned. Found nothing to worsen or improve his symptoms. He called 911 who advised him to take a nitroglycerin. He took one which helped a little bit but did not resolve it. EVAC subsequently gave 2 more sprays of sublingual nitroglycerin which helped but again did not resolve it. The discomfort finally resolved within about 6 hours. He denied associated shortness of breath, nausea, diaphoresis. States it does not feel at all like the symptoms he had when needing stenting in the past. States he follows Dr. Noland. Currently denies chest discomfort. Quit smoking 1 month ago but prior to that he smoked about 1 pack of cigarettes per week for about 45 years. Denies alcohol or illicit drug use. There is family history of CAD. - Diagnosis (1) CAD (coronary artery disease) (2) History of heart artery stent (3) Peripheral vascular disease (4) Hypertension (5) Hyperlipidemia (6) Chest pain Review of Systems General: Patient denies fevers, chills, and recent travel. HEENT: Patient denies headache, sore throat, difficulty swallowing. Cardiovascular: Has the chest discomfort as mentioned above. Denies sensation of heart beating rapidly or irregularly. No syncope. Denies diaphoresis. Respiratory: Denies shortness of breath or inspirational chest discomfort. Denies coughing wheezing or hemoptysis. GI: Patient denies nausea, vomiting, diarrhea, abdominal pain, bloody stools. Musculoskeletal: Patient denies joint pain or edema. Denies calf pain or edema. Neurovascular: Patient denies numbness, tingling, weakness in extremities. Denies headache. Endocrine: Denies polyuria and polydipsia. Hematologic: Denies easy bruising. Skin: Denies rash or itching. 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 Benign prostate hyperplasia Blood clot in vein Coronary artery disease Current use of anticoagulant therapy Glaucoma History of dental problems Hx of thrombosis Multiple sclerosis Neuropathy Pain in right hip Popliteal artery aneurysm Sleep apnea with use of continuous positive airway pressure (CPAP) Wears eyeglasses - Surgical History Surgical History: Surgical History (Last Reviewed 11/19/17 @ 23:05 by Melissa Chirinos DO) Hx of cardiac catheterization - Tobacco History Second Hand Smoke Exposure: No Tobacco Use In Past 30 Days: No Smoking Status: Never smoker Tobacco Type: Cigarettes - Alcohol History How Often Do You Have a Drink Containing Alcohol: Never - Substance Use History Substance History: No History of Abuse - Travel History Recent Travel in the [place] Within the Last 8 Weeks: No Recent Travel Out of the Country Within the Last 8 Weeks: No - Immunization History Tetanus Immunization: <5 Years Hx Influenza Vaccine This Season: Yes Medications and Allergies Active Medications: Active Medications Aspirin (Ecotrin) 81 mg PO DAILY [facility] Last Admin: 11/20/17 08:41 Dose: 81 mg Clopidogrel Bisulfate (Plavix) 75 mg PO HS [facility] Doxepin HCl (Sinequan) 10 mg PO HS [facility] Metoprolol Tartrate (Lopressor) 12.5 mg PO BID [facility] Last Admin: 11/20/17 08:41 Dose: 12.5 mg Ptownmed(Glatiramer ([Copaxone] 20 Mg)) 0 each SQ HS [facility] Sodium Chloride (Ns Flush) 2 ml IV.FLUSH UNSCH PRN PRN Reason: FLUSH AFTER USING IV ACCESS Tamsulosin HCl (Flomax) 0.4 mg PO BID [facility] Last Admin: 11/20/17 08:41 Dose: 0.4 mg Allergies Allergy/AdvReac Type Severity Reaction Status Date / Time fexofenadine Allergy Severe CAUSES Verified 11/19/17 22:28 PROSTATE ISSUES Home Medications Medication Instructions Recorded Confirmed Type clopidogrel [Plavix] 1 tab PO HS 10/03/17 11/19/17 History acetaminophen [Tylenol Extra 1,000 mg PO Q2-3H PRN 10/22/17 11/19/17 History Strength] aspirin 81 mg PO DAILY 10/22/17 11/19/17 History coenzyme Q10 [Co Q-10] 100 mg PO DAILY 10/22/17 11/19/17 History cyanocobalamin (vitamin B-12) 1,000 mcg PO DAILY 10/22/17 11/19/17 History doxepin 10 mg PO HS 10/22/17 11/19/17 History flaxseed oil 1,000 mg PO DAILY 10/22/17 11/19/17 History fluticasone 2 spray INTRANASAL HS 10/22/17 11/19/17 History glatiramer [Copaxone] 20 mg SUB-Q HS 10/22/17 11/19/17 History metoprolol tartrate 12.5 mg PO BID 10/22/17 11/19/17 History [id number]-[id number] acid-lutein [Centrum 1 tab PO DAILY 10/22/17 11/19/17 History Silver] niacin 500 mg PO BID 10/22/17 11/19/17 History nitroglycerin [Nitrostat] 0.4 mg SUBLINGUAL Q5-15M PRN 10/22/17 11/19/17 History phenylephrine-acetaminophen [Sinus 2 tab PO HS PRN 10/22/17 11/19/17 History Congestion and Pain] tamsulosin 0.4 mg PO BID 10/22/17 11/19/17 History atorvastatin 11/20/17 11/20/17 History Exam Vital signs: Vital Signs 11/19/17 22:06 11/19/17 22:30 11/19/17 23:00 Temperature Pulse Rate 57 L 56 L 60 Respiratory Rate 20 14 14 Blood Pressure 131/71 144/72 H 142/84 H Pulse Oximetry 99 100 99 11/19/17 23:45 11/20/17 00:00 11/20/17 02:00 Temperature Pulse Rate 52 L 54 L 52 L Respiratory Rate 15 14 15 Blood Pressure 155/81 H 159/86 H 166/81 H Pulse Oximetry 99 98 98 11/20/17 04:02 11/20/17 07:14 11/20/17 08:12 Temperature 98.0 F 98.2 F Pulse Rate 56 L 66 Respiratory Rate 16 20 Blood Pressure 195/99 H 207/112 H Pulse Oximetry 99 96 96 11/20/17 08:40 Temperature Pulse Rate Respiratory Rate Blood Pressure 160/80 H Pulse Oximetry Intake & Output 11/19/17 11/20/17 11/20/17 18:59 06:59 18:59 Weight 88.451 kg Other: Weight On Admission 88.45 kg Narrative: GENERAL: This is a well-nourished, well-developed patient, in no apparent distress. Patient speaks in clear complete sentences. Patient is pleasant. HEENT: Head is atraumatic and normocephalic. Neck is supple without lymphadenopathy and trachea is midline. No JVD or carotid bruits. CARDIOVASCULAR: Regular rate and rhythm without murmurs, gallops, or rubs. RESPIRATORY: Clear to auscultation. Breath sounds equal bilaterally. No wheezes , rales, or rhonchi. Chest wall is nontender. No use of accessory muscles. GASTROINTESTINAL: Abdomen is nontender, nondistended. Abdomen soft. No obvious pulsatile mass or bruit. No CVA tenderness. Strong femoral pulses bilaterally. Normal bowel sounds in all quadrants. MUSCULOSKELETAL: Patient is moving upper and lower extremities freely. No calf tenderness or edema, no Homans sign. Strong pulses in upper and lower extremities. NEUROLOGICAL: Patient is alert and oriented. Cranial nerves 2-12 are grossly intact. No focal deficits and speech is clear. SKIN: No rash and turgor is normal. Results 11/19/17 22:30 11/19/17 22:30 Cardiac Enzymes 11/19/17 11/19/17 11/20/17 Range/Units 22:30 22:30 01:35 AST 21 (15-37) U/L Troponin I Less than 0.02 L Less than 0.02 L (0.02-0.05) ng/mL B-Natriuretic Peptide 47 (0-100) pg/mL 11/20/17 Range/Units 04:35 AST (15-37) U/L Troponin I Less than 0.02 L (0.02-0.05) ng/mL B-Natriuretic Peptide (0-100) pg/mL Coagulation 11/19/17 11/19/17 Range/Units 22:30 22:30 PT 11.0 (9.8-11.6) sec B-Natriuretic Peptide 47 (0-100) pg/mL CBC 11/19/17 Range/Units 22:30 WBC 6.6 (4.0-11.0) th/mm3 RBC 5.07 (4.50-5.90) mil/mm3 Hgb 15.8 (13.0-17.0) gm/dL Hct 47.2 (39.0-51.0) % Plt Count 110 L (150-450) th/mm3 Neut # (Auto) 4.8 (1.8-7.7) th/mm3 Lymph # (Auto) 1.5 (1.0-4.8) th/mm3 Reynolds # (Auto) 0.2 (0.0-0.9) th/mm3 Eos # (Auto) 0.1 (0.0-0.4) th/mm3 Baso # (Auto) 0.0 (0.0-0.2) th/mm3 Comprehensive Metabolic Panel 11/19/17 Range/Units 22:30 Sodium 142 (136-145) meq/L Potassium 3.8 (3.5-5.1) meq/L Chloride 107 (98-107) meq/L Carbon Dioxide 22.3 (21.0-32.0) meq/L BUN 27 H (7-18) mg/dL Creatinine 1.34 H (0.60-1.30) mg/dL Calcium 8.4 L (8.5-10.1) mg/dL AST 21 (15-37) U/L ALT 20 (12-78) U/L Alkaline Phosphatase 94 (45-117) U/L Total Protein 7.0 (6.4-8.2) g/dL Albumin 3.6 (3.4-5.0) g/dL Intake and Output 11/19/17 11/20/17 11/20/17 22:59 06:59 14:59 Other: Weight 88.451 kg 88.451 kg Weight On Admission 88.45 kg EKG interpretations - EKG EKG shows: sinus rhythm (EKGs are sinus rhythm without significant ST segment depressions or elevations.) Caprini VTE Risk Assessment Caprini VTE Risk Assessment: Moderate/High Risk (score >= 2) Caprini Risk Assessment Model: Point Value = 1 Point Value = 2 Point Value = 3 Point Value = 5 Age 41-60 Minor surgery BMI > 25 kg/m2 Swollen legs Varicose veins or History of unexplained or recurrent spontaneous Oral contraceptives or hormone replacement Sepsis (< 1 month) Serious lung disease, including pneumonia (< 1 month) Abnormal pulmonary function Acute myocardial infarction Congestive heart failure (< 1 month) History of inflammatory bowel disease Medical patient at bed rest Age 61-74 Arthroscopic surgery Major open surgery (> 45 min) Laparoscopic surgery (> 45 min) Malignancy Confined to bed (> 72 hours) Immobilizing plaster cast Central venous access Age >= 75 History of VTE Family history of VTE Factor V Leiden Prothrombin [id number] Lupus anticoagulant Anticardiolipin antibodies Elevated serum homocysteine Heparin-induced thrombocytopenia Other congenital or acquired thrombophilia Stroke (< 1 month) Elective arthroplasty Hip, pelvis, or leg fracture Acute spinal cord injury (< 1 month) Prophylaxis Regimen: Total Risk Factor Score Risk Level Prophylaxis Regimen 0-1 Low Early ambulation 2 Moderate Order ONE of the following: *Sequential Compression Device (SCD) *Heparin 5000 units SQ BID 3-4 Higher Order ONE of the following medications: *Heparin 5000 units SQ TID *Enoxaparin/Lovenox 40 mg SQ daily (WT < 150 kg, CrCl > 30 mL/min) *Enoxaparin/Lovenox 30 mg SQ daily (WT < 150 kg, CrCl > 10-29 mL/min) *Enoxaparin/Lovenox 30 mg SQ BID (WT < 150 kg, CrCl > 30 mL/min) AND/OR *Sequential Compression Device (SCD) 5 or more Highest Order ONE of the following medications: *Heparin 5000 units SQ TID (Preferred with Epidurals) *Enoxaparin/Lovenox 40 mg SQ daily (WT < 150 kg, CrCl > 30 mL/min) *Enoxaparin/Lovenox 30 mg SQ daily (WT < 150 kg, CrCl > 10-29 mL/min) *Enoxaparin/Lovenox 30 mg SQ BID (WT < 150 kg, CrCl > 30 mL/min) AND *Sequential Compression Device (SCD) Assessment and Plan - Assessment (1) CAD (coronary artery disease) Code(s): I25.10 - Atherosclerotic heart disease of [place] coronary artery without angina pectoris Status: Acute (2) History of heart artery stent Code(s): Z95.5 - Presence of coronary angioplasty implant and graft Status: Acute (3) Peripheral vascular disease Code(s): I73.9 - Peripheral vascular disease, unspecified Status: Acute (4) Hypertension Code(s): I10 - Essential (primary) hypertension Status: Acute (5) Hyperlipidemia Code(s): E78.5 - Hyperlipidemia, unspecified Status: Acute (6) Chest pain Code(s): R07.9 - Chest pain, unspecified Status: Acute - Plan * Chest pain: Patient has had serial cardiac enzymes and EKGs for ruling out purposes. He has been seen by Dr. Camarillo of cardiology in the chest pain center. I discussed the patient with his edge kitter Dr. Noland, patient be discharged home at this time with instructions to follow-up with Dr. Noland next week. Return to ED for interval issues. * CAD: Patient has history of CAD with stents. Continues medications. Thankfully he has quit smoking. * Peripheral vascular disease: Continue medications. * Hypertension: Continue medication. * Hyperlipidemia: Continue medication. Patient is stable at this time. He is agreeable to this plan. H&P: Quality - VTE Deep Vein Thrombosis/Pulmonary Embolism Present on Admission: No
--- NOTE | 2017-11-20 10:26 | P.PNCA ---
Subjective Interval history: 72-year-old gentleman followed by Dr. Chaney with a known history of coronary artery disease and prior stenting. He presents now with chest discomfort as described in previous documentation and pain in his right face. The facial pain is actually a primary concern to him having persisted severely for the last 2-3 weeks. He is scheduled to see his primary care physician this coming week. He is already been evaluated by chest pain protocol and has ruled out for ACS. Discussion with Dr. Mala Recinos resulted in decision making coordinated with myself in the nurse practitioner to discharge him from the hospital now that he is ruled out for follow-up with Dr. Mala Recinos in his office as directed. I am in agreement with the documentation and have reviewed his radiographic electrocardiographic and laboratory data. Physical Exam Vital signs: Vital Signs 11/19/17 22:06 11/19/17 22:30 11/19/17 23:00 Temperature Pulse Rate 57 L 56 L 60 Respiratory Rate 20 14 14 Blood Pressure 131/71 144/72 H 142/84 H Pulse Oximetry 99 100 99 11/19/17 23:45 11/20/17 00:00 11/20/17 02:00 Temperature Pulse Rate 52 L 54 L 52 L Respiratory Rate 15 14 15 Blood Pressure 155/81 H 159/86 H 166/81 H Pulse Oximetry 99 98 98 11/20/17 04:02 11/20/17 07:14 11/20/17 08:12 Temperature 98.0 F 98.2 F Pulse Rate 56 L 66 Respiratory Rate 16 20 Blood Pressure 195/99 H 207/112 H Pulse Oximetry 99 96 96 11/20/17 08:40 Temperature Pulse Rate Respiratory Rate Blood Pressure 160/80 H Pulse Oximetry Intake & Output 11/19/17 11/20/17 11/20/17 18:59 06:59 18:59 Weight 88.451 kg Other: Weight On Admission 88.45 kg Narrative: I am in agreement with information as documented Head normocephalic atraumatic there is no rash or indication of shingles over his right facial area there is however tenderness beginning from the auricular cartilage on the right to the midline from just below the orbits to the mid lip area Neck supple no JVD masses nodes or bruits Chest diminished breath sounds fairly significantly (prior history of cigarette abuse) but no rales wheezes or rhonchi Cardiovascular reveals a regular rhythm with no gallops rubs or murmurs Extremities the only pertinent is scarring in his left lower extremity from prior vascular surgery by Dr. Gonzalez Assessment and Plan - Assessment (1) CAD (coronary artery disease) Code(s): I25.10 - Atherosclerotic heart disease of [place] coronary artery without angina pectoris Status: Acute Plan: Patient has ruled out using ACS protocol and after discussion with Dr. Mala Recinos who is his telecommunications linesworker at his request the patient will be discharged for outpatient follow-up in his office (2) History of heart artery stent Code(s): Z95.5 - Presence of coronary angioplasty implant and graft Status: Acute (3) Peripheral vascular disease Code(s): I73.9 - Peripheral vascular disease, unspecified Status: Acute (4) Hypertension Code(s): I10 - Essential (primary) hypertension Status: Acute (5) Hyperlipidemia Code(s): E78.5 - Hyperlipidemia, unspecified Status: Acute (6) Chest pain Code(s): R07.9 - Chest pain, unspecified Status: Acute - Plan * Chest pain: Patient has had serial cardiac enzymes and EKGs for ruling out purposes. He has been seen by Dr. Camarillo of cardiology in the chest pain center. I discussed the patient with his telecommunications linesworker Dr. Noland, patient be discharged home at this time with instructions to follow-up with Dr. Noland next week. Return to ED for interval issues. * CAD: Patient has history of CAD with stents. Continues medications. Thankfully he has quit smoking. * Peripheral vascular disease: Continue medications. * Hypertension: Continue medication. * Hyperlipidemia: Continue medication. Patient is stable at this time. He is agreeable to this plan. - Attending Attestation I attest to the fact that the patient was seen and evaluated as documented in a means appropriate for the presentation.
--- NOTE | 2017-11-20 11:23 | ECG ---
Date Performed: 11/20/2017 Time Performed: 03:31:50 PTAGE: 72 years EKG: SINUS BRADYCARDIA MARKED LEFT AXIS DEVIATION ABNORMAL ECG No significant change PREVIOUS TRACING : 11/19/2017 22.17 DOCTOR: Randy Camarillo Interpretating Date/Time 11/20/2017 11:22:16
--- NOTE | 2017-11-20 11:24 | ECG ---
Date Performed: 11/19/2017 Time Performed: 22:17:00 PTAGE: 72 years EKG: SINUS BRADYCARDIA MARKED LEFT AXIS DEVIATION PATTERN CONSISTENT WITH PULMONARY DISEASE ABNO RMAL ECG No significant change PREVIOUS TRACING : 10/23/2017 07.01 DOCTOR: Randy Camarillo Interpretating Date/Time 11/20/2017 11:22:42
[2017-11-20] MEDS ORDERED: [UNRECOGNIZED DRUG - OTHER] SQ SCH (21:00)
[2017-11-20] MEDS ORDERED: GLATIRAMER 20 MG SQ SCH (21:00)
== END 2017-11-20 12:18 | disposition home or self-care (01) ==
LOC: NEPE 22:00 → NEDA 22:00 → NEPFCDU 11-20 03:48
PROVIDERS: ADMIT Internal Medicine Cardiovascular Disease; ATTEND Internal Medicine Cardiovascular Disease
DX: R06.00 Dyspnea, unspecified; Z86.718 Personal history of other venous thrombosis and embolism; Z79.82 Long term (current) use of aspirin; I10 Essential (primary) hypertension; R42 Dizziness and giddiness; Z95.5 Presence of coronary angioplasty implant and graft; I25.10 Atherosclerotic heart disease of native coronary artery without angina pectoris; R07.9 Chest pain, unspecified; E78.5 Hyperlipidemia, unspecified; I73.9 Peripheral vascular disease, unspecified; G47.30 Sleep apnea, unspecified; N40.0 Benign prostatic hyperplasia without lower urinary tract symptoms; Z87.891 Personal history of nicotine dependence; G35 Multiple sclerosis; Z79.899 Other long term (current) drug therapy

== ENCOUNTER 2017-12-16 03:10 | Inpatient (IN) ==
[2017-12-16 03:52] LABS: Baso % (Auto) 0.4 % (0.0-2.0); Eos # (Auto) 0.1 th/mm3 (0.0-0.4); Eos % (Auto) 1.6 % (0.0-4.0); Hematocrit 45.2 % (39.0-51.0); Hemoglobin 15.3 gm/dL (13.0-17.0); Lymph # (Auto) 1.1 th/mm3 (1.0-4.8); Lymph % (Auto) 17.6 % (9.0-44.0); Mean Corpuscular HGB Conc 33.9 % (32.0-36.0); Mean Corpuscular Hemoglobin 31.8 pg (27.0-34.0); Mean Corpuscular Volume 93.9 fL (80.0-100.0); Mean Platelet Volume 7.9 fL (7.0-11.0); Mono # (Auto) 0.5 th/mm3 (0.0-0.9); Mono % (Auto) 7.3 % (0.0-8.0); Neut # (Auto) 4.6 th/mm3 (1.8-7.7); Neut % (Auto) 73.1 % (16.0-70.0); Platelet Count 146 th/mm3 (150-450); Red Blood Count 4.82 mil/mm3 (4.50-5.90); Red Cell Distribution Width 16.1 % (11.6-17.2); White Blood Count 6.2 th/mm3 (4.0-11.0)
[2017-12-16 04:25] LABS: Albumin 3.5 g/dL (3.4-5.0); Anion Gap 10 meq/L (5-15); Aspartate Aminotransferase 19 U/L (15-37); Blood Urea Nitrogen 22 mg/dL (7-18); Calcium 8.8 mg/dL (8.5-10.1); Carbon Dioxide 24.2 meq/L (21.0-32.0); Chloride 111 meq/L (98-107); Glomerular Filtration Rate 42 mL/min (>89); Glucose,Random 104 mg/dL (74-106); Potassium 3.8 meq/L (3.5-5.1); Sodium 145 meq/L (136-145)
[2017-12-16 04:30] LABS: Alanine Aminotransferase 20 U/L (12-78); Alkaline Phosphatase 124 U/L (45-117); Creatine Kinase 118 U/L (39-308); Total Protein 7.3 g/dL (6.4-8.2)
[2017-12-16 04:42] LABS: Creatine Kinase MB 2.2 ng/mL (0.5-3.6)
[2017-12-16 06:00] LABS: Bacteria,Urine Rare /hpf; Bilirubin,Urine Negative (Negative); Clarity,Urine Hazy (Clear); Color,Urine Yellow (Yellw/Straw); Glucose,Urine (UA) Negative (Negative); Leukocyte Esterase,Urine Moderate (Negative); Mucus,Urine Few /lpf (Occasional); Nitrite,Urine Negative (Negative); Specific Gravity,Urine 1.017 (1.002-1.035); Squamous Epithelial Cell,Urine <1 /hpf (0-5)
--- NOTE | 2017-12-16 06:44 | ED ---
HPI General Chief complaint: Weakness Stated complaint: fall/ weakness Time Seen by Provider: 12/16/17 03:23 Source: patient Mode of arrival: EMS Limitations: no limitations History of Present Illness HPI narrative: Patient is a 72-year-old male who comes in complaining of generalized weakness. He says he was in his bathroom today when he became very weak and fell onto his left side. He denies hitting his head or any loss of consciousness. He was here a few days ago for weakness as well, but was discharged because he was able to walk on his own. He denies fever chills. Denies chest pain or shortness of breath. He denies any headache or blurred vision. Severity is mild to moderate. Related Data Home Medications Medication Instructions Recorded Confirmed clopidogrel [Plavix] 1 tab PO HS 10/03/17 12/13/17 acetaminophen [Tylenol Extra 1,000 mg PO Q2-3H PRN 10/22/17 12/13/17 Strength] aspirin 81 mg PO DAILY 10/22/17 12/13/17 coenzyme Q10 [Co Q-10] 100 mg PO DAILY 10/22/17 12/13/17 cyanocobalamin (vitamin B-12) 1,000 mcg PO DAILY 10/22/17 12/13/17 doxepin 10 mg PO HS 10/22/17 12/13/17 flaxseed oil 1,000 mg PO DAILY 10/22/17 12/13/17 fluticasone 2 spray INTRANASAL HS 10/22/17 12/13/17 glatiramer [Copaxone] 20 mg SUB-Q HS 10/22/17 12/13/17 metoprolol tartrate 12.5 mg PO BID 10/22/17 12/13/17 [id number] acid-lutein [Centrum 1 tab PO DAILY 10/22/17 12/13/17 Silver] niacin 500 mg PO BID 10/22/17 12/13/17 nitroglycerin [Nitrostat] 0.4 mg SUBLINGUAL Q5-15M PRN 10/22/17 12/13/17 phenylephrine-acetaminophen [Sinus 2 tab PO HS PRN 10/22/17 12/13/17 Congestion and Pain] tamsulosin 0.4 mg PO BID 10/22/17 12/13/17 atorvastatin 20 mg PO DAILY 12/13/17 12/13/17 Previous Rx's Medication Instructions Recorded oxycodone-acetaminophen [Percocet] 1 tab PO Q4-6H PRN #12 tab 12/08/17 sulfamethoxazole-trimethoprim 1 tab PO BID 7 Days #14 tab 12/13/17 [Bactrim DS] Allergies Allergy/AdvReac Type Severity Reaction Status Date / Time fexofenadine Allergy Severe CAUSES Verified 12/13/17 14:49 PROSTATE ISSUES Review of Systems ROS: all other systems reviewed are negative Constitutional Denies chills and Denies fever(s) ENT Denies dizziness Cardiovascular Denies chest pain and Denies dyspnea Respiratory Denies cough and Denies dyspnea Gastrointestinal Denies abdominal pain, Denies nausea and Denies vomiting Musculoskeletal Denies myalgias and Denies arthralgias Integumentary/Breasts Denies sores and Denies wounds Neurologic Denies focal weakness, Denies numbness and Reports weakness PMFSH Medical History Medical History 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 (Acute) Benign prostate hyperplasia (Acute) Blood clot in vein (Acute) Coronary artery disease (Acute) Current use of anticoagulant therapy (Acute) Glaucoma (Acute) HTN (hypertension) (Acute) High cholesterol (Acute) History of dental problems (Acute) Hx of thrombosis (Acute) Multiple sclerosis (Acute) Neuropathy (Acute) Pain in right hip (Acute) Popliteal artery aneurysm (Acute) Sleep apnea with use of continuous positive airway pressure (CPAP) (Acute) Wears eyeglasses (Acute) Surgical History Surgical History Hx of cardiac cath (Acute) Hx of cardiac catheterization (Acute) Social History Social History Substance History: No History of Abuse Second Hand Smoke Exposure: No Smoking Status: Former smoker Tobacco Type: Cigarettes How Often Do You Have a Drink Containing Alcohol: Monthly or less Recent Travel in [facility] within the Last 8 Weeks: No Recent Out of Country Travel within the Last 8 Weeks: No Immunization History Tetanus Immunization: Unsure Exam Narrative Exam Narrative: GENERAL: Awake and alert, in no acute distress. SKIN: Focused skin assessment warm/dry. No wounds or signs of infection. HEAD: Atraumatic. Normocephalic. EYES: Pupils equal and round and reactive. No scleral icterus. EOMI. ENT: Mucous membranes pink and moist. NECK: Trachea midline. No JVD. CARDIOVASCULAR: Regular rate and rhythm. No murmur appreciated. RESPIRATORY: No accessory muscle use. Clear to auscultation. Breath sounds equal bilaterally. GASTROINTESTINAL: Abdomen soft, non-tender, nondistended. MUSCULOSKELETAL: No obvious deformities. No clubbing. No cyanosis. No edema. NEUROLOGICAL: Awake and alert. No obvious cranial nerve deficits. Motor grossly within normal limits. Normal speech. PSYCHIATRIC: Appropriate mood and affect; insight and judgment normal. Course Initial Documented Vital Signs Temperature 98.6 F 12/16/17 03:26 Pulse Rate 76 12/16/17 03:26 Respiratory Rate 16 12/16/17 03:26 Blood Pressure 177/102 H 12/16/17 03:26 Pulse Oximetry 98 12/16/17 03:26 Last Documented Vital Signs Temperature 98.6 F 12/16/17 03:26 Pulse Rate 76 12/16/17 03:55 Respiratory Rate 16 12/16/17 03:55 Blood Pressure 174/99 H 12/16/17 03:55 Pulse Oximetry 97 12/16/17 03:55 Medical Decision Making [facility] Narrative Medical decision making narrative: Patient is a 72-year-old male who comes in complaining of generalized weakness. Exam shows no focal neurologic abnormalities. IV established, labs sent. Labs show no acute abnormalities. Urinalysis is positive for UTI. Patient given IV fluids, Rocephin. Patient was here a few days ago with concerns for MS flare. Do not believe patient is safe for discharge at this time. He will be admitted for further management. Medical Screen Exam Complete: Yes Emergency Medical Condition: Yes Differential Diagnosis Differential Diagnosis: MS flare versus UTI versus electrolyte abnormality Medical Records Medical records reviewed: Yes I reviewed the patient's medical records. Lab Data Lab results reviewed: Yes I reviewed the patient's lab results. Result diagrams: 12/16/17 03:35 12/16/17 03:35 Lab Results 12/16/17 12/16/17 12/16/17 Range/Units 03:35 03:35 05:45 WBC 6.2 (4.0-11.0) th/mm3 RBC 4.82 (4.50-5.90) mil/mm3 Hgb 15.3 (13.0-17.0) gm/dL Hct 45.2 (39.0-51.0) % MCV 93.9 (80.0-100.0) fL MCH 31.8 (27.0-34.0) pg MCHC 33.9 (32.0-36.0) % RDW 16.1 (11.6-17.2) % Plt Count 146 L (150-450) th/mm3 MPV 7.9 (7.0-11.0) fL Neut % (Auto) 73.1 H (16.0-70.0) % Lymph % (Auto) 17.6 (9.0-44.0) % Hughes % (Auto) 7.3 (0.0-8.0) % Eos % (Auto) 1.6 (0.0-4.0) % Baso % (Auto) 0.4 (0.0-2.0) % Neut # (Auto) 4.6 (1.8-7.7) th/mm3 Lymph # (Auto) 1.1 (1.0-4.8) th/mm3 Hughes # (Auto) 0.5 (0.0-0.9) th/mm3 Eos # (Auto) 0.1 (0.0-0.4) th/mm3 Baso # (Auto) 0.0 (0.0-0.2) th/mm3 WBC Differential . Differential Comment Auto diff final Sodium 145 (136-145) meq/L Potassium 3.8 (3.5-5.1) meq/L Chloride 111 H (98-107) meq/L Carbon Dioxide 24.2 (21.0-32.0) meq/L Anion Gap 10 (5-15) meq/L BUN 22 H (7-18) mg/dL Creatinine 1.61 H (0.60-1.30) mg/dL Estimated GFR 42 L (>89) mL/min Random Glucose 104 (74-106) mg/dL Calcium 8.8 (8.5-10.1) mg/dL Total Bilirubin 0.4 (0.2-1.0) mg/dL AST 19 (15-37) U/L ALT 20 (12-78) U/L Alkaline Phosphatase 124 H (45-117) U/L Total Creatine Kinase 118 (39-308) U/L CK-MB (CK-2) 2.2 (0.5-3.6) ng/mL Troponin I Less than 0.02 L (0.02-0.05) ng/mL Total Protein 7.3 (6.4-8.2) g/dL Albumin 3.5 (3.4-5.0) g/dL Urine Color Yellow (Yellw/Straw) Urine Clarity Hazy H (Clear) Urine pH 5.0 (5.0-8.5) Ur Specific [place] 1.017 (1.002-1.035) Urine Protein Negative (Neg-Trace) mg/dL Urine Glucose (UA) Negative (Negative) mg/dL Urine Ketones Negative (Negative) mg/dL Urine Occult Blood Moderate H (Negative) Urine Nitrate Negative (Negative) Urine Bilirubin Negative (Negative) Urine Urobilinogen Less than 2 (Less than 2) mg/dL Ur Leukocyte Esterase Moderate H (Negative) Urine RBC 9 H (0-3) /hpf Urine WBC 155 H (0-5) /hpf Ur Squamous Epith Cells <1 (0-5) /hpf Urine Bacteria Rare H (None) /hpf Urine Mucus Few H (Occasional) /lpf Micro UA Comment Culture indicated Ur Microscopic Review Not Reportable Urine Culture Comments Culture indicated ECG Data EKG Prior to Arrival: No Attestation: I personally reviewed and interpreted this ECG as follows: Interpretation: ECG shows normal sinus rhythm at a rate of 77, no ST elevation or depression, normal intervals Discharge Plan Discharge Disposition Patient Disposition: 30 Still Patient Discharge Condition Condition: Stable Discharge Details Diagnosis: Weakness, Acute UTI Physicians Team ED Provider: Oneyda Patel Primary Care Provider: Marli Plata Attending Provider: Amador Alarcon Discharge Interventions Interventions: Vital Signs Last Done: 12/16/17 03:55 Status ED Status: Admitted Patient
--- NOTE | 2017-12-16 07:14 | P.HPFP ---
History of Present Illness Primary Care Physician: Marli Plata MD <JennifermeilAmador K - 12/16/17 11:12> Marli Plata MD <Lindsey Connell G - 12/16/17 08:59> Chief Complaint: fall <Lindsey Connell - 12/16/17 08:59> History of Present Illness: Mr. Goins is a 72-year-old white male with a past medical history of multiple sclerosis presenting to the ED after fall. He states that last night he was in the bathroom with his walker. He was trying to leave the walker and walk to the toilet when he fell on his left side. He states that he lost control in his legs. He did not trip over anything or lose his balance. He says that he feels like both legs gave out at the same time. He states that it took for about an hour for him to turn over and crawl to the bedroom to call 911. He felt like he did not have any feeling in his legs and could not stand up. He did not hit his head or lose consciousness. No shaking , no seizure-like activity, no loss of bowels or bladder, no biting of tongue. He also fell last week. He is unable to remember exactly what happened during that fall, but knows that he was at home. He thinks he fell backwards and banged his head on the floor at that time. He recently saw Dr. Plata in the office for trigeminal neuralgia and was given a prescription for carbamazepine. He states that the symptoms resolved after 2 days. No dysuria, no urinary frequency, no malodorous urine. PMH: MS CAD HTN hyperlipidemia PSH: Coronary artery stenting-2002 TURP-2012 Left popliteal artery aneurysm repair- 2017 Allergies: fexofenadine- prostate issues FHx: Mother- COPD Father- of [place] Soc Hx: Lives with himself Retired from [employer] Alcohol: doesn't drink, quit years ago Tobacco: quit, smoked for at least 40 yrs Illicit drug use: none <Gab Connellping Jones - 12/16/17 09:34> - Diagnosis (1) Weakness (2) Acute UTI (3) CHUN (acute kidney injury) (4) Multiple sclerosis (5) CAD (coronary artery disease) (6) Hypertension (7) Hyperlipidemia (8) Nutrition, metabolism, and development symptoms (9) DVT prophylaxis <Amador Alarcon 12/16/17 11:12> (1) Weakness (2) Acute UTI (3) CHUN (acute kidney injury) (4) Multiple sclerosis (5) CAD (coronary artery disease) (6) Hypertension (7) Hyperlipidemia (8) Nutrition, metabolism, and development symptoms (9) DVT prophylaxis <Lindsey Connell 12/16/17 09:00> Inpatient Certification: I certify that the inpatient services were ordered in accordance with Medicare regulations governing the order. This includes certification that hospital inpatient services are reasonable and necessary and in the case of services not specified as inpatient-only under 42 CFR 419.22(n), that they are appropriately provided as inpatient services in accordance to with the 2-midnight benchmark under 43 CFR 412.3(e) <Amador Alarcon 12/16/17 11:12> I certify that the inpatient services were ordered in accordance with Medicare regulations governing the order. This includes certification that hospital inpatient services are reasonable and necessary and in the case of services not specified as inpatient-only under 42 CFR 419.22(n), that they are appropriately provided as inpatient services in accordance to with the 2-midnight benchmark under 43 CFR 412.3(e) <KoGabLindsey Robert 12/16/17 07:14> Plans for Post Hospital Care: Not yet determined <Mckinley HeightsGabLindsey Robert 12/16/17 09: 34> Review of Systems Constitutional: Reports fatigue, Denies chills, Denies fever(s), Denies night sweats <Lindsey Connell Robert 12/16/17 07:14> Eyes: Denies blurry vision <KoLindsey Robert 12/16/17 07:14> Ears, Nose, Mouth, and Throat: Denies nasal discharge <Lindsey Connell Robert 07:14> Cardiovascular: Denies chest pain, Denies irregular heart rhythm <Lindsey Connell Robert 12/16/17 07:14> Respiratory: Denies cough, Denies shortness of breath <iLndsey Connell Robert 07:14> Gastrointestinal: Denies abdominal pain, Denies constipation <Lindsey Connell Robert 12/16/17 07:14> Genitourinary: Denies decreased urination, Denies difficulty urinating <Mckinley HeightsLindsey garrett - 12/16/17 07:14> Musculoskeletal: Reports muscle weakness (bilateral legs), Denies back pain < Lindsey Connell Robert - 12/16/17 07:14> Skin/Breast: Denies rash <Lindsey Connell Robert - 12/16/17 07:14> Neurologic: Reports localized weakness (bilateral legs), Denies dizziness, Denies seizure-like activity, Denies tingling/numbness/burning sensations, Denies weakness <Lindsey Connell - 12/16/17 07:14> PMFSH - History History Provided By: Patient <Mckinley HeightsLindsey Robert - 12/16/17 07:14> - Medical History Medical History: Medical History (Last Reviewed 12/16/17 @ 06:52 by Oneyda Patel MD) 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 Benign prostate hyperplasia Blood clot in vein Coronary artery disease Current use of anticoagulant therapy Glaucoma HTN (hypertension) High cholesterol History of dental problems Hx of thrombosis Multiple sclerosis Neuropathy Pain in right hip Popliteal artery aneurysm Sleep apnea with use of continuous positive airway pressure (CPAP) Wears eyeglasses <Amador Alarcon - 12/16/17 11:12> Medical History (Last Reviewed 12/16/17 @ 06:52 by Oneyda Patel MD) 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 Benign prostate hyperplasia Blood clot in vein Coronary artery disease Current use of anticoagulant therapy Glaucoma HTN (hypertension) High cholesterol History of dental problems Hx of thrombosis Multiple sclerosis Neuropathy Pain in right hip Popliteal artery aneurysm Sleep apnea with use of continuous positive airway pressure (CPAP) Wears eyeglasses <Lindsey Connell - 12/16/17 07:14> - Surgical History Surgical History: Surgical History (Last Reviewed 12/16/17 @ 06:52 by Oneyda Patel MD) Hx of cardiac cath Hx of cardiac catheterization <Amador Alarcon - 12/16/17 11:12> Surgical History (Last Reviewed 12/16/17 @ 06:52 by Oneyda Patel MD) Hx of cardiac cath Hx of cardiac catheterization <Lindsey Connell - 12/16/17 07:14> - Tobacco History Second Hand Smoke Exposure: No <Lindsey Connell - 12/16/17 07:14> Tobacco Use In Past 30 Days: No <Lindsey Connell - 12/16/17 07:14> Smoking Status: Former smoker <Lindsey Connell - 12/16/17 07:14> Tobacco Type: Cigarettes <Lindsey Connell - 12/16/17 07:14> - Alcohol History How Often Do You Have a Drink Containing Alcohol: Monthly or less <Lindsey Connell - 12/16/17 07:14> - Substance Use History Substance History: No History of Abuse <Lindsey Connell - 12/16/17 07:14> - Travel History Recent Travel in the [facility] Within the Last 8 Weeks: No <Lindsey Connell 12/16/17 07:14> Recent Travel Out of the Country Within the Last 8 Weeks: No <Lindsey Connell 12/16/17 07:14> - Immunization History Tetanus Immunization: Unsure <Lindsey Connell - 12/16/17 07:14> Medications and Allergies Allergies Allergy/AdvReac Type Severity Reaction Status Date / Time fexofenadine Allergy Severe CAUSES Verified 12/13/17 14:49 PROSTATE ISSUES <Amador Alarcon - 12/16/17 11:12> Home Medications Medication Instructions Recorded Confirmed Type clopidogrel [Plavix] 1 tab PO 10/03/17 12/16/17 History acetaminophen [Tylenol Extra 1,000 mg PO Q2-3H PRN 10/22/17 12/16/17 History Strength] aspirin 162 mg PO 10/22/17 12/16/17 History coenzyme Q10 [Co Q-10] 100 mg PO DAILY 10/22/17 12/16/17 History cyanocobalamin (vitamin B-12) 1,000 mcg PO DAILY 10/22/17 12/16/17 History doxepin 10 mg PO HS 10/22/17 12/16/17 History flaxseed oil 1,000 mg PO DAILY 10/22/17 12/16/17 History fluticasone 2 spray INTRANASAL 10/22/17 12/16/17 History glatiramer [Copaxone] 20 mg SUB-Q 10/22/17 12/16/17 History metoprolol tartrate 25 mg PO BID 10/22/17 12/16/17 History th-sex-vbbsk acid-lutein [Centrum 1 tab PO DAILY 10/22/17 12/16/17 History Silver] niacin 500 mg PO DAILY 10/22/17 12/16/17 History nitroglycerin [Nitrostat] 0.4 mg SUBLINGUAL Q5-15M PRN 10/22/17 12/16/17 History phenylephrine-acetaminophen [Sinus 2 tab PO HS PRN 10/22/17 12/16/17 History Congestion and Pain] tamsulosin 0.4 mg PO BID 10/22/17 12/16/17 History atorvastatin 20 mg PO HS 12/13/17 12/16/17 History <Amador Alarcon - 12/16/17 11:12> Active Medications: Active Medications Acetaminophen (Tylenol) 650 mg PO Q4H PRN PRN Reason: Temp > 100.4 Hydrocodone Bitart/Acetaminophen ([place] 5/325) 1 tab PO Q4H PRN PRN Reason: PAIN SCALE 3 TO 5 Al Hydroxide/Mg Hydroxide (Milk Of Magnesia Liq) 30 ml PO Q12H PRN PRN Reason: Mild Constipation Atorvastatin Calcium (Lipitor) 20 mg PO DAILY [facility] Last Admin: 12/16/17 08:28 Dose: 20 mg Bisacodyl (Dulcolax Supp) 10 mg RECTAL DAILY PRN PRN Reason: SEVERE CONSITIPATION Clopidogrel Bisulfate (Plavix) 75 mg PO HS [facility] Doxepin HCl (Sinequan) 10 mg PO HS [facility] Enoxaparin Sodium (Lovenox Inj) 30 mg SQ Q24H [facility] Last Admin: 12/16/17 08:28 Dose: 30 mg Ceftriaxone Sodium 1,000 mg/ (Sodium Chloride) 100 mls @ 200 mls/hr IV.SIG Q24H [facility] Sodium Chloride (Ns Inj) 1,000 mls @ 100 mls/hr IV.CONT .Q10H [facility] Lactulose (Lactulose Liq) 30 ml PO DAILY PRN PRN Reason: SEVERE CONSITIPATION Metoprolol Tartrate (Lopressor) 25 mg PO BID [facility] Last Admin: 12/16/17 09:45 Dose: 25 mg Miscellaneous (Pill Splitter) 1 each OTHER UNSCH [facility] Naloxone HCl (Narcan Inj) 0.4 mg IV.PUSH UNSCH PRN PRN Reason: SEE LABEL COMMENTS Niacin (Slo-Niacin) 1,000 mg PO HS [facility] Ondansetron HCl (Zofran Inj) 4 mg IV.PUSH Q6H PRN PRN Reason: NAUSEA OR VOMITING Ptownmed (Glatiramer ([Copaxone] 20 Mg)) 0 each SQ HS [facility] Senna/Docusate Sodium (Merle-Colace) 1 tab PO BID [facility] Last Admin: 12/16/17 08:28 Dose: 1 tab Sennosides (Senokot) 17.2 mg PO Q12H PRN PRN Reason: Moderate Constipation Tamsulosin HCl (Flomax) 0.4 mg PO BID [facility] Last Admin: 12/16/17 08:28 Dose: 0.4 mg <Amador Alarcon - 12/16/17 11:12> Exam Vital signs: Vital Signs 12/16/17 03:26 12/16/17 03:30 12/16/17 03:55 Temperature 98.6 F Pulse Rate 76 77 76 Respiratory Rate 16 16 16 Blood Pressure 177/102 H 174/99 H Pulse Oximetry 98 97 97 Intake & Output 12/15/17 12/16/17 12/16/17 18:59 06:59 18:59 Intake Total 100 / 100 Balance 100 / 100 Weight 95 kg Intake: IV 100 / 100 Rocephin Inj 1,000 MG In NS Inj 100 / 100 100 ML @ 200 mls/hr IV.SIG ONCE ONE Rx#:[id number] <Amador Alarcon - 12/16/17 11:12> Vital Signs 12/16/17 03:26 12/16/17 03:30 12/16/17 03:55 Temperature 98.6 F Pulse Rate 76 77 76 Respiratory Rate 16 16 16 Blood Pressure 177/102 H 174/99 H Pulse Oximetry 98 97 97 Intake & Output 12/15/17 12/15/17 12/16/17 06:59 18:59 06:59 Weight 95 kg <Lindsey Connell - 12/16/17 07:14> Narrative: GENERAL: elderly male laying in bed, in no acute distress SKIN: Warm and dry. HEAD: Atraumatic. Normocephalic. EYES: Pupils equal and round. Left pupil nonreactive. No scleral icterus. No injection or drainage. ENT: No nasal bleeding or discharge. Mucous membranes pink and moist. NECK: Trachea midline. No JVD. CARDIOVASCULAR: Regular rate and rhythm. RESPIRATORY: No accessory muscle use. Clear to auscultation. Breath sounds equal bilaterally. GASTROINTESTINAL: Abdomen soft, non-tender, nondistended. Hepatic and splenic margins not palpable. MUSCULOSKELETAL: Extremities without clubbing, cyanosis, or edema. No obvious deformities. NEUROLOGICAL: Awake and alert. Drooping of left eyelid. No other obvious cranial nerve deficits. Decreased sensation of right LE, 3/5 strength of right LE. 4/5 strength in left UE. Normal speech. PSYCHIATRIC: Appropriate mood and affect; insight and judgment normal. <Lindsey Connell - 12/16/17 08:59> Results - Labs Result diagrams: 12/16/17 03:35 12/16/17 03:35 <Amador Alarcon - 12/16/17 11:12> Abnormal lab results 12/16/17 12/16/17 12/16/17 Range/Units 03:35 03:35 05:45 Plt Count 146 L (150-450) th/mm3 Neut % (Auto) 73.1 H (16.0-70.0) % Chloride 111 H (98-107) meq/L BUN 22 H (7-18) mg/dL Creatinine 1.61 H (0.60-1.30) mg/dL Estimated GFR 42 L (>89) mL/min Alkaline Phosphatase 124 H (45-117) U/L Troponin I Less than 0.02 L (0.02-0.05) ng/mL Urine Clarity Hazy H (Clear) Urine Occult Blood Moderate H (Negative) Ur Leukocyte Esterase Moderate H (Negative) Urine RBC 9 H (0-3) /hpf Urine WBC 155 H (0-5) /hpf Urine Bacteria Rare H (None) /hpf Urine Mucus Few H (Occasional) /lpf Short CBC 12/16/17 Range/Units 03:35 WBC 6.2 (4.0-11.0) th/mm3 Hgb 15.3 (13.0-17.0) gm/dL Hct 45.2 (39.0-51.0) % Plt Count 146 L (150-450) th/mm3 [facility] [place]/16/17 03:35 Sodium 145 Potassium 3.8 Chloride 111 H Carbon Dioxide 24.2 BUN 22 H Creatinine 1.61 H Calcium 8.8 Cardiac Enzymes 12/16/17 Range/Units 03:35 Total Creatine Kinase 118 (39-308) U/L CK-MB (CK-2) 2.2 (0.5-3.6) ng/mL Troponin I Less than 0.02 L (0.02-0.05) ng/mL Liver Function 12/16/17 Range/Units 03:35 Total Bilirubin 0.4 (0.2-1.0) mg/dL AST 19 (15-37) U/L ALT 20 (12-78) U/L Alkaline Phosphatase 124 H (45-117) U/L Albumin 3.5 (3.4-5.0) g/dL Urine 12/16/17 Range/Units 05:45 Urine Color Yellow (Yellw/Straw) Urine Clarity Hazy H (Clear) Urine pH 5.0 (5.0-8.5) Ur Specific [place] 1.017 (1.002-1.035) Urine Protein Negative (Neg-Trace) mg/dL Urine Glucose (UA) Negative (Negative) mg/dL <Amador Alarcon K - 12/16/17 11:12> Abnormal lab results 12/16/17 12/16/17 12/16/17 Range/Units 03:35 03:35 05:45 Plt Count 146 L (150-450) th/mm3 Neut % (Auto) 73.1 H (16.0-70.0) % Chloride 111 H (98-107) meq/L BUN 22 H (7-18) mg/dL Creatinine 1.61 H (0.60-1.30) mg/dL Estimated GFR 42 L (>89) mL/min Alkaline Phosphatase 124 H (45-117) U/L Troponin I Less than 0.02 L (0.02-0.05) ng/mL Urine Clarity Hazy H (Clear) Urine Occult Blood Moderate H (Negative) Ur Leukocyte Esterase Moderate H (Negative) Urine RBC 9 H (0-3) /hpf Urine WBC 155 H (0-5) /hpf Urine Bacteria Rare H (None) /hpf Urine Mucus Few H (Occasional) /lpf Short CBC 12/16/17 Range/Units 03:35 WBC 6.2 (4.0-11.0) th/mm3 Hgb 15.3 (13.0-17.0) gm/dL Hct 45.2 (39.0-51.0) % Plt Count 146 L (150-450) th/mm3 BMP 12/16/17 03:35 Sodium 145 Potassium 3.8 Chloride 111 H Carbon Dioxide 24.2 BUN 22 H Creatinine 1.61 H Calcium 8.8 Cardiac Enzymes 12/16/17 Range/Units 03:35 Total Creatine Kinase 118 (39-308) U/L CK-MB (CK-2) 2.2 (0.5-3.6) ng/mL Troponin I Less than 0.02 L (0.02-0.05) ng/mL Liver Function 12/16/17 Range/Units 03:35 Total Bilirubin 0.4 (0.2-1.0) mg/dL AST 19 (15-37) U/L ALT 20 (12-78) U/L Alkaline Phosphatase 124 H (45-117) U/L Albumin 3.5 (3.4-5.0) g/dL Urine 12/16/17 Range/Units 05:45 Urine Color Yellow (Yellw/Straw) Urine Clarity Hazy H (Clear) Urine pH 5.0 (5.0-8.5) Ur Specific [place] 1.017 (1.002-1.035) Urine Protein Negative (Neg-Trace) mg/dL Urine Glucose (UA) Negative (Negative) mg/dL <Lindsey Connell G - 12/16/17 07:14> - Imaging Impressions Chest X-Ray 12/16/17 03:28 CONCLUSION: No acute cardiopulmonary disease. Head CT 12/16/17 03:28 CONCLUSION: 1. Stable noncontrast head CT. No acute intracranial abnormality is identified. 2. Stable generalized cerebral atrophy and moderate to severe periventricular white matter low-attenuation most likely representing chronic microvascular ischemia. 3. Stable 4 mm metallic foreign body in the subcutaneous fat of the left infraorbital region. . <Amador Alarcon - 12/16/17 11:12> Impressions Chest X-Ray 12/16/17 03:28 CONCLUSION: No acute cardiopulmonary disease. Head CT 12/16/17 03:28 CONCLUSION: 1. Stable noncontrast head CT. No acute intracranial abnormality is identified. 2. Stable generalized cerebral atrophy and moderate to severe periventricular white matter low-attenuation most likely representing chronic microvascular ischemia. 3. Stable 4 mm metallic foreign body in the subcutaneous fat of the left infraorbital region. <Lindsey Connell - 12/16/17 08:59> Caprini VTE Risk Assessment Caprini VTE Risk Assessment: Moderate/High Risk (score >= 2) <Lindsey Connell - 12/16/17 08:59> Caprini Risk Assessment Model: Point Value = 1 Point Value = 2 Point Value = 3 Point Value = 5 Age 41-60 Minor surgery BMI > 25 kg/m2 Swollen legs Varicose veins or History of unexplained or recurrent spontaneous Oral contraceptives or hormone replacement Sepsis (< 1 month) Serious lung disease, including pneumonia (< 1 month) Abnormal pulmonary function Acute myocardial infarction Congestive heart failure (< 1 month) History of inflammatory bowel disease Medical patient at bed rest Age 61-74 Arthroscopic surgery Major open surgery (> 45 min) Laparoscopic surgery (> 45 min) Malignancy Confined to bed (> 72 hours) Immobilizing plaster cast Central venous access Age >= 75 History of VTE Family history of VTE Factor V Leiden Prothrombin 56451A Lupus anticoagulant Anticardiolipin antibodies Elevated serum homocysteine Heparin-induced thrombocytopenia Other congenital or acquired thrombophilia Stroke (< 1 month) Elective arthroplasty Hip, pelvis, or leg fracture Acute spinal cord injury (< 1 month) <Amador Alarcon - 12/16/17 11:12> Point Value = 1 Point Value = 2 Point Value = 3 Point Value = 5 Age 41-60 Minor surgery BMI > 25 kg/m2 Swollen legs Varicose veins or History of unexplained or recurrent spontaneous Oral contraceptives or hormone replacement Sepsis (< 1 month) Serious lung disease, including pneumonia (< 1 month) Abnormal pulmonary function Acute myocardial infarction Congestive heart failure (< 1 month) History of inflammatory bowel disease Medical patient at bed rest Age 61-74 Arthroscopic surgery Major open surgery (> 45 min) Laparoscopic surgery (> 45 min) Malignancy Confined to bed (> 72 hours) Immobilizing plaster cast Central venous access Age >= 75 History of VTE Family history of VTE Factor V Leiden Prothrombin 45000H Lupus anticoagulant Anticardiolipin antibodies Elevated serum homocysteine Heparin-induced thrombocytopenia Other congenital or acquired thrombophilia Stroke (< 1 month) Elective arthroplasty Hip, pelvis, or leg fracture Acute spinal cord injury (< 1 month) <Lindsey Connell 12/16/17 07:14> Prophylaxis Regimen: Total Risk Factor Score Risk Level Prophylaxis Regimen 0-1 Low Early ambulation 2 Moderate Order ONE of the following: *Sequential Compression Device (SCD) *Heparin 5000 units SQ BID 3-4 Higher Order ONE of the following medications: *Heparin 5000 units SQ TID *Enoxaparin/Lovenox 40 mg SQ daily (WT < 150 kg, CrCl > 30 mL/min) *Enoxaparin/Lovenox 30 mg SQ daily (WT < 150 kg, CrCl > 10-29 mL/min) *Enoxaparin/Lovenox 30 mg SQ BID (WT < 150 kg, CrCl > 30 mL/min) AND/OR *Sequential Compression Device (SCD) 5 or more Highest Order ONE of the following medications: *Heparin 5000 units SQ TID (Preferred with Epidurals) *Enoxaparin/Lovenox 40 mg SQ daily (WT < 150 kg, CrCl > 30 mL/min) *Enoxaparin/Lovenox 30 mg SQ daily (WT < 150 kg, CrCl > 10-29 mL/min) *Enoxaparin/Lovenox 30 mg SQ BID (WT < 150 kg, CrCl > 30 mL/min) AND *Sequential Compression Device (SCD) <Amador Alarcon - 12/16/17 11:12> Total Risk Factor Score Risk Level Prophylaxis Regimen 0-1 Low Early ambulation 2 Moderate Order ONE of the following: *Sequential Compression Device (SCD) *Heparin 5000 units SQ BID 3-4 Higher Order ONE of the following medications: *Heparin 5000 units SQ TID *Enoxaparin/Lovenox 40 mg SQ daily (WT < 150 kg, CrCl > 30 mL/min) *Enoxaparin/Lovenox 30 mg SQ daily (WT < 150 kg, CrCl > 10-29 mL/min) *Enoxaparin/Lovenox 30 mg SQ BID (WT < 150 kg, CrCl > 30 mL/min) AND/OR *Sequential Compression Device (SCD) 5 or more Highest Order ONE of the following medications: *Heparin 5000 units SQ TID (Preferred with Epidurals) *Enoxaparin/Lovenox 40 mg SQ daily (WT < 150 kg, CrCl > 30 mL/min) *Enoxaparin/Lovenox 30 mg SQ daily (WT < 150 kg, CrCl > 10-29 mL/min) *Enoxaparin/Lovenox 30 mg SQ BID (WT < 150 kg, CrCl > 30 mL/min) AND *Sequential Compression Device (SCD) <Lindsey Connell - 12/16/17 07:14> Assessment and Plan - Assessment (1) Weakness Code(s): R53.1 - Weakness Status: Acute (2) Acute UTI Code(s): N39.0 - Urinary tract infection, site not specified Status: Acute (3) CHUN (acute kidney injury) Code(s): N17.9 - Acute kidney failure, unspecified Status: Acute (4) Multiple sclerosis Code(s): G35 - Multiple sclerosis Status: Chronic (5) CAD (coronary artery disease) Code(s): I25.10 - Atherosclerotic heart disease of [place] coronary artery without angina pectoris Status: Chronic (6) Hypertension Code(s): I10 - Essential (primary) hypertension Status: Chronic (7) Hyperlipidemia Code(s): E78.5 - Hyperlipidemia, unspecified Status: Chronic (8) Nutrition, metabolism, and development symptoms Code(s): R63.8 - Other symptoms and signs concerning food and fluid intake Status: Acute (9) DVT prophylaxis Status: Acute <Amador Alarcon - 12/16/17 11:12> (1) Weakness Code(s): R53.1 - Weakness Status: Acute Plan: Pt presenting with fall due to weakness in his legs. This is the 2nd fall within the past few days. Physical exam shows decreased strength in right lower extremity (3/5) and left upper extremity (4/5). Maybe due to acute MS flare versus CVA versus spinal cord injury versus deconditioning versus infectious etiology. Head CT without contrast on admission showed no acute intracranial abnormality, stable generalized cerebral atrophy and moderate to severe periventricular white matter low-attenuation. Head MRI on 12/13 showed extensive white matter changes CXR on admission showed no acute cardiopulmonary disease -Will discuss with primary team treating patient for acute MS flare vs other etiologies -PT/OT consulted -Case management consulted for possible SNF placement due to patient being admitted for unsafe discharge (2) Acute UTI Code(s): N39.0 - Urinary tract infection, site not specified Status: Acute Plan: Patient with no symptoms of UTI, UA on admission shows moderate leukocyte esterase, many WBCs, rare bacteria. Patient was diagnosed previously on 12/13 with a UTI and was given Bactrim prescription. Urine culture from 12/13 shows viridans Streptococcus, susceptibilities pending Urine culture from 12/16 pending Given 1 dose of ceftriaxone 1000 mg IV in ED -Continue ceftriaxone 2000 mg IV daily (12/16- ) (3) CHUN (acute kidney injury) Code(s): N17.9 - Acute kidney failure, unspecified Status: Acute Plan: Creatinine on admission is 1.61. Baseline appears to be 0.97 on 12/08. BUN:Cr is ~14, therefore prerenal etiology is unlikely. Maybe medication induced vs intrarenal vs postrenal (hx of BPH, imaging showing R hydronephrosis and hydroureter) vs infection Lumbar spine MRI on 12/13 showed mild hydronephrosis and hydroureter on the right. Only partially visualized -NS@100 mls/hr -Monitor Creatinine -Avoid nephrotoxic agents (4) Multiple sclerosis Code(s): G35 - Multiple sclerosis Status: Chronic Plan: Patient on Copaxone 20 mg at home, will discuss patient obtaining medication from home to take in hospital (5) CAD (coronary artery disease) Code(s): I25.10 - Atherosclerotic heart disease of [place] coronary artery without angina pectoris Status: Chronic Plan: Continue at home Plavix 75 mg p.o. at bedtime (6) Hypertension Code(s): I10 - Essential (primary) hypertension Status: Chronic Plan: Continue at home metoprolol (7) Hyperlipidemia Code(s): E78.5 - Hyperlipidemia, unspecified Status: Chronic Plan: Continue at home atorvastatin 20 mg p.o. daily (8) Nutrition, metabolism, and development symptoms Code(s): R63.8 - Other symptoms and signs concerning food and fluid intake Status: Acute Plan: Fluids: tolerating PO Electrolytes: monitor and replete as needed Nutrition: heart-healthy diet Fever/pain management: Tylenol 650 mg every 4 hours as needed, [place] 5 mg (9) DVT prophylaxis Status: Acute Plan: DVT Prophylaxis: Early ambulation. Lovenox 30mg subQ q24hr <Lindsey Connell - 12/16/17 09:00> - Assessment and Plan Discussed Condition With: Dr. Patel <Lindsey Connell - 12/16/17 09:34> Discharge Planning: pending clinical course <KoGabLindsey G - 12/16/17 09:34> - Attending Attestation The exam, history, and the medical decision-making described in the above note were completed with the assistance of the resident physician. I reviewed and agree with the findings presented. I attest that I had a [id number] encounter with the patient on the same day, and personally performed and documented my assessment and findings in the medical record. I reviewed all resident histories in the documentation and discussed with Dr Connell over the phone. I was also physically present for Dr Rudolph's history taking and performed my own physical exam during his interview. GENERAL: elderly male laying in bed, in no acute distress SKIN: Warm and dry. HEAD: Atraumatic. Normocephalic. EYES: Pupils equal and round. Left pupil nonreactive. No scleral icterus. No injection or drainage. ENT: No nasal bleeding or discharge. Mucous membranes pink and moist. NECK: Trachea midline. No JVD. CARDIOVASCULAR: Regular rate and rhythm. RESPIRATORY: No accessory muscle use. Clear to auscultation. Breath sounds equal bilaterally. GASTROINTESTINAL: Abdomen soft, non-tender, nondistended. Hepatic and splenic margins not palpable. MUSCULOSKELETAL: Extremities without clubbing, cyanosis, or edema. No obvious deformities. NEUROLOGICAL: Awake and alert. mild L eye ptosis, CNIII-XII tested and intact with the exception of CNVIII but hearing was grossly normal. Visual chávez not tested to confrontation today. He had a decrease in sensation of left extremity compared to right and 4/5 LE strength bilaterally, but coordination, strength, sensation were otherwise intact. LE reflexes preserved but did have an upward going babinksi bilaterally without clonus. speech normal. PSYCHIATRIC: Appropriate mood and affect; insight and judgment normal. General weakness/recurrent falls/ Ambulatory dysfunction no clear MRI evidence of new MS lesions, will discuss with Dr Scott and re: need for additional MS treatment Will treat UTI Check O/S Get PT consult Monitor neuro exam Examine medications more closely, if above not helpful consider decreasing carbamazepine as only new med but has been helpful for TGN so will not change unless necessary. UTI known urinary retention bladder scan and cath as necessary Cont Rocephin Await C/S Cont flomax CHUN on CKD known baseline 0.9-1.3 recently avoid nephrotoxic meds treat urinary retention as necessary and follow MS cont home meds d/w neurologist urinary retention BPH v new MS finding cont flomax cath prn already has outpt uro CAD/PAD cont home meds HTN cont home metoprolol May add ACEi with his CKD if gfr stablizes <Amador Alarcon - 12/16/17 11:12> <Lindsey Connell G - Last Filed: 12/16/17 09:00> (6) Hypertension Qualifiers: Hypertension type: unspecified Qualified Code(s): I10 - Essential (primary) hypertension (7) Hyperlipidemia Qualifiers: Hyperlipidemia type: unspecified Qualified Code(s): E78.5 - Hyperlipidemia, unspecified <Amador Alarcon - Last Filed: 12/16/17 11:12> (6) Hypertension Qualifiers: Hypertension type: unspecified Qualified Code(s): I10 - Essential (primary) hypertension (7) Hyperlipidemia Qualifiers: Hyperlipidemia type: unspecified Qualified Code(s): E78.5 - Hyperlipidemia, unspecified <Lindsey Connell - Last Filed: 12/16/17 09:00> (6) Hypertension Qualifiers: Hypertension type: unspecified Qualified Code(s): I10 - Essential (primary) hypertension (7) Hyperlipidemia Qualifiers: Hyperlipidemia type: unspecified Qualified Code(s): E78.5 - Hyperlipidemia, unspecified <Amador Alarcon - Last Filed: 12/16/17 11:12> (6) Hypertension Qualifiers: Hypertension type: unspecified Qualified Code(s): I10 - Essential (primary) hypertension (7) Hyperlipidemia Qualifiers: Hyperlipidemia type: unspecified Qualified Code(s): E78.5 - Hyperlipidemia, unspecified
[2017-12-16] MEDS ORDERED: Acetaminophen 325 MG Tablet PO PRN (07:30)
[2017-12-16] MEDS ORDERED: Bisacodyl 10 MG Supp RECTAL PRN (07:30)
[2017-12-16] MEDS ORDERED: Naloxone Inj 0.4 MG/ML Vial IV.PUSH PRN (07:41)
--- NOTE | 2017-12-16 07:44 | XR ---
EXAM DATE: 12/16/2017 3:28 AM EDT AGE/SEX: 72 years / Male INDICATIONS: Short of breath. CLINICAL DATA: This is the patient's initial encounter. Patient reports that signs and symptoms have been present for 1 day and indicates a pain score of 0/10. MEDICAL/SURGICAL HISTORY: None. . Deep venous thrombosis. COMPARISON: [facility] [place] [facility] [place] 1[place] SINGLE AP, 11/19/2017. . FINDINGS: A single AP view of the chest demonstrates the lungs to be symmetrically aerated without evidence of mass, infiltrate or effusion. The cardiomediastinal contours are unremarkable. Osseous structures a re intact. CONCLUSION: No acute cardiopulmonary disease. Electronically signed by: Amador Warren MD 12/16/2017 7:43 AM EDT
--- NOTE | 2017-12-16 07:48 | CT ---
EXAM DATE: 12/16/2017 3:44 AM EDT AGE/SEX: 72 years / Male INDICATIONS: Dizziness, general weakness. CLINICAL DATA: This is the patient's initial encounter. Patient reports that signs and symptoms have been present for 1 day and indicates a pain score of 0/10. MEDICAL/SURGICAL HISTORY: Hypertension. Multiple sclerosis. Deep venous thrombosis. CAD. Melton ry artery stent. Cardiac cath. RADIATION DOSE: 44.44 CTDI (mGy) COMPARISON: [facility] – [place] HEAD W & W/O CONTRAST, 12/13/2017. [facility] – [place] BRAIN W/O CONTRAST, 06/05/2016. . TECHNIQUE: CT of the head without contrast. Using automated exposure control and adjustment of the mA and/or kV according to patient size, radiation dose was kept as low as reasonably achievable to ob tain optimal diagnostic quality images. DICOM format image data is available electronically for revi ew and comparison. FINDINGS: Cerebrum: There is moderate generalized cerebral atrophy. Ventricles are normal given the degree of atrophy. There is moderate periventricular white matter low attenuation. Cavum septum lucidum is pr esent. No midline shift, mass lesion, hemorrhage or acute infarction. No extraaxial fluid collection s are seen. Posterior Fossa: The cerebellum and brainstem demonstrate no acute abnormality. The 4th ventricle is midline. The cerebellopontine angle is within normal limits. Extracranial: The visualized sinuses are clear. There is a stable 4 mm metallic foreign body in the subcutaneous tissues of the left infraorbital region. Skull: The calvaria is intact. No skull fracture. CONCLUSION: 1. Stable noncontrast head CT. No acute intracranial abnormality is identified. 2. Stable generalized cerebral atrophy and moderate to severe periventricular white matter low-atten uation most likely representing chronic microvascular ischemia. 3. Stable 4 mm metallic foreign body in the subcutaneous fat of the left infraorbital region. . Electronically signed by: Dillan Hernandez MD 12/16/2017 7:47 AM EDT
[2017-12-16] MEDS: Enoxaparin Inj 30 MG/0.3 ML Syringe SQ SCH (08:28)
[2017-12-16] MEDS: Senna/Docusate Sodium 8.6/50 MG Tablet PO SCH ×3 (08:28→22:52)
[2017-12-16] MEDS ORDERED: Metoprolol Tartrate 25 MG Tablet PO SCH (09:00)
[2017-12-16] MEDS: Metoprolol Tartrate 25 MG Tablet PO SCH ×3 (09:45→22:51)
--- NOTE | 2017-12-16 10:53 | P.PNFP ---
Subjective Interval history: He has a history of multiple sclerosis and was admitted after multiple falls and complaints of weakness and numbness of the lower extremities. MRI brain and spine showed no acute demyelinating lesions. He has no new complaints today. He continues to have poor control of his bladder function. He has no subjective interval change in his weakness or numbness. Results - Labs Result diagrams: 12/16/17 03:35 12/16/17 03:35 Abnormal lab results 12/16/17 12/16/17 12/16/17 Range/Units 03:35 03:35 05:45 Plt Count 146 L (150-450) th/mm3 Neut % (Auto) 73.1 H (16.0-70.0) % Chloride 111 H (98-107) meq/L BUN 22 H (7-18) mg/dL Creatinine 1.61 H (0.60-1.30) mg/dL Estimated GFR 42 L (>89) mL/min Alkaline Phosphatase 124 H (45-117) U/L Troponin I Less than 0.02 L (0.02-0.05) ng/mL Urine Clarity Hazy H (Clear) Urine Occult Blood Moderate H (Negative) Ur Leukocyte Esterase Moderate H (Negative) Urine RBC 9 H (0-3) /hpf Urine WBC 155 H (0-5) /hpf Urine Bacteria Rare H (None) /hpf Urine Mucus Few H (Occasional) /lpf Short CBC 12/16/17 Range/Units 03:35 WBC 6.2 (4.0-11.0) th/mm3 Hgb 15.3 (13.0-17.0) gm/dL Hct 45.2 (39.0-51.0) % Plt Count 146 L (150-450) th/mm3 BMP 12/16/17 03:35 Sodium 145 Potassium 3.8 Chloride 111 H Carbon Dioxide 24.2 BUN 22 H Creatinine 1.61 H Calcium 8.8 Cardiac Enzymes 12/16/17 Range/Units 03:35 Total Creatine Kinase 118 (39-308) U/L CK-MB (CK-2) 2.2 (0.5-3.6) ng/mL Troponin I Less than 0.02 L (0.02-0.05) ng/mL Liver Function 12/16/17 Range/Units 03:35 Total Bilirubin 0.4 (0.2-1.0) mg/dL AST 19 (15-37) U/L ALT 20 (12-78) U/L Alkaline Phosphatase 124 H (45-117) U/L Albumin 3.5 (3.4-5.0) g/dL Urine 12/16/17 Range/Units 05:45 Urine Color Yellow (Yellw/Straw) Urine Clarity Hazy H (Clear) Urine pH 5.0 (5.0-8.5) Ur Specific [place] 1.017 (1.002-1.035) Urine Protein Negative (Neg-Trace) mg/dL Urine Glucose (UA) Negative (Negative) mg/dL - Imaging Impressions Chest X-Ray 12/16/17 03:28 CONCLUSION: No acute cardiopulmonary disease. Head CT 12/16/17 03:28 CONCLUSION: 1. Stable noncontrast head CT. No acute intracranial abnormality is identified. 2. Stable generalized cerebral atrophy and moderate to severe periventricular white matter low-attenuation most likely representing chronic microvascular ischemia. 3. Stable 4 mm metallic foreign body in the subcutaneous fat of the left infraorbital region. . Physical Exam Vital signs: Vital Signs 12/16/17 03:26 12/16/17 03:30 12/16/17 03:55 Temperature 98.6 F Pulse Rate 76 77 76 Respiratory Rate 16 16 16 Blood Pressure 177/102 H 174/99 H Pulse Oximetry 98 97 97 Intake & Output 12/15/17 12/16/17 12/16/17 18:59 06:59 18:59 Intake Total 100 / 100 Balance 100 / 100 Weight 95 kg Intake: IV 100 / 100 Rocephin Inj 1,000 MG In NS Inj 100 / 100 100 ML @ 200 mls/hr IV.SIG ONCE ONE Rx#:[id number] Narrative: General: Well-developed, alert, and in no acute distress. Appears stated age HEENT: Atraumatic, PERRL, non-icteric sclera and no conjunctival injection, moist mucous membranes. Neck: Supple, non-tender without masses or lymphadenopathy, trachea midline Cardiac: Regular rate and rhythm without murmurs or gallops Pulmonary: Non-labored breathing. Lungs clear to auscultation bilaterally with good air movement Abdomen: Normal bowel sounds, soft and non-tender without rebound or guarding Extremities: No edema, 2+ pedal pulses, capillary refill less than 2 seconds Neurologic: Cranial nerves II through XII intact. 5/5 strength bilateral upper extremities. 5/5 strength in knee extension and flexion b/l. 4/5 hip flexion B /L. 4/5 hip extension B/L, without counter force from opposite LE. Upgoing Babinski bilaterally. Variable decreased sensation to right lower extremity not following any specific dermatomal pattern. Intact finger-nose, [id number] , alternating movements. Patellar reflexes 2+ bilaterally. Assessment and Plan - Assessment (1) Weakness Code(s): R53.1 - Weakness Status: Acute (2) Acute UTI Code(s): N39.0 - Urinary tract infection, site not specified Status: Acute (3) CHUN (acute kidney injury) Code(s): N17.9 - Acute kidney failure, unspecified Status: Acute (4) Multiple sclerosis Code(s): G35 - Multiple sclerosis Status: Chronic (5) CAD (coronary artery disease) Code(s): I25.10 - Atherosclerotic heart disease of [place] coronary artery without angina pectoris Status: Chronic (6) Hypertension Code(s): I10 - Essential (primary) hypertension Status: Chronic (7) Hyperlipidemia Code(s): E78.5 - Hyperlipidemia, unspecified Status: Chronic (8) Nutrition, metabolism, and development symptoms Code(s): R63.8 - Other symptoms and signs concerning food and fluid intake Status: Acute (9) DVT prophylaxis Status: Acute - Assessment and Plan Weakness/ambulatory dysfunction -He reports a 2-week history of difficulty walking that was sudden. -His exam is inconsistent and shows no specific pattern relating to his complaints -This may be related to MS flare or deconditioning -Consult to neurology, appreciate recommendations -Physical therapy evaluation Multiple sclerosis -Spoke with Dr. Scott, his outpatient neurologist who recommended inpatient neurology consultation -Home medication Copaxone 20 mg -MRI brain, cervical spine, thoracic spine, and lumbar spine showed no acute demyelinating lesions Acute kidney injury -Baseline creatinine may be around 0.9 or 1.3, it is unclear from chart review -Creatinine of 1.61 on admission -With BUN to creatinine ratio of 14:1, this is unlikely to be from prerenal causes -History of BPH (on tamsulosin) and hydronephrosis on prior MRI, CHUN may be related to post renal causes -Bladder scan today, consider straight cath or Vickers catheter Urinary tract infection -UA with concern for UTI, pending cultures (12/16) -Received 1 dose of Rocephin in the ED -Urine cultures from 12/13 showed strep viridans -Denies dysuria, however has difficulty holding his urine Coronary artery disease -Continue home medication Plavix 75 mg Hypertension -Continue home medication metoprolol Hyperlipidemia -Continue home medication atorvastatin Fluids: Adequate p.o. intake Electrolytes: monitor and replete as needed Nutrition: Regular diet GI prophylaxis: not indicated VTE prophylaxis: Early ambulation and Lovenox (6) Hypertension Qualifiers: Hypertension type: unspecified Qualified Code(s): I10 - Essential (primary) hypertension (7) Hyperlipidemia Qualifiers: Hyperlipidemia type: unspecified Qualified Code(s): E78.5 - Hyperlipidemia, unspecified
[2017-12-16] MEDS: Sod Chloride 0.9% Inj 1,000 ML IV.CONT SCH ×2 (13:13→19:52)
--- NOTE | 2017-12-16 15:22 | ECG ---
Date Performed: 12/16/2017 Time Performed: 03:20:06 PTAGE: 72 years EKG: Sinus rhythm MARKED LEFT AXIS DEVIATION MINIMAL VOLTAGE CRITERIA FOR LVH, CONSIDER NORMAL VARIANT ABNORMAL ECG PREVIOUS TRACING : 11/20/2017 03.31 Since the previous tracing, no significant change noted DOCTOR: Ivan Guerrero Interpretating Date/Time 12/16/2017 15:21:11
[2017-12-16] MEDS ORDERED: hydrALAZINE 25 MG Tablet PO PRN (16:22)
--- NOTE | 2017-12-16 17:08 | P.CONNEU ---
History of Present Illness Service: Neurology Primary Care Provider: Marli Plata MD Chief Complaint: fall History of Present Illness: 72-year-old male with history of multiple sclerosis is a cane to walk with followed by outside neurologist on Copaxone treatment diagnosed 1998 admitted for fall or semi-weakness. States for the past couple days been using a walker due to leg weakness. Has been treated with steroids in the past with good response. Was recently treated with carbamazepine for trigeminal neuralgia with adequate response. 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 Benign prostate hyperplasia Blood clot in vein Coronary artery disease Current use of anticoagulant therapy Glaucoma HTN (hypertension) High cholesterol History of dental problems Hx of thrombosis Multiple sclerosis Neuropathy Pain in right hip Popliteal artery aneurysm Sleep apnea with use of continuous positive airway pressure (CPAP) Wears eyeglasses - Surgical History Surgical History: Surgical History (Last Reviewed 12/16/17 @ 14:36 by Adriana Cuello, PT) Hx of cardiac cath Hx of cardiac catheterization - Tobacco History Second Hand Smoke Exposure: No Tobacco Use In Past 30 Days: No Smoking Status: Former smoker Tobacco Type: Cigarettes - Alcohol History How Often Do You Have a Drink Containing Alcohol: Monthly or less - Substance Use History Substance History: No History of Abuse - Travel History Recent Travel in the [place] Within the Last 8 Weeks: No Recent Travel Out of the Country Within the Last 8 Weeks: No - Immunization History Tetanus Immunization: Unsure Medications and Allergies Active Medications: Active Medications Acetaminophen (Tylenol) 650 mg PO Q4H PRN PRN Reason: Temp > 100.4 Hydrocodone Bitart/Acetaminophen ([place] 5/325) 1 tab PO Q4H PRN PRN Reason: PAIN SCALE 3 TO 5 Al Hydroxide/Mg Hydroxide (Milk Of Magnesia Liq) 30 ml PO Q12H PRN PRN Reason: Mild Constipation Atorvastatin Calcium (Lipitor) 20 mg PO DAILY [facility] Last Admin: 12/16/17 08:28 Dose: 20 mg Bisacodyl (Dulcolax Supp) 10 mg RECTAL DAILY PRN PRN Reason: SEVERE CONSITIPATION Clopidogrel Bisulfate (Plavix) 75 mg PO HS [facility] Doxepin HCl (Sinequan) 10 mg PO [facility] Enoxaparin Sodium (Lovenox Inj) 30 mg SQ Q24H [facility] Last Admin: 12/16/17 08:28 Dose: 30 mg Hydralazine HCl (Apresoline) 25 mg PO QID PRN PRN Reason: SEE DOSE INSTRUCTIONS Ceftriaxone Sodium 1,000 mg/ (Sodium Chloride) 100 mls @ 200 mls/hr IV.SIG Q24H [facility] Sodium Chloride (Ns Inj) 1,000 mls @ 100 mls/hr IV.CONT .Q10H [facility] Last Admin: 12/16/17 13:13 Dose: 100 mls/hr Lactulose (Lactulose Liq) 30 ml PO DAILY PRN PRN Reason: SEVERE CONSITIPATION Metoprolol Tartrate (Lopressor) 25 mg PO BID [facility] Last Admin: 12/16/17 09:45 Dose: 25 mg Miscellaneous (Pill Splitter) 1 each OTHER UNSCH [facility] Naloxone HCl (Narcan Inj) 0.4 mg IV.PUSH UNSCH PRN PRN Reason: SEE LABEL COMMENTS Niacin (Slo-Niacin) 1,000 mg PO [facility] Ondansetron HCl (Zofran Inj) 4 mg IV.PUSH Q6H PRN PRN Reason: NAUSEA OR VOMITING Ptownmed (Glatiramer ([Copaxone] 20 Mg)) 0 each SQ [facility] Senna/Docusate Sodium (Merle-Colace) 1 tab PO BID [facility] Last Admin: 12/16/17 08:28 Dose: 1 tab Sennosides (Senokot) 17.2 mg PO Q12H PRN PRN Reason: Moderate Constipation Tamsulosin HCl (Flomax) 0.4 mg PO BID [facility] Last Admin: 12/16/17 08:28 Dose: 0.4 mg Allergies Allergy/AdvReac Type Severity Reaction Status Date / Time fexofenadine Allergy Severe CAUSES Verified 12/13/17 14:49 PROSTATE ISSUES Home Medications Medication Instructions Recorded Confirmed Type clopidogrel [Plavix] 1 tab PO 10/03/17 12/16/17 History acetaminophen [Tylenol Extra 1,000 mg PO Q2-3H PRN 10/22/17 12/16/17 History Strength] aspirin 162 mg PO HS 10/22/17 12/16/17 History coenzyme Q10 [Co Q-10] 100 mg PO DAILY 10/22/17 12/16/17 History cyanocobalamin (vitamin B-12) 1,000 mcg PO DAILY 10/22/17 12/16/17 History doxepin 10 mg PO HS 10/22/17 12/16/17 History flaxseed oil 1,000 mg PO DAILY 10/22/17 12/16/17 History fluticasone 2 spray INTRANASAL HS 10/22/17 12/16/17 History glatiramer [Copaxone] 20 mg SUB-Q HS 10/22/17 12/16/17 History metoprolol tartrate 25 mg PO BID 10/22/17 12/16/17 History [id number] acid-lutein [Centrum 1 tab PO DAILY 10/22/17 12/16/17 History Silver] niacin 500 mg PO DAILY 10/22/17 12/16/17 History nitroglycerin [Nitrostat] 0.4 mg SUBLINGUAL Q5-15M PRN 10/22/17 12/16/17 History phenylephrine-acetaminophen [Sinus 2 tab PO HS PRN 10/22/17 12/16/17 History Congestion and Pain] tamsulosin 0.4 mg PO BID 10/22/17 12/16/17 History atorvastatin 20 mg PO HS 12/13/17 12/16/17 History Exam Vital signs: Vital Signs 12/16/17 03:26 12/16/17 03:30 12/16/17 03:55 Temperature 98.6 F Pulse Rate 76 77 76 Respiratory Rate 16 16 16 Blood Pressure 177/102 H 174/99 H Pulse Oximetry 98 97 97 12/16/17 11:07 12/16/17 12:00 12/16/17 16:05 Temperature 97.6 F 98.0 F Pulse Rate 67 64 66 Respiratory Rate 18 23 18 Blood Pressure 148/80 H 178/86 H 162/80 H Pulse Oximetry 98 98 99 Intake & Output 12/15/17 12/16/17 12/16/17 18:59 06:59 18:59 Intake Total 100 / 100 Balance 100 / 100 Weight 95 kg Intake: IV 100 / 100 Rocephin Inj 1,000 MG In NS Inj 100 / 100 100 ML @ 200 mls/hr IV.SIG ONCE ONE Rx#:[id number] Narrative: GENERAL: in NAD, SKIN: Warm and dry. HEAD: Atraumatic. Normocephalic. EYES: Pupils equal and round. No scleral icterus. ENT: No nasal bleeding or discharge. Mucous membranes pink and moist. NECK: Trachea midline. No JVD. CARDIOVASCULAR: Regular rate and rhythm. RESPIRATORY: No accessory muscle use. GASTROINTESTINAL: Abdomen soft, non-tender, nondistended. MUSCULOSKELETAL: Extremities without clubbing, cyanosis, or edema. No obvious deformities. NEUROLOGICAL: Awake and alert. No aphasia, fluent articulate, oriented x3 no facial asymmetry, OU 3-2mm, eomi, VFF, No drift, Motor grossly within normal limits. Increased tone bilateral lower extremities right leg slightly weaker than the left although able raise all 4 extremity to gravity, lower examinee hyperreflexia, no clonus plantarflex response gait not assessed secondary fall risk PSYCHIATRIC: Appropriate mood and affect; insight and judgment normal. - Constitutional no acute distress - Routine HEENT Exam Head: Present: normocephalic Eye: Present: EOMI Results - Labs CBC & Chem 7: 12/16/17 03:35 12/16/17 03:35 Labs: Laboratory Results - last 24 hr 12/16/17 12/16/17 12/16/17 03:35 03:35 05:45 WBC 6.2 RBC 4.82 Hgb 15.3 Hct 45.2 MCV 93.9 MCH 31.8 MCHC 33.9 RDW 16.1 Plt Count 146 L MPV 7.9 Neut % (Auto) 73.1 H Lymph % (Auto) 17.6 [place] % (Auto) 7.3 Eos % (Auto) 1.6 Baso % (Auto) 0.4 Neut # (Auto) 4.6 Lymph # (Auto) 1.1 [place] # (Auto) 0.5 Eos # (Auto) 0.1 Baso # (Auto) 0.0 WBC Differential . Differential Comment Auto diff final Sodium 145 Potassium 3.8 Chloride 111 H Carbon Dioxide 24.2 Anion Gap 10 BUN 22 H Creatinine 1.61 H Estimated GFR 42 L Random Glucose 104 Calcium 8.8 Total Bilirubin 0.4 AST 19 ALT 20 Alkaline Phosphatase 124 H Total Creatine Kinase 118 CK-MB (CK-2) 2.2 Troponin I Less than 0.02 L Total Protein 7.3 Albumin 3.5 Urine Color Yellow Urine Clarity Hazy H Urine pH 5.0 Ur Specific [place] 1.017 Urine Protein Negative Urine Glucose (UA) Negative Urine Ketones Negative Urine Occult Blood Moderate H Urine Nitrate Negative Urine Bilirubin Negative Urine Urobilinogen Less than 2 Ur Leukocyte Esterase Moderate H Urine RBC 9 H Urine WBC 155 H Ur Squamous Epith Cells <1 Urine Bacteria Rare H Urine Mucus Few H Micro UA Comment Culture indicated Ur Microscopic Review Not Reportable Urine Culture Comments Culture indicated - Imaging Impressions Chest X-Ray 12/16/17 03:28 CONCLUSION: No acute cardiopulmonary disease. Head CT 12/16/17 03:28 CONCLUSION: 1. Stable noncontrast head CT. No acute intracranial abnormality is identified. 2. Stable generalized cerebral atrophy and moderate to severe periventricular white matter low-attenuation most likely representing chronic microvascular ischemia. 3. Stable 4 mm metallic foreign body in the subcutaneous fat of the left infraorbital region. . Review/Management - Diagnosis (1) Multiple sclerosis Code(s): G35 - Multiple sclerosis Status: Chronic Current Visit: No (2) Weakness Code(s): R53.1 - Weakness Status: Acute Current Visit: Yes (3) Acute UTI Code(s): N39.0 - Urinary tract infection, site not specified Status: Acute Current Visit: Yes (4) CHUN (acute kidney injury) Code(s): N17.9 - Acute kidney failure, unspecified Status: Acute Current Visit: Yes - Review/Management Plan: Probable decompensation of MS secondary to acute UTI MRI brain, T-spine and L-spine reviewed. Advanced white matter changes no acute lesion Recommendation Monitor clinical response to IV antibiotics If weakness persists will start IV steroids Therapy
[2017-12-16] MEDS ORDERED: [UNRECOGNIZED DRUG - OTHER] SQ SCH (21:00)
[2017-12-16] MEDS ORDERED: GLATIRAMER 20 MG SQ SCH (21:00)
[2017-12-17] MEDS ORDERED: Sodium Chloride 0.9% 2 ML Flush PRN IV.FLUSH (04:44)
[2017-12-17] MEDS: Sod Chloride 0.9% Inj 1,000 ML IV.CONT SCH ×2 (05:37→14:56)
--- NOTE | 2017-12-17 07:47 | P.PNNEU ---
Subjective Subjective Comments: No cp, no dyspnea, , no focal weakness, no vision loss Had mild headache given medication feels better Active Medications: Active Medications Acetaminophen (Tylenol) 650 mg PO Q4H PRN PRN Reason: Temp > 100.4 Hydrocodone Bitart/Acetaminophen ([place] 5/325) 1 tab PO Q4H PRN PRN Reason: PAIN SCALE 3 TO 5 Last Admin: 12/17/17 04:37 Dose: 1 tab Al Hydroxide/Mg Hydroxide (Milk Of Magnesia Liq) 30 ml PO Q12H PRN PRN Reason: Mild Constipation Atorvastatin Calcium (Lipitor) 20 mg PO DAILY [facility] Last Admin: 12/16/17 08:28 Dose: 20 mg Bisacodyl (Dulcolax Supp) 10 mg RECTAL DAILY PRN PRN Reason: SEVERE CONSITIPATION Clopidogrel Bisulfate (Plavix) 75 mg PO [facility] Last Admin: 12/16/17 22:51 Dose: Not Given Doxepin HCl (Sinequan) 10 mg PO [facility] Last Admin: 12/16/17 22:51 Dose: 10 mg Enoxaparin Sodium (Lovenox Inj) 30 mg SQ Q24H [facility] Last Admin: 12/16/17 08:28 Dose: 30 mg Hydralazine HCl (Apresoline) 25 mg PO QID PRN PRN Reason: SEE DOSE INSTRUCTIONS Last Admin: 12/17/17 02:44 Dose: 25 mg Ceftriaxone Sodium 1,000 mg/ (Sodium Chloride) 100 mls @ 200 mls/hr IV.SIG Q24H [facility] Last Infusion: 12/17/17 06:38 Dose: Infused Sodium Chloride (Ns Inj) 1,000 mls @ 100 mls/hr IV.CONT .Q10H [facility] Last Admin: 12/17/17 05:37 Dose: 100 mls/hr Lactulose (Lactulose Liq) 30 ml PO DAILY PRN PRN Reason: SEVERE CONSITIPATION Metoprolol Tartrate (Lopressor) 25 mg PO BID [facility] Last Admin: 12/16/17 22:51 Dose: 25 mg Miscellaneous (Pill Splitter) 1 each OTHER UNSCH [facility] Naloxone HCl (Narcan Inj) 0.4 mg IV.PUSH UNSCH PRN PRN Reason: SEE LABEL COMMENTS Niacin (Slo-Niacin) 1,000 mg PO [facility] Last Admin: 12/16/17 22:52 Dose: 1,000 mg Ondansetron HCl (Zofran Inj) 4 mg IV.PUSH Q6H PRN PRN Reason: NAUSEA OR VOMITING Ptownmed (Glatiramer ([Copaxone] 20 Mg)) 0 each SQ HS [facility] Last Admin: 12/16/17 22:51 Dose: Not Given Senna/Docusate Sodium (Merle-Colace) 1 tab PO BID [facility] Last Admin: 12/16/17 22:52 Dose: Not Given Sennosides (Senokot) 17.2 mg PO Q12H PRN PRN Reason: Moderate Constipation Sodium Chloride (Ns Flush) 2 ml IV.FLUSH BID [facility] Sodium Chloride (Ns Flush) 2 ml IV.FLUSH PRN PRN PRN Reason: FLUSH AFTER USING IV ACCESS Tamsulosin HCl (Flomax) 0.4 mg PO BID [facility] Last Admin: 12/16/17 22:50 Dose: 0.4 mg Allergies/Adverse Reactions: Allergies Allergy/AdvReac Type Severity Reaction Status Date / Time fexofenadine Allergy Severe CAUSES Verified 12/13/17 14:49 PROSTATE ISSUES Review of Systems All other systems reviewed negative except as stated in HPI Physical Exam Vital signs: Vital Signs 12/16/17 11:07 12/16/17 12:00 12/16/17 16:05 Temperature 97.6 F 98.0 F Pulse Rate 67 64 66 Respiratory Rate 18 23 18 Blood Pressure 148/80 H 178/86 H 162/80 H Pulse Oximetry 98 98 99 12/16/17 19:58 12/16/17 20:00 12/17/17 00:00 Temperature 98.1 F 98.3 F Pulse Rate 66 66 Respiratory Rate 18 18 17 Blood Pressure 168/83 H 187/97 H Pulse Oximetry 98 99 12/17/17 04:00 Temperature 97.9 F Pulse Rate 63 Respiratory Rate 18 Blood Pressure 190/100 H Pulse Oximetry 97 Intake & Output 12/16/17 12/17/17 12/17/17 18:59 06:59 18:59 Intake Total 1060 / 1060 1340 / 1340 Output Total 1500 / 1500 900 / 900 Balance -440 / -440 440 / 440 Weight 85.4 kg Intake: IV 100 / 100 1100 / 1100 NS Inj 1,000 ML @ 100 mls/hr IV 1000 / 1000 .CONT .Q10H [facility] Rx#:[id number] Rocephin Inj 1,000 MG In NS Inj 100 / 100 100 / 100 100 ML @ 200 mls/hr IV.SIG Q24H [facility] Rx#:[id number] Oral 960 / 960 240 / 240 Output: Urine 1500 / 1500 900 / 900 Other: # Bowel Movements 0 Narrative: GENERAL: in NAD, SKIN: Warm and dry. HEAD: Atraumatic. Normocephalic. EYES: Pupils equal and round. No scleral icterus. ENT: No nasal bleeding or discharge. Mucous membranes pink and moist. NECK: Trachea midline. No JVD. CARDIOVASCULAR: Regular rate and rhythm. RESPIRATORY: No accessory muscle use. GASTROINTESTINAL: Abdomen soft, non-tender, nondistended. MUSCULOSKELETAL: Extremities without clubbing, cyanosis, or edema. No obvious deformities. NEUROLOGICAL: Awake and alert. No aphasia, fluent articulate, oriented x3 no facial asymmetry, OU 3-2mm, eomi, VFF, No drift, Motor grossly within normal limits. Increased tone bilateral lower extremities right leg slightly weaker than the left although able raise all 4 extremity to gravity, lower examinee hyperreflexia, no clonus plantarflex response gait not assessed secondary fall risk PSYCHIATRIC: Appropriate mood and affect; insight and judgment normal. - Constitutional no acute distress - Routine HEENT Exam Head: Present: normocephalic Review/Management - Diagnosis (1) Multiple sclerosis Code(s): G35 - Multiple sclerosis Status: Chronic Current Visit: No (2) Weakness Code(s): R53.1 - Weakness Status: Acute Current Visit: Yes (3) Acute UTI Code(s): N39.0 - Urinary tract infection, site not specified Status: Acute Current Visit: Yes (4) CHUN (acute kidney injury) Code(s): N17.9 - Acute kidney failure, unspecified Status: Acute Current Visit: Yes - Review/Management Plan: Probable decompensation of MS secondary to acute UTI MRI brain, T-spine and L-spine reviewed. Advanced white matter changes no acute lesion Recommendation Strength appears little better his legs today Continue treatment for UTI Therapy May require inpatient rehabilitation
[2017-12-17 08:06] LABS: Alanine Aminotransferase 17 U/L (12-78); Albumin 2.8 g/dL (3.4-5.0); Alkaline Phosphatase 102 U/L (45-117); Anion Gap 10 meq/L (5-15); Aspartate Aminotransferase 15 U/L (15-37); Blood Urea Nitrogen 20 mg/dL (7-18); Calcium 8.1 mg/dL (8.5-10.1); Chloride 109 meq/L (98-107); Glomerular Filtration Rate 66 mL/min (>89); Glucose,Random 104 mg/dL (74-106); Potassium 3.8 meq/L (3.5-5.1); Sodium 140 meq/L (136-145); Total Protein 6.1 g/dL (6.4-8.2)
[2017-12-17 08:07] LABS: Baso % (Auto) 0.3 % (0.0-2.0); Eos # (Auto) 0.1 th/mm3 (0.0-0.4); Eos % (Auto) 2.1 % (0.0-4.0); Hematocrit 42.2 % (39.0-51.0); Hemoglobin 14.2 gm/dL (13.0-17.0); Lymph # (Auto) 1.5 th/mm3 (1.0-4.8); Mean Corpuscular HGB Conc 33.6 % (32.0-36.0); Mean Corpuscular Hemoglobin 32.1 pg (27.0-34.0); Mean Corpuscular Volume 95.4 fL (80.0-100.0); Mean Platelet Volume 7.8 fL (7.0-11.0); Mono # (Auto) 0.4 th/mm3 (0.0-0.9); Mono % (Auto) 7.5 % (0.0-8.0); Neut # (Auto) 3.4 th/mm3 (1.8-7.7); Neut % (Auto) 62.1 % (16.0-70.0); Platelet Count 131 th/mm3 (150-450); Red Blood Count 4.43 mil/mm3 (4.50-5.90); Red Cell Distribution Width 15.8 % (11.6-17.2); White Blood Count 5.4 th/mm3 (4.0-11.0)
[2017-12-17] MEDS: Enoxaparin Inj 30 MG/0.3 ML Syringe SQ SCH (09:04)
[2017-12-17] MEDS: Metoprolol Tartrate 25 MG Tablet PO SCH (09:05)
[2017-12-17] MEDS: Sodium Chloride 0.9% 2 ML Flush BID IV.FLUSH SCH ×2 (09:05→20:29)
[2017-12-17] MEDS: Senna/Docusate Sodium 8.6/50 MG Tablet PO SCH ×2 (09:06→20:28)
--- NOTE | 2017-12-17 09:41 | P.PNFP ---
Subjective Interval history: Overnight had multiple readings of increased blood pressure (max: 190/100) and was given hydralazine and clonidine. He was seen by neurology yesterday (Dr. Li). Patient reports feeling a little better this morning. He denies any episodes of incontinence prior to/or during his hospital stay, but does have a diagnosis of overactive bladder and has lost control of his bladder during hospitalization, he says secondary to urgency and decreased mobility. He denies any headache, lightheadedness, chest pain, shortness of breath, new urinary symptoms, or changes in sensation. He is currently wearing a condom cath. <Nam Rudolph - 12/17/17 15:54> Results - Labs Result diagrams: 12/17/17 06:40 12/17/17 06:40 <Amador Alarcon - 12/17/17 19:38> Abnormal lab results 12/17/17 12/17/17 Range/Units 06:40 06:40 RBC 4.43 L (4.50-5.90) mil/mm3 Plt Count 131 L (150-450) th/mm3 Chloride 109 H (98-107) meq/L BUN 20 H (7-18) mg/dL Estimated GFR 66 L (>89) mL/min Calcium 8.1 L (8.5-10.1) mg/dL Total Protein 6.1 L D (6.4-8.2) g/dL Albumin 2.8 L D (3.4-5.0) g/dL Short CBC 12/17/17 Range/Units 06:40 WBC 5.4 (4.0-11.0) th/mm3 Hgb 14.2 (13.0-17.0) gm/dL Hct 42.2 (39.0-51.0) % Plt Count 131 L (150-450) th/mm3 BMP 12/17/17 06:40 Sodium 140 Potassium 3.8 Chloride 109 H Carbon Dioxide 21.0 BUN 20 H Creatinine 1.09 Calcium 8.1 L Liver Function 12/17/17 Range/Units 06:40 Total Bilirubin 0.3 (0.2-1.0) mg/dL AST 15 (15-37) U/L ALT 17 (12-78) U/L Alkaline Phosphatase 102 (45-117) U/L Albumin 2.8 L D (3.4-5.0) g/dL <Amador Alarcon K - 12/17/17 19:38> Abnormal lab results 12/17/17 12/17/17 Range/Units 06:40 06:40 RBC 4.43 L (4.50-5.90) mil/mm3 Plt Count 131 L (150-450) th/mm3 Chloride 109 H (98-107) meq/L BUN 20 H (7-18) mg/dL Estimated GFR 66 L (>89) mL/min Calcium 8.1 L (8.5-10.1) mg/dL Total Protein 6.1 L D (6.4-8.2) g/dL Albumin 2.8 L D (3.4-5.0) g/dL Short CBC 12/17/17 Range/Units 06:40 WBC 5.4 (4.0-11.0) th/mm3 Hgb 14.2 (13.0-17.0) gm/dL Hct 42.2 (39.0-51.0) % Plt Count 131 L (150-450) th/mm3 BMP 12/17/17 06:40 Sodium 140 Potassium 3.8 Chloride 109 H Carbon Dioxide 21.0 BUN 20 H Creatinine 1.09 Calcium 8.1 L Liver Function 12/17/17 Range/Units 06:40 Total Bilirubin 0.3 (0.2-1.0) mg/dL AST 15 (15-37) U/L ALT 17 (12-78) U/L Alkaline Phosphatase 102 (45-117) U/L Albumin 2.8 L D (3.4-5.0) g/dL <Nam Rudolph - 12/17/17 09:41> Physical Exam Vital signs: Vital Signs 12/16/17 19:58 12/16/17 20:00 12/17/17 00:00 Temperature 98.1 F 98.3 F Pulse Rate 66 66 Respiratory Rate 18 18 17 Blood Pressure 168/83 H 187/97 H Pulse Oximetry 98 99 12/17/17 04:00 12/17/17 08:00 12/17/17 12:00 Temperature 97.9 F 97.5 F L 97.8 F Pulse Rate 63 57 L 65 Respiratory Rate 18 20 Blood Pressure 190/100 H 177/92 H 182/88 H Pulse Oximetry 97 98 97 10/10/18 12:52 12/17/17 15:45 Temperature 97.9 F Pulse Rate 53 L Respiratory Rate 16 Blood Pressure 100/62 164/88 H Pulse Oximetry 96 Intake & Output 12/17/17 12/17/17 12/18/17 06:59 18:59 06:59 Intake Total 1340 / 1340 1420 / 1420 Output Total 900 / 900 1800 / 1800 Balance 440 / 440 -380 / -380 Weight 85.4 kg Intake: IV 1100 / 1100 1000 / 1000 NS Inj 1,000 ML @ 50 mls/hr IV. 1000 / 1000 1000 / 1000 CONT .Q20H [facility] Rx#:[id number] Rocephin Inj 1,000 MG In NS Inj 100 / 100 100 ML @ 200 mls/hr IV.SIG Q24H [facility] Rx#:[id number] Oral 240 / 240 420 / 420 Output: Urine 900 / 900 1800 / 1800 Other: # Bowel Movements 0 0 <Amador Alarcon - 12/17/17 19:38> Vital Signs 12/16/17 11:07 12/16/17 12:00 12/16/17 16:05 Temperature 97.6 F 98.0 F Pulse Rate 67 64 66 Respiratory Rate 18 23 18 Blood Pressure 148/80 H 178/86 H 162/80 H Pulse Oximetry 98 98 99 12/16/17 19:58 12/16/17 20:00 12/17/17 00:00 Temperature 98.1 F 98.3 F Pulse Rate 66 66 Respiratory Rate 18 18 17 Blood Pressure 168/83 H 187/97 H Pulse Oximetry 98 99 12/17/17 04:00 Temperature 97.9 F Pulse Rate 63 Respiratory Rate 18 Blood Pressure 190/100 H Pulse Oximetry 97 Intake & Output 12/16/17 12/17/17 12/17/17 18:59 06:59 18:59 Intake Total 1060 / 1060 1340 / 1340 Output Total 1500 / 1500 900 / 900 Balance -440 / -440 440 / 440 Weight 85.4 kg Intake: IV 100 / 100 1100 / 1100 NS Inj 1,000 ML @ 100 mls/hr IV 1000 / 1000 .CONT .Q10H [facility] Rx#:[id number] Rocephin Inj 1,000 MG In NS Inj 100 / 100 100 / 100 100 ML @ 200 mls/hr IV.SIG Q24H [facility] Rx#:[id number] Oral 960 / 960 240 / 240 Output: Urine 1500 / 1500 900 / 900 Other: # Bowel Movements 0 <Nam Rudolph - 12/17/17 09:41> Narrative: General: Well-developed, alert, and in no acute distress. Appears stated age HEENT: Atraumatic, PERRL, non-icteric sclera and no conjunctival injection, moist mucous membranes. Neck: Supple, non-tender without masses or lymphadenopathy, trachea midline Cardiac: Regular rate and rhythm without murmurs Pulmonary: Non-labored breathing. Lungs clear to auscultation bilaterally with good air movement Abdomen: Normal bowel sounds, soft and non-tender without rebound or guarding Extremities: No edema, 2+ pedal pulses, capillary refill less than 2 seconds Neurologic: 5/5 strength bilateral upper extremities. 4/5 LLE and 3.5/5 LLE. Symmetric tone in b/l upper and lower extremities. <Nam Rudolph - 12/17/17 15:54> Assessment and Plan - Assessment (1) Weakness Code(s): R53.1 - Weakness Status: Acute (2) Acute UTI Code(s): N39.0 - Urinary tract infection, site not specified Status: Acute (3) CHUN (acute kidney injury) Code(s): N17.9 - Acute kidney failure, unspecified Status: Acute (4) Multiple sclerosis Code(s): G35 - Multiple sclerosis Status: Chronic (5) CAD (coronary artery disease) Code(s): I25.10 - Atherosclerotic heart disease of platinum coronary artery without angina pectoris Status: Chronic (6) Hypertension Code(s): I10 - Essential (primary) hypertension Status: Chronic (7) Hyperlipidemia Code(s): E78.5 - Hyperlipidemia, unspecified Status: Chronic (8) Nutrition, metabolism, and development symptoms Code(s): R63.8 - Other symptoms and signs concerning food and fluid intake Status: Acute (9) DVT prophylaxis Status: Acute <Amador Alarcon - 12/17/17 19:38> (1) Weakness Code(s): R53.1 - Weakness Status: Acute (2) Acute UTI Code(s): N39.0 - Urinary tract infection, site not specified Status: Acute (3) CHUN (acute kidney injury) Code(s): N17.9 - Acute kidney failure, unspecified Status: Acute (4) Multiple sclerosis Code(s): G35 - Multiple sclerosis Status: Chronic (5) CAD (coronary artery disease) Code(s): I25.10 - Atherosclerotic heart disease of platinum coronary artery without angina pectoris Status: Chronic (6) Hypertension Code(s): I10 - Essential (primary) hypertension Status: Chronic (7) Hyperlipidemia Code(s): E78.5 - Hyperlipidemia, unspecified Status: Chronic (8) Nutrition, metabolism, and development symptoms Code(s): R63.8 - Other symptoms and signs concerning food and fluid intake Status: Acute (9) DVT prophylaxis Status: Acute <Nam Rudolph - 12/17/17 15:58> - Assessment and Plan Weakness/ambulatory dysfunction -Neurology consult recommendation (Dr. Li): probable decompensation of MS secondary to acute UTI; monitor clinical response to IV antibiotics and if weakness persists will reassess and consider starting IV steroids -Occupational Tx consult: no OT needed -Physical therapy recommends PT at rehab -Orthostatic hypotension: SBP of 150 supine and 100 standing. -Stop metoprolol, all blood pressure in standing position from this point forward Urinary tract infection - UA suspicious for acute infection, culture showing mixed gram-positive parisa ( possible contaminant) -His recent UA from 12/13 also showed possible contaminants (strep viridans) - Received 1 dose of Rocephin in the ED - Continue IV Rocephin, will consider switch to p.o. tomorrow Multiple sclerosis - MRI brain, cervical spine, thoracic spine, and lumbar spine showed no acute demyelinating lesions - Continue home medication: Copaxone 20 mg Acute kidney injury - Improved, BUN/Creatinine today: 29/03.09 -Fluids discontinued today due to improved function and adequate p.o. intake Coronary artery disease - Continue home medication Plavix 75 mg Hypertension - Lisinopril 20mg -Stop home medication metoprolol due to orthostatic hypotension Hyperlipidemia - Continue home medication atorvastatin Fluids: Adequate p.o. intake Electrolytes: monitor and replete as needed Nutrition: Regular diet GI prophylaxis: not indicated VTE prophylaxis: Early ambulation and Lovenox <Nam Rudolph - 12/17/17 16:06> - Attending Attestation The exam, history, and the medical decision-making described in the above note were completed with the assistance of the resident physician. I reviewed and agree with the findings presented. I attest that I had a [id number] encounter with the patient on the same day, and personally performed and documented my assessment and findings in the medical record. Feels he has some more strength today. would like to work with PT more. Difficult to tell differnece on exam. Noted orthostatics, will stop metoprolol and change to standing BPs only, will add ACEi for BP control instead if needed. Cont to treat UTI and wait for urine culture and monitor for improvement appreciate neurology recommendations. <Amador Alarcon - 12/17/17 19:38> <Nam Rudolph J - Last Filed: 12/17/17 15:58> (6) Hypertension Qualifiers: Hypertension type: unspecified Qualified Code(s): I10 - Essential (primary) hypertension (7) Hyperlipidemia Qualifiers: Hyperlipidemia type: unspecified Qualified Code(s): E78.5 - Hyperlipidemia, unspecified <Amador Alarcon K - Last Filed: 12/17/17 19:38> (6) Hypertension Qualifiers: Hypertension type: unspecified Qualified Code(s): I10 - Essential (primary) hypertension (7) Hyperlipidemia Qualifiers: Hyperlipidemia type: unspecified Qualified Code(s): E78.5 - Hyperlipidemia, unspecified <Nam Rudolph J - Last Filed: 12/17/17 15:58> (6) Hypertension Qualifiers: Hypertension type: unspecified Qualified Code(s): I10 - Essential (primary) hypertension (7) Hyperlipidemia Qualifiers: Hyperlipidemia type: unspecified Qualified Code(s): E78.5 - Hyperlipidemia, unspecified <Amador Alarcon K - Last Filed: 12/17/17 19:38> (6) Hypertension Qualifiers: Hypertension type: unspecified Qualified Code(s): I10 - Essential (primary) hypertension (7) Hyperlipidemia Qualifiers: Hyperlipidemia type: unspecified Qualified Code(s): E78.5 - Hyperlipidemia, unspecified
[2017-12-17] MEDS: Lisinopril 10 MG Tablet PO SCH (11:32)
[2017-12-17] MEDS ORDERED: GLATIRAMER ACETATE SQ SCH (22:30)
[2017-12-18 08:45] VITALS: PULSE 65
[2017-12-18 09:25] LABS: Carbon Dioxide 21.8 meq/L (21.0-32.0); Potassium 4.4 meq/L (3.5-5.1)
[2017-12-18] MEDS: Sodium Chloride 0.9% 2 ML Flush BID IV.FLUSH SCH (09:35)
[2017-12-18] MEDS: Enoxaparin Inj 30 MG/0.3 ML Syringe SQ SCH (09:35)
[2017-12-18] MEDS: Senna/Docusate Sodium 8.6/50 MG Tablet PO SCH ×2 (09:35→10:10)
[2017-12-18] MEDS: Lisinopril 10 MG Tablet PO SCH (10:08)
--- NOTE | 2017-12-18 10:52 | P.PNNEU ---
Subjective Subjective Comments: no cp, no mills. got his copaxone late; d/w rn. feels better. wants to go to rehab Active Medications: Active Medications Acetaminophen (Tylenol) 650 mg PO Q4H PRN PRN Reason: Temp > 100.4 Hydrocodone Bitart/Acetaminophen ([place] 5/325) 1 tab PO Q4H PRN PRN Reason: PAIN SCALE 3 TO 5 Last Admin: 12/17/17 04:37 Dose: 1 tab Al Hydroxide/Mg Hydroxide (Milk Of Magnesia Liq) 30 ml PO Q12H PRN PRN Reason: Mild Constipation Atorvastatin Calcium (Lipitor) 20 mg PO DAILY [facility] Last Admin: 12/18/17 09:35 Dose: 20 mg Bisacodyl (Dulcolax Supp) 10 mg RECTAL DAILY PRN PRN Reason: SEVERE CONSITIPATION Clopidogrel Bisulfate (Plavix) 75 mg PO HS [facility] Last Admin: 12/17/17 20:27 Dose: 75 mg Enoxaparin Sodium (Lovenox Inj) 30 mg SQ Q24H [facility] Last Admin: 12/18/17 09:35 Dose: 30 mg Lactulose (Lactulose Liq) 30 ml PO DAILY PRN PRN Reason: SEVERE CONSITIPATION Lisinopril (Prinivil) 10 mg PO DAILY [facility] Last Admin: 12/18/17 10:08 Dose: Not Given Miscellaneous (Pill Splitter) 1 each OTHER UNSCH [facility] Naloxone HCl (Narcan Inj) 0.4 mg IV.PUSH UNSCH PRN PRN Reason: SEE LABEL COMMENTS Niacin (Slo-Niacin) 1,000 mg PO [facility] Last Admin: 12/17/17 20:44 Dose: 1,000 mg Nitrofurantoin Macrocrystals ([facility]ro[facility]) [facility] Ondansetron [facility] (Zofran Inj) 4 mg IV.PUSH Q6H PRN PRN Reason: NAUSEA OR VOMITING [place]: Copaxone ( Glatiramer Acetate) 20 Mg Subq At Bedtime 1 each SQ HS [facility] Last Admin: 12/17/17 22:51 Dose: 1 each Senna/Docusate Sodium (Merle-Colace) 1 tab PO BID [facility] Last Admin: 12/18/17 10:10 Dose: Not Given Sennosides (Senokot) 17.2 mg PO Q12H PRN PRN Reason: Moderate Constipation Sodium Chloride (Ns Flush) 2 ml IV.FLUSH BID [facility] Last Admin: 12/18/17 09:35 Dose: 2 ml Sodium Chloride (Ns Flush) 2 ml IV.FLUSH PRN PRN PRN Reason: FLUSH AFTER USING IV ACCESS Tamsulosin HCl (Flomax) 0.4 mg PO BID [facility] Last Admin: 12/18/17 09:35 Dose: 0.4 mg Allergies/Adverse Reactions: Allergies Allergy/AdvReac Type Severity Reaction Status Date / Time fexofenadine Allergy Severe CAUSES Verified 12/13/17 14:49 PROSTATE ISSUES Review of Systems All other systems reviewed negative except as stated in HPI Physical Exam Vital signs: Vital Signs 12/17/17 12:00 12/17/17 12:52 12/17/17 15:45 Temperature 97.8 F 97.9 F Pulse Rate 65 53 L Respiratory Rate 16 Blood Pressure 182/88 H 100/62 164/88 H Pulse Oximetry 97 96 12/17/17 19:49 12/17/17 20:00 12/18/17 00:00 Temperature 97.5 F L 100.2 F H 98.7 F Pulse Rate 54 L 95 H 68 Respiratory Rate 18 16 16 Blood Pressure 162/76 H 116/70 162/75 H Pulse Oximetry 96 94 L 97 12/18/17 04:00 12/18/17 08:00 Temperature 98.1 F 97.9 F Pulse Rate 76 65 Respiratory Rate 16 17 Blood Pressure 132/78 166/87 H Pulse Oximetry 97 Intake & Output 12/17/17 12/18/17 12/18/17 18:59 06:59 18:59 Intake Total 1420 / 1420 340 / 340 Output Total 1800 / 1800 Balance -380 / -380 340 / 340 Weight 84 kg Intake: IV 1000 / 1000 100 / 100 NS Inj 1,000 ML @ 50 mls/hr IV. 1000 / 1000 CONT .Q20H [facility] Rx#:[id number] Rocephin Inj 1,000 MG In NS Inj 100 / 100 100 ML @ 200 mls/hr IV.SIG Q24H [facility] Rx#:[id number] Oral 420 / 420 240 / 240 Output: Urine 1800 / 1800 Other: # Voids 5 # Bowel Movements 0 0 Narrative: GENERAL: in NAD, SKIN: Warm and dry. HEAD: Atraumatic. Normocephalic. EYES: Pupils equal and round. No scleral icterus. ENT: No nasal bleeding or discharge. Mucous membranes pink and moist. NECK: Trachea midline. No JVD. CARDIOVASCULAR: Regular rate and rhythm. RESPIRATORY: No accessory muscle use. GASTROINTESTINAL: Abdomen soft, non-tender, nondistended. MUSCULOSKELETAL: Extremities without clubbing, cyanosis, or edema. No obvious deformities. NEUROLOGICAL: sitting up in a chair, Awake and alert. follows, No aphasia, fluent articulate, oriented x3 no facial asymmetry, OU 3-2mm, eomi, VFF, No drift, Motor grossly within normal limits. Increased tone bilateral lower extremities right leg 3-4/5 slightly weaker than the left 5-/5 although able raise all 4 extremity to gravity, lower extremity hyperreflexia, no clonus plantarflex response gait not assessed secondary fall risk PSYCHIATRIC: Appropriate mood and affect; insight and judgment normal. - Constitutional no acute distress - Routine HEENT Exam Head: Present: normocephalic Eye: Present: EOMI Objective Laboratory Results - last 24 hr 12/18/17 07:22 Sodium 137 Potassium 4.4 Chloride 106 Carbon Dioxide 21.8 Anion Gap 9 BUN 22 H Creatinine 1.33 H Estimated GFR 53 L Random Glucose 104 Calcium 9.0 D Microbiology 12/16/17 05:45 Urine Culture - Final Clean Catch Urine 10-50,000 cfu/mL mixed gram positive parisa (probable contaminants) Review/Management - Diagnosis (1) Multiple sclerosis Code(s): G35 - Multiple sclerosis Status: Chronic Current Visit: No (2) Weakness Code(s): R53.1 - Weakness Status: Acute Current Visit: Yes (3) Acute UTI Code(s): N39.0 - Urinary tract infection, site not specified Status: Acute Current Visit: Yes (4) CHUN (acute kidney injury) Code(s): N17.9 - Acute kidney failure, unspecified Status: Acute Current Visit: Yes - Review/Management Plan: Probable decompensation of MS secondary to acute UTI MRI brain, T-spine and L-spine reviewed. Advanced white matter changes no acute lesion Recommendation neuro stable. d/w pt steroid trial as adjunctive. declines and want to go to rehab Therapy ok for inpatient rehabilitation
[2017-12-18] MEDS ORDERED: Nitrofurantoin Monohydrate-Macrocrystal 100 MG Capsule PO SCH (11:00)
--- NOTE | 2017-12-18 11:09 | P.PNFP ---
Subjective Interval history: No overnight reports for patient. Patient reports feeling better this morning and is agreeable with going to inpatient rehabilitation. Patient was seen by neurology and declined adjunctive steroid treatment. We spoke to patient about orthostatic hypotension episodes and he was agreeable with discontinuing Doxepin home medication to assess if there are any improvements with his hypotension. He denies any headache, lightheadedness, chest pain, abdominal distention/pain, dysuria or trouble with bowel movements, but does report overnight urinary frequency. We have spoken to case management and are waiting for patient to be accepted into [facility] inpatient rehabilitation facility. <Herminia Peoples T - 12/18/17 11:30> Results - Labs Result diagrams: 12/17/17 06:40 12/18/17 07:22 <Amador Alarcon - 12/18/17 12:17> Abnormal lab results 12/18/17 Range/Units 07:22 BUN 22 H (7-18) mg/dL Creatinine 1.33 H (0.60-1.30) mg/dL Estimated GFR 53 L (>89) mL/min [facility] 12/18/17 07:22 Sodium 137 Potassium 4.4 Chloride 106 Carbon Dioxide 21.8 BUN 22 H Creatinine 1.33 H Calcium 9.0 D <Amador Alarcon - 12/18/17 12:17> Abnormal lab results 12/18/17 Range/Units 07:22 BUN 22 H (7-18) mg/dL Creatinine 1.33 H (0.60-1.30) mg/dL Estimated GFR 53 L (>89) mL/min [facility] 12/18/17 07:22 Sodium 137 Potassium 4.4 Chloride 106 Carbon Dioxide 21.8 BUN 22 H Creatinine 1.33 H Calcium 9.0 D <Herminia Peoples - 12/18/17 11:09> Physical Exam Vital signs: Vital Signs 12/17/17 12:52 12/17/17 15:45 12/17/17 19:49 Temperature 97.9 F 97.5 F L Pulse Rate 53 L 54 L Respiratory Rate 16 18 Blood Pressure 100/62 164/88 H 162/76 H Pulse Oximetry 96 96 12/17/17 20:00 12/18/17 00:00 12/18/17 04:00 Temperature 100.2 F H 98.7 F 98.1 F Pulse Rate 95 H 68 76 Respiratory Rate 16 16 16 Blood Pressure 116/70 162/75 H 132/78 Pulse Oximetry 94 L 97 12/18/17 08:00 12/18/17 11:40 Temperature 97.9 F 97.6 F Pulse Rate 65 65 Respiratory Rate 17 16 Blood Pressure 166/87 H 123/67 Pulse Oximetry 97 99 Intake & Output 12/17/17 12/18/17 12/18/17 18:59 06:59 18:59 Intake Total 1420 / 1420 340 / 340 Output Total 1800 / 1800 Balance -380 / -380 340 / 340 Weight 84 kg Intake: IV 1000 / 1000 100 / 100 NS Inj 1,000 ML @ 50 mls/hr IV. 1000 / 1000 CONT .Q20H TOÑA Rx#:[id number] Rocephin Inj 1,000 MG In NS Inj 100 / 100 100 ML @ 200 mls/hr IV.SIG Q24H [place] Rx#:[id number] Oral 420 / 420 240 / 240 Output: Urine 1800 / 1800 Other: # Voids 5 # Bowel Movements 0 0 <Amador Alarcon - 12/18/17 12:17> Vital Signs 12/17/17 12:00 12/17/17 12:52 12/17/17 15:45 Temperature 97.8 F 97.9 F Pulse Rate 65 53 L Respiratory Rate 16 Blood Pressure 182/88 H 100/62 164/88 H Pulse Oximetry 97 96 12/17/17 19:49 12/17/17 20:00 12/18/17 00:00 Temperature 97.5 F L 100.2 F H 98.7 F Pulse Rate 54 L 95 H 68 Respiratory Rate 18 16 16 Blood Pressure 162/76 H 116/70 162/75 H Pulse Oximetry 96 94 L 97 12/18/17 04:00 12/18/17 08:00 Temperature 98.1 F 97.9 F Pulse Rate 76 65 Respiratory Rate 16 17 Blood Pressure 132/78 166/87 H Pulse Oximetry 97 Intake & Output 12/17/17 12/18/17 12/18/17 18:59 06:59 18:59 Intake Total 1420 / 1420 340 / 340 Output Total 1800 / 1800 Balance -380 / -380 340 / 340 Weight 84 kg Intake: IV 1000 / 1000 100 / 100 NS Inj 1,000 ML @ 50 mls/hr IV. 1000 / 1000 CONT .Q20H TOÑA Rx#:[id number] Rocephin Inj 1,000 MG In NS Inj 100 / 100 100 ML @ 200 mls/hr IV.SIG Q24H TOÑA Rx#:[id number] Oral 420 / 420 240 / 240 Output: Urine 1800 / 1800 Other: # Voids 5 # Bowel Movements 0 0 <Herminia Peoples 12/18/17 11:09> Narrative: GENERAL: Patient is laying comfortably in hospital bed, is pleasant and appears to be in no acute distress. SKIN: Warm and dry. HEAD: Atraumatic. Normocephalic. EYES: Pupils equal and round. No scleral icterus. ENT: No nasal bleeding or discharge. Mucous membranes pink and moist. NECK: Trachea midline. No JVD. CARDIOVASCULAR: Regular rate and rhythm. RESPIRATORY: No accessory muscle use. GASTROINTESTINAL: Abdomen soft, non-tender, nondistended. MUSCULOSKELETAL: Extremities without clubbing, cyanosis, or edema. No obvious deformities. NEUROLOGICAL: Patient is alert and oriented x3. Normal ROM in upper and lower extremities. Lower extremity motor strength 4/5. Patient needs wheeled walker assistance for ambulation. PSYCHIATRIC: Appropriate mood and affect; insight and judgment normal. <Herminia Peoples 12/18/17 11:30> - Constitutional no acute distress, cooperative <Herminia Peoples 12/18/17 11:09> - Routine HEENT Exam Head: Absent: facial swelling <Herminia Peoples 12/18/17 11:09> ENT: Present: mucous membranes moist <Herminia Peoples 12/18/17 11:09> - Routine Cardiovascular Exam Present: RRR, S1, S2. Absent: murmur, gallop <Herminia Peoples 12/18/17 11: 30> - Routine Abdominal Exam Present: soft, normoactive bowel sounds. Absent: tenderness, distended, guarding <Herminia Peoples 12/18/17 11:30> - Routine Extremities Exam Absent: cyanosis, clubbing <Herminia Peoples 12/18/17 11:30> Assessment and Plan - Assessment (1) Weakness Code(s): R53.1 - Weakness Status: Acute (2) Acute UTI Code(s): N39.0 - Urinary tract infection, site not specified Status: Acute (3) CHUN (acute kidney injury) Code(s): N17.9 - Acute kidney failure, unspecified Status: Acute (4) Multiple sclerosis Code(s): G35 - Multiple sclerosis Status: Chronic (5) CAD (coronary artery disease) Code(s): I25.10 - Atherosclerotic heart disease of [place] coronary artery without angina pectoris Status: Chronic (6) Hypertension Code(s): I10 - Essential (primary) hypertension Status: Chronic (7) Hyperlipidemia Code(s): E78.5 - Hyperlipidemia, unspecified Status: Chronic (8) Nutrition, metabolism, and development symptoms Code(s): R63.8 - Other symptoms and signs concerning food and fluid intake Status: Acute (9) DVT prophylaxis Status: Acute <Amador Alarcon - 12/18/17 12:17> (1) Weakness Code(s): R53.1 - Weakness Status: Acute Plan: Pt presenting with fall due to weakness in his legs. This is the 2nd fall within the past few days. Physical exam shows decreased strength in right lower extremity (3/5) and left upper extremity (4/5). Maybe due to acute MS flare versus CVA versus spinal cord injury versus deconditioning versus infectious etiology. Head CT without contrast on admission showed no acute intracranial abnormality, stable generalized cerebral atrophy and moderate to severe periventricular white matter low-attenuation. Head MRI on 12/13 showed extensive white matter changes CXR on admission showed no acute cardiopulmonary disease - Will discuss with primary team treating patient for acute MS flare vs other etiologies - OT Consult: no home OT recommendation - PT Consult: recommended home physical therapy; reconsult today - Case management consulted for possible SNF placement due to patient being admitted for unsafe discharge (2) Acute UTI Code(s): N39.0 - Urinary tract infection, site not specified Status: Acute Plan: Patient with no symptoms of UTI, UA on admission shows moderate leukocyte esterase, many WBCs, rare bacteria. Patient was diagnosed previously on 12/13 with a UTI and was given Bactrim prescription. Urine culture from 12/13 shows viridans Streptococcus, susceptibilities pending Urine culture from 12/16 pending Given 1 dose of ceftriaxone 1000 mg IV in ED -Ceftriaxone 2000 mg IV daily, step-down regimen once cultures have resulted (3) CHUN (acute kidney injury) Code(s): N17.9 - Acute kidney failure, unspecified Status: Acute Plan: Creatinine on admission is 1.61. Baseline appears to be 0.97 on 12/08. BUN:Cr is ~14, therefore prerenal etiology is unlikely. Maybe medication induced vs intrarenal vs postrenal (hx of BPH, imaging showing R hydronephrosis and hydroureter) vs infection Lumbar spine MRI on 12/13 showed mild hydronephrosis and hydroureter on the right. Only partially visualized - Half maintenance fluids today to: NS@50mls/hr - Improved BUN/creatinine today: 29/03.09 - Avoid nephrotoxic agents (4) Multiple sclerosis Code(s): G35 - Multiple sclerosis Status: Chronic Plan: Patient on Copaxone 20 mg at home, will discuss patient obtaining medication from home to take in hospital (5) CAD (coronary artery disease) Code(s): I25.10 - Atherosclerotic heart disease of [place] coronary artery without angina pectoris Status: Chronic Plan: Continue at home Plavix 75 mg p.o. at bedtime (6) Hypertension Code(s): I10 - Essential (primary) hypertension Status: Chronic Plan: Continue at home metoprolol (7) Hyperlipidemia Code(s): E78.5 - Hyperlipidemia, unspecified Status: Chronic Plan: Continue at home atorvastatin 20 mg p.o. daily (8) Nutrition, metabolism, and development symptoms Code(s): R63.8 - Other symptoms and signs concerning food and fluid intake Status: Acute Plan: Fluids: tolerating PO Electrolytes: monitor and replete as needed Nutrition: heart-healthy diet Fever/pain management: Tylenol 650 mg every 4 hours as needed, [place] 5 mg (9) DVT prophylaxis Status: Acute Plan: DVT Prophylaxis: Early ambulation. Lovenox 30mg subQ q24hr <Herminia Peoples T - 12/18/17 11:40> - Assessment and Plan 72-year-old male with history of MS, hypertension, CAD, presents the ED with weakness in his legs. Weakness/ambulatory dysfunction - Neurology recommendations (12/18): cleared for d/c to inpatient rehabilitation ; spoke to patient about adjunctive steroid treatment but patient declined. - Physical Threrapy recommended short term/inpatient rehabilitation - Patient will be discharged to [facility] pending approval; case management has been consulted Orthostatic Hypotension - Standing BP 90/60 this AM - Blood pressure readings should be in standing position only - Discontinued Metoprolol medication without resolution of orthostatic hypotension - Will discontinue Doxepin and reassess Urinary tract infection - Urine culture: mixed gram-positive parisa (possible contaminant) - Discontinue IV Rocephin - Start Macrobid 100mg PO BID x 5 days (starting today) Multiple sclerosis - MRI brain, cervical spine, thoracic spine, and lumbar spine showed no acute demyelinating lesions - Continue home medication: Copaxone 20 mg Acute kidney injury - Creatinine increase today to 1.33; still within baseline range for patient - Continue adequate PO fluid intake Coronary artery disease - Continue home medication Plavix 75 mg Hypertension - Lisinopril 20mg - Metoprolol held due to orthostatic hypotension Hyperlipidemia - Continue home medication atorvastatin FEN Fluids: Adequate p.o. intake Electrolytes: monitor and replete as needed Nutrition: Regular diet GI prophylaxis: not indicated VTE prophylaxis: Early ambulation and Lovenox Disposition: Anticipated discharge to inpatient [facility] today - Prescription: Macrobid 100mg PO BID x 5 days - Case management: awaiting [place] approval for patient discharge <Herminia Peoples T - 12/18/17 11:43> - Attending Attestation The exam, history, and the medical decision-making described in the above note were completed with the assistance of the resident physician. I reviewed and agree with the findings presented. I attest that I had a [id number] encounter with the patient on the same day, and personally performed and documented my assessment and findings in the medical record. Today he feels a little stronger again and feels slightly stronger in legs on exam. He was orthostatic still severely despite discontinuing his beta brandon. Seen by neurology and continue to feel he does not need steroids. Weakness/ambulatory dysfunction - To inpatient rehab - addressing orthostasis to prevent falls Orthostatic Hypotension - Try stopping doxepin and see how he can sleep without it. - will not restart beta brandon. - next to stop will be lisinopril if needed after he leaves - recommend STANDING BPs ONLY both here and at rehab. Urinary tract infection - possibly contributing to mild MS exacerbation and weakness - change to PO bactrim to cover mixed skin parisa Multiple sclerosis - Continue home medication: Copaxone 20 mg Hypertension - Lisinopril 10mg Standing BPs very well controlled, check standing bps only Hyperlipidemia - Continue home medication atorvastatin To [facility] today. <Amador Alarcon - 12/18/17 12:17> <Herminia Peoples - Last Filed: 12/18/17 11:40> (6) Hypertension Qualifiers: Hypertension type: unspecified Qualified Code(s): I10 - Essential (primary) hypertension (7) Hyperlipidemia Qualifiers: Hyperlipidemia type: unspecified Qualified Code(s): E78.5 - Hyperlipidemia, unspecified <Amador Alarcon - Last Filed: 12/18/17 12:17> (6) Hypertension Qualifiers: Hypertension type: unspecified Qualified Code(s): I10 - Essential (primary) hypertension (7) Hyperlipidemia Qualifiers: Hyperlipidemia type: unspecified Qualified Code(s): E78.5 - Hyperlipidemia, unspecified <Herminia Peoples - Last Filed: 12/18/17 11:40> (6) Hypertension Qualifiers: Hypertension type: unspecified Qualified Code(s): I10 - Essential (primary) hypertension (7) Hyperlipidemia Qualifiers: Hyperlipidemia type: unspecified Qualified Code(s): E78.5 - Hyperlipidemia, unspecified <Amador Alarcon - Last Filed: 12/18/17 12:17> (6) Hypertension Qualifiers: Hypertension type: unspecified Qualified Code(s): I10 - Essential (primary) hypertension (7) Hyperlipidemia Qualifiers: Hyperlipidemia type: unspecified Qualified Code(s): E78.5 - Hyperlipidemia, unspecified
[2017-12-18 11:41] VITALS: BP 123/67; RESP 16; TEMP 97.6; O2SAT 99
--- NOTE | 2017-12-19 09:41 | P.DS ---
Date of admission: 12/16/17 06:45 Primary care physician: Marli Plata MD Brief History from admission: Mr. Goins is a 72-year-old white male with a past medical history of multiple sclerosis presenting to the ED after fall. He states that last night he was in the bathroom with his walker. He was trying to leave the walker and walk to the toilet when he fell on his left side. He states that he lost control in his legs. He did not trip over anything or lose his balance. He says that he feels like both legs gave out at the same time. He states that it took for about an hour for him to turn over and crawl to the bedroom to call 911. He felt like he did not have any feeling in his legs and could not stand up. He did not hit his head or lose consciousness. No shaking, no seizure-like activity, no loss of bowels or bladder, no biting of tongue. He also fell last week. He is unable to remember exactly what happened during that fall, but knows that he was at home. He thinks he fell backwards and banged his head on the floor at that time. He recently saw Dr. Plata in the office for trigeminal neuralgia and was given a prescription for carbamazepine. He states that the symptoms resolved after 2 days. No dysuria, no urinary frequency, no malodorous urine. PMH: MS CAD HTN hyperlipidemia PSH: Coronary artery stenting-2002 TURP-2011 Left popliteal artery aneurysm repair- 2017 Allergies: fexofenadine- prostate issues FHx: Mother- COPD Father- of [place] Soc Hx: Lives with himself Retired from [employer] Alcohol: doesn't drink, quit years ago Tobacco: quit, smoked for at least 40 yrs Illicit drug use: none DS: Diagnosis - Discharge Diagnosis (1) Weakness Status: Acute (2) Acute UTI Status: Acute (3) CHUN (acute kidney injury) Status: Acute (4) Multiple sclerosis Status: Chronic (5) CAD (coronary artery disease) Status: Chronic (6) Hypertension Status: Chronic (7) Hyperlipidemia Status: Chronic (8) Nutrition, metabolism, and development symptoms Status: Acute (9) DVT prophylaxis Status: Acute DS: Medications - Discharge Medications Prescriptions: nitrofurantoin monohyd/m-cryst 100 mg PO BIDPC 5 Days #10 cap DS: Summary Hospital Course: 72-year-old male with history of MS, hypertension, CAD presents to the ED lower extremely weakness on 12/16. Patient found to have UTI. Patient was started on Rocephin. Neurology consulted. Probable decompensation of MS secondary to acute UTI. Urine culture resulted in mixed gram positive parisa. Rocephin was discontinued upon discharge and patient was sent with Macrobid 100 mg p.o. twice daily for 5 days. Patient was found to have orthostatic hypotension. Metoprolol medication discontinued without resolution of orthostatic hypotension. Doxepin, which was for insomnia, was also discontinued as well. Recommended standing blood pressures only both here and at rehab. Patient to continue home medication Copaxone 20 mg for MS. Patient to continue home lisinopril 10 mg for hypertension and atorvastatin for hyperlipidemia. Patient was determined stable for discharge on 12/18 to [facility]. - Time Spent with Patient Total time spent providing and/or coordinating discharge services: Less than 30 minutes Exam Vital signs: Vital Signs 12/18/17 11:40 Temperature 97.6 F Pulse Rate 65 Respiratory Rate 16 Blood Pressure 123/67 Pulse Oximetry 99 Results Procedures completed during hospitalization: None - Impressions ITS Impressions Chest X-Ray 12/16/17 03:28 CONCLUSION: No acute cardiopulmonary disease. Head CT 12/16/17 03:28 CONCLUSION: 1. Stable noncontrast head CT. No acute intracranial abnormality is identified. 2. Stable generalized cerebral atrophy and moderate to severe periventricular white matter low-attenuation most likely representing chronic microvascular ischemia. 3. Stable 4 mm metallic foreign body in the subcutaneous fat of the left infraorbital region. . Discharge Plan - Discharge Disposition Patient Disposition: [facility] Inpatient - Discharge Condition Condition: Stable - Discharge Order Discharge Orders: Discharge Order (Routine); Ordered 12/18/17 Ordered By: Herminia Peoples - Physicians Team Primary Care Provider: Marli Plata Attending Provider: Amador Alarcon Other Providers: Napoleon Rios MD
== END 2017-12-18 15:55 ==
LOC: NEPE 03:10 → NEDA 06:45 → N04 12:07
PROVIDERS: ADMIT Family Medicine; ATTEND Family Medicine